=== PATIENT | male | born 1985 | race Caucasian/White ===

== ENCOUNTER → 2019-12-11 | Outpatient (CLI) | payer SELFPAY ==
[2019-12-11 14:52] LABS: Absolute Lymphocyte Count 2.09 X10^3/uL (0.83-4.51); Basophil# 0.05 X10^3/uL; Basophil% 0.6 % (0-1); Eosinophil# 0.19 X10^3/uL; Eosinophils% 2.4 % (0-5); Hematocrit 49.8 % (40-54); Hemoglobin 16.3 g/dL (13.0-16.5); Lymphocyte # 2.09 X10^3/ul (4.0); Lymphocyte % 26.3 % (19-41); Mean Corp Hgb Conc 32.7 g/dL (32-36); Mean Corpuscular Hgb 29.3 pg (27.0-32.0); Mean Corpuscular Volume 89.4 fL (80-94); Mean Platelet Vol. 9.9 fl (6.2-12.0); Monocyte# 0.51 X10^3/uL; Monocyte% 6.4 % (0-10); NRBC Flagged by Analyzer 0 % (0-5); Neutrophil # 5.04 X10^3/uL (2.7-7.7); Neutrophil % 63.5 % (47-70); Platelet Count 266 K/mm3 (150-450); RBC Distribution Width SD 46.8 fl (35.1-43.9); Red Blood Count 5.57 M/mm3 (4.6-6.2); White Blood Count 7.9 K/mm3 (4.4-11.0)
[2019-12-11 15:26] LABS: AST(SGOT) 13 U/L (15-37); Alanine Aminotransfer ALT/SGPT 17 U/L (16-61); Albumin, Serum 3.8 g/dL (3.2-5.0); Alkaline Phosphatase 66 U/L (45-117); Anion Gap 6 (5-15); BUN 11 mg/dL (7-18); BUN/Creat Ratio 11.4 RATIO (10-20); Chloride 108 mmol/L (98-107); Cholesterol 172 mg/dL (200); Creatinine, Serum 0.96 mg/dL (0.70-1.30); EST Glomerular Filtration Rate 95 mL/min (>60); Est Glom Filt Rate - Afr Amer 115 mL/min (>60); Globulin 3.8 g/dL (2.2-4.2); Glucose 86 mg/dL (74-106); High Density Lipoprotein 46 mg/dL; Potassium 3.9 mmol/L (3.5-5.1); Protein, Total 7.6 g/dL (6.4-8.2); Sodium Level 140 mmol/L (136-145); T4 Free Direct 0.94 ng/dL (0.76-1.46); Thyroid Stim Hormone (TSH) 0.82 uIU/mL (0.358-3.74); Triglycerides 61 mg/dL; Very Low Density Lipoprotein 12 mg/dL (5-40)
[2019-12-11 15:28] LABS: Hemoglobin A1c 5.2 % (3.8-5.6)
[2019-12-11 16:01] LABS: HIV - WCH Non-Reactive (Nonreactive); Hepatitis C Antibody Non-Reactive (Nonreactive); Vitamin D,25 Hydroxy 25.2 ng/mL
[2019-12-18 03:02] LABS: Rapid Plasmin Reagin (RPR) NONREACTIVE (NONREACTIVE)
== END | disposition home or self-care (01) ==
LOC: LABSPEC 14:00 → LAB 15:50
PROVIDERS: Referring Provider Nurse Practitioner Family; Visit Provider Nurse Practitioner Family
CPT/HCPCS: 36415; 80053; 80061; 82306; 83036; 84439; 84443; 85025; 86592; 86703; 86803

== ENCOUNTER → 2021-02-23 | Outpatient (CLI) | payer OTHER, SELFPAY | END | disposition home or self-care (01) | PROVIDERS: Referring Provider Physician Assistant; Visit Provider Physician Assistant | DX: Z11.52 Encounter for screening for COVID-19 (principal) | CPT/HCPCS: 87635; U0005; U0003 ==

== ENCOUNTER 2022-09-04 10:49 | Emergency (ER) | payer OTHER, SELFPAY ==
[2022-09-04 10:49] VITALS: BP 148/102; PULSE 57; RESP 14; TEMP 35.7; O2SAT 97
--- NOTE | 2022-09-04 11:07 | EX.ED.DYSGE1 ---
HPI History of Present Illness Chief Complaint: GI Bleed [facility] Medical History (Updated 09/04/22 @ 13:[address] Filiberto Power, DO) Anxiety COVID-19 Depression Encounter for screening for COVID-19 Herpes simplex type 1 infection Home Medications acyclovir 800 mg tablet 800 mg PO BID #60 tabs 09/01/21 [Rx Last Taken Unknown] nirmatrelvir 300 mg (150 mg x2)-ritonavir 100 mg tablet,dose pack (Paxlovid) See Rx Instructions PO .COMPLEX #30 tabs 09/01/21 [Rx Last Taken Unknown] prednisone 10 mg tablet 10 mg PO .COMPLEX #30 tabs 09/03/22 [Rx Last Taken Unknown] bupropion HCl 150 mg 24 hr tablet, extended release mg PO 09/04/22 [History Last Taken Unknown] bupropion HCl 300 mg 24 hr tablet, extended release mg PO 09/04/22 [History Last Taken Unknown] cephalexin 500 mg capsule 500 mg PO TID 5 days #15 caps 09/04/22 [Rx Last Taken Unknown] hydroxyzine HCl 25 mg tablet mg 09/04/22 [History Last Taken Unknown] ondansetron 4 mg disintegrating tablet 4 mg PO Q8H PRN nausea and vomiting 5 days #15 tabs 09/04/22 [Rx Last Taken Unknown] oxycodone 5 mg capsule 5 mg PO Q6H PRN pain 5 days #20 caps 09/04/22 [Rx Last Taken Unknown] Allergy/AdvReac Type Severity Reaction Status Date / Time No Known Allergies Allergy Verified 09/04/22 10:49 Social History Smoking Status: Former smoker EXAM Physical Exam Const Vital Signs: 09/04/22 10:49 09/04/22 12:38 09/04/22 14:06 Temperature 96.2 F L 98.1 F Temperature Source Temporal Oral Pulse Rate 57 L 68 97 Respiratory Rate 14 14 18 Blood Pressure 148/102 H 125/90 H 141/80 H Blood Pressure Mean 117 101 Pulse Ox 97 100 99 Oxygen Delivery Method Room Air Room Air MDM MDM MDM Narrative Medical decision making narrative: HISTORY OF PRESENT ILLNESS: 36-year-old male here for abdominal pain concern for GI bleeding. Patient states he is got left-sided abdominal pain rating to left flank. Denies history of kidney stones. Denies history abdominal surgeries. Notes nausea but no vomiting. Denies any chest pain or shortness of breath. Denies any testicular pain or testicular lesions. Does note increased frequency of urination and burning with urination. REVIEW OF SYSTEMS: Pertinent positives: Abdominal pain, frequency, urgency, hematochezia Pertinent negatives: Chest pain, syncope PHYSICAL EXAM: Nursing triage notes reviewed, Vital signs reviewed Constitutional: please see mdm HENT: MMM Eyes: Pupils equal round and reactive to light, Extraocular muscles intact Neck: No stridor, no JVD, full neck ROM Lungs: Clear to auscultation, No wheezing or rales. No increased work of breathing, no conversational dyspnea, no accessory muscle use, no nasal flaring. No respiratory distress noted Heart: Regular rate and rhythm, No murmurs, No rubs and No gallops, 2+ distal pulses (radial, femoral, posterior tibial) in all extremities Abdomen: Soft, there is left lower quadrant tenderness, rigidity, rebound or guarding, no obvious peritoneal signs, no palpable pulsatile abdominal masses, no auscultated abdominal bruit : Left-sided CVAT Extremities: No edema Neuro: No focal neurological deficits, cranial nerves II through XII intact, 5/5 strength in all extremities. Intact sensation to light touch in all extremities, 2+ reflexes bilateral patella tendons. Normal gait. No ataxia. Skin: No rash or lesions noted MEDICAL DECISION MAKING: Chief Complaint: Abdominal pain External records reviewed: No recent advanced imaging of the abdomen or pelvis noted Factors affecting care: none Social determinants of health: none History obtained from others: none Consults: none ALL IMAGES (IF OBTAINED) HAVE BEEN PERSONALLY REVIEWED AND INTERPRETED BY MYSELF. CBC with mild leukocytosis suggestive of systemic inflammation, no significant anemia, no thrombocytopenia BMP without significant electrolyte abnormalities, no anion gap to suggest endorgan hypoperfusion, mild renal insufficiency LFTs show no evidence of hepatobiliary pathology. Lipase is wnl indicating no pancreatic inflammation. Urine with evidence of inflammation and hematuria likely secondary to kidney stone will give antibiotics as I cannot completely rule out infection [facility] Narrative: Patient was hemodynamically stable, afebrile, nontoxic-appearing. Abdominal exam with left lower quadrant tenderness, left CVA tenderness I considered the following differential diagnosis: Diverticulitis, GI bleed, pyelonephritis, nephrolithiasis I obtained a broad lab and imaging work-up to further elucidate the etiology of the patient's complaint. CT scan showed evidence of nephrolithiasis. This is likely the cause of the patient's left lower quad abdominal pain/flank pain. Kidney stone is small and distal and likely will pass on its own. He was also subsequently found to have a GI bleed without significant anemia. He is not currently on blood thinners. He is not at high risk he is appropriate for follow-up with GI as an outpatient. I did give the patient oral narcotics, Zofran, tamsulosin. I gave GI referral. The patient and/or family, caregivers express understanding. The patient and/or family, caregivers agrees with the plan. Total critical care time today provided was at least 0 minutes. This excludes separately billable procedures. Critical care time (if documented) is secondary to the patient having high probability of clinically significant/life threatening deterioration in the patient's condition which required my urgent intervention. Shared decision making: I will have a discussion with the patient and or visitors regarding risk/benefits of further testing or admission. They will be made aware of of the risk/benefits inherent in this decision they will be given the opportunity to voice understanding. Lab Data Attestation: I reviewed the patient's lab results. Labs: Laboratory Results - last 24 hr 09/04/22 11:50 WBC 11.2 H RBC 5.37 Hgb 15.5 Hct 47.2 MCV 87.9 MCH 28.9 MCHC 32.8 RDW Std Deviation 44.0 H RDW Coeff of Larry 13.7 Plt Count 254 MPV 9.5 Immature Gran % (Auto) 1.200 H Neut % (Auto) 77.2 H Lymph % (Auto) 14.9 L [place] % (Auto) 6.0 Eos % (Auto) 0.3 Baso % (Auto) 0.4 Absolute Neuts (auto) 8.7 H Absolute Lymphs (auto) 1.68 Nucleated RBC % 0 Sodium 141 Potassium 4.2 Chloride 111 H Carbon Dioxide 26.0 Anion Gap 4 L BUN 19 H Creatinine 1.51 H Estim Creat Clear Calc 79.39 Est GFR (MDRD) Af Amer 68 Est GFR (MDRD) Non-Af 56 L BUN/Creatinine Ratio 12.6 Glucose 110 H Calcium 9.0 Total Bilirubin 0.20 Direct Bilirubin 0.09 AST 20 ALT 33 Alkaline Phosphatase 89 Total Protein 7.5 Albumin 3.6 Globulin 3.9 Lipase 43 Urine Color Yellow Urine Clarity Sl. Cloudy Urine pH 5.0 Ur Specific [place] 1.030 Urine Protein 30 H Urine Glucose (UA) Normal Urine Ketones 15 H Urine Occult Blood 250 H Urine Nitrite Negative Urine Bilirubin Negative Urine Urobilinogen 4 H Ur Leukocyte Esterase 100 H Urine RBC > 100 SEEN Urine WBC 0-5 SEEN Ur Squamous Epith Cells 0-5 SEEN Calcium Oxalate Crystal 1+ Urine Bacteria 0 SEEN Urine Mucus 0 SEEN Radiography Diagnostic Testing: Clinical Impression(s) from Imaging Studies Abdomen/Pelvis CT 09/04/22 11:33 IMPRESSION: Mild degree of left hydronephrosis and hydroureter due to a recently passed 2 mm calculus. The calculus is lying along the posterior aspect of the bladder on the left side. Tiny nonobstructive left intrarenal calculi. Electronically Signed: Raul Bah MD at 13:32 EDT , Discharge Plan Triage Chief Complaint: GI Bleed Other Complaint: Abd Pain ED Provider: iFliberto Power Dx/Rx/DC Orders Clinical Impression: Kidney stone, Acute GI bleeding Instructions: ED Kidney Stone Undescended No ..., ED Lower GI Bleeding (Stable) Prescriptions: New oxycodone 5 mg capsule 5 mg PO Q6H PRN (Reason: pain) 5 Days Qty: 20 0RF ondansetron 4 mg tablet,disintegrating 4 mg PO Q8H PRN (Reason: nausea and vomiting) 5 Days Qty: 15 0RF cephalexin 500 mg capsule 500 mg PO TID 5 Days Qty: 15 0RF No Action acyclovir 800 mg tablet 800 mg PO BID Qty: 60 0RF Paxlovid 300 mg (150 mg x 2)-100 mg tablet See Rx Instructions PO .COMPLEX Qty: 30 0RF Rx Instructions: take TWO 150 mg tablets of nirmatrelvir with ONE 100 mg tablet of ritonavir twice daily for 5 days PO prednisone 10 mg tablet 10 mg PO .COMPLEX Qty: 30 0RF Rx Instructions: Take 4 pills for 3 days, 3 pills for 3 days, 2 pills for 3 days, take 1 pill for 3 days hydroxyzine HCl 25 mg tablet bupropion HCl 300 mg tablet extended release 24 hr PO bupropion HCl 150 mg tablet extended release 24 hr PO Stand Alone Forms: ED Work / School Excuse Primary Care Provider: Nya Santillan Referrals: Friend,DO Ishan [[facility] Staff - Active Staff] - [facility] [Non-Staff] - Activity Restrictions/Additional Instructions: Thank you for trusting us with your care today! Please take Tylenol (2 pills, 650 mg), ibuprofen (2 pills, 400 mg) every 6 hours as needed for pain and fever control. Please take oxycodone every 6 hours for breakthrough pain if the above regimen does not control your symptoms. Please take your antibiotic as prescribed. Please finish entire course. Please return to the emergency department if your symptoms change or worsen. Specifically do not urinate for greater than 12 hours, your pain is not controlled by the oral medicines that been prescribed or if you develop vomiting cannot tolerate oral medicines by mouth. Please follow with your primary care physician for further outpatient evaluation and management. Disposition Disposition: Home, Self Care Discharge Date/Time: 09/04/22 14:11
--- NOTE | 2022-09-04 11:33 | CT_ITS ---
STUDY: CT ABDOMEN AND PELVIS WITH CONTRAST REASON FOR EXAM: Male, 36 years old. LLQ abdominal pain. GI bleed. RADIATION DOSAGE (If Supplied By Facility): CTDIvol = ( 14.00 ) mGy, DLP = ( 1223.50 ) mGycm TECHNIQUE: Transaxial images were obtained from the dome of the diaphragm to the symphysis pubis without oral contrast. IV 100mL Isovue-300 was administered. Sagittal and coronal images were reconstructed. Individualized dose optimization techniques were used for this CT. COMPARISON: None. FINDINGS: The visualized lung bases are unremarkable. The visualized portions of the heart are within normal limits. Normal liver. Normal gallbladder and extrahepatic biliary system. Normal spleen. Normal pancreas. Normal bilateral adrenal glands. 2 mm nonobstructive calculus in the anterior aspect of the right kidney superiorly. Punctate calculus in the posterior lower pole calyx of the left kidney. Punctate calculus in the anterior midpole calyx of the left kidney. Mild degree of left perinephric stranding. Mild degree of left hydronephrosis and left hydroureter. A 2 mm calculus is seen at the base of the bladder on the left side. This is suggestive of recently passed calculus. Normal visualized stomach. Normal small intestine. Normal colon. The appendix is visualized and appears normal. There is scattered atherosclerotic calcification of the abdominal aorta, without a demonstrated aneurysm. Normal inferior vena cava. Normal retroperitoneum. Mild degree of bladder wall thickening although the lateral is not completely distended. Small benign-appearing bilateral inguinal lymph nodes. Normal abdominal wall. Normal osseous structures. CT/Abdomen/Pelvis W IV Cont ONLY IMPRESSION: Mild degree of left hydronephrosis and hydroureter due to a recently passed 2 mm calculus. The calculus is lying along the posterior aspect of the bladder on the left side. Tiny nonobstructive left intrarenal calculi. Electronically Signed: Raul Bah MD at 13:32 EDT ,
[2022-09-04] MEDS: 0.9% Normal Saline 1,000 ML 1000 ML IV (11:46)
[2022-09-04] MEDS: Ondansetron 4 MG/2 ML Vial IV (11:47)
[2022-09-04] MEDS: Morphine 4 MG/ML Syringe IV (11:48)
[2022-09-04 11:57] LABS: Bacteria 0 SEEN /hpf (None Seen); Mucous, Urine 0 SEEN /hpf (<or=2+)
[2022-09-04 12:01] LABS: Absolute Lymphocyte Count 1.68 X10^3/uL (0.83-4.51); Absolute Neutrophil Count 8.7 X10^3/uL (2.0-7.7); Basophil# 0.05 X10^3/uL; Basophil% 0.4 % (0-1); Eosinophil# 0.03 X10^3/uL; Eosinophils% 0.3 % (0-5); Hematocrit 47.2 % (40-54); Hemoglobin 15.5 g/dL (13.0-16.5); Lymphocyte # 1.68 X10^3/ul (0.83-4.51); Lymphocyte % 14.9 % (19-41); Mean Corp Hgb Conc 32.8 g/dL (32-36); Mean Corpuscular Hgb 28.9 pg (27.0-32.0); Mean Corpuscular Volume 87.9 fL (80-94); Mean Platelet Vol. 9.5 fl (6.2-12.0); Monocyte# 0.68 X10^3/uL; NRBC Flagged by Analyzer 0 % (0-5); Neutrophil # 8.66 X10^3/uL (2.7-7.7); Neutrophil % 77.2 % (47-70); Platelet Count 254 K/mm3 (150-450); RBC Distribution Width CV 13.7 % (11.6-14.6); Red Blood Count 5.37 M/mm3 (4.6-6.2); White Blood Count 11.2 K/mm3 (4.4-11.0)
[2022-09-04 12:06] LABS: Color, Urine Yellow (Yellow); Glucose, Dipstick Normal (Normal); Ketone-Dipstick 15 mg/dl (Negative); Leukocyte Esterase-Dipstick 100 /ul (Negative); Nitrite-Dipstick Negative (Negative); Occult Blood-Urine 250 /ul (Negative); Protein-Dipstick 30 mg/dl (Negative); Urine Bilirubin Dipstick Negative (Negative); Urine Clarity Sl. Cloudy (Clear); Urine Urobilinogen 4 mg/dl (Normal)
[2022-09-04 12:14] LABS: Red Blood Cells-Urine > 100 SEEN /hpf (0-5); Squamous Epithelial Cells - UA 0-5 SEEN /hpf (0-5); White Blood Cells 0-5 SEEN /hpf (0-5)
[2022-09-04 12:15] LABS: Calcium Oxalate Crystals Ur 1+ /hpf (<or=2+)
[2022-09-04 12:23] LABS: AST(SGOT) 20 U/L (15-37); Alanine Aminotransfer ALT/SGPT 33 U/L (16-61); Albumin, Serum 3.6 g/dL (3.2-5.0); Alkaline Phosphatase 89 U/L (45-117); Anion Gap 4 (5-15); BUN 19 mg/dL (7-18); BUN/Creat Ratio 12.6 RATIO (10-20); Bilirubin, Direct 0.09 mg/dL (0.00-0.30); Chloride 111 mmol/L (98-107); Creatinine, Serum 1.51 mg/dL (0.70-1.30); EST Glomerular Filtration Rate 56 mL/min (>60); Est Glom Filt Rate - Afr Amer 68 mL/min (>60); Estimated Creatinine Clearance 79.39 ml/min; Globulin 3.9 g/dL (2.2-4.2); Glucose 110 mg/dL (74-106); Lipase 43 U/L (13-75); Potassium 4.2 mmol/L (3.5-5.1); Protein, Total 7.5 g/dL (6.4-8.2); Sodium Level 141 mmol/L (136-145)
[2022-09-04 12:38] VITALS: BP 125/90; PULSE 68; RESP 14; TEMP 36.7; O2SAT 100
[2022-09-04] MEDS: 0.9% Normal Saline 1,000 ML 999 ML IV (12:39)
[2022-09-04 14:06] VITALS: BP 141/80; PULSE 97; RESP 18; O2SAT 99
== END 2022-09-04 14:11 | disposition home or self-care (01) ==
PROVIDERS: Emergency Provider Emergency Medicine; PCP Internal Medicine; Visit Provider Emergency Medicine
DX: N13.2 Hydronephrosis with renal and ureteral calculous obstruction (principal); R35.0 Frequency of micturition; Z87.891 Personal history of nicotine dependence
CPT/HCPCS: 74177; 80048; 80076; 81001; 82274; 83690; 85025; 96361; 96374; 96375; 99283; J7030; Q9967; J2405

== ENCOUNTER 2024-10-25 13:22 | Emergency (ER) | payer OTHER, SELFPAY ==
[2024-10-25 13:23] VITALS: BP 137/104; PULSE 67; RESP 16; TEMP 37.2; O2SAT 100; BMI 30.6
[2024-10-25 14:23] VITALS: BP 148/85; PULSE 65; RESP 18; O2SAT 99
--- NOTE | 2024-10-25 14:24 | ED.VIS.GI ---
HPI HPI - GI History of Present Illness Chief Complaint: Abd Pain Detail of Chief Complaint: Right flank pain around 11 AM. History of prior kidney stone. Informant: patient Abdominal Pain/Flank Pain Onset: Today and Hours Quality: Sharp Location: Right Flank Current Severity: Moderate Maximum Severity: Moderate Worsened by: Nothing Relieved by: Nothing Nausea/Vomiting/Emesis GI Symptom: Positive for Nausea and Vomiting Onset: Today Severity: Mild Diarrhea/Melena/Hematochezia GI Symptom: Negative for Diarrhea, Melena or Hematochezia Associated Symptoms Associated Symptoms: Negative for Dysuria, Frequency, Hematuria or Urgency Narrative Narrative: 39-year-old male complains of the right flank pain 11 AM today. Associated nausea vomiting. No fever. No diarrhea. No dysuria. Prior kidney stone but said he did not feel anything like this pain. No prior abdominal surgeries. Denies recent illness. Prior similar symptoms: No Recent Illness/Hospitalization: No PFSH [facility] Medical History Anxiety Depression Herpes simplex type 1 infection COVID-19 Encounter for screening for COVID-19 Home Medications ?Medication ?Instructions ?Recorded ?Last Taken ?Type acyclovir 800 mg tablet 800 mg PO BID #60 tabs 09/01/21 Unknown Rx nirmatrelvir 300 mg (150 mg See Rx Instructions PO .COMPLEX 09/01/21 Unknown Rx x2)-ritonavir 100 mg tablet,dose #30 tabs pack (Paxlovid) prednisone 10 mg tablet 10 mg PO .COMPLEX #30 tabs 09/03/22 Unknown Rx bupropion HCl 150 mg 24 hr tablet, mg PO 09/04/22 Unknown History extended release bupropion HCl 300 mg 24 hr tablet, mg PO 09/04/22 Unknown History extended release cephalexin 500 mg capsule 500 mg PO TID 5 days #15 caps 09/04/22 Unknown Rx hydroxyzine HCl 25 mg tablet mg 09/04/22 Unknown History ondansetron 4 mg disintegrating 4 mg PO Q8H PRN nausea and 09/04/22 Unknown Rx tablet vomiting 5 days #15 tabs oxycodone 5 mg capsule 5 mg PO Q6H PRN pain 5 days #20 09/04/22 Unknown Rx caps ondansetron 8 mg disintegrating 8 mg PO Q8H PRN nausea and 10/25/24 Unknown Rx tablet vomiting #7 tabs oxycodone 5 mg tablet 5 mg PO Q4H PRN pain 3 days #12 10/25/24 Unknown Rx tabs tamsulosin 0.4 mg capsule (Flomax) 0.4 mg PO DAILY 3 days #3 caps 10/25/24 Unknown Rx Allergy/AdvReac Type Severity Reaction Status Date / Time No Known Allergies Allergy Verified 10/25/24 13:24 Social History Smoking Status: Former smoker ROS ROS ED ROS Narrative Right flank pain. Nausea vomiting. Constitutional Constitutional ED: Denies chills or fever(s) ENT ENT ED: Denies ear pain Cardiovascular Cardiovascular: Denies chest pain Respiratory/Chest Respiratory/Chest: Denies cough or dyspnea Gastrointestinal Gastrointestinal: Reports abdominal pain, nausea and vomiting; Denies constipation, diarrhea or melena Genitourinary Genitourinary ED: Denies dysuria or hematuria Musculoskeletal Musculoskeletal: Denies arthralgias or back pain Integumentary Denies abscess or Abrasions Neurologic Neurologic: Denies headache(s) Psychiatric Psychiatric: Denies anxiety or depression Endocrine Endocrinology: Denies polydipsia or polyphagia Hematologic/Lymphatic Hematologic/Lymphatic: Denies easy bleeding or easy bruising Allergic/Immunologic Allergic/Immunologic ED: Denies mouth swelling, tongue swelling or urticaria EXAM Physical Exam Narrative Exam Narrative: 39-year-old male lying in bed at bedside. Vital signs stable afebrile. Does not look septic or toxic. He is complaining of right flank pain. H EENT exam pupils round react light. moist mucous membranes. Members. Neck nontender no JVD. Lungs clear to auscultation bilaterally. Heart regular rhythm no murmur rate about 70. Chest wall ribs nontender. Abdomen soft, nontender nondistended normal bowel sounds no reproducible pain. No peritoneal signs. No bruising. Back nontender. No CVA tenderness. Moving all 4 extremities. Nontender no edema no cords. Neurologically is awake alert. Answer questions following commands. Const Vital Signs: 10/25/24 13:23 10/25/24 14:23 10/25/24 15:00 Temperature 98.9 F Temperature Source Oral Pulse Rate 67 65 59 L Respiratory Rate 16 18 22 H Blood Pressure 137/104 H 148/85 H 134/85 H Blood Pressure Mean 115 106 101 Pulse Ox 100 99 97 Oxygen Delivery Method Room Air Room Air Room Air 10/25/24 15:25 Temperature Temperature Source Pulse Rate 63 Respiratory Rate 16 Blood Pressure 134/87 H Blood Pressure Mean 102 Pulse Ox 96 Oxygen Delivery Method Room Air Positive well nourished and well developed; Negative for cachectic, contractures or unkempt General Appearance ED: well developed and NAD; Negative for unkempt, cachectic, contractures or pallor Nutritional Appearance: Negative for cachectic HEENT Reports moist mucous membranes normocephalic and atraumatic Eyes PERRL and EOMs intact bilaterally Neck no lymphadenopathy, supple and no JVD Resp normal respiratory effort and clear to auscultation bilaterally Cardio regular rate, regular rhythm, S1 normal heart sound, S2 normal heart sound and no murmurs GI non-tender, non-distended and no masses Auscultation: normoactive bowel sounds Palpation: soft; Negative for tender, guarding, hernia, mass, pulsatile mass or rebound tenderness present Back/Spine no CVA tenderness General Back: Negative for CVA tenderness Cervical Spine: Negative for cervical spine tenderness Thoracic Spine / Upper Back: Negative for thoracic spinal tenderness Lumbar Spine / Lower Back: Negative for lumbar spinal tenderness Extremity full ROM General Extremety ED: Negative for edema or tenderness General Extremity: Negative for edema Neuro CN's II-XII intact bilaterally, moves all extremities and no sensory deficits noted Sensorium / Orientation: alert, oriented to person, oriented to place and oriented to time Motor Exam: strength 5/5 throughout Psych mental status grossly normal and thought process normal Appearance: Negative for unkempt Skin no wounds General Skin Exam: Negative for jaundice or pallor Lesions: no lesions Rashes: no rashes MDM MDM MDM Narrative Medical decision making narrative: 39-year-old male right flank pain suspect kidney stone. Treated with morphine, Toradol and Zofran. IV fluids. CAT scan labs. Repeat exam around 3:20 PM. Patient is pain is resolved currently is resting comfortably while waiting on the official CT report. I think he is got a distal right ureteral calculi. His labs are unremarkable. He has not given a urine sample yet. History & Record Review Discussion w/independent historian: Patient and Family Additional record(s) reviewed:: Prior inpatient record, Prior outpatient record, Prior ED visit and Prior labs Lab Data Attestation: I reviewed the patient's lab results. Lab results narrative: CBC normal. White count 9. H&H 15 and 44. CAT scan looks like a distal right ureteral calculi awaiting official read. Chemistry shows sodium 139. Gap 13. BUN/creatinine normal. Liver enzymes normal. Lipase normal at 26. Urinalysis shows 250 occult blood in the macro no nitrates. Notable white cells. Greater than 100 red cells. 2+ bacteria. Labs: Laboratory Results - last 24 hr 10/25/24 10/25/24 13:32 15:47 WBC 9.9 RBC 5.26 Hgb 15.3 Hct 44.6 MCV 84.8 MCH 29.1 MCHC 34.3 RDW Std Deviation 42.6 RDW Coeff of Larry 13.8 Plt Count 282 MPV 10.2 Immature Gran % (Auto) 0.600 Neut % (Auto) 70.4 H Lymph % (Auto) 19.1 [place] % (Auto) 7.9 Eos % (Auto) 1.6 Baso % (Auto) 0.4 Absolute Neuts (auto) 7.0 Absolute Lymphs (auto) 1.89 Nucleated RBC % 0 Sodium 139 Potassium 3.9 Chloride 105 Carbon Dioxide 20.4 L Anion Gap 13 BUN 16 Creatinine 1.14 Estim Creat Clear Calc 118.24 Est GFR (MDRD) Non-Af 83 BUN/Creatinine Ratio 13.6 Glucose 105 H Calcium 9.4 Total Bilirubin 0.33 AST 21 ALT 18 Alkaline Phosphatase 75 Total Protein 7.2 Albumin 4.2 Globulin 3.0 Albumin/Globulin Ratio 1.4 Lipase 26 Urine Color Yellow Urine Clarity Sl. Cloudy Urine pH 6.0 Ur Specific [place] 1.015 Urine Protein 30 H Urine Glucose (UA) Normal Urine Ketones Negative Urine Occult Blood 250 H Urine Nitrite Negative Urine Bilirubin Negative Urine Urobilinogen Normal Ur Leukocyte Esterase Negative Urine RBC > 100 SEEN Urine WBC 0-5 SEEN Ur Squamous Epith Cells 0-5 SEEN Urine Bacteria 2+ Urine Mucus 1+ Discharge Plan Triage Chief Complaint: Abd Pain ED Provider: Mario Alberto Blankenship Dx/Rx/DC Orders Clinical Impression: Acute flank pain, Kidney stone Instructions: ED Kidney Stone with Pain Prescriptions: New oxycodone 5 mg tablet 5 mg PO Q4H PRN (Reason: pain) 3 Days Qty: 12 0RF ondansetron 8 mg tablet,disintegrating 8 mg PO Q8H PRN (Reason: nausea and vomiting) Qty: 7 0RF tamsulosin [Flomax] 0.4 mg capsule 0.4 mg PO DAILY 3 Days Qty: 3 0RF No Action acyclovir 800 mg tablet 800 mg PO BID Qty: 60 0RF Paxlovid 300 mg (150 mg x 2)-100 mg tablet See Rx Instructions PO .COMPLEX Qty: 30 0RF Rx Instructions: take TWO 150 mg tablets of nirmatrelvir with ONE 100 mg tablet of ritonavir twice daily for 5 days PO prednisone 10 mg tablet 10 mg PO .COMPLEX Qty: 30 0RF Rx Instructions: Take 4 pills for 3 days, 3 pills for 3 days, 2 pills for 3 days, take 1 pill for 3 days hydroxyzine HCl 25 mg tablet bupropion HCl 300 mg tablet extended release 24 hr PO bupropion HCl 150 mg tablet extended release 24 hr PO oxycodone 5 mg capsule 5 mg PO Q6H PRN (Reason: pain) 5 Days Qty: 20 0RF ondansetron 4 mg tablet,disintegrating 4 mg PO Q8H PRN (Reason: nausea and vomiting) 5 Days Qty: 15 0RF cephalexin 500 mg capsule 500 mg PO TID 5 Days Qty: 15 0RF Primary Care Provider: Nya Santillan Referrals: Joel Oglesby MD [Med Staff - Active Staff] - 3-5 Days if not improving Nya Santillan MD [Primary Care Provider] - Activity Restrictions/Additional Instructions: Plenty of fluids and rest. Motrin and oxycodone for pain. Return if increasing pain, fever or intractable vomiting. Zofran as needed for nausea. Flomax 1 pill daily to help the stone pass. Print Language: Irish Disposition Disposition: Home, Self Care
[2024-10-25] MEDS: Ketorolac 30 MG/ML Syringe IV (14:30)
[2024-10-25] MEDS: 0.9% Normal Saline (1000mL) 1,000 ML 999 ML IV (14:30)
--- NOTE | 2024-10-25 14:37 | CT_ITS ---
PROCEDURE: ABDOMEN/PELVIS WITHOUT CONT 10/25/2024 REASON FOR EXAM: PAIN TECHNIQUE: Procedure Code: CTABD PEL Modality: CT Procedure: ABDOMEN/PELVIS WITHOUT CONT Noncontrast technique limits evaluation of the abdominal and pelvic viscera. Coronal and Sagittal reconstruction series were provided. One or more dose reduction techniques were used (e.g., Automated exposure control, adjustment of the mA and/or kV according to patient size, use of iterative reconstruction technique). RADIATION DOSE SUMMARY: CTDlvol: 16.51 and 10.11 mGy DLP: 1045.77 mGycm COMPARISON: CT 09/04/2022 FINDINGS: Lung bases: Clear. Liver: Normal Gallbladder: Unremarkable Spleen: Normal Pancreas: Normal Adrenals: Normal Kidneys: Multiple nephroliths 4-5 mm in size. In the distal 3rd of the right ureter there is a 4 mm stone causing mild hydroureteronephrosis Bladder: Unremarkable Reproductive Organs: Normal Bowel: Unremarkable Appendix: Normal Lymph nodes: No lymphadenopathy Vasculature: Occasional calcific plaques Peritoneum / Retroperitoneum: No free air or free fluid Bones: No aggressive process CT/Abdomen/Pelvis without Cont IMPRESSION: A 4 mm urolith is identified in the distal 3rd of the right ureter producing mi ld hydroureteronephrosis Three 4 mm nonobstructing nephroliths left kidney Reading [facility]
--- OUTSIDE RECORDS SUMMARY | 2024-10-25 14:45 | XMS RPT_ITS | CCD ---
Author Organization [facility] Care Team Providers Care Puppet Developer Name Role Phone Derek Birmingham Unavailable Unavailable PROVIDER, UNKNOWN Unavailable Unavailable No, PCP Unavailable Unavailable Unavailable Primary Care Provider Unavailabl e Deven Santillan MD Primary Care Provider Deven Santillan MD Primary Care Provider [facility], Linda Chaney Primary Care Pro vider [facility], Linda Chaney Referring Provid er MAO Wells Attending Provider [facility], Linda Chaney Primary Care Unavailable [facility], Linda Chaney Referring Unavailable Gissell Wells Attending Unavail able Filiberto Power Attending Unavailable Talampdung, Deven D Primary Care Unavailable Deven Santillan MD Primary Care Provider Hager PASTRY MIXER.UNDERGRADUATE INTERN, Misa Unavailable Vishal PASTRY MIXER.ELECTRIC RAZOR ASSEMBLER, Rosario Unavailable Hager PASTRY MIXER.UNDERGRADUATE INTERN, Misa Unavailable Hager PASTRY MIXER.UNDERGRADUATE INTERN, Misa Unavailable HAGER, MISA Attending Unavailable HAGER, MISA Referring Unavailable TALAMPAS, DEVEN D Primary Care Unavailable JOSE J HORN Attending Unavailable HAGER, MISA Referring Unavailable TALAMPAS, DEVEN D Primary Care Unavailable ROSARIO MOFFETT Attending Unavailable TALAMPAS, DEVEN D Primary Care Unavailable ROSARIO MOFFETT Referring Unavailable TALAMPAS, DEVEN D Primary Care Unavailable HAGER MISA Attending Unavailable TALAMPAS, DEVEN D Primary Care Unavailable HAGER, MISA Referring Unavailable TALAMPAS, DEVEN D Primary Care Unavailable Allergies Allergy Classification Reported Allergen(s) Allergy Type Date of Onset Reaction(s) Facility Mold Extract (1 source) Mold Extract Drug Allergy 2 Unknown [facility] Pollen (1 source) Pollen Substance Allergy 2 Unknown [facility] (20 sources) Mold Extract; Translations: [MOLD] Drug Allergy 2 Unknown [facility] Work Phone: (20 sources) Pollen; Translations: [POLLEN EXTRACTS] Drug Allergy 2 Unknown [facility] Work Phone: (20 sources) Seasonal allergy; Translations: [SEASONAL ALLERGIES] Allergy to substance 2 Other: See Comments [facility] Work Phone: (20 sources) Cat Dander; Translations: [CAT DANDER] Drug Allergy 2 Other: See Comments [facility] Work Phone: Medications Current Medications Medication Drug Class(es) Dates Sig (Normalized) Sig (Original) acyclovir 400 mg oral tablet (20 sources) Herpesvirus Nucleoside Analog DNA Polymerase Inhibitor, Herpes Simplex Virus Nucleoside Analog DNA Polymerase Inhibitor, Herpes Zoster Virus Nucleoside Analog DNA Polymerase Inhibitor Start: 06-30-2022 End: 05-19-2024 take 1 tablet by mouth twice daily acyclovir (ZOVIRAX) 400 mg tablet Take 1 tablet by mouth two times a day. 180 tablet 3 05/19/2024 Active Start: 10-24-2021 take 1 tablet by cindy th twice daily acyclovir (ZOVIRAX) 400 mg tablet Take 1 tablet by mouth twice daily. 180 tablet 3 10/24/2021 Active Start: 09-01-2021 End: 10-24-2021 take 1 tablet by mouth twice daily acyclovir (ZOVIRAX) 800 mg tablet Take 800 mg by mouth twice daily. 0 09/01/2021 10/24/2021 Discontinued (Adjust Sig - Block E-Cancel) Start: 06-14-2021 End: 07-14-2021 take 1 tablet by mouth twice daily acyclovir (ZOVIRAX) 800 mg tablet Take 1 tablet by mouth twice daily. 60 tablet 1 06/14/2021 07/14/2021 Active Comment on above: Take 1 tablet by cindy th twice daily. Take 800 mg by mouth twice daily. Take 1 tablet by cindy th two times a day. [id number] 200 actuat albuterol 0.09 mg/actuat metered dose inhaler (5 sources) beta2-Adrenergic Agonist Start: 025 take 2 puff(s) by inhalation every four hours as needed for wheezing and cough albuterol HFA (PROVENTIL HFA, VENTOLIN HFA) 90 mcg/actuation inhaler Indications: SOBOE (shortness of breath on exertion) Inhale 2 puffs as instructed every 4 hours as needed for wheezing/shortness of breath (and cough). 18 g 1 06/19/2024 Active ascorbic acid 500 mg oral tablet (20 sources) Vitamin C take 1 tablet by mouth once daily ascorbic acid, vitamin C, (VITAMIN C) 500 mg tablet Take 500 mg by mouth once daily. Active Comment on above: Take 500 mg by mouth once daily. budesonide 0.032 mg/actuat metered dose nasal spray (5 sources) Corticosteroid Start: 025 End: 026 take 1 spray(s) nasal route once daily budesonide (RHINOCORT AQ) 32 mcg/actuation nasal spray Indications: Non-seasonal allergic rhinitis, unspecified trigger Use 1 spray in each nostril once daily. 8.6 g 2 06/19/2024 06/19/2025 Active 24 hr buPROPion hydrochloride 300 mg extended release oral tablet (20 sources) Aminoketone Start: Bupropion Hcl Active MG PO September 04, 2022 12:00am Start: 09-04-2022 Bupropion Hcl Active MG PO September 04, 2022 12:00am Start: 01-07-2021 take 1 tablet by cindy th once daily buPROPion XL (WELLBUTRIN XL) 150 mg 24 hr tablet Take 1 tablet by mouth once daily. With 300 MG. 01/07/2021 Active Start: 01-07-2021 take 1 tablet by cindy th once daily buPROPion XL (WELLBUTRIN XL) 300 mg 24 hr tablet Take 1 tablet by mouth once daily. With 150 MG. 01/07/2021 Active Comment on above: Take 1 tablet by cindy th once daily. With 150 MG. Take 1 tablet by cindy th once daily. With 300 MG. busPIRone hydrochloride 10 mg oral tablet (20 sources) Start: 10-10-2021 busPIRone (BUSPAR) 10 mg tablet TAKE 1/2 TABLET TO 2 TABLETS BY MOUTH ONCE DAILY NEEDED 10/10/2021 Active Comment on above: TAKE 1/2 TABLET TO 2 TABLETS BY MOUTH ONCE DAILY NEEDED calcium acetate (20 sources) CALCIUM ACETATE ORAL Take by mouth. Active CALCIUM ACETATE ORAL Take by mouth. 0 Active Comment on above: Take by mouth. cholecalciferol 0.05 mg oral capsule (7 sources) Vitamin D Start: 01-02-20 take 1 capsule by mouth once daily Cholecalciferol, Vitamin D3, 50 mcg (2,000 unit) cap Indications: Vitamin D deficiency Take 1 capsule by mouth once daily. 90 capsule 3 01/02/2024 Active ciclopirox 7.7 mg/ml topical cream (11 sources) Start: 06-21-19 ciclopirox (LOPROX) 0.77 % cream Apply 1 application to affected area two times a day. 90 g 2 06/21/2023 Active diclofenac sodium 75 mg delayed release oral tablet (11 sources) Nonsteroidal Anti-inflammatory Drug Start: 07-18-19 take 1 tablet by mouth twice daily as needed for pain diclofenac, EC, (VOLTAREN) 75 mg EC tablet Take 1 tablet by mouth two times a day. as needed for pain/inflammation. Take with food. 60 tablet 1 07/17/2024 Active Start: 05-24-2023 End: 08-22-2023 Diclofenac Sodium 3 % gel Ap ply 0.5 g to affected area once daily as needed. 100 g 05/24/2023 08/22/2023 Start: 01-01-2023 diclofenac sod ium 1 % kit Apply 1 Application to affected area once daily. 1 Kit 2 01/01/2023 Active Comment on above: Apply 1 Application to affected area once daily. Apply 0.5 g to affec primo area once daily as needed. fluticasone propionate 0.05 mg/actuat metered dose nasal spray (20 sources) Corticosteroid take 1 spray(s) nasal route once daily fluticasone (FLONASE) 50 mcg/actuation nasal spray Use 1 [employer] in each nostril once daily. Active Comment on above: Use 1 [employer] in each nostril once daily. hydrOXYzine hydrochloride 25 mg oral tablet (20 sources) Antihistamine Start: 09-05-19 Hydroxyzine Hcl Active MG September 04, 2022 12:00am Start: 01-07-2021 take 1 tablet by cindy th twice daily hydrOXYzine HCl (ATARAX) 25 mg tablet Take 1 tablet by mouth twice daily. 01/07/2021 Active Comment on above: Take 1 tablet by cindy th twice daily. lidocaine 0.05 mg/mg medicated patch (20 sources) Antiarrhythmic, Amide Local Anesthetic Start: 09-08-19 End: 01-02-20 apply 1 dose transdermal route every twelve hours lidocaine (LIDODERM) 5 % Indications: Neck pain, musculoskeletal , Chronic bilateral thoracic back pain Apply 1 Patch as directed every 12 hours. Remove old patch prior to placing new patch. 30 Patch 2 01/01/2023 Active Comment on above: Apply 1 Patch as dir ected every 12 hours. Remove old patch prior to placing new patch. veanpdiy-elk-rpaw c-vit K-lycop (ONE-A-DAY MEN'S MULTIVITAMIN) 400-20-300 mcg tab (20 sources) xtnjzdmw-kui-irt ic-vit K-lycop (ONE-A-DAY MEN'S MULTIVITAMIN) 400-20-300 mcg tab Take by mouth. Active znltdcel-ehp-fts ic-vit K-lycop (ONE-A-DAY MEN'S MULTIVITAMIN) 400-20-300 mcg tab Take by mouth. 0 Active Comment on above: Take by mouth. Nirmatrelvir-Ritona vir (1 source) Start: 2 Nirmatrelvir-Ritonavi r (Paxlovid (Eua)) 300 mg (150 mg x 2)-100 mg tablet Active 0 PO .COMPLEX September 01, 2021 12:00am take TWO 150 mg tablets of nirmatrelvir with ONE 100 mg tablet of ritonavir twice daily for 5 days PO omeprazole 20 mg delayed release oral capsule (20 sources) Proton Pump Inhibitor Start: 4 take 1 capsule by mouth once daily before breakfast omeprazole (PRILOSEC) 20 mg capsule Take 1 capsule by mouth daily before breakfast. 90 capsule 1 03/19/2023 Active Start: 09-07-2022 End: 11-03-2022 take 1 capsule by mouth once daily before breakfast omeprazole (PRILOSEC) 20 mg capsule Take 1 capsule by mouth daily before breakfast. 90 capsule 1 11/03/2022 Active Comment on above: Take 1 capsule by mo [facility] daily before breakfast. oxyCODONE hydrochloride 5 mg oral capsule (1 source) Opioid Agonist Start: take 5 mg by mouth every six hours Oxycodone Active 5 MG PO EVERY 6 HOURS 20 September 04, 2022 predniSONE 10 mg oral tablet (1 source) Start: Prednisone Active 10 MG PO .COMPLEX September 03, 2022 12:00am Take 4 pills for 3 days, 3 pills for 3 days, 2 pills for 3 days, take 1 pill for 3 days pregabalin 75 mg oral capsule (2 sources) Start: End: take 1 capsule by mouth twice daily pregabalin (LYRICA) 75 mg capsule Indications: Chronic bilateral thoracic back pain , Radiculopathy, cervical region , Cervical spondylosis without myelopathy Take 1 capsule by mouth two times a day for 60 days. 60 capsule 1 09/11/2024 11/10/2024 Active sildenafil 50 mg oral tablet (4 sources) Phosphodiesterase 5 Inhibitor Start: take 1 tablet by mouth once daily as needed, then take 1 tablet by mouth once daily as needed sildenafil (VIAGRA) 50 mg tablet Indications: Erectile dysfunction, unspecified erectile dysfunction type Take 1 tablet by mouth once daily as needed. Take 30-60 minutes before sexual activity. May be taken up to 4 hours before sexual activity. Reduce to 25 mg or one half tablet once daily if side effects occur. 10 tablet 2 07/17/2024 Active Start: 06-19-2024 take 1 tablet by cindy once daily as needed, then take 1 tablet by mouth once daily as needed sildenafil (VIAGRA) 50 mg tablet Indications: Erectile dysfunction, unspecified erectile dysfunction type Take 1 tablet by mouth once daily as needed. Take 30-60 minutes before sexual activity. May be taken up to 4 hours before sexual activity. Reduce to 25 mg or one half tablet once daily if side effects occur. 10 tablet 06/19/2024 Active tiZANidine 4 mg oral capsule (17 sources) Central alpha-2 Adrenergic Agonist Start: 11-08-2023 End: 09-29-2024 take 1 capsule by mouth every eight hours as needed tiZANidine HCl (ZANAFLEX) 4 mg capsule Take 1 capsule by mouth three times a day as needed. 90 capsule 2 09/29/2024 Active Start: 02-20-2023 End: 08-27-2023 take 1 tablet by mouth every eight hours as needed tiZANidine (ZANAFLEX) 4 mg tablet Indications: Chronic bilateral thoracic back pain Take 0.5-1 tablets by mouth every 8 hours as needed. 90 tablet 1 02/20/2023 08/27/2023 Discontinued Comment on above: Take 0.5-1 tablets b y mouth every 8 hours as needed. Completed/Discontinued Medications Medication Drug Class(es) Dates Sig (Normalized) Sig (Original) carbamide peroxide 65 mg/ml otic solution (2 sources) Start: 05-24-2023 End: 05-29-2023 carbamide peroxide (DEBROX) 6.5 % otic solution Indications: Decreased hearing of right ear , Excessive cerumen in both ear canals Use 5 Drops in both ears two times a day for 5 days. 15 mL 1 05/24/2023 05/29/2023 Comment on above: Use 5 Drops in both ears two times a day for 5 days. cephalexin 500 mg oral capsule (7 sources) Cephalosporin Antibacterial Start: 09-04-2022 End: 01-01-2023 cephALEXin (KEFLEX) 500 mg capsule Take by mouth. 0 09/04/2022 01/01/2023 Discontinued Comment on above: Take by mouth. cetirizine hydrochloride 10 mg oral tablet (4 sources) Histamine-1 Receptor Antagonist take 1 tablet by mouth once daily cetirizine (ZYRTEC) 10 mg tablet Take 10 mg by mouth once daily. 0 Active Comment on above: Take 10 mg by mouth once daily. gabapentin 100 mg oral capsule (8 sources) Anti-epileptic Agent Start: 02-20-2023 End: 11-08-2023 take 1 capsule by mouth once daily, then take 1-2 capsules by mouth once daily at bedtime gabapentin (NEURONTIN) 100 mg capsule Indications: Chronic bilateral thoracic back pain Take 1 capsule by mouth once daily AND 1-2 capsules daily at bedtime. Do all this for 90 days. 90 capsule 2 02/20/2023 11/08/2023 Discontinued Start: 02-05-2023 End: 08-04-2023 take 1 capsule by mouth once daily at bedtime gabapentin (NEURONTIN) 300 mg capsule Indications: Chronic bilateral thoracic back pain Take 1 capsule by mouth daily at bedtime for 180 days. 30 capsule 5 02/05/2023 08/04/2023 Active Comment on above: Take 1 capsule by mo ut daily at bedtime for 180 days. Take 1 capsule by mo ut once daily AND 1-2 capsules daily at bedtime. Do all this for 90 days. meloxicam 15 mg oral tablet (14 sources) Nonsteroidal Anti-inflammatory Drug Start: 07-01-19 End: 01-02-20 take 1 tablet by mouth once daily at mealtime meloxicam (MOBIC) 15 mg tablet Indications: Neck pain, musculoskeletal , Chronic bilateral thoracic back pain Take 1 tablet by mouth once daily. Take with food. 30 tablet 1 06/30/2022 01/01/2023 Discontinued Start: 10-24-2021 End: 11-23-2021 take 1 tablet by mouth once daily as needed for pain meloxicam (MOBIC) 15 mg tablet Indications: Chronic wrist pain, left , Cervicalgia Take 1 tablet by mouth once daily. as needed for wrist pain. Take with food. 30 tablet 0 10/24/2021 11/23/2021 Active Comment on above: Take 1 tablet by cindy th once daily. as needed for wrist pain. Take with food. Take 1 tablet by cindy th once daily. Take with food. ondansetron 4 mg disintegrating oral tablet (7 sources) Serotonin-3 Receptor Antagonist Start: 09-04-2022 End: 01-01-2023 ondansetron orally disintegrating (ZOFRAN ODT) 4 mg disintegrating tablet Take by mouth. 0 09/04/2022 01/01/2023 Discontinued Comment on above: Take by mouth. polyethylene glycol 3350 415006 mg / potassium chloride 2970 mg / sodium bicarbonate 6740 mg / sodium chloride 5860 mg / sodium sulfate 90684 mg powder for oral solution (1 source) Osmotic Laxative Start: 09-07-2022 End: 09-07-2022 peg 3350-Electrolytes (GOLYTELY) 236-22.74-6.74 -5.86 gram suspension Indications: Acute GI bleeding Take 4,000 mL by mouth one time only for 1 dose. Refer to printed prep instructions from your provider. 4000 mL 0 09/07/2022 09/07/2022 Comment on above: Take 4,000 mL by cindy one time only for 1 dose. Refer to printed prep instructions from your provider. valACYclovir 1000 mg oral tablet (2 sources) Herpesvirus Nucleoside Analog DNA Polymerase Inhibitor, Herpes Simplex Virus Nucleoside Analog DNA Polymerase Inhibitor, Herpes Zoster Virus Nucleoside Analog DNA Polymerase Inhibitor Start: 04-27-2021 End: 10-24-2021 valACYclovir (VALTREX) 1 gram TAKE 2 TABLETS BY MOUTH EVERY 12 HOURS FOR 1 DAY WHEN YOU HAVE AN OUTBREAK. THIS IS ENOUGH FOR 3 OUTBREAKS 0 04/27/2021 10/24/2021 Discontinued Comment on above: TAKE 2 TABLETS BY MO [facility] EVERY 12 HOURS FOR 1 DAY WHEN YOU HAVE AN OUTBREAK. THIS IS ENOUGH FOR 3 OUTBREAKS Problems Active Problems Problem Classification Problem Date Documented Da te Episodic/Chronic Allergic reactions (2 sources) Inflammatory dermatosis; Translations: [Dermatitis, unspecified] 09-03-2022 Episodic Calculus of urinary tract (4 sources) Kidney stone; Translations: [Calculus of kidney] 09-04-2022 Episodic Diabetes mellitus without complication (1 source) Increased glucose level; Translations: [Other abnormal glucose] 12-28-2023 Episodic Diseases of mouth; excluding dental (1 source) Recurrent aphthous stomatitis; Translations: [Recurrent oral aphthae] Episodic Esophageal disorders (2 sources) Gastroesophageal reflux disease; Translations: [Gastro-esophageal reflux disease without esophagitis] 09-07-2022 Chronic External Injury - Natural / Environment (2 sources) Exposure to other specified factors, initial encounter; Translations: [Exposure to other specified factors, initial encounter] Onset: 7 Gastrointestinal hemorrhage (6 sources) Acute gastrointestinal hemorrhage; Translations: [Gastrointestinal hemorrhage, unspecified] Onset: 3 09-04-2022 Episodic Immunizations and screening for infectious disease (12 sources) Patient encounter status; Translations: [Encounter for immunization] Onset: 5 Episodic Mycoses (1 source) Tinea pedis; Translations: [Tinea pedis] 06-21-2023 Episodic Nutritional deficiencies (3 sources) Vitamin D deficiency; Translations: [Vitamin D deficiency, unspecified] Onset: 4 11-08-2023 Chronic Other connective tissue disease (2 sources) Pain in left foot; Translations: [Pain in left foot] 06-21-2023 Episodic Other connective tissue disease (1 source) Plantar fasciitis of left foot; Translations: [Plantar fascial fibromatosis] 06-21-2023 Episodic Other diseases of kidney and ureters (2 sources) Hydronephrosis; Translations: [Unspecified hydronephrosis] 09-07-2022 Episodic Other lower respiratory disease (1 source) Dyspnea on exertion; Translations: [Shortness of breath] 06-26-2024 Episodic Other lower respiratory disease (1 source) Shortness of breath; Translations: [SOBOE (shortness of breath on exertion)] Onset: Episodic Other male genital disorders (1 source) Male erectile dysfunction, unspecified; Translations: [Erectile dysfunction, unspecified erectile dysfunction type] Onset: 5 Chronic Other nervous system disorders (1 source) Other chronic pain; Translations: [Chronic bilateral thoracic back pain] Onset: 3 Chronic Other non-traumatic joint disorders (1 source) Chronic pain of left upper limb; Translations: [Pain in left wrist] Episodic Other skin disorders (1 source) Rash and other nonspecific skin eruption; Translations: [Rash and other nonspecific skin eruption] 09-03-2022 Episodic Other skin disorders (1 source) Mass of upper limb; Translations: [Localized swelling, mass and lump, upper limb, bilateral] 08-27-2023 Episodic Other skin disorders (1 source) Mass of back; Translations: [Localized swelling, mass and lump, trunk] 08-27-2023 Episodic Other skin disorders (1 source) Mass of hip region; Translations: [Localized swelling, mass and lump, left lower limb] 08-27-2023 Episodic Other upper respiratory disease (2 sources) Allergic rhinitis; Translations: [Other allergic rhinitis] 06-26-2024 Chronic Other upper respiratory disease (1 source) Other allergic rhinitis; Translations: [Non-seasonal allergic rhinitis, unspecified trigger] Onset: 5 Chronic Residual codes; unclassified (1 source) FH: Rheumatoid arthritis; Translations: [Family history of arthritis] 01-01-2023 Episodic Residual codes; unclassified (1 source) Reduced libido; Translations: [Decreased libido] 11-08-2023 Episodic Spondylosis; intervertebral disc disorders; other back problems (5 sources) Cervical spondylosis without myelopathy; Translations: [Spondylosis without myelopathy or radiculopathy, cervical region] Onset: 09-11-2024 Chronic Substance-related disorders (2 sources) Nicotine dependence, unspecified, uncomplicated; Translations: [Nicotine dependence, unspecified, uncomplicated] Onset: Chronic Viral infection (2 sources) Disease caused by 2019-nCoV; Translations: [COVID-19] 09-01-2021 Episodic Past or Other Problems Problem Classification Problem Date Documented Da te Episodic/Chronic Malaise and fatigue (2 sources) Fatigue; Translations: [Other fatigue] Onset: 12-27-2023 11-08-2023 Episodic Other eye disorders (2 sources) Ocular pain, right eye; Translations: [Ocular pain, right eye] Onset: 10-26-2016 Episodic Other screening for suspected conditions (not mental disorders or infectious disease) (1 source) Encounter for screening for lipoid disorders; Translations: [Screening for lipid disorders] Onset: 12-27-2023 Episodic Residual codes; unclassified (1 source) Decreased libido; Translations: [Low libido] Onset: 12-27-2023 Episodic Spondylosis; intervertebral disc disorders; other back problems (20 sources) Neck pain; Translations: [Cervicalgia] Onset: 08-14-2022 Episodic Superficial injury; contusion (2 sources) Injury of conjunctiva and corneal abrasion without foreign body, right eye, initial encounter; Translations: [Inj conjunctiva and corneal abrasion w/o fb, right eye, init] Onset: 10-26-2016 Episodic Results Test Name Value Interpretation Reference Range [facility] ) EMIR [id number]) 1985 M Date Time Provider Department 09/11/24 2:20 PM JOSE J HORN [facility] During your visit today, we recorded the following information about you: Pulse Blood pressure Weight Height 87/minute 118/73 110.6 kg 1.88 m Jose J Horn PA-C 09/11/2024 3:05 PM Signed Jose J Horn [facility] [address] [id number] 09/11/2024 ASSESSMENT AND PLAN: Assessment : Encounter Diagnosis ICD-10-CM 1. Chronic bilateral thoracic back pain M54.6 XR CERV OTHER 4V AP/LAT/FLX/EXT G89.29 CONSULT TO PHYSICAL THERAPY MRI CERVICAL SPINE WO IVCON pregabalin (LYRICA) 75 mg capsule 2. Radiculopathy, cervical region M54.12 XR CERV OTHER 4V AP/LAT/FLX/EXT CONSULT TO PHYSICAL THERAPY MRI CERVICAL SPINE WO IVCON pregabalin (LYRICA) 75 mg capsule 3. Cervical spondylosis without myelopathy M47.812 XR CERV OTHER 4V AP/LAT/FLX/EXT CONSULT TO PHYSICAL THERAPY MRI CERVICAL SPINE WO IVCON pregabalin (LYRICA) 75 mg capsule Discussion: Mr. Rae is a pleasant 38-year-old man here for evaluation of neck and LUE radiating symptoms through the trapezius into the 1st and 2nd digits of the left hand. He has been taking tizanidine and diclofenac for this with mild help. He tried diclofenac gel and it did not work well for him at all. He tried gabapentin in the past for this and he struggled too much with the side effects. He notices increased symptoms when he turns his head to the left and feels pressure and numbness in the arm roughly in C6 distribution. He had PT about 2 years ago but looks like he only attended 3 visits and then stopped on his own. He said that the symptoms were worsening as a result of his physical therapy. He mentioned that his has a number of her own medical needs and he has been attending to her situation quite a bit more recently and that is why he has not kept on with his own care here for this problem. EXAM Highlights: Normal mobilization, stance, gait, balance. He has mild LEFT biceps strength diminishment but other strength is full at 5/5 bilaterally throughout. He has positive Spurling's maneuver with any motion of his neck toward the left or in extension reproducing C6 radiating symptoms on the LEFT side. Neck motion is diminished to the left as expected. Sensory disturbances appear to affect the C6 distribution. IMAGING: I reviewed his prior cervical x-rays with him from June 2022. This showed C5-6 DDD without instability. SUMMARY/PLAN: I would like him to update his x-rays and his PT. He will start Lyrica and gradually ramp his way up and he knows to stay on this on a regular basis. He will obtain cervical MRI study and return to see me afterward. If it confirms C6 radiculopathy on the left, I would probably recommend he consider a cervical epidural for that He indicates that he would like to hopefully avoid any surgical treatment at this point Plan : DIAGNOSTIC TESTING: -X-ray views will be obtained to better evaluate bony structures. -Dynamic plain radiographs of the Cervical spine are ordered. -An MRI is ordered to better delineate the soft tissue structures contributing to the patient's current symptoms, including the intervertebral disks, facet joints, spinal ligaments and neural elements. The study will aid with evaluating the need for, and planning, future interventional procedures. REFERAL FOR SERVICES: -Physical therapy will be instituted. MEDICATIONS: -See prescribed medication list for this encounter. -Nerve membrane stabilizer medication (gabapentin or pregabalin) was prescribed. Off-label use, importance of (and suggested schedule for) ramping and weaning, and expected side effects discussed with the patient during today's visit. ACTIVITY RECOMMENDATIONS: -The patient is encouraged to avoid bed rest and maintain normal activity. FOLLOW-UP: -The patient is instructed to return as needed. This document has been created with the use of voice recognition technology. It may contain inaccuracies: (e.g. misspellings, inaccurate syntax or word sense) that have escaped review. Time spent: 40 minutes today with this patient visit. This includes gyry-tb-sxeb time, review of chart records regarding conservative care history, spine-pertinent imaging, and communication/care coordination with referring provider, problem-specific history-taking and counseling/education regarding treatment options. cc: Misa Hager [address] [place] [phone] Results of consultation to be transmitted via electronic medical record for those providers who practice within [facility] or with access to [employer] via MD Connect, or via letter. (more content not included)... Normal [facility] CNOVon 07-17-2024 CNOV Office Visit (INTMWS ) EMIR RAE ([id number]) 1985 M Date Time Provider Department 07/17/24 1:40 PM MISA HAGER INTMWS During your visit today, we recorded the following information about you: Pulse Respiration Blood pressure Weight 87/minute 16/minute 119/74 113 kg Misa Hager, JERZY.UNDERGRADUATE INTERN 07/17/2024 2:41 PM Signed Subjective Patient ID: Ernesto is a 38 year old male who presents for Follow Up. HPI Ernesto is a 38-year-old male with a history of anxiety, depression, and back pain, presenting for follow-up on anxiety management, back pain, and erectile dysfunction. Anxiety and Depression: - Severe anxiety; Wellbutrin at maximum dose was insufficient for mood stabilization. - Currently taking buspirone and hydroxyzine for anxiety management. - Hydroxyzine also used for allergy management. - Reports improvement in anxiety symptoms. Erectile Dysfunction: - Noted erectile dysfunction potentially related to buspirone. - Tried sildenafil 50 mg with significant improvement in erectile function. - Has an upcoming urology appointment. 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 - Describes pain as a constant sharp, needle-like sensation with pressure, alternating sides. - Pain radiates around the torso. - Currently taking tizanidine daily with uncertain efficacy. - Previously tried meloxicam and naproxen; discontinued due to adverse effects. - Rarely uses Tylenol due to high tolerance developed in childhood. - Has a prescription for gabapentin, but only uses it for severe back pain. - Tried physical therapy with minimal relief; continues some recommended stretches. - Has not seen a patient care specialist due to insurance and cost issues. ROS Constitutional: (+) fatigue Genitourinary: (+) erectile dysfunction Musculoskeletal: (+) back pain Psychiatric: (+) anxiety Objective BP 119/74 Pulse 87 Resp 16 Wt 113 kg (249 lb 1.9 oz) BMI 31.99 kg/m? Physical Exam Vitals and nursing note reviewed. Constitutional: Appearance: Normal appearance. HENT: Head: Normocephalic and atraumatic. Eyes: Conjunctiva/sclera: Conjunctivae normal. Neck: Thyroid: No thyroid mass or thyromegaly. Vascular: Normal carotid pulses. No carotid bruit or JVD. Cardiovascular: Rate and Rhythm: Normal rate and regular rhythm. Pulses: Carotid pulses are 2+ on the right side and 2+ on the left side. Radial pulses are 2+ on the right side and 2+ on the left side. Heart sounds: Normal heart sounds. Pulmonary: Effort: Pulmonary effort is normal. Breath sounds: Normal breath sounds. Abdominal: General: Bowel sounds are normal. Palpations: Abdomen is soft. Musculoskeletal: Right lower leg: No edema. Left lower leg: No edema. Skin: General: Skin is warm and dry. Neurological: General: No focal deficit present. Mental Status: He is alert and oriented to person, place, and time. Latest Ref [facility] 12/27/2023 WBC 3.70 - 11.00 k/uL 6.98 RBC 4.20 - 6.00 m/uL 5.62 Hemoglobin 13.0 - 17.0 g/dL 16.3 Hematocrit 39.0 - 51.0 % 49.3 MCV 80.0 - 100.0 fL 87.7 MCH 26.0 - 34.0 pg 29.0 MCHC 30.5 - 36.0 g/dL 33.1 RDW-CV 11.5 - 15.0 % 13.5 Platelet Count 150 - 400 k/uL 273 MPV 9.0 - 12.7 fL 10.2 Neut% % 59.5 Abs Neut (ANC) 1.45 - 7.50 k/uL 4.15 Lymph% % 30.2 Abs Lymph 1.00 - 4.00 k/uL 2.11 [place]% % 7.4 Abs [place] <0.87 k/uL 0.52 Eosin% % 1.3 Abs Eosin <0.46 k/uL 0.09 Baso% % 0.6 Abs Baso <0.11 k/uL 0.04 Immature Gran % % 1.0 IMMATURE GRANS (ABS) <0.10 k/uL 0.07 NRBC /100 WBC 0.0 Absolute nRBC <0.01 k/uL <0.01 DTYPE Auto Protein, Total 6.3 - 8.0 g/dL 7.3 Albumin 3.9 - 4.9 g/dL 4.3 Calcium 8.5 - 10.2 mg/dL 9.4 Bilirubin, Total 0.2 - 1.3 mg/dL 0.3 Alkaline Phosphatase 38 - 113 U/L 86 AST 14 - 40 U/L 19 ALT 10 - 54 U/L 23 Glucose 74 - 99 mg/dL 100 (H) BUN 9 - 24 mg/dL 18 Creatinine 0.73 - 1.22 mg/dL 1.11 Sodium 136 - 144 mmol/L 140 Potassium 3.7 - 5.1 mmol/L 4.3 Chloride 98 - 107 mmol/L 105 CO2 22 - 30 mmol/L 26 Anion Gap 8 - 15 mmol/L 9 eGFR >=60 mL/min/1.73m? 88 Cholesterol, Total <200 mg/dL 238 (H) Triglyceride <150 mg/dL 71 HDL Cholesterol >39 mg/dL 39 (L) Non HDL Cholesterol <130 mg/dL 199 (H) Fasting Time hrs 12 VLDL Cholesterol <30 mg/dL 14 TC:HDL Ratio <5.10 6.10 (H) LDL Cholesterol, Calculated <100 mg/dL 185 (H) LDL:HDL Ratio <2.54 4.74 (H) Testosterone, Total, S 264.0 - 916.0 ng/dL 363.8 Testosterone, Free, S 5.00 - 21.00 ng/dL 11.21 Testosterone, % Free, S 1.50 - 4.20 % 3.08 Iron 41 - 186 ug/dL 92 TIBC 232 - 386 ug/dL 262 Transferrin Saturation 15.0 - 57.0 % 35.1 Hemoglobin A1C 4.3 - 5.6 % 5.5 Estimated Average Glucose mg/dL 111 Magnesium 1.7 - 2.3 mg/dL 2.1 Vitamin B12 232 - 1,245 pg/mL 526 Ferritin 30.3 - 565.7 ng/mL 123.0 Vitamin D 25 Hydroxy 31.0 - 80.0 ng (more content not included)... Normal [facility] SPIROMETRY WITH DILATOR IF O BSTRUCTEDon 06-26-2024 FEF25% PRE (L/S) 7.09 L/S [facility] IEA61-10% LLN (L/S) 2.76 L/S [facility] NKE69-56% PRE (L/S) 3.21 L/S [facility] DWU37-22% PREDICTED (L/S) 4.65 L/S [facility] FEF75% LLN (L/S) 0.92 L/S [facility] FEF75% PRE (L/S0 1.08 L/S [facility] FEF75% PREDICTED (L/S) 1.84 L/S [facility] FEF75% ULN (L/S) 3.48 L/S [facility] FET PRE (S) 14.24 S [facility] FEV1 LLN (L) 3.58 L [facility] FEV1 PRE (L) 4.45 L [facility] FEV1 PREDICTED (L) 4.66 L [facility] FEV1 ULN (L) 5.68 L [facility] FEV1/FVC LLN (%) 70 % [facility] FEV1/FVC PRE (%) 71 % [facility] FEV1/FVC PREDICTED (%) 81 % [facility] FVC LLN (L) 4.47 L [facility] FVC PRE (L) 6.25 L [facility] FVC PREDICTED (L) 5.79 L [facility] FVC ULN (L) 7.13 L [facility] PEF LLN (L/S) 8.57 L/S [facility] PEF PRE (L/S) 8.92 L/S [facility] PEF ULN (L/S) 13.77 L/S [facility] [address] [place] [address] Test Date: 2024-06-26 Pat Name: EMIR RAE Department: Room: Gender: Male Home Care Specialist: : 1985 Requested By: Order Number: [id number] Reading MD: Pippa Servin MD Interpretive Statements The two largest FVC's and FEV1's are repeatable. //KM IMPRESSION: Spirometry is normal. Electronically Signed On 06-26-2024 12:50:06 EDT by Pippa Servin MD ID: [id number] Name: BUTCHEMIR Race: White Ht: 74.13 in Wt: 256.20 lbs Age: 38 Gender: Male : 1985 Dx: Shortness of breath Smoking Hx: Non-smoker Doctor: MISA HAGER Test Date: 06/26/2024 Site: Tech: Drea Trujillo PRE-BRONCH POST-BRONCH Laura LLN Pred ULN %Pred ZScore Laura %Pred %Chg ZScore SPIROMETRY FVC 6.25 4.47 5.79 7.13 107 0.56 FEV1 4.45 3.58 4.66 5.68 95 -0.32 FEV1/FVC 0.71 0.70 0.81 0.89 88 -1.52 FEFMax 8.92 8.57 11.17 13.77 79 -1.42 FEF50 4.23 3.83 5.96 8.08 71 -1.34 FIF50 6.15 FEF50/FIF50 0.69 90-100 FIVC 6.20 SHL04-47 3.21 2.76 4.65 7.03 69 -1.21 ExpiredTime 14.24 TimeToFEFMax 0.13 RAINA 0.13 VolExtrap% 2 Comments: The two largest FVC's and FEV1's are repeatable. //KM PULMONARY FUNCTION LAB [facility] SPIROMETRY WITH DILATOR IF OBSTRUCTED [facility] [address] [address] Test Date: 2024-06-26 Pat Name: EMIR BUTCH Department: Room: Gender: Male Home Care Specialist: : 1985 Requested By: Order Number: [id number] Reading MD: Pippa Servin MD Interpretive Statements The two largest FVC's and FEV1's are repeatable. //KM IMPRESSION: Spirometry is normal. Electronically Signed On 06-26-2024 12:50:06 EDT by Pippa Servin MD ID: [id number] Name: EMIR RAE Race: White Ht: 74.13 in Wt: 256.20 lbs Age: 38 Gender: Male : 1985 Dx: Shortness of breath Smoking Hx: Non-smoker Doctor: MISA HAGER Test Date: 06/26/2024 Site: Tech: Drea Trujillo PRE-BRONCH POST-BRONCH Laura LLN Pred ULN %Pred ZScore Laura %Pred %Chg ZScore SPIROMETRY FVC 6.25 4.47 5.79 7.13 107 0.56 FEV1 4.45 3.58 4.66 5.68 95 -0.32 FEV1/FVC 0.71 0.70 0.81 0.89 88 -1.52 FEFMax 8.92 8.57 11.17 13.77 79 -1.42 FEF50 4.23 3.83 5.96 8.08 71 -1.34 FIF50 6.15 FEF50/FIF50 0.69 90-100 FIVC 6.20 UUS13-70 3.21 2.76 4.65 7.03 69 -1.21 ExpiredTime 14.24 TimeToFEFMax 0.13 RAINA 0.13 VolExtrap% 2 Comments: The two largest FVC's and FEV1's are repeatable. //KM FVC_PRE (L) : 6.25 L FVC_PRED (L) : 5.79 L FVC_LLN (L) : 4.47 L FVC_ULN (L) : 7.13 L FEV1_PRE (L) : 4.45 L FEV1_PRED (L) : 4.66 L FEV1_LLN (L) : 3.58 L FEV1_ULN (L) : 5.68 L FEV1/FVC_PRE (%) : 71 % FEV1/FVC_PRED (%) : 81 % FEV1/FVC_LLN (%) : 70 % WBC93_DPK (L/S) : 7.09 L/S UZB76_GXZ (L/S) : 1.08 L/S MQK08_EVVX (L/S) : 1.84 L/S RWX05_KUG (L/S) : 0.92 L/S HID31_UEI (L/S) : 3.48 L/S ABU81-36%_PRE (L/S) : 3.21 L/S EHQ14-13%_PRED (L/S) : 4.65 L/S UNZ04-38%_LLN (L/S) : 2.76 L/S PEF_PRE (L/S) : 8.92 L/S PEFMAX_LLN (L/S) : 8.57 L/S PEFMAX_ULN (L/S) : 13.77 L/S FET_PRE (S) : 14.24 S Normal [facility] CNOVon 06-19-2024 CNOV Office Visit (INTMWS ) EMIR RAE ([id number]) 1985 M Date Time Provider Department 06/19/24 11:40 AM MISA HAGER INTWS During your visit today, we recorded the following information about you: Pulse Respiration Blood pressure Weight 89/minute 16/minute 118/79 117 kg Misa Hager APRN.CNS 06/19/2024 12:51 PM Signed Subjective Patient ID: Ernesto is a 38 year old male who presents for Short Of Breath. HPI Shortness of breath on exertion is reported. Smokin pack years, not current Vaping: no Asthma: no COPD: no Cough: a.m.only Wheeze: no PFT: no History of use of advair for allergies Hydroxyzine and nasacort for allergies. Stopping gabapentin helped with ED Rare EtoH Psychiatry for depression and anxiety Dyspnea on Exertion: - Onset: January. - Experiences dyspnea and fatigue with minimal exertion, including housework (e.g., cleaning litter boxes, doing dishes) and sexual activity. - Uncertain if dyspnea is related to back pain. - Denies history of asthma, COPD, or other lung diseases. - Denies current cough or wheezing; reports morning phlegm attributed to sinus drainage from allergies. - No history of pulmonary function tests. - Used Advair as a child for allergies; denies current inhaler use. - Former smoker; denies current smoking or vaping. Erectile Dysfunction: - Long-standing issue with maintaining erections, worsened recently. - No prior evaluation or treatment for ED. - Recent testosterone levels were normal. - Reports low libido; attributes some issues to gabapentin use, which he has since discontinued. - Taking buspirone and Wellbutrin for anxiety and depression; uncertain if these medications affect libido. - Denies alcohol use; no recreational drug use. - No relationship problems. - Urinary function normal; denies nocturia. Anxiety and Depression: - Managed by [facility] - Taking buspirone and Wellbutrin. - Reports good mood control with current medications. Allergies: - Year-round allergies; taking hydroxyzine and nasal spray. - Hydroxyzine taken at night due to drowsiness. - Reports severe allergy symptoms if not medicated. ROS Constitutional: (+) fatigue Head: (+) headaches Eyes: (+) tearing Ears/Nose/Mouth/Throat : (+) congestion Respiratory: (+) shortness of breath on exertion, (+) morning cough with phlegm, (+) occasional wheezing Gastrointestinal: (+) reflux Genitourinary: (+) erectile dysfunction, (-) nocturia Musculoskeletal: (+) back pain Psychiatric: (+) depression, (+) anxiety Objective BP 118/79 Pulse 89 Resp 16 Wt 117 kg (257 lb 15 oz) SpO2 98% BMI 33.12 kg/m? Physical Exam Vitals and nursing note reviewed. Constitutional: Appearance: Normal appearance. HENT: Head: Normocephalic and atraumatic. Eyes: Conjunctiva/sclera: Conjunctivae normal. Neck: Thyroid: No thyroid mass or thyromegaly. Vascular: Normal carotid pulses. No carotid bruit or JVD. Cardiovascular: Rate and Rhythm: Normal rate and regular rhythm. Pulses: Carotid pulses are 2+ on the right side and 2+ on the left side. Radial pulses are 2+ on the right side and 2+ on the left side. Heart sounds: Normal heart sounds. Pulmonary: Effort: Pulmonary effort is normal. Breath sounds: Normal breath sounds. Abdominal: General: Bowel sounds are normal. Palpations: Abdomen is soft. Musculoskeletal: Right lower leg: No edema. Left lower leg: No edema. Skin: General: Skin is warm and dry. Neurological: General: No focal deficit present. Mental Status: He is alert and oriented to person, place, and time. Latest Ref Rn 12/27/2023 WBC 3.70 - 11.00 k/uL 6.98 RBC 4.20 - 6.00 m/uL 5.62 Hemoglobin 13.0 - 17.0 g/dL 16.3 Hematocrit 39.0 - 51.0 % 49.3 MCV 80.0 - 100.0 fL 87.7 MCH 26.0 - 34.0 pg 29.0 MCHC 30.5 - 36.0 g/dL 33.1 RDW-CV 11.5 - 15.0 % 13.5 Platelet Count 150 - 400 k/uL 273 MPV 9.0 - 12.7 fL 10.2 Neut% % 59.5 Abs Neut (ANC) 1.45 - 7.50 k/uL 4.15 Lymph% % 30.2 Abs Lymph 1.00 - 4.00 k/uL 2.11 [place]% % 7.4 Abs [place] <0.87 k/uL 0.52 Eosin% % 1.3 Abs Eosin <0.46 k/uL 0.09 Baso% % 0.6 Abs Baso <0.11 k/uL 0.04 Immature Gran % % 1.0 IMMATURE GRANS (ABS) <0.10 k/uL 0.07 NRBC /100 WBC 0.0 Absolute nRBC <0.01 k/uL <0.01 DTYPE Auto Protein, Total 6.3 - 8.0 g/dL 7.3 Albumin 3.9 - 4.9 g/dL 4.3 Calcium 8.5 - 10.2 mg/dL 9.4 Bilirubin, Total 0.2 - 1.3 mg/dL 0.3 Alkaline Phosphatase 38 - 113 U/L 86 AST 14 - 40 U/L 19 ALT 10 - 54 U/L 23 Glucose 74 - 99 mg/dL 100 (H) BUN 9 - 24 mg/dL 18 Creatinine 0.73 - 1.22 mg/dL 1.11 Sodium 136 - 144 mmol/L 140 Potassium 3.7 - 5.1 mmol/L 4.3 Chloride 98 - 107 mmol/L 105 CO2 22 - 30 mmol/L 26 Anion Gap 8 - 15 mmol/L 9 eGFR >=60 mL/min/1.73m? 88 Cholesterol, Total <200 mg/dL 238 (H) Triglyceride <150 mg/dL 71 H (more content not included)... [facility]INTMWS[facility] EMIR RAE ([id number]) 1985 M Date Time Provider Department 12/28/23 ROSARIO MFOFETT INTWS During your visit today, we recorded the following information about you: Rosario Moffett APRN.CNP 12/28/2023 3:05 PM Signed Can we please see if the hgba1c can be added to the labs? Order placed. Thanks Shirley Motley LPN 12/28/2023 3:51 PM Signed Contact client services and A1C will be added. Allergies As of Date: 12/28/2023 Noted Allergy Reaction CAT DANDER 10/24/2021 14 - Other: See Comments MOLD 10/24/2021 16 - Unknown POLLEN EXTRACTS 10/24/2021 16 - Unknown SEASONAL ALLERGIES 10/24/2021 14 - Other: See Comments Date Reviewed: 11/08/2023 Reviewed by: Rosario Moffett APRN.[employer] - Fully Assessed Primary Visit Diagnosis:Elevated glucose [R73.09] Order(s):HEMOGLOBIN A1C [HHDLQ8E] Order #: [id number] FUTURE Prescriptions as of 12/28/2023 - tiZANidine HCl (ZANAFLEX) 4 mg capsule Take 1 capsule by mouth three times a day as needed. - ciclopirox (LOPROX) 0.77 % cream Apply 1 application to affected area two times a day. - acyclovir (ZOVIRAX) 400 mg tablet Take 1 tablet by mouth two times a day. - omeprazole (PRILOSEC) 20 mg capsule Take 1 capsule by mouth daily before breakfast. - lidocaine (LIDODERM) 5 % Apply 1 Patch as directed every 12 hours. Remove old patch prior to placing new patch. - CALCIUM ACETATE ORAL Take by mouth. - busPIRone (BUSPAR) 10 mg tablet TAKE 1/2 TABLET TO 2 TABLETS BY MOUTH ONCE DAILY NEEDED - vroiavge-enb-imkre-vit K-lycop (ONE-A-DAY MEN'S MULTIVITAMIN) 400-20-300 mcg tab Take by mouth. - ascorbic acid, vitamin C, (VITAMIN C) 500 mg tablet Take 500 mg by mouth once daily. - buPROPion XL (WELLBUTRIN XL) 300 mg 24 hr tablet Take 1 tablet by mouth once daily. With 150 MG. - buPROPion XL (WELLBUTRIN XL) 150 mg 24 hr tablet Take 1 tablet by mouth once daily. With 300 MG. - hydrOXYzine HCl (ATARAX) 25 mg tablet Take 1 tablet by mouth twice daily. - fluticasone (FLONASE) 50 mcg/actuation nasal spray Use 1 [place] in each nostril once daily. Problem List As Of Date 12/28/2023 Noted Resolved Neck pain, musculoskeletal [M54.2] 08/14/2022 Chronic bilateral thoracic back pain [M54.6, G8*08/14/2022 Encounter Status:Closed by SHIRLEY MOTLEY on 12/28/23 Normal [facility] 25(OH)D3 [facility] 2023 25-hydroxyvitamin D3 [Mass/Vol] 30.1 ng/mL Low 31.0-80.0 [facility] Comment on above: Order Comment: Speci men Type: BLOOD SPECIMEN Ordering Facility: [facility] Address: [address] [place] [address] Result Comment: Clas sification of 25 [place] Vitamin D status: Deficiency/Insufficiency: < or = 30 ng/ml. Sufficiency/Optimal Levels: 31-80 ng/mL Toxicity: > 100 ng/mL. Test performed by chemiluminescent immunoassay. Performed By: #### 5 0190-8, 46113-7, 3016-3, 08670-4 #### [facility] CLIA [id number] [address] [place] [address] [place] CBC W Auto Differential pane l (Bld)on 12-27-2023 Basophils (Bld) [#/Vol] 0.04 10*3/uL Normal <0.11 [facility] Comment on above: Order Comment: Speci men Type: BLOOD SPECIMEN Ordering Facility: [facility] Address: [address] [place] [address] Performed By: #### 5 7021-8, 36855-2 #### [facility] CLIA [id number] [address] [place] [address] [place] Basophils/100 WBC (Bld) 0.6 % Normal [facility] Comment on above: Order Comment: Speci men Type: BLOOD SPECIMEN Ordering Facility: [facility] Address: [address] [place] [address] Performed By: #### 5 7021-8, 05528-4 #### [facility] CLIA [id number] [address] [place] [address] [place] Differential cell count method Nom (Bld) Auto Normal [facility] Comment on above: Order Comment: Speci men Type: BLOOD SPECIMEN Ordering Facility: [facility] Address: [address] [place] [address] Performed By: #### 5 7021-8, 98523-2 #### [facility] CLIA [id number] [address] [place] [address] [place] Eosinophils (Bld) [#/Vol] 0.09 10*3/uL Normal <0.46 [facility] Comment on above: Order Comment: Speci men Type: BLOOD SPECIMEN Ordering Facility: [facility] Address: [address] [place] [address] Performed By: #### 5 7021-8, 16828-4 #### [facility] CLIA [id number] [address] [place] [address] [place] Eosinophils/100 WBC (Bld) 1.3 % Normal [facility] Comment on above: Order Comment: Speci men Type: BLOOD SPECIMEN Ordering Facility: [facility] Address: [address] [place] [address] Performed By: #### 5 7021-8, 92707-8 #### [facility] CLIA [id number] [address] [place] [address] [place] Erythrocyte distribution width (RBC) [Ratio] 13.5 % Normal 11.5-15.0 [facility] Comment on above: Order Comment: Speci men Type: BLOOD SPECIMEN Ordering Facility: [facility] Address: [address] [place] [address] Performed By: #### 5 7021-8, 76576-0 #### [facility] CLIA [id number] [address] [place] [address] [place] Hematocrit (Bld) [Volume fraction] 49.3 % Normal 39.0-51.0 [facility] Comment on above: Order Comment: Speci men Type: BLOOD SPECIMEN Ordering Facility: [facility] Address: [address] [place] [address] Performed By: #### 5 7021-8, 86390-7 #### [facility] CLIA [id number] [address] [place] [address] [place] Hemoglobin (Bld) [Mass/Vol] 16.3 g/dL Normal 13.0-17.0 [facility] Comment on above: Order Comment: Speci men Type: BLOOD SPECIMEN Ordering Facility: [facility] Address: [address] [place] [address] Performed By: #### 5 7021-8, 45266-9 #### [facility] CLIA [id number] [address] [place] [address] [place] Immature granulocytes (Bld) [#/Vol] 0.07 10*3/uL Normal <0.10 [facility] Comment on above: Order Comment: Speci men Type: BLOOD SPECIMEN Ordering Facility: [facility] Address: [address] [place] [address] Performed By: #### 5 7021-8, 85231-9 #### [facility] CLIA [id number] [address] [place] [address] [place] Immature granulocytes/100 WBC (Bld) 1.0 % Normal [facility] Comment on above: Order Comment: Speci men Type: BLOOD SPECIMEN Ordering Facility: [facility] Address: [address] [place] [address] Performed By: #### 5 7021-8, 61027-9 #### [facility] CLIA [id number] [address] [place] [address] [place] Lymphocytes (Bld) [#/Vol] 2.11 10*3/uL Normal 1.00-4.00 [facility] Comment on above: Order Comment: Speci men Type: BLOOD SPECIMEN Ordering Facility: [facility] Address: [address] [place] [address] Performed By: #### 5 7021-8, 41858-8 #### [facility] CLIA [id number] [address] [place] [address] [place] Lymphocytes/100 WBC (Bld) 30.2 % Normal [facility] Comment on above: Order Comment: Speci men Type: BLOOD SPECIMEN Ordering Facility: [facility] Address: [address] [place] [address] Performed By: #### 5 7021-8, 81464-0 #### [facility] CLIA [id number] [address] [place] [address] [place] MCH (RBC) [Entitic mass] 29.0 pg Normal 26.0-34.0 [facility] Comment on above: Order Comment: Speci men Type: BLOOD SPECIMEN Ordering Facility: [facility] Address: [address] [place] [address] Performed By: #### 5 7021-8, 91716-1 #### [facility] CLIA [id number] [address] [place] [address] [place] MCHC (RBC) [Mass/Vol] 33.1 g/dL Normal 30.5-36.0 [facility] Comment on above: Order Comment: Speci men Type: BLOOD SPECIMEN Ordering Facility: [facility] Address: [address] [place] [address] Performed By: #### 5 7021-8, 79961-2 #### [facility] CLIA [id number] [address] [place] [address] [place] MCV (RBC) [Entitic vol] 87.7 fL Normal 80.0-100.0 C [facility] Comment on above: Order Comment: Speci men Type: BLOOD SPECIMEN Ordering Facility: [facility] Address: [address] [place] [address] Performed By: #### 5 7021-8, 85444-7 #### [facility] CLIA [id number] [address] [place] [address] [place] Monocytes (Bld) [#/Vol] 0.52 10*3/uL Normal <0.87 [facility] Comment on above: Order Comment: Speci men Type: BLOOD SPECIMEN Ordering Facility: [facility] Address: [address] [place] [address] Performed By: #### 5 7021-8, 19673-6 #### [facility] CLIA [id number] [address] [place] [address] [place] Monocytes/100 WBC (Bld) 7.4 % Normal C [facility] Comment on above: Order Comment: Speci men Type: BLOOD SPECIMEN Ordering Facility: [facility] Address: [address] [place] [address] Performed By: #### 5 7021-8, 15602-2 #### [facility] CLIA [id number] [address] [place] [address] [place] Neutrophils (Bld) [#/Vol] 4.15 10*3/uL Normal 1.45-7.50 [facility] Comment on above: Order Comment: Speci men Type: BLOOD SPECIMEN Ordering Facility: [facility] Address: [address] [place] [address] Performed By: #### 5 7021-8, 88697-9 #### [facility] CLIA [id number] [address] [place] [address] [place] Neutrophils/100 WBC (Bld) 59.5 % Normal [facility] Comment on above: Order Comment: Speci men Type: BLOOD SPECIMEN Ordering Facility: [facility] Address: [address] [place] [address] Performed By: #### 5 7021-8, 79500-0 #### [facility] CLIA [id number] [address] [place] [address] [place] Nucleated RBC (Bld) [#/Vol] 10*3/uL Normal <0.01 [facility] Comment on above: Order Comment: Speci men Type: BLOOD SPECIMEN Ordering Facility: [facility] Address: [address] [place] [address] Performed By: #### 5 7021-8, 52036-6 #### [facility] CLIA [id number] [address] [place] [address] [place] Nucleated RBC/100 WBC (Bld) [Ratio] 0.0 /100 WBC Normal [facility] Comment on above: Order Comment: Speci men Type: BLOOD SPECIMEN Ordering Facility: [facility] Address: [address] [place] [address] Performed By: #### 5 7021-8, 85719-2 #### [facility] CLIA [id number] [address] [place] [address] [place] Platelet mean volume (Bld) [Entitic vol] 10.2 fL Normal 9.0-12.7 [facility] Comment on above: Order Comment: Speci men Type: BLOOD SPECIMEN Ordering Facility: [facility] Address: [address] [place] [address] Performed By: #### 5 7021-8, 96532-6 #### [facility] CLIA [id number] [address] [place] [address] [place] Platelets (Bld) [#/Vol] 273 10*3/uL Normal 150-400 [facility] Comment on above: Order Comment: Speci men Type: BLOOD SPECIMEN Ordering Facility: [facility] Address: [address] [place] [address] Performed By: #### 5 7021-8, 02810-8 #### [facility] CLIA [id number] [address] [place] [address] [place] RBC (Bld) [#/Vol] 5.62 10*6/uL Normal 4.20-6.00 [facility] Comment on above: Order Comment: Speci men Type: BLOOD SPECIMEN Ordering Facility: [facility] Address: [address] [place] [address] Performed By: #### 5 7021-8, 15806-1 #### [facility] CLIA [id number] [address] [place] [address] [place] WBC (Bld) [#/Vol] 6.98 10*3/uL Normal 3.70-11.00 [facility] Comment on above: Order Comment: Speci men Type: BLOOD SPECIMEN Ordering Facility: [facility] Address: [address] [place] [address] Performed By: #### 5 7021-8, 47619-3 #### [facility] CLIA [id number] [address] [place] [address] [place] Comprehensive metabolic 2000 panelon 12-27-2023 Albumin [Mass/Vol] 4.3 g/dL Normal 3.9-4.9 [facility] Comment on above: Order Comment: Speci men Type: BLOOD SPECIMEN Ordering Facility: [facility] Address: [address] [place] [address] Performed By: #### 5 0190-8, 80930-4, 3016-3, 22855-8 #### [facility] CLIA [id number] [address] [place] [address] [place] ALP [Catalytic activity/Vol] 86 U/L Normal 38-113 [facility] Comment on above: Order Comment: Speci men Type: BLOOD SPECIMEN Ordering Facility: [facility] Address: [address] [place] [address] Performed By: #### 5 0190-8, 38995-9, 3015-3, 68021-2 #### [facility] CLIA [id number] [address] [place] [address] [place] ALT [Catalytic activity/Vol] 23 U/L Normal 10-54 [facility] Comment on above: Order Comment: Speci men Type: BLOOD SPECIMEN Ordering Facility: [facility] Address: [address] [place] [address] Performed By: #### 5 0190-8, 92933-8, 3015-3, 99921-3 #### [facility] CLIA [id number] [address] [place] [address] [place] Anion gap [Moles/Vol] 9 mmol/L Normal 8-15 [facility] Comment on above: Order Comment: Speci men Type: BLOOD SPECIMEN Ordering Facility: [facility] Address: [address] [place] [address] Performed By: #### 5 0190-8, 20882-8, 3016-3, 54078-4 #### [facility] CLIA [id number] [address] [place] [address] [place] AST [Catalytic activity/Vol] 19 U/L Normal 14-40 [facility] Comment on above: Order Comment: Speci men Type: BLOOD SPECIMEN Ordering Facility: [facility] Address: [address] [place] [address] Performed By: #### 5 0190-8, 76961-1, 3015-3, 11515-5 #### [facility] CLIA [id number] [address] [place] [address] [place] Bilirubin [Mass/Vol] 0.3 mg/dL Normal 0.2-1.3 [facility] Comment on above: Order Comment: Speci men Type: BLOOD SPECIMEN Ordering Facility: [facility] Address: [address] [place] [address] Performed By: #### 5 0190-8, 62260-6, 3015-3, 54940-7 #### [facility] CLIA [id number] [address] [place] [address] [place] Calcium [Mass/Vol] 9.4 mg/dL Normal 8.5-10.2 [facility] Comment on above: Order Comment: Speci men Type: BLOOD SPECIMEN Ordering Facility: [facility] Address: [address] [place] [address] Performed By: #### 5 0190-8, 37629-8, 3015-3, 86499-7 #### [facility] CLIA [id number] [address] [place] [address] [place] Chloride [Moles/Vol] 105 mmol/L Normal 98-107 [facility] Comment on above: Order Comment: Speci men Type: BLOOD SPECIMEN Ordering Facility: [facility] Address: [address] [place] [address] Performed By: #### 5 0190-8, 58236-2, 3015-3, 04887-1 #### [facility] CLIA [id number] [address] [place] [address] [place] CO2 [Moles/Vol] 26 mmol/L Normal 22-30 [facility] Comment on above: Order Comment: Speci men Type: BLOOD SPECIMEN Ordering Facility: [facility] Address: [address] [place] [address] Performed By: #### 5 0190-8, 71748-5, 3015-3, #### [facility] CLIA [id number] [address] [place] [address] [place] Creatinine [Mass/Vol] 1.11 mg/dL Normal 0.73-1.22 [facility] Comment on above: Order Comment: Speci men Type: BLOOD SPECIMEN Ordering Facility: [facility] Address: [address] [place] [address] Performed By: #### 5 0190-8, 28474-8, 3, #### [facility] CLIA [id number] [address] [place] [address] [place] Creatinine and Glomerular filtration rate.predicted panel (S/P/Bld) 88 mL/min/1.73m??? Normal >=60 [facility] Comment on above: Order Comment: Chiqui abdullahi Type: BLOOD SPECIMEN Ordering Facility: [facility] Address: [address] [place] [address] Result Comment: Lizzie mated Glomerular Filtration Rate (eGFR) is calculated using the 2020 CKD-EPI creatinine equation. This equation utilizes serum creatinine, sex, and age as parameters. The creatinine assay has traceable calibration to isotope dilution-mass spectrometry. Refer to KDIGO guidelines for clinical interpretation. In patients with unstable renal function, e.g. those with acute kidney injury, the eGFR may not accurately reflect actual GFR. Performed By: #### 5 0190-8, 77611-6, 3015-3, 50261-8 #### [facility] CLIA [id number] [address] [place] [address] [place] Glucose [Mass/Vol] 100 mg/dL High 74-99 [facility] Comment on above: Order Comment: Speci men Type: BLOOD SPECIMEN Ordering Facility: [facility] Address: [address] [place] [address] Result Comment: The [place] Diabetes Association (ADA) provides guidance for cutoff values for fasting glucose and random glucose. The ADA defines fasting as no caloric intake for at least 8 hours. Fasting plasma glucose results between 100 to 125 mg/dL indicate increased risk for diabetes (prediabetes). Fasting plasma glucose results greater than or equal to 126 mg/dL meet the criteria for diagnosis of diabetes. In the absence of unequivocal hyperglycemia, results should be confirmed by repeat testing. In a patient with classic symptoms of hyperglycemia or hyperglycemic crisis, random plasma glucose results greater than or equal to 200 mg/dL meet the criteria for diagnosis of diabetes. Reference: Standards of Medical Care in Diabetes 2016, [place] [employer] Association. Diabetes Care. 2016.39(Suppl 1). Performed By: #### 5 0190-8, 86299-8, 3015-3, 10202-4 #### [facility] CLIA [id number] [address] [place] [address] [place] Potassium [Moles/Vol] 4.3 mmol/L Normal 3.7-5.1 [facility] Comment on above: Order Comment: Chiqui abdullahi Type: BLOOD SPECIMEN Ordering Facility: [facility] Address: [address] [place] [address] Performed By: #### 5 0190-8, 81110-7, 3015-3, 06562-8 #### [facility] CLIA [id number] [address] [place] [address] [place] Protein [Mass/Vol] 7.3 g/dL Normal 6.3-8.0 [facility] Comment on above: Order Comment: Chiqui abdullahi Type: BLOOD SPECIMEN Ordering Facility: [facility] Address: [address] [place] [address] Performed By: #### 5 0190-8, 93079-7, 3015-3, 59017-7 #### [facility] CLIA [id number] [address] [place] [address] [place] Sodium [Moles/Vol] 140 mmol/L Normal 136-144 [facility] Comment on above: Order Comment: Speci men Type: BLOOD SPECIMEN Ordering Facility: [facility] Address: [address] [place] [address] Performed By: #### 5 0190-8, 64650-7, 3, 23011-3 #### [facility] CLIA [id number] [address] [place] [address] [place] Urea nitrogen [Mass/Vol] 18 mg/dL Normal 9-24 [facility] Comment on above: Order Comment: Speci men Type: BLOOD SPECIMEN Ordering Facility: [facility] Address: [address] [place] [address] Performed By: #### 5 0190-8, 72862-7, 3, #### [facility] CLIA [id number] [address] [place] [address] [place] Ferritin SerPl-mCncon 2023 Ferritin [Mass/Vol] 123.0 ng/mL Normal 30.3-565.7 [facility] Comment on above: Order Comment: Speci men Type: BLOOD SPECIMEN Ordering Facility: [facility] Address: [address] [place] [address] Performed By: #### 5 0190-8, 49204-5, 3, 71378-2 #### [facility] CLIA [id number] [address] [place] [address] [place] HbA1c (Bld)on 12-27-2023 Average glucose Estimated from glycated hemoglobin (Bld) [Mass/Vol] 111 mg/dL Normal [facility] Comment on above: Order Comment: Speci men Type: BLOOD SPECIMEN Ordering Facility: [facility] Address: [address] [place] [address] Result Comment: eAG: (Estimated average glucose) is a calculated value from HgbA1c and is screening representative of the average blood glucose level in the last 2-3 month period. Performed By: #### 5 7021-8, 88774-8 #### [facility] CLIA [id number] [address] [place] [address] [place] HbA1c (Bld) [Mass fraction] 5.5 % Normal 4.3-5.6 [facility] Comment on above: Order Comment: Speci men Type: BLOOD SPECIMEN Ordering Facility: [facility] Address: [address] [place] [address] Result Comment: [place] Diabetes Association guidelines indicate that patients with HgbA1c in the range 5.7-6.4% are at increased risk for development of diabetes, and intervention by lifestyle modification may be beneficial. HgbA1c greater or equal to 6.5% is considered diagnostic of diabetes. Performed By: #### 5 7021-8, 25342-2 #### [facility] CLIA [id number] [address] [place] [address] [place] Iron and Iron binding capaci ty panelon 12-27-2023 Iron [Mass/Vol] 92 ug/dL Normal 41-186 [facility] Comment on above: Order Comment: Chiqui abdullahi Type: BLOOD SPECIMEN Ordering Facility: [facility] Address: [address] [place] [address] Performed By: #### 5 0190-8, 69093-3, 3015-3, 44154-2 #### [facility] CLIA [id number] [address] [place] [address] [place] Iron binding capacity [Mass/Vol] 262 ug/dL Normal 232-386 [facility] Comment on above: Order Comment: Chiqui men Type: BLOOD SPECIMEN Ordering Facility: [facility] Address: [address] [place] [address] Performed By: #### 5 0190-8, 86964-7, 3015-3, 75667-0 #### [facility] CLIA [id number] [address] [place] [address] [place] Iron/TIBC [Molar ratio] 35.1 % Normal 15.0-57.0 C [facility] Comment on above: Order Comment: Speci men Type: BLOOD SPECIMEN Ordering Facility: [facility] Address: [address] [place] [address] Performed By: #### 5 0190-8, 45223-7, 301-3, 99008-2 #### [facility] CLIA [id number] [address] [place] [address] [place] Lipid 1996 panelon 4 Cholesterol [Mass/Vol] 238 mg/dL High <200 [facility] Comment on above: Order Comment: Speci men Type: BLOOD SPECIMEN Ordering Facility: [facility] Address: [address] [place] [address] Result Comment: <200 mg/dL, Desirable 200-239 mg/dL, Borderline high >239 mg/dL, High Performed By: #### 5 0190-8, 16872-0, 3015-3, #### [facility] CLIA [id number] [address] [place] [address] [place] Cholesterol in HDL [Mass/Vol] 39 mg/dL Low >39 [facility] Comment on above: Order Comment: Speci men Type: BLOOD SPECIMEN Ordering Facility: [facility] Address: [address] [place] [address] Result Comment: 40-5 9 mg/dL, Acceptable >59 mg/dL, High: Negative risk factor for coronary heart disease <40 mg/dL, Low: Positive risk factor for coronary heart disease Performed By: #### 5 0190-8, 26870-9, 3015-3, 81932-9 #### [facility] CLIA [id number] [address] [place] [address] [place] Cholesterol in LDL [Mass/Vol] 185 mg/dL High <100 [facility] Comment on above: Order Comment: Speci men Type: BLOOD SPECIMEN Ordering Facility: [facility] Address: [address] [place] [address] Result Comment: <100 mg/dL, Optimal 100-129 mg/dL, Near optimal/above optimal 130-159 mg/dL, Borderline high 160-189 mg/dL, High >189 mg/dL, Very high Secondary prevention optimal LDL Cholesterol levels are recommended to be < 70 mg/dL Performed By: #### 5 0190-8, 32082-0, 3016-3, 87309-9 #### [facility] CLIA [id number] [address] [place] [address] [place] Cholesterol in LDL/Cholesterol in HDL [Mass ratio] 4.74 {ratio} High <2.54 [facility] Comment on above: Order Comment: Chiqui abdullahi Type: BLOOD SPECIMEN Ordering Facility: [facility] Address: [address] [place] [address] Result Comment: Radha tyson: 1. National Cholesterol Education Program ATP III Guideline At-A-Glance Quick Desk Reference: National Heart, Lung, and Blood [place]. National Institutes of Health. 2001: NIH Publication No. 01-3305. 2. An International Atherosclerosis Society position paper: global recommendations for the management of dyslipidemia: executive summary, Atherosclerosis. 2014: 232(2):410-413. Performed By: #### 5 0190-8, 23414-9, 3015-3, 27540-0 #### [facility] CLIA [id number] [address] [place] [address] [address] [place] Cholesterol in VLDL [Mass/Vol] 14 mg/dL Normal <30 [facility] Comment on above: Order Comment: Chiqui abdullahi Type: BLOOD SPECIMEN Ordering Facility: [facility] Address: [address] [place] [address] Performed By: #### 5 0190-8, 26277-3, 6-3, 00462-6 #### [facility] CLIA [id number] [address] [place] [address] [place] Cholesterol non HDL [Mass/Vol] 199 mg/dL High <130 [facility] Comment on above: Order Comment: Speci men Type: BLOOD SPECIMEN Ordering Facility: [facility] Address: [address] [place] [address] Result Comment: <130 mg/dL, Optimal 130-159 mg/dL, Near optimal/above optimal 160-189 mg/dL, Borderline high 190-219 mg/dL, High >219 mg/dL, Very high Secondary prevention optimal non HDL Cholesterol levels are recommended to be <100 mg/dL Performed By: #### 5 0190-8, 54909-9, 3016-3, 45670-3 #### [facility] CLIA [id number] [address] [place] [address] [place] Cholesterol.total/Choles terol in HDL [Mass ratio] 6.10 {ratio} High <5.10 [facility] Comment on above: Order Comment: Speci men Type: BLOOD SPECIMEN Ordering Facility: [facility] Address: [address] [place] [address] Performed By: #### 5 0190-8, 42251-9, 3016-3, 62613-7 #### [facility] CLIA [id number] [address] [place] [address] [place] FASTING TIME 12 hrs Normal [facility] Comment on above: Order Comment: Speci men Type: BLOOD SPECIMEN Ordering Facility: [facility] Address: [address] [place] [address] Performed By: #### 5 0190-8, 96566-4, 3016-3, 49247-5 #### [facility] CLIA [id number] [address] [place] [address] [place] Triglyceride [Mass/Vol] 71 mg/dL Normal <150 [facility] Comment on above: Order Comment: Speci men Type: BLOOD SPECIMEN Ordering Facility: [facility] Address: [address] [place] [address] Result Comment: <150 mg/dL, Normal 150-199 mg/dL, Borderline high 200-499 mg/dL, High >499 mg/dL, Very high Performed By: #### 5 0190-8, 93351-6, 3015-3, 50253-5 #### [facility] CLIA [id number] [address] [place] [address] [place] Magnesium SerPl-mCncon 12-26 Magnesium [Mass/Vol] 2.1 mg/dL Normal 1.7-2.3 [facility] Comment on above: Order Comment: Speci men Type: BLOOD SPECIMEN Ordering Facility: [facility] Address: [address] [place] [address] Performed By: #### 5 0190-8, 88028-1, 3, #### [facility] CLIA [id number] [address] [place] [address] [place] TESTOSTERONE, FREE AND TOTAL , BY EQUILIBRIUM ULTRAFILTRATION MASS SPECTROMETRYon 12-27-2023 Testosterone [Mass/Vol] 363.8 ng/dL Normal 264.0-916.0 [facility] Comment on above: Order Comment: Speci men Type: BLOOD SPECIMEN Ordering Facility: [facility] Address: [address] [place] [address] Result Comment: This [facility] LC/MS-MS method is currently certified by the CDC Hormone Standardization Program (HoSt). Adult male reference interval is based on a population of healthy nonobese males (BMI <30) between 19 and 39 years old. Aisha et.al. JCEM 2017,102;1881-3253. PMID: [id number]. Performed By: #### T FTEST #### [facility] CLIA [id number] [address] [place] [address] Testosterone Free [Mass/Vol] 11.21 ng/dL Normal 5.00-21.00 [facility] Comment on above: Order Comment: Speci men Type: BLOOD SPECIMEN Ordering Facility: [facility] Address: [address] [place] [address] Performed By: #### T FTEST #### [facility] CLIA [id number] [address] [place] [address] Testosterone Free/Testosterone.total [Mass fraction] 3.08 % Normal 1.50-4.20 [facility] Comment on above: Order Comment: Speci men Type: BLOOD SPECIMEN Ordering Facility: [facility] Address: [address] [place] [address] Performed By: #### T FTEST #### [facility] [place] [id number] [address] [place] [address] TSH SerPl-aCncon 12-27-2023 TSH Qn 1.220 m[IU]/L Normal 0.270-4.200 [facility] Comment on above: Order Comment: Speci men Type: BLOOD SPECIMEN Ordering Facility: [facility] Address: [address] [place] [address] Performed By: #### 5 0190-8, 79769-9, 3016-3, 03628-4 #### [facility] [place] [id number] [address] [place] [address] [place] Vit B12 SerPl-mCncon 024 Cobalamin (Vitamin B12) [Mass/Vol] 526 pg/mL Normal 232-1245 [facility] Comment on above: Order Comment: Speci men Type: BLOOD SPECIMEN Ordering Facility: [facility] Address: [address] [place] [address] Performed By: #### 5 0190-8, 90903-2, 3016-3, 36255-1 #### [facility] CLIA [id number] [address] [place] [address] [place] CNOVon 11-08-2023 CNOV Office Visit (INTMWS ) EMIR RAE ([id number]) 1985 M Date Time Provider Department 11/08/23 10:00 AM ROSARIO MOFFETT During your visit today, we recorded the following information about you: Pulse Respiration Blood pressure Weight 93/minute 16/minute 121/79 112.8 kg Rosario Moffett APRN.[employer]ER 11/08/2023 10:15 AM Signed SUBJECTIVE Emir Rae is a 38 year old male here today for acute concerns. Chief Complaint Patient presents with: Lab Orders: interested in testosterone testing due to low sex drive HPI Emir Rea is a 38 year old male. He is an established patient of Deven Santillan MD. Here today acutely, concerns of needing labs. Notes low libido. Drive has been really low. Notes that it seems like some ED too. Would like testosterone checked. He does note having a little more anxiety lately. Managing but still stressful. On Wellbutrin. Following with psychiatry. Sleeping well. Fatigue, maybe medication related. Not currently smoking. His medications were reviewed today and his list is now up to date. Medications Current Outpatient Medications Medication Sig tiZANidine HCl (ZANAFLEX) 4 mg capsule Take 4 mg by mouth three times a day as needed. acyclovir (ZOVIRAX) 400 mg tablet Take 1 tablet by mouth two times a day. omeprazole (PRILOSEC) 20 mg capsule Take 1 capsule by mouth daily before breakfast. lidocaine (LIDODERM) 5 % Apply 1 Patch as directed every 12 hours. Remove old patch prior to placing new patch. CALCIUM ACETATE ORAL Take by mouth. busPIRone (BUSPAR) 10 mg tablet TAKE 1/2 TABLET TO 2 TABLETS BY MOUTH ONCE DAILY NEEDED wznuucng-ped-oysnw-vit K-lycop (ONE-A-DAY MEN'S MULTIVITAMIN) 400-20-300 mcg tab Take by mouth. ascorbic acid, vitamin C, (VITAMIN C) 500 mg tablet Take 500 mg by mouth once daily. buPROPion XL (WELLBUTRIN XL) 300 mg 24 hr tablet Take 1 tablet by mouth once daily. With 150 MG. buPROPion XL (WELLBUTRIN XL) 150 mg 24 hr tablet Take 1 tablet by mouth once daily. With 300 MG. hydrOXYzine HCl (ATARAX) 25 mg tablet Take 1 tablet by mouth twice daily. fluticasone (FLONASE) 50 mcg/actuation nasal spray Use 1 [employer] in each nostril once daily. ciclopirox (LOPROX) 0.77 % cream Apply 1 application to affected area two times a day. (Patient not taking: Reported on 11/08/2023) gabapentin (NEURONTIN) 100 mg capsule Take 1 capsule by mouth once daily AND 1-2 capsules daily at bedtime. Do all this for 90 days. No current facility-administered medications for this visit. ALLERGIES Allergen Reactions Cat Dander Other: See Comments Mold Unknown Pollen Extracts Unknown Seasonal Allergies Other: See Comments ACTIVE PROBLEM LIST Neck Pain, Musculoskeletal - 08/14/2022 Comment: chronic Chronic Bilateral Thoracic Back Pain - 08/14/2022 Social History Tobacco Use Smoking status: Former Current packs/day: 1.00 Average packs/day: 1 pack/day for 15.0 years (15.0 ttl pk-yrs) Types: Cigarettes Smokeless tobacco: Never Tobacco comments: former vaping Vaping Use Vaping status: Never Used Substance Use Topics Alcohol use: Never Drug use: Never Review of Systems Constitutional: Positive for fatigue. Negative for chills, diaphoresis and fever. Respiratory: Negative. Cardiovascular: Negative. OBJECTIVE BP 121/79 Pulse 93 Resp 16 Wt 248 lb 10.9 oz (112.8kg) Physical Exam Vitals and nursing note reviewed. Constitutional: General: He is awake. He is not in acute distress. Appearance: Normal appearance. He is well-developed and well-groomed. He is not ill-appearing, toxic-appearing or diaphoretic. HENT: Head: Normocephalic. Right Ear: External ear normal. Left Ear: External ear normal. Nose: Nose normal. Eyes: General: Vision grossly intact. Conjunctiva/sclera: Conjunctivae normal. Pupils: Pupils are equal, round, and reactive to light. Neck: Vascular: No JVD. Trachea: Trachea normal. Cardiovascular: Rate and Rhythm: Normal rate and regular rhythm. Pulses: Normal pulses. Heart sounds: Normal heart sounds. No murmur heard. Pulmonary: Effort: Pulmonary effort is normal. No accessory muscle usage, prolonged expiration or respiratory distress. Breath sounds: Normal breath sounds. Musculoskeletal: Cervical back: Neck supple. Skin: General: Skin is warm and dry. Capillary Refill: Capillary refill takes less than 2 seconds. Neurological: General: No focal deficit present. Mental Status: He is alert and oriented to person, place, and time. Mental status is at baseline. Psychiatric: Attention and Perception: Attention and perception normal. Mood and Affect: Mood and affect normal. Speech: Speech normal. Behavior: Behavior normal. Behavior is cooperative. Thought Content: Thought content normal. Cognition and Memory: Cognition and memory normal. Judgment: Judgment normal. A (more content not included)... Normal [facility] XR Foot - left AP and Latera l and obliqueon 05-29-2023 IMPRESSION: 1. No acute radiographic abnormality of the left foot Shells [facility] Transcribe Date/Time: May 29 2023 5:05P Dictated by : YESENIA MEYERS MD This examination was interpreted and the report reviewed and electronically signed by: YESENIA MEYERS MD on May 29 2023 5:05PM [facility] DIVISION OF RADIOLOGY * * *Final Report* * * DATE OF EXAM: May 24 2023 4:00PM WOX [id number] - XR FOOT 3V AP/LAT/OBL LT / PROCEDURE REASON: Left foot pain * * * * Physician Interpretation * * * * FOOT RADIOGRAPHS - LEFT HISTORY: Left foot pain TECHNOLOGIST PROVIDED HISTORY (if applicable): Left plantar arch pain x 6 months after wearing an ill fitting pair of shoes. TECHNIQUE: XR FOOT 3V AP/LAT/OBL LT COMPARISON: None available RESULT: Bone mineralization appears normal. Left foot: There are no visualized articular erosions in the foot. No focal bony abnormality is identified. Joint spaces are preserved, and there is no soft tissue swelling. DIVISION OF RADIOLOGY Provider, [facility] - 05/29/2023 * * *Final Report* * * DATE OF EXAM: May 24 2023 4:00PM WOX 5336 - XR FOOT 3V AP/LAT/OBL LT / PROCEDURE REASON: Left foot pain * * * * Physician Interpretation * * * * FOOT RADIOGRAPHS - LEFT HISTORY: Left foot pain TECHNOLOGIST PROVIDED HISTORY (if applicable): Left plantar arch pain x 6 months after wearing an ill fitting pair of shoes. TECHNIQUE: XR FOOT 3V AP/LAT/OBL LT COMPARISON: None available RESULT: Bone mineralization appears normal. Left foot: There are no visualized articular erosions in the foot. No focal bony abnormality is identified. Joint spaces are preserved, and there is no soft tissue swelling. IMPRESSION IMPRESSION: 1. No acute radiographic abnormality of the left foot Shells Inspector: [facility] Transcribe Date/Time: May 29 2023 5:05P Dictated by : YESENIA MEYERS MD This examination was interpreted and the report reviewed and electronically signed by: YESENIA MEYERS MD on May 29 2023 5:05PM EST [facility] XR Foot - left AP and Latera l and obliqueOrdered By: [facility] Provider on 05-29-2023 [facility] XR Foot - left AP and Latera l and obliqueon 05-24-2023 Radiology Study observation (narrative) [facility] Abdomen/Pelvis W IV Cont ONL Yon 09-04-2022 Abdomen/Pelvis W IV Cont ONLY [facility] Imaging Services [address] [place] [address] Abdomen/Pelvis W IV Cont ONLY MR#: [id number] Acct: [id number] Name: EMIR RAE Rep #: [id number] : 1985 M 36 From: Raul barillas MD PCP: Dr. Deven Santillan MD Status: REG ER Study: Abdomen/Pelvis W IV Cont ONLY Date of Exam: Exam# [id number] Ordering Dr: Filiberto Power DO STUDY: CT ABDOMEN AND PELVIS WITH CONTRAST REASON FOR EXAM: Male, 36 years old. LLQ abdominal pain. GI bleed. RADIATION DOSAGE (If Supplied By Facility): CTDIvol = ( 14.00 ) mGy, DLP = ( 1223.50 ) mGycm TECHNIQUE: Transaxial images were obtained from the dome of the diaphragm to the symphysis pubis without oral contrast. IV 100mL Isovue-300 was administered. Sagittal and coronal images were reconstructed. Individualized dose optimization techniques were used for this CT. COMPARISON: None. FINDINGS: The visualized lung bases are unremarkable. The visualized portions of the heart are within normal limits. Normal liver. Normal gallbladder and extrahepatic biliary system. Normal spleen. Normal pancreas. Normal bilateral adrenal glands. 2 mm nonobstructive calculus in the anterior aspect of the right kidney superiorly. Punctate calculus in the posterior lower pole calyx of the left kidney. Punctate calculus in the anterior midpole calyx of the left kidney. Mild degree of left perinephric stranding. Mild degree of left hydronephrosis and left hydroureter. A 2 mm calculus is seen at the base of the bladder on the left side. This is suggestive of recently passed calculus. Normal visualized stomach. Normal small intestine. Normal colon. The appendix is visualized and appears normal. There is scattered atherosclerotic calcification of the abdominal aorta, without a demonstrated aneurysm. Normal inferior vena cava. Normal retroperitoneum. Mild degree of bladder wall thickening although the lateral is not completely distended. Small benign-appearing bilateral inguinal lymph nodes. Normal abdominal wall. Normal osseous structures. CT/Abdomen/Pelvis W IV Cont ONLY IMPRESSION: Mild degree of left hydronephrosis and hydroureter due to a recently passed 2 mm calculus. The calculus is lying along the posterior aspect of the bladder on the left side. Tiny nonobstructive left intrarenal calculi. Electronically Signed: Raul Bah MD at 13:32 EDT , CC: Dr. Deven Santillan MD; Dr. Filiberto Power DO Shells Inspector: Signed Normal [facility] Absolute lymphocyte countOrd ered By: Filiberto Power on 09-04-2022 Lymphocytes Auto (Unsp spec) [#/Vol] 1.68 10*3/uL 0.83-4.51 [facility] Basic Metabolic Profile (BMP )on 09-04-2022 BUN/CRE 12.6 RATIO Normal 10-20 [facility] Comment on above: Performed By: #### L 500.2500, L100.0100, L501.2450, L500.3400 #### [facility] [address] [place], [address] CA,Total 9.0 mg/dL Normal 8.5-10.1 [facility] Comment on above: Performed By: #### L 500.2500, L100.0100, L501.2450, L500.3400 #### [facility] [address] [place], [address] Chloride [Moles/Vol] 111 mmol/L High 98-107 [facility] Comment on above: Performed By: #### L 500.2500, L100.0100, L501.2450, L500.3400 #### [facility] [address] [place], [address] CO2 [Moles/Vol] 26.0 mmol/L Normal 21.0-32.0 [facility] Comment on above: Performed By: #### L 500.2500, L100.0100, L501.2450, L500.3400 #### [facility] [address] [place], [address] Creatinine [Mass/Vol] 1.51 mg/dL High 0.70-1.30 [facility] Comment on above: Result Comment: The validity of the calculated GFR GFRAA in patients over 70 years has not been determined. Clinical correlation is essential. Performed By: #### L 500.2500, L100.0100, L501.2450, L500.3400 #### [facility] [address] [place], [address] ECRCL 79.39 ml/min Normal [facility] Comment on above: Performed By: #### L 500.2500, L100.0100, L501.2450, L500.3400 #### [facility] [address] [place], [address] EST GFR - AA 68 mL/min Normal >60 [facility] Comment on above: Result Comment: Afri can [place] GFR Calc Performed By: #### L 500.2500, L100.0100, L501.2450, L500.3400 #### [facility] [address] [place], [address] GAP 4 Low 5-15 [facility] Comment on above: Performed By: #### L 500.2500, L100.0100, L501.2450, L500.3400 #### [facility] [address] [place], [address] GFR/1.73 sq M.predicted among non-blacks MDRD (S/P/Bld) [Vol rate/Area] 56 mL/min/{1.73_m2} Low >60 [facility] Comment on above: Result Comment: Non- GFR Calc Performed By: #### L 500.2500, L100.0100, L501.2450, L500.3400 #### [facility] [address] [place], [address] Glucose [Mass/Vol] 110 mg/dL High 74-106 [facility] Comment on above: Result Comment: Fast ing Glucose result from 100 to 125 mg/dL suggests IMPAIRED HOMEOSTASIS per A.D.A. criteria. Performed By: #### L 500.2500, L100.0100, L501.2450, L500.3400 #### [facility] [address] [place], [address] Potassium [Moles/Vol] 4.2 mmol/L Normal 3.5-5.1 [facility] Comment on above: Performed By: #### L 500.2500, L100.0100, L501.2450, L500.3400 #### [facility] [address] [place], [address] Sodium [Moles/Vol] 141 mmol/L Normal 136-145 [facility] Comment on above: Performed By: #### L 500.2500, L100.0100, L501.2450, L500.3400 #### [facility] [address] [place], [address] Urea nitrogen [Mass/Vol] 19 mg/dL High 7-18 [facility] Comment on above: Performed By: #### L 500.2500, L100.0100, L501.2450, L500.3400 #### [facility] [address] [place], [address] Basophil percentageOrdered B y: Filiberto Power on 09-04-2022 Basophil percentage 0-5 SEEN /hpf 0-5 [facility] Basophils/100 WBC (Bld) 0.4 % 0-1 [facility] Bilirubin [Mass/Vol] 0.20 mg/dL 0.20-1.00 [facility] Comment on above: For patients on eltr ombopag therapy, use of Dimension [place] TBIL is not recommended. Chloride [Moles/Vol] 111 mmol/L 98-107 [facility] Eosinophils/100 WBC (Bld) 0.3 % 0-5 [facility] Glucose [Mass/Vol] 110 mg/dL 74-106 [facility] Comment on above: Fasting Glucose resu lt from 100 to 125 mg/dL suggests IMPAIRED HOMEOSTASIS per A.D.A. criteria. Neutrophils (Bld) [#/Vol] 8.7 10*3/uL 2.0-7.7 [facility] Neutrophils/100 WBC (Bld) 77.2 % 47-70 [facility] Potassium [Moles/Vol] 4.2 mmol/L 3.5-5.1 [facility] Protein [Mass/Vol] 7.5 g/dL 6.4-8.2 [facility] Sodium [Moles/Vol] 141 mmol/L 136-145 [facility] WBC (Bld) [#/Vol] 11.2 10*3/uL 4.4-11.0 [facility] Bilirubin Test strip Ql (U)O rdered By: Filiberto Power on 09-04-2022 Bilirubin Ql (U) Negative Negative [facility] Blood erythrocytes count (nu mber/volume)Ordered By: Filiberto Power on 09-04-2022 RBC (Bld) [#/Vol] 5.37 10*6/uL 4.6-6.2 [facility] Blood hemoglobin measurement (mass/volume)Ordered By: Filiberto Power on 09-04-2022 Hemoglobin (Bld) [Mass/Vol] 15.5 g/dL 13.0-16.5 [facility] Blood lymphocytes/100 leukoc ytesOrdered By: Filiberto Poewr on 09-04-2022 Lymphocytes/100 WBC (Bld) 14.9 % 19-41 [facility] Blood monocytes/100 leukocyt esOrdered By: Filiberto Power on 09-04-2022 Monocytes/100 WBC (Bld) 6.0 % 0-10 [facility] Blood platelet mean volumeOr dered By: Filiberto Power on 09-04-2022 Platelet mean volume (Bld) [Entitic vol] 9.5 fL 6.2-12.0 [facility] CBC W/Diff, Automatedon --2022 Absolute Lymph 1.68 X10 3/uL Normal 0.83-4.51 [facility] Comment on above: Performed By: #### L 500.2500, L100.0100, L501.2450, L500.3400 #### [facility] [address] [place], [address] Absolute Neut 8.7 X10 3/uL High 2.0-7.7 [facility] Comment on above: Performed By: #### L 500.2500, L100.0100, L501.2450, L500.3400 #### [facility] [address] [place], [address] Basophils/100 WBC (Bld) 0.4 % Normal 0-1 [facility] Comment on above: Performed By: #### L 500.2500, L100.0100, L501.2450, L500.3400 #### [facility] [address] [place], [address] Eosinophils/100 WBC (Bld) 0.3 % Normal 0-5 [facility] Comment on above: Performed By: #### L 500.2500, L100.0100, L501.2450, L500.3400 #### [facility] [address] [place], [address] Erythrocyte distribution width (RBC) [Ratio] 13.7 % Normal 11.6-14.6 [facility] Comment on above: Performed By: #### L 500.2500, L100.0100, L501.2450, L500.3400 #### [facility] [address] [place], [address] Hematocrit (Bld) [Volume fraction] 47.2 % Normal 40-54 [facility] Comment on above: Performed By: #### L 500.2500, L100.0100, L501.2450, L500.3400 #### [facility] [address] [place], [address] Hemoglobin (Bld) [Mass/Vol] 15.5 g/dL Normal 13.0-16.5 [facility] Comment on above: Performed By: #### L 500.2500, L100.0100, L501.2450, L500.3400 #### [facility] [address] [place], [address] IG% 1.200 High 0.0-0.9 [facility] Comment on above: Result Comment: IG% - Immature Granulocytes (promyelocytes, myelocytes and metamyelocytes) > 1% indicates that a LEFT SHIFT is Present. Performed By: #### L 500.2500, L100.0100, L501.2450, L500.3400 #### [facility] [address] [place], [address] Lymphocytes/100 WBC (Bld) 14.9 % Low 19-41 [facility] Comment on above: Performed By: #### L 500.2500, L100.0100, L501.2450, L500.3400 #### [facility] [address] [place], [address] MCH (RBC) [Entitic mass] 28.9 pg Normal 27.0-32.0 [facility] Comment on above: Performed By: #### L 500.2500, L100.0100, L501.2450, L500.3400 #### [facility] [address] [place], [address] MCHC (RBC) [Mass/Vol] 32.8 g/dL Normal 32-36 [facility] Comment on above: Performed By: #### L 500.2500, L100.0100, L501.2450, L500.3400 #### [facility] [address] [place], [address] MCV (RBC) [Entitic vol] 87.9 fL Normal 80-94 [facility] Comment on above: Performed By: #### L 500.2500, L100.0100, L501.2450, L500.3400 #### [facility] [address] [place], [address] Monocytes/100 WBC (Bld) 6.0 % Normal 0-10 [facility] Comment on above: Performed By: #### L 500.2500, L100.0100, L501.2450, L500.3400 #### [facility] [address] [place], [address] Neutrophils/100 WBC (Bld) 77.2 % High 47-70 [facility] Comment on above: Performed By: #### L 500.2500, L100.0100, L501.2450, L500.3400 #### [facility] [address] [place], [address] Nucleated RBC (Bld) [#/Vol] 0 10*3/uL Normal 0-5 [facility] Comment on above: Performed By: #### L 500.2500, L100.0100, L501.2450, L500.3400 #### [facility] [address] [place], [address] Platelet mean volume (Bld) [Entitic vol] 9.5 fL Normal 6.2-12.0 [facility] Comment on above: Performed By: #### L 500.2500, L100.0100, L501.2450, L500.3400 #### [facility] [address] [place], [address] Platelets (Bld) [#/Vol] 254 10*3/uL Normal 150-450 [facility] Comment on above: Performed By: #### L 500.2500, L100.0100, L501.2450, L500.3400 #### [facility] [address] [place], [address] RBC (Bld) [#/Vol] 5.37 10*6/uL Normal 4.6-6.2 [facility] Comment on above: Performed By: #### L 500.2500, L100.0100, L501.2450, L500.3400 #### [facility] [address] [place], [address] RDW SD 44.0 fl High 35.1-43.9 [facility] Comment on above: Performed By: #### L 500.2500, L100.0100, L501.2450, L500.3400 #### [facility] [address] [place], [address] WBC (Bld) [#/Vol] 11.2 10*3/uL High 4.4-11.0 [facility] Comment on above: Performed By: #### L 500.2500, L100.0100, L501.2450, L500.3400 #### [facility] [address] [place], [address] Calcium oxalate crystals det ection in urine sediment by light microscopyOrdered By: Filiberto Power on 09-04-2022 Calcium oxalate crystals LM Ql (Urine sed) 1+ /hpf [facility] Determination of erythrocyte mean corpuscular volume (MCV)Ordered By: Filiberto Power on 09-04-2022 MCV (RBC) [Entitic vol] 87.9 fL 80-94 [facility] Direct bilirubinOrdered By: Filiberto Power on 09-04-2022 Bilirubin.direct [Mass/Vol] 0.09 mg/dL 0.00-0.30 [facility] Emergency Department Summary on 09-04-2022 Emergency Department Summary [facility] Medical Records Department [address] [place] [address] Emergency Department Summary 09/04/22 MR#: [id number] Acct: [id number] Name: EMIR RAE Rep #: [id number] : 1985 36 From: Filiberto Power DO PCP: Dr. Deven Santillan MD Status:DEP ER Location: ED HPI History of Present Illness Chief Complaint: GI Bleed [facility] Medical History (Updated 09/04/22 @ 13:[address] Filiberto Power DO) Anxiety COVID-19 Depression Encounter for screening for COVID-19 Herpes simplex type 1 infection Home Medications acyclovir 800 mg tablet 800 mg PO BID #60 tabs 09/01/21 [Rx Last Taken Unknown] nirmatrelvir 300 mg (150 mg x2)-ritonavir 100 mg tablet,dose pack (Paxlovid) See Rx Instructions PO .COMPLEX #30 tabs 09/01/21 [Rx Last Taken Unknown] prednisone 10 mg tablet 10 mg PO .COMPLEX #30 tabs 09/03/22 [Rx Last Taken Unknown] bupropion HCl 150 mg 24 hr tablet, extended release mg PO 09/04/22 [History Last Taken Unknown] bupropion HCl 300 mg 24 hr tablet, extended release mg PO 09/04/22 [History Last Taken Unknown] cephalexin 500 mg capsule 500 mg PO TID 5 days #15 caps 09/04/22 [Rx Last Taken Unknown] hydroxyzine HCl 25 mg tablet mg 09/04/22 [History Last Taken Unknown] ondansetron 4 mg disintegrating tablet 4 mg PO Q8H PRN nausea and vomiting 5 days #15 tabs 09/04/22 [Rx Last Taken Unknown] oxycodone 5 mg capsule 5 mg PO Q6H PRN pain 5 days #20 caps 09/04/22 [Rx Last Taken Unknown] Allergy/AdvReac Type Severity Reaction Status Date / Time No Known Allergies Allergy Verified 09/04/22 10:49 Social History Smoking Status: Former smoker EXAM Physical Exam Const Vital Signs: 09/04/22 10:49 09/04/22 12:38 09/04/22 14:06 Temperature 96.2 F L 98.1 F Temperature Source Temporal Oral Pulse Rate 57 L 68 97 Respiratory Rate 14 14 18 Blood Pressure 148/102 H 125/90 H 141/80 H Blood Pressure Mean 117 101 Pulse Ox 97 100 99 Oxygen Delivery Method Room Air Room Air MDM MDM MDM Narrative Medical decision making narrative: HISTORY OF PRESENT ILLNESS: 36-year-old male here for abdominal pain concern for GI bleeding. Patient states he is got left- sided abdominal pain rating to left flank. Denies history of kidney stones. Denies history abdominal surgeries. Notes nausea but no vomiting. Denies any chest pain or shortness of breath. Denies any testicular pain or testicular lesions. Does note increased frequency of urination and burning with urination. REVIEW OF SYSTEMS: Pertinent positives: Abdominal pain, frequency, urgency, hematochezia Pertinent negatives: Chest pain, syncope PHYSICAL EXAM: Nursing triage notes reviewed, Vital signs reviewed Constitutional: please see mdm HENT: MMM Eyes: Pupils equal round and reactive to light, Extraocular muscles intact Neck: No stridor, no JVD, full neck ROM Lungs: Clear to auscultation, No wheezing or rales. No increased work of breathing, no conversational dyspnea, no accessory muscle use, no nasal flaring. No respiratory distress noted Heart: Regular rate and rhythm, No murmurs, No rubs and No gallops, 2+ distal pulses (radial, femoral, posterior tibial) in all extremities Abdomen: Soft, there is left lower quadrant tenderness, rigidity, rebound or guarding, no obvious peritoneal signs, no palpable pulsatile abdominal masses, no auscultated abdominal bruit : Left-sided CVAT Extremities: No edema Neuro: No focal neurological deficits, cranial nerves II through XII intact, 5/5 strength in all extremities. Intact sensation to light touch in all extremities, 2+ reflexes bilateral patella tendons. Normal gait. No ataxia. Skin: No rash or lesions noted MEDICAL DECISION MAKING: Chief Complaint: Abdominal pain External records reviewed: No recent advanced imaging of the abdomen or pelvis noted Factors affecting care: none Social determinants of health: none History obtained from others: none Consults: none ALL IMAGES (IF OBTAINED) HAVE BEEN PERSONALLY REVIEWED AND INTERPRETED BY MYSELF. CBC with mild leukocytosis suggestive of systemic inflammation, no significant anemia, no thrombocytopenia BMP without significant electrolyte abnormalities, no anion gap to suggest endorgan hypoperfusion, mild renal insufficiency LFTs show no evidence of hepatobiliary pathology. Lipase is wnl indicating no pancreatic inflammation. Urine with evidence of inflammation and hematuria likely secondary to kidney stone will give antibiotics as I cannot completely rule out infection MDM Narrative: Patient was hemodynamically stable, afebrile, nontoxic-appearing. Abdominal exam with left lower quadrant tenderness, left CVA tenderness I considered the following differential diagnosis: Diverticulitis, GI bleed, pyelonephritis, nephrolithiasis I (more content not included)... Normal [facility] Hematocrit Auto (Bld) [Volum e fraction]Ordered By: Filiberto Power on 09-04-2022 Hematocrit (Bld) [Volume fraction] 47.2 % 40-54 [facility] Ketones Test strip Ql (U)Ord ered By: Filiberto Power on 09-04-2022 Ketones Ql (U) 15 mg/dl Negative [facility] Laboratory - Chemistry and C hemistry - challengeOrdered By: Filiberto Power on 09-04-2022 ALP [Catalytic activity/Vol] 89 U/L 45-117 [facility] ALT [Catalytic activity/Vol] 33 U/L 16-61 [facility] CO2 [Moles/Vol] 26.0 mmol/L 21.0-32.0 [facility] Globulin (S) [Mass/Vol] 3.9 g/dL 2.2-4.2 W [facility] Lipase [Catalytic activity/Vol] 43 U/L 13-75 [facility] Comment on above: Please note:LIPASE r evised reference range effective 22. New Lipase methodology. Expected to produce lower values than the previous assay method. NEW Reference Range: 13 - 75 U/L Urea nitrogen/Creatinine [Mass ratio] 12.6 mg/mg 10-20 [facility] - Hematology and Cell countsOrdered By: Filiberto Power on 09-04-2022 Erythrocyte distribution width (RBC) [Entitic vol] 44.0 fL 35.1-43.9 [facility] Erythrocyte distribution width (RBC) [Ratio] 13.7 % 11.6-14.6 [facility] Immature granulocytes/100 WBC (Bld) 1.200 % 0.0-0.9 [facility] Comment on above: IG% - Immature Granu locytes (promyelocytes, myelocytes and metamyelocytes) > 1% indicates that a LEFT SHIFT is Present. MCH (RBC) [Entitic mass] 28.9 pg 27.0-32.0 [facility] Nucleated RBC/100 WBC (Bld) [Ratio] 0 % 0-5 [facility] Lipaseon 09-04-2022 Lipase [Catalytic activity/Vol] 43 U/L Normal 13-75 [facility] Comment on above: Result Comment: Woo dash note: LIPASE revised reference range effective 22. New Lipase methodology. Expected to produce lower values than the previous assay method. NEW Reference Range: 13 - 75 U/L Performed By: #### L 500.2500, L100.0100, L501.2450, L500.3400 #### [facility] [address] [place], [address] Liver Profileon 09-04-2022 Albumin [Mass/Vol] 3.6 g/dL Normal 3.2-5.0 [facility] Comment on above: Performed By: #### L 500.2500, L100.0100, L501.2450, L500.3400 #### [facility] [address] [place], [address] ALK P 89 U/L Normal 45-117 [facility] Comment on above: Performed By: #### L 500.2500, L100.0100, L501.2450, L500.3400 #### [facility] [address] [place], [address] ALT [Catalytic activity/Vol] 33 U/L Normal 16-61 [facility] Comment on above: Performed By: #### L 500.2500, L100.0100, L501.2450, L500.3400 #### [facility] [address] [place], [address] AST [Catalytic activity/Vol] 20 U/L Normal 15-37 [facility] Comment on above: Performed By: #### L 500.2500, L100.0100, L501.2450, L500.3400 #### [facility] [address] [place], [address] Bilirubin [Mass/Vol] 0.20 mg/dL Normal 0.20-1.00 [facility] Comment on above: Result Comment: For patients on eltrombopag therapy, use of Dimension [place] TBIL is not recommended. Performed By: #### L 500.2500, L100.0100, L501.2450, L500.3400 #### [facility] [address] [place], [address] Bilirubin.direct [Mass/Vol] 0.09 mg/dL Normal 0.00-0.30 [facility] Comment on above: Performed By: #### L 500.2500, L100.0100, L501.2450, L500.3400 #### [facility] [address] [place], [address] Globulin (S) [Mass/Vol] 3.9 g/dL Normal 2.2-4.2 [facility] Comment on above: Performed By: #### L 500.2500, L100.0100, L501.2450, L500.3400 #### [facility] [address] [place], [address] T PROT 7.5 g/dL Normal 6.4-8.2 [facility] Comment on above: Performed By: #### L 500.2500, L100.0100, L501.2450, L500.3400 #### [facility] [address] [place], [address] Lower GI hemoglobin IA Ql (S tl)Ordered By: Filiberto Power on 09-04-2022 Stool Occult Blood (SAMUEL) Positive [facility] MCHC Auto (RBC) [Mass/Vol]Or dered By: Filiberto Power on 09-04-2022 MCHC (RBC) [Mass/Vol] 32.8 g/dL 32-36 [facility] Mucus LM Ql (Urine sed)Order ed By: Filiberto Power on 09-04-2022 Mucus Ql (Urine sed) 0 SEEN /hpf [facility] Nitrite Test strip Ql (U)Ord ered By: Filiberto Power on 09-04-2022 Nitrite Ql (U) Negative Negative [facility] No Panel InformationOrdered By: Filiberto Power on 09-04-2022 Estimated Creatinine Clearance Calc 79.39 ml/min [facility] Estimated GFR (MDRD) Amer 68 mL/min >60 [facility] Comment on above: GFR Calc Estimated GFR (MDRD) Non-Af Amer 56 mL/min >60 [facility] Comment on above: Non- GFR Calc Platelets bldOrdered By: Mary Power on 09-04-2022 Platelets (Bld) [#/Vol] 254 10*3/uL 150-450 [facility] Protein Test strip Ql (U)Ord ered By: Filiberto Power on 09-04-2022 Protein Ql (U) 30 mg/dl Negative [facility] Serum or plasma albumin laura urement (mass/volume)Ordered By: Filiberto Power on 09-04-2022 Albumin [Mass/Vol] 3.6 g/dL 3.2-5.0 [facility] Serum or plasma calcium laura urement (mass/volume)Ordered By: Filiberto Power on 09-04-2022 Calcium [Mass/Vol] 9.0 mg/dL 8.5-10.1 [facility] Serum or plasma creatinine m easurement (mass/volume)Ordered By: Filiberto Power on 09-04-2022 Creatinine [Mass/Vol] 1.51 mg/dL 0.70-1.30 [facility] Comment on above: The validity of the calculated GFR & GFRAA in patients over 70 years has not been determined. Clinical correlation is essential. Serum or plasma urea nitroge n measurement (mass/volume)Ordered By: Filiberto Power on 09-04-2022 Urea nitrogen [Mass/Vol] 19 mg/dL 7-18 [facility] Squamous epithelial cells de tection in urine sediment by light microscopyOrdered By: Filiberto Power on 09-04-2022 Epithelial cells.squamous LM Ql (Urine sed) 0-5 SEEN /hpf 0-5 [facility] Stool Occult Blood iFOBon STOB Positive Normal [facility] Comment on above: Performed By: #### M 100.7900 #### [facility] [address] [place], [place], [id number] Thin prep Papanicolaou smear with manual screeningOrdered By: Filiberto Power on 09-04-2022 Thin prep Papanicolaou smear with manual screening 20 U/L 15-37 [facility] Thin prep Papanicolaou smear with manual screening 4 5-15 [facility] Urinalysis, Completeon 09-04 CA OX CRYSTAL 1+ /hpf Normal [facility] Comment on above: Order Comment: CLEAN CATCH Performed By: #### L 400.0001 #### [facility] [address] [place], [address] EPI,SQUAMOUS 0-5 SEEN Normal 0-5 [facility] Comment on above: Order Comment: CLEAN CATCH Performed By: #### L 400.0001 #### [facility] [address] [place], [address] RBC > 100 SEEN Normal 0-5 [facility] Comment on above: Order Comment: CLEAN CATCH Performed By: #### L 400.0001 #### [facility] [address] [place], [address] WBC 0-5 SEEN Normal 0-5 [facility] Comment on above: Order Comment: CLEAN CATCH Performed By: #### L 400.0001 #### [facility] [address] [place], [address] BACTERIA 0 SEEN Normal None Seen [facility] Comment on above: Order Comment: CLEAN CATCH Performed By: #### L 400.0001 #### [facility] [address] [place], [address] Mucus Ql (Urine sed) 0 SEEN Normal [facility] Comment on above: Order Comment: CLEAN CATCH Performed By: #### L 400.0001 #### [facility] [address] [place], [address] Urine blood detectionOrdered By: Filiberto Power on 09-04-2022 RBC Ql (U) 250 /ul Negative [facility] RBC Ql (U) > 100 SEEN /hpf 0-5 [facility] Urine clarityOrdered By: Mary Power on 09-04-2022 Clarity (U) Sl. Cloudy Clear [facility] Urine color determinationOrd ered By: Filiberto Power on 09-04-2022 Color (U) Yellow Yellow [facility] Urine glucose detectionOrder ed By: Filiberto Power on 09-04-2022 Glucose Ql (U) Normal mg/dl Normal [facility] Urine leukocyte esterase det ection by dipstickOrdered By: Filiberto Power on 09-04-2022 Leukocyte esterase Test strip Ql (U) 100 /ul Negative [facility] Urine pHOrdered By: Filiberto damian on 09-04-2022 pH (U) 5.0 [pH] 5.0 - 8.0 [facility] Urine sediment bacteria coun t by microscopy (number/high power field)Ordered By: Filiberto Power on 09-04-2022 Bacteria LM.HPF (Urine sed) [#/Area] 0 /[HPF] None Seen [facility] Urine specific gravity measu rementOrdered By: Filiberto Power on 09-04-2022 Specific gravity (U) [Rel density] 1.030 1.002-1.030 [facility] Urobilinogen Auto test strip Ql (U)Ordered By: Filiberto Power on 09-04-2022 Urobilinogen Ql (U) 4 mg/dl Normal [facility] Office Visit Reporton 2022 Office Visit Report [facility] [address] [place] [address] OFFICE VISIT Date of Service: 09/03/22 MR#: [id number] Acct: [id number] Patient: EMIR RAE Rep #: [id number] Provider: MAO Hoover Age/Sex: 36/M Location: [email or web address] Status: Signed Intake Vital Signs 03/28/21 15:15 09/03/22 11:17 Height 6 ft 2 in BP 128/78 H Blood Pressure Location Lt brachial Position Sitting Respiration 14 Pulse 84 Pulse Source Monitor Temp 98.0 F Temp Source Temporal Pulse Oximetry (%) 98 Oxygen Delivery Method room air Intake Visit Reasons: Rash Chief Complaint: rash B/L UE and torso Administrative Assistant Receptionist Required: No Accompanied by: Self Is patient in pain?: No Allergies No Known Allergies Allergy (Unverified 09/03/22 11:18) Nurse's Note: c/o rash B/L UE and torso, started 09/02/2022 states a little itchy. [facility] Medical History (Updated 09/03/22 @ 11:25 by Gissell CAVANAUGH, PA) COVID-19 Encounter for screening for COVID-19 Herpes simplex type 1 infection HPI HPI Chief Complaint: rash B/L UE and torso Details: EMIR RAE, is a 36 M who presents to the office today for rash that started yesterday. He was in [place]. He has tried some OTC cream but did not feel that it made a difference. He notes that it itches. It is on his arms, chest and back. It is starting on his torso. ROS Const Constitutional: No other (As above) Exam Const General: cooperative, healthy appearing and no acute distress Nutritional Appearance: average body habitus Orientation: alert, awake and oriented x3 HENMT Head: normal to inspection and atraumatic Ears: hearing grossly normal bilaterally Nose: external nose normal Face and sinus: normal facial exam Mouth: oral mucosae normal Eyes General: appearance normal, both eyes and all related structures Resp Effort Inspection: normal respiratory effort Auscultation: Bilateral: Clear to Auscultation Cardio Palpation: normal PMI Rate: regular rate Rhythm: regular rhythm Heart Sounds: S1 normal, S2 normal, no gallops, no murmurs and no rubs GI Inspection: normal to inspection Auscultation: normal bowel sounds Palpation: soft, no hepatosplenomegaly and nontender Skin Other: scattered red areas over torso and arms Neuro General: patient alert, patient awake, patient oriented x3 and CN's II-XI intact bilaterally Coding Level of Care Code Off vis,est,level 3 Diagnoses Rash R21 Dermatitis L30.9 Assessment and Plan Assessment and Plan (1) Rash: (2) Dermatitis: Status: Acute Medications: New prednisone Take 4 pills for 3 days, 3 pills for 3 days, 2 pills for 3 days, take 1 pill for 3 days 30 tabs 0RF Plan Will treat with prednisone, if not improved advised to see PCP 09/03/22 1133 A> Date Gissell Griffin Signature: Date (if applicable) CC: Normal [facility] XR Thoracic spine AP and Lat eral and [place]imm[place] 07-04-2022 IMPRESSION: Mild, age indeterminant, anterior wedging of a midthoracic vertebral body, likely T8. Shells Inspector: FREDERICK Transcribe Date/Time: Jul 04 2022 3:15P Dictated by : JUSTYNA BERNARD MD This examination was interpreted and the report reviewed and electronically signed by: JUSTYNA BERNARD MD on Jul 04 2022 3:17PM [facility] DIVISION OF RADIOLOGY * * *Final Report* * * DATE OF EXAM: Jun 30 2022 3:11PM WOX [id number] - XR THORACIC 3V AP/LAT/SWIMMERS / PROCEDURE REASON: multiple diagnoses * * * * Physician Interpretation * * * * TITLE: XR THORACIC 3V AP/LAT/SWIMMERS CLINICAL INDICATION: Back pain TECHNIQUE: 3 view radiographic study of the thoracic spine COMPARISON: None FINDINGS: Mild anterior wedging of a midthoracic vertebral body, likely T8. Remainder of the vertebral body heights are preserved DIVISION OF RADIOLOGY Provider, Karolina Brittny Br[facility] - 07/04/2022 * * *Final Report* * * DATE OF EXAM: Jun 30 2022 3:11PM WOX [id number] - XR THORACIC 3V AP/LAT/SWIMMERS / PROCEDURE REASON: multiple diagnoses * * * * Physician Interpretation * * * * TITLE: XR THORACIC 3V AP/LAT/SWIMMERS CLINICAL INDICATION: Back pain TECHNIQUE: 3 view radiographic study of the thoracic spine COMPARISON: None FINDINGS: Mild anterior wedging of a midthoracic vertebral body, likely T8. Remainder of the vertebral body heights are preserved IMPRESSION IMPRESSION: Mild, age indeterminant, anterior wedging of a midthoracic vertebral body, likely T8. Shells Inspector: [facility] Transcribe Date/Time: Jul 04 2022 3:15P Dictated by : JUSTYNA BERNARD MD This examination was interpreted and the report reviewed and electronically signed by: JUSTYNA BERNARD MD on Jul 04 2022 3:17PM EST [facility] XR Cervical spine AP and Lat eral and obliqueon 07-03-2022 IMPRESSION: Cervical spine degenerative changes with C5-6 disc space narrowing and left-sided neural foraminal narrowing. Shells Inspector: [facility] Transcribe Date/Time: Jul 03 2022 9:48A Dictated by : PORTIA FUNEZ MD This examination was interpreted and the report reviewed and electronically signed by: PORTIA FUNEZ MD on Jul 03 2022 9:51AM [facility] DIVISION OF RADIOLOGY * * *Final Report* * * DATE OF EXAM: Jun 30 2022 3:11PM WOX [id number] - XR CERVICAL 4V AP/LAT/OBL / PROCEDURE REASON: Neck pain, musculoskeletal * * * * Physician Interpretation * * * * EXAM TITLE: XR CERVICAL 4V AP/LAT/OBL EXAM DATE/TIME: 06/30/2022 3:11 PM COMPARISON: None. CLINICAL INDICATION/HISTORY: Neck pain. TECHNIQUE: AP, lateral, and oblique views of the cervical spine are presented. FINDINGS: No fractures or subluxations are noted. C5-6 disc space narrowing is demonstrated, with associated osteophyte formation. There is left-sided C5-6 neural foraminal narrowing. C1 arcuate foramen visualized. The prevertebral soft tissues are normal. DIVISION OF RADIOLOGY Provider, [facility] Britt[facility] - 07/03/2022 * * *Final Report* * * DATE OF EXAM: Jun 30 2022 3:11PM WOX [id number] - XR CERVICAL 4V AP/LAT/OBL / PROCEDURE REASON: Neck pain, musculoskeletal * * * * Physician Interpretation * * * * EXAM TITLE: XR CERVICAL 4V AP/LAT/OBL EXAM DATE/TIME: 06/30/2022 3:11 PM COMPARISON: None. CLINICAL INDICATION/HISTORY: Neck pain. TECHNIQUE: AP, lateral, and oblique views of the cervical spine are presented. FINDINGS: No fractures or subluxations are noted. C5-6 disc space narrowing is demonstrated, with associated osteophyte formation. There is left-sided C5-6 neural foraminal narrowing. C1 arcuate foramen visualized. The prevertebral soft tissues are normal. IMPRESSION IMPRESSION: Cervical spine degenerative changes with C5-6 disc space narrowing and left-sided neural foraminal narrowing. Shells Inspector: [facility] Transcribe Date/Time: Jul 03 2022 9:48A Dictated by : PORTIA FUNEZ MD This examination was interpreted and the report reviewed and electronically signed by: PORTIA FUNEZ MD on Jul 03 2022 9:51AM EST [facility] XR Cervical spine AP and Lat eral and obliqueOrdered By: [facility] Provider on 07-03-2022 [facility] No Panel Informationon 06-30 Radiology Study observation (narrative) [facility] MRI BRAIN WO/W IVCONon 05-13 MRI BRAIN WO/W IVCON * * *Final Report* * * DATE OF EXAM: May 13 2020 4:55PM [facility] 0295 - MRI BRAIN WO/W IVCON / PROCEDURE REASON: hearing loss, attn IAC h90.3 * * * * Physician Interpretation * * * * EXAMINATION: MRI BRAIN WO/W IVCON HISTORY: hearing loss, attn IAC h90.3. Symptoms 10 years ago. This information is taken directly from the customs and border protection officer system. TECHNIQUE: Routine brain MRI protocol without and with contrast including diffusion and gradient echo images. MQ: [id number] Contrast: 16 mL Dotarem IV COMPARISON: None. RESULT: Acute Change: There is no evidence of restricted diffusion to suggest an acute infarct. Hemorrhage: No abnormal susceptibility artifact identified to suggest prior brain parenchymal hemorrhage. No acute blood byproducts are evident on this exam. Mass Lesion/ Mass Effect: No evidence of an intracranial mass or extra-axial fluid collection. No abnormal parenchymal or leptomeningeal enhancement is noted following contrast administration. No significant mass effect. Chronic Change: The white matter is within normal limits of signal intensity for age. Parenchyma: No significant volume loss for age. The brain parenchyma is otherwise within normal limits of signal intensity and morphology. Ventricles: Normal caliber and morphology. Skull Base: No evidence for an infiltrative process at the skull base. Right mastoid and middle ear inflammatory change. Left side is clear. No gross vascular impingement of lower cranial nerves, no lower cranial nerve nodularity or gross thickening visible on the axial CISS sequence. Meckel's cave and cavernous sinus regions are grossly normal. No focal brainstem lesions. No abnormal lower cranial nerve enhancement. Vasculature: Major intracranial arterial structures, and dural venous sinuses show typical flow void, suggesting patency by spin echo criteria. Typical enhancement of major cortical draining veins, deep venous structures, and dural venous sinuses within the [id number]. No evidence for thrombosis. Other: Extensive bilateral maxillary sinus and ethmoid inflammatory mucosal disease. T1 hyperintense material in both maxillary sinus chambers consistent with proteinaceous and partially inspissated material. Mucosal polyp anteriorly in the left maxillary sinus. Relative sparing of the sphenoid sinus chambers. Orbits are structurally unremarkable. IMPRESSION: Right mastoid and middle ear inflammatory change. No visible inflammatory changes on the left. No abnormal lower cranial nerve enhancement. Paranasal sinus inflammatory change as noted, prominently affecting the ethmoid air cells and maxillary sinus chambers. Shells Inspector: FREDERICK Transcribe Date/Time: May 13 2020 4:58P Dictated by : JAGUAR BURCH MD This examination was interpreted and the report reviewed and electronically signed by: JAGUAR BURCH MD on May 13 2020 5:13PM EST [id number] [facility] PROGRESSon 05-13-2020 PROGRESS HNO ID: [id number] Author: Katelyn (Rt) Sofie Mahajan Service: Radiology Author Type: Home Care Specialist Type: Progress Notes Filed: 05/13/2020 4:12 PM Note Text: Radiology Service Progress Note DATE OF SERVICE: May 13, 2020 TIME: 4:09 PM PATIENT IDENTITY VERIFICATION COMPLETED USING TWO (2) STANDARD IDENTIFIERS: Name and Date of confirmed by patient verbally and Name and Date of confirmed by identification band. FALL SCREENING: Has the patient had 2 falls in the last year or 1 fall with injury or currently using an Ambulatory Assistive Device (Walker, Cane, Wheelchair, Crutches, etc.)? No PATIENT GENDER DATA: Male PATIENT RELEVANT IMPLANT DATA REVIEWED: Yes ALLERGIES: Reviewed and unchanged CONTRAST ALLERGY: NO. EXAM: MRI - CONTRAST TYPE: GROUP II PERIPHERAL IV DATA: Ambulatory: A peripheral IV was started in the Right antecubital site with a Butterfly: 23 gauge. RADIOLOGY DEPARTMENT: MR; Exam(s) Completed: Head: IAC/CPA SIGNATURE: RT Noemi PATIENT NAME: Emir Rae DATE: May 13, 2020 TIME: 4:09 PM [facility] Vital Signs Date Time Vital Sign Value Performing Clinician Facility 09-11-2024 14:10-0400 Body height 188 cm Jose J Horn PA-C Work Phone: [facility] 09-11-2024 14:10-0400 Body mass index (BMI) [Ratio] 31.31 kg/m2 Jose J Horn PA-C Work Phone: [facility] 09-11-2024 14:10-0400 Body weight 110.6 kg Jose J Horn PA-C Work Phone: [facility] 09-11-2024 14:10-0400 Diastolic blood pressure 73 mm[Hg] Jose J Horn PA-C Work Phone: [facility] 09-11-2024 14:10-0400 Heart rate 87 /min Jose J Horn PA-C Work Phone: [facility] 09-11-2024 14:10-0400 SaO2% (BldA) [Mass fraction] 98 % Jose J Horn PA-C Work Phone: [facility] 09-11-2024 14:10-0400 Systolic blood pressure 118 mm[Hg] Jose J Horn PA-C Work Phone: [facility] 11-08-2023 09:52-0400 Body mass index (BMI) [Ratio] 31.93 kg/m2 Rosario Vishal PASTRY MIXER.ELECTRIC RAZOR ASSEMBLER Work Phone: [facility] 11-08-2023 09:52-0400 Body weight 112.8 kg Rosario Vishal PASTRY MIXER.ELECTRIC RAZOR ASSEMBLER Work Phone: [facility] 11-08-2023 09:52-0400 Diastolic blood pressure 79 mm[Hg] Rosraio Vishal PASTRY MIXER.ELECTRIC RAZOR ASSEMBLER Work Phone: [facility] 11-08-2023 09:52-0400 Heart rate 93 /min Rosario Vishal PASTRY MIXER.ELECTRIC RAZOR ASSEMBLER Work Phone: [facility] 11-08-2023 09:52-0400 Respiratory rate 16 /min Rosario Vishal PASTRY MIXER.ELECTRIC RAZOR ASSEMBLER Work Phone: [facility] 11-08-2023 09:52-0400 Systolic blood pressure 121 mm[Hg] Rosario Vishal PASTRY MIXER.ELECTRIC RAZOR ASSEMBLER Work Phone: [facility] 08-27-2023 10:45-0400 Body mass index (BMI) [Ratio] 29.4 kg/m2 Rosario Vishal PASTRY MIXER.ELECTRIC RAZOR ASSEMBLER Work Phone: [facility] 08-27-2023 10:45-0400 Body weight 103.87 kg Rosario Vishal PASTRY MIXER.ELECTRIC RAZOR ASSEMBLER Work Phone: [facility] 08-27-2023 10:45-0400 Diastolic blood pressure 76 mm[Hg] Rosario Vishal PASTRY MIXER.ELECTRIC RAZOR ASSEMBLER Work Phone: [facility] 08-27-2023 10:45-0400 Heart rate 96 /min Rosario Vishal PASTRY MIXER.ELECTRIC RAZOR ASSEMBLER Work Phone: [facility] 08-27-2023 10:45-0400 SaO2% (BldA) [Mass fraction] 99 % Rosario Vishal PASTRY MIXER.ELECTRIC RAZOR ASSEMBLER Work Phone: [facility] 08-27-2023 10:45-0400 Systolic blood pressure 114 mm[Hg] Rosario Vishal PASTRY MIXER.ELECTRIC RAZOR ASSEMBLER Work Phone: [facility] 01-01-2023 10:53-0500 Body weight 102.51 kg Misa Hager PASTRY MIXER.UNDERGRADUATE INTERN Work Phone: [facility] 01-01-2023 10:53-0500 Diastolic blood pressure 84 mm[Hg] Misa Hager PASTRY MIXER.UNDERGRADUATE INTERN Work Phone: [facility] 01-01-2023 10:53-0500 Heart rate 87 /min Misa Hager PASTRY MIXER.UNDERGRADUATE INTERN Work Phone: [facility] 01-01-2023 10:53-0500 Respiratory rate 16 /min Misa Hager PASTRY MIXER.UNDERGRADUATE INTERN Work Phone: [facility] 01-01-2023 10:53-0500 Systolic blood pressure 137 mm[Hg] Misa Hager PASTRY MIXER.UNDERGRADUATE INTERN Work Phone: [facility] 09-07-2022 14:59-0400 Body height 188 cm Tomas Hawkins MD Work Phone: [facility] 09-07-2022 14:59-0400 Body temperature 97.39 [degF] Tomas Hawkins MD Work Phone: [facility] 09-07-2022 14:59-0400 Body weight 104.69 kg Tomas Hawkins MD Work Phone: [facility] 09-07-2022 14:59-0400 Diastolic blood pressure 76 mm[Hg] Tomas Hawkins MD Work Phone: [facility] 09-07-2022 14:59-0400 Heart rate 89 /min Tomas Hawkins MD Work Phone: [facility] 09-07-2022 14:59-0400 SaO2% (BldA) [Mass fraction] 97 % Tomas Hawkins MD Work Phone: [facility] 09-07-2022 14:59-0400 Systolic blood pressure 132 mm[Hg] Tomas Hawkins MD Work Phone: [facility] 09-07-2022 13:32-0400 Body weight 104.33 kg Misa Hager PASTRY MIXER.UNDERGRADUATE INTERN Work Phone: [facility] 09-07-2022 13:32-0400 Diastolic blood pressure 82 mm[Hg] Misa Hager PASTRY MIXER.UNDERGRADUATE INTERN Work Phone: [facility] 09-07-2022 13:32-0400 Heart rate 89 /min Misa Hager PASTRY MIXER.UNDERGRADUATE INTERN Work Phone: [facility] 09-07-2022 13:32-0400 Respiratory rate 16 /min Misa Hager PASTRY MIXER.UNDERGRADUATE INTERN Work Phone: [facility] 09-07-2022 13:32-0400 SaO2% (BldA) [Mass fraction] 97 % Misa Hager PASTRY MIXER.UNDERGRADUATE INTERN Work Phone: [facility] 09-07-2022 13:32-0400 Systolic blood pressure 120 mm[Hg] Misa Hager PASTRY MIXER.UNDERGRADUATE INTERN Work Phone: [facility] 09-04-2022 14:06-0400 Diastolic blood pressure 80 mm[Hg] [facility] Work Phone: [facility] 09-04-2022 14:06-0400 Heart rate 97 /min [facility] Work Phone: [facility] 09-04-2022 14:06-0400 Respiratory rate 18 /min [facility] Work Phone: [facility] 09-04-2022 14:06-0400 SaO2% (BldA) [Mass fraction] 99 % [facility] Work Phone: [facility] 09-04-2022 14:06-0400 Systolic blood pressure 141 mm[Hg] [facility] Work Phone: 7(237)457-053662 [place] [address] 09-04-2022 12:38-0400 Body temperature 98.1 [degF] [facility] Work Phone: 1(875)040-830662 [place] [address] 09-04-2022 10:49-0400 Body height 187.96 cm [facility] Work Phone: 8(146)643-791762 [place] [address] 09-04-2022 10:49-0400 Body mass index (BMI) [Ratio] 30 kg/m2 [facility] Work Phone: 5(281)730-271662 [place] [address] 09-04-2022 10:49-0400 Body weight 106.14 kg [facility] Work Phone: 1(432)735-895362 [place] [address] 09-03-2022 11:17-0400 Body temperature 98 [degF] [facility] Work Phone: 7(579)878-917462 [place] [address] 09-03-2022 11:17-0400 Diastolic blood pressure 78 mm[Hg] [facility] Work Phone: 6(090)287-236062 [place] [address] 09-03-2022 11:17-0400 Heart rate 84 /min [facility] Work Phone: 0(172)045-231862 [place] [address] 09-03-2022 11:17-0400 Respiratory rate 14 /min [facility] Work Phone: 0(189)384-909662 [place] [address] 09-03-2022 11:17-0400 SaO2% (BldA) [Mass fraction] 98 % [facility] Work Phone: 3(550)636-174562 [place] [address] 09-03-2022 11:17-0400 Systolic blood pressure 128 mm[Hg] [facility] Work Phone: 7(971)143-614462 [place] [address] 10-24-2021 12:58-0400 Body height 189.2 cm Misa Hager PASTRY MIXER.UNDERGRADUATE INTERN Work Phone: [facility] 10-24-2021 12:58-0400 Body weight 105.69 kg Misa Hager PASTRY MIXER.UNDERGRADUATE INTERN Work Phone: [facility] 10-24-2021 12:58-0400 Diastolic blood pressure 80 mm[Hg] Misa Hager PASTRY MIXER.UNDERGRADUATE INTERN Work Phone: [facility] 10-24-2021 12:58-0400 Heart rate 84 /min Misa Hager PASTRY MIXER.UNDERGRADUATE INTERN Work Phone: [facility] 10-24-2021 12:58-0400 Respiratory rate 16 /min Misa Hager PASTRY MIXER.UNDERGRADUATE INTERN Work Phone: [facility] 10-24-2021 12:58-0400 Systolic blood pressure 120 mm[Hg] Misa Hager PASTRY MIXER.UNDERGRADUATE INTERN Work Phone: [facility] 06-14-2021 12:02-0400 Body temperature 97.3 [degF] Rossy Valencia PASTRY MIXER.ELECTRIC RAZOR ASSEMBLER Work Phone: [facility] 06-14-2021 12:02-0400 Body weight 102.15 kg Rossy Valencia PASTRY MIXER.ELECTRIC RAZOR ASSEMBLER Work Phone: [facility] 06-14-2021 12:02-0400 Diastolic blood pressure 82 mm[Hg] Rossy Valencia PASTRY MIXER.ELECTRIC RAZOR ASSEMBLER Work Phone: [facility] 06-14-2021 12:02-0400 Heart rate 73 /min Rossy Valencia PASTRY MIXER.ELECTRIC RAZOR ASSEMBLER Work Phone: [facility] 06-14-2021 12:02-0400 Respiratory rate 18 /min Rossy Valencia PASTRY MIXER.ELECTRIC RAZOR ASSEMBLER Work Phone: [facility] 06-14-2021 12:02-0400 SaO2% (BldA) [Mass fraction] 99 % Rossy Valencia PASTRY MIXER.ELECTRIC RAZOR ASSEMBLER Work Phone: [facility] 06-14-2021 12:02-0400 Systolic blood pressure 124 mm[Hg] Rossy Valencia PASTRY MIXER.ELECTRIC RAZOR ASSEMBLER Work Phone: [facility] Encounters Encounter Date Encounter Type Care Provider Facility Start: 09-29-2024 End: 09-29-2024 Refill Deven Santillan MD Work Phone: [facility] [place] Comment on above: Refill Request Start: 09-11-2024 End: 09-11-2024 Patient encounter procedure Jose J Horn PA-C Work Phone: [facility] Comment on above: Chronic bilateral th oracic back pain (Primary Dx); Radiculopathy, cervical region; Cervical spondylosis without myelopathy Start: 09-11-2024 End: 09-11-2024 ambulatory JOSE J HORN Facility:[facility] Start: 09-10-2024 End: 09-11-2024 Refill Misa Hager APRN.UNDERGRADUATE INTERN Work Phone: [facility] [place] Comment on above: Refill Request Start: 07-17-2024 End: 07-17-2024 [facility] Facility:[facility] Start: 06-27-2024 End: 08-27-2024 Follow-up encounter Misa Hager APRN.UNDERGRADUATE INTERN Work Phone: [facility] [place] Start: 06-26-2024 End: 06-26-2024 Patient encounter procedure [facility] Work Phone: [facility] Start: 06-26-2024 End: 06-26-2024 ambulatory [facility] Work Phone: [facility] Comment on above: Spirometry Start: 06-19-2024 End: 06-19-2024 ambulatory [facility] Facility:[facility] Start: 05-19-2024 End: 05-19-2024 Refill Deven Santillan MD Work Phone: [facility] [place] Comment on above: Refill Request Start: 01-01-2024 End: 01-02-2024 ambulatory Rosario Moffett APRN.ELECTRIC RAZOR ASSEMBLER Work Phone: [facility] [place] Comment on above: Results Start: 01-01-2024 End: 01-02-2024 E-mail encounter from caregiver Rosario Moffett APRN.ELECTRIC RAZOR ASSEMBLER Work Phone: [facility] [place] Start: 12-28-2023 End: 12-28-2023 Telephone encounter Rosario Moffett APRN.ELECTRIC RAZOR ASSEMBLER Work Phone: [facility] [place] Start: 12-27-2023 End: 12-27-2023 ambulatory ROSARIO MOFFETT Facility:[facility] Start: 11-08-2023 End: 11-08-2023 ambulatory ROSARIO MOFFETT Facility:[facility] Start: 11-08-2023 End: 11-08-2023 Patient encounter procedure Rosario Moffett PASTRY MIXER.ELECTRIC RAZOR ASSEMBLER Work Phone: [facility] [place] Comment on above: Low libido (Primary Dx); Fatigue, unspecified type; Vitamin D deficiency; Screening for lipid disorders; Screening for depression; Encounter for screening examination for other mental health and behavioral disorders Start: 08-27-2023 End: 08-27-2023 Patient encounter procedure Rosario Moffett PASTRY MIXER.ELECTRIC RAZOR ASSEMBLER Work Phone: [facility] [place] Comment on above: Mass of both upper e xtremities (Primary Dx); Palpable mass of lower back; Mass of left hip region Start: 06-21-2023 End: 06-21-2023 Patient encounter procedure Deo Bartholomewphillip Work Phone: Podiatry Comment on above: Plantar fasciitis of left foot (Primary Dx); Left foot pain; Tinea pedis of both feet Start: 05-25-2023 Telephone encounter eDven mejia MD Work Phone: [facility] [place] Comment on above: Insurance Authorizat ion Start: 05-24-2023 End: 05-24-2023 Subsequent hospital visit by physician Sal[facility] Work Phone: Radiology Comment on above: Left foot pain [M79. 672] Start: 04-30-2023 Refill Deven mccormack MD Work Phone: [facility] [place] Comment on above: Refill Request Start: 03-15-2023 ambulatory Rosario Vishal PASTRY MIXER.ELECTRIC RAZOR ASSEMBLER Work Phone: [facility] [place] Comment on above: Acid reflux Start: 02-05-2023 End: 02-05-2023 ambulatory Misa Najeras PASTRY MIXER.UNDERGRADUATE INTERN Work Phone: [facility] [place] Comment on above: Chronic bilateral th oracic back pain (Primary Dx); Gastrointestinal hemorrhage, unspecified gastrointestinal hemorrhage type Start: 02-05-2023 End: 02-05-2023 Telemedicine consultation with patient Misa Hager JERZY.UNDERGRADUATE INTERN Work Phone: [facility] Start: 01-01-2023 Telephone encounter Misa darling JERZY.UNDERGRADUATE INTERN Work Phone: [facility] [place] Comment on above: Medication Question Start: 01-01-2023 End: 01-01-2023 Office outpatient visit 25 minutes Misa Hager APRN.UNDERGRADUATE INTERN Work Phone: [facility] [place] Comment on above: Gastrointestinal hem orrhage, unspecified gastrointestinal hemorrhage type (Primary Dx); Renal calculus, left; Hydronephrosis of left kidney; Encounter for immunization; Neck pain, musculoskeletal; Chronic bilateral thoracic back pain; Gastroesophageal reflux disease, unspecified whether esophagitis present; Screening for HIV (human immunodeficiency virus); Screening for lipid disorders; Family history of rheumatoid arthritis Start: 11-03-2022 Refill Misa Najeraeaston BERTRAND.UNDERGRADUATE INTERN Work Phone: [facility] [place] Comment on above: Refill Request Start: 09-21-2022 End: 09-21-2022 ambulatory Rome Noriega PT Work Phone: [facility] Physical Therapy Comment on above: Neck pain, musculosk eletal (Primary Dx); Chronic bilateral thoracic back pain Start: 09-07-2022 End: 09-07-2022 Patient encounter procedure Tomas Hawkins MD Work Phone: General Surgery Comment on above: Acute GI bleeding (P rimary Dx); Kidney stone Start: 09-07-2022 Telephone encounter Deven mejia MD Work Phone: [facility] [place] Comment on above: Insurance Authorizat ion Start: 09-07-2022 End: 09-07-2022 Office outpatient visit 25 minutes Misa Hager APRN.UNDERGRADUATE INTERN Work Phone: [facility] [place] Comment on above: Gastrointestinal hem orrhage, unspecified gastrointestinal hemorrhage type (Primary Dx); Renal calculus, left; Hydronephrosis of left kidney; Neck pain, musculoskeletal; Chronic bilateral thoracic back pain; Gastroesophageal reflux disease, unspecified whether esophagitis present Start: 09-04-2022 End: 09-04-2022 Emergency department patient visit Filiberto Power Facility:[facility] Start: 09-04-2022 End: 09-04-2022 Emergency department patient visit [facility] Work Phone: [facility] Work Phone: Start: 09-03-2022 End: 09-03-2022 ambulatory [facility] Facility:[facility] Start: 09-03-2022 End: 09-03-2022 Patient encounter procedure [facility] Work Phone: [facility] Work Phone: Start: 08-21-2022 End: 08-21-2022 ambulatory Rome Noriega PT, DPT Work Phone: [facility] Comment on above: Neck pain, musculosk eletal (Primary Dx); Chronic bilateral thoracic back pain Start: 08-17-2022 End: 08-17-2022 ambulatory Rome Noriega PT, DPT Work Phone: [facility] Comment on above: Neck pain, musculosk eletal (Primary Dx); Chronic bilateral thoracic back pain Start: 08-16-2022 ambulatory Deven mccormack MD Work Phone: [facility] [place] Comment on above: about my back Start: 08-14-2022 End: 08-14-2022 ambulatory Rome Noriega PT, DPT Work Phone: [facility] Comment on above: Neck pain, musculosk eletal (Primary Dx); Chronic bilateral thoracic back pain Start: 08-09-2022 ambulatory No Pcp Bernarda Apodaca Start: 06-30-2022 End: 06-30-2022 Subsequent hospital visit by physician [facility] Work Phone: Radiology Comment on above: Neck pain, musculosk eletal [M54.2] Start: 11-27-2021 ambulatory Misa Hager APRN.CNS Work Phone: [facility] [place] Comment on above: Meloxicam Start: 10-24-2021 Telephone encounter Deven mejia MD Work Phone: [facility] [place] Comment on above: Splint problem Start: 10-24-2021 End: 10-24-2021 Patient encounter procedure Misa Hager APRN.UNDERGRADUATE INTERN Work Phone: [facility] Comment on above: Routine medical exam (Primary Dx); Encounter for immunization; Special screening examination for viral disease; Screening for HIV (human immunodeficiency virus); Screening for lipid disorders; Chronic wrist pain, left; Cervicalgia Start: 10-24-2021 End: 10-24-2021 Patient encounter status Misa Hager APRN.UNDERGRADUATE INTERN Work Phone: [facility] Start: 06-14-2021 End: 06-14-2021 Patient encounter procedure Rossy Erik PASTRY MIXER.ELECTRIC RAZOR ASSEMBLER Work Phone: [facility] Comment on above: Recurrent aphthous s tomatitis (Primary Dx) Start: 10-26-2016 Emergency department patient visit [facility] Procedures Date Procedure Procedure Detail Performing Clinician Start: 06-26-2024 Brncdilat rspse spmt ry pre&post-brncdilat admn Misa Hager APRN.UNDERGRADUATE INTERN Work Phone: Start: 12-27-2023 Lipid 1996 panel - S hal or Plasma Rosario Moffett PASTRY MIXER.ELECTRIC RAZOR ASSEMBLER Work Phone: Start: 11-08-2023 Adult depression scr eening assessment Rosario Moffett PASTRY MIXER.ELECTRIC RAZOR ASSEMBLER Work Phone: Start: 05-24-2023 Radex foot complete minimum 3 views Misa Hager APRN.UNDERGRADUATE INTERN Work Phone: Start: 01-01-2023 PFIZER-BIONTECH COVI D-19 VACCINE (2022- SEASON) AGE 12+ YR Misa Hager APRN.UNDERGRADUATE INTERN Work Phone: Start: 09-04-2022 Measurement of occul t blood in stool specimen using immunoassay [facility] Work Phone: Start: 09-04-2022 Computed tomography of abdomen and pelvis with intravenous contrast [facility] Work Phone: Start: 06-30-2022 Radex spine cervical 4 or 5 views Deven Santillan MD Work Phone: Start: 10-22-2021 Adult depression scr eening assessment Misa Hager APRN.UNDERGRADUATE INTERN Work Phone: Plan of Treatment Date Care Activity Detail Author Start: 12-26-2028 Lipid panel Lipid Screening [facility] Start: 10-26-2026 Urine microalbumin profile [facility] Start: 12-23-2024 End: 12-23-2024 Patient encounter procedure 12/23/2024 7:00 PM EDT Office Visit [facility] [place] [address] [place] [address] Deven Santillan MD [address] [place], [place] [id number] 6 month f/u [facility] [place] Comment on above: 6 month f/u Start: 11-07-2024 Anxiety Screening Anxiety Screening [facility] Start: 11-07-2024 Depression Screening Depression Screening [facility] Start: 10-27-2024 Covid-19 Vaccine ( season) Covid-19 Vaccine ( season) [facility] Comment on above: Postponed from 10/28/2023 (Declined at t his time) Start: 10-27-2024 Hepatitis B Vaccine (1 of 3 - 19+ 3-dose series) Hepatitis B Vaccine (1 of 3 - 19+ 3-dose series) [facility] Comment on above: Postponed from 2005 (Declined at t his time) Start: 10-27-2024 Influenza vaccination [facility] Start: 09-30-2024 End: 09-30-2024 Patient encounter procedure 09/30/2024 10:00 AM EDT Office Visit Urology [address] [place], [place] [id number] Vivek Shahid PA-C [address] [place] [address] CONSULT: Erectile dysfunction, unspecified type. [facility] Comment on above: CONSULT: Erectile dysfunction, unspecifi ed type. [facility] Start: 09-11-2024 End: 09-11-2024 Patient encounter procedure 09/11/2024 2:20 PM EDT Office Visit [facility] [address] [address] Jose J Horn PA-C [address] [place] [address] Chronic bilateral thoracic back pain [M54.6, G89.29] [facility] Comment on above: Chronic bilateral thoracic back pain [M5 4.6, G89.29] Start: 08-19-2024 End: 08-19-2024 Patient encounter procedure 08/19/2024 11:00 AM EDT Office Visit Urology [address] [place] [address] Vivek Shahid PA-C [address] [place] [address] Erectile dysfunction, unspecified erectile dysfunction type [N52.9] Urology Comment on above: Erectile dysfunction, unspecified erecti le dysfunction type [N52.9] Start: 07-17-2024 End: 07-17-2024 Patient encounter procedure 07/17/2024 1:40 PM EDT Office Visit Internal Medicine [facility] [address] [place] [address] Misa Hager APRN.UNDERGRADUATE INTERN [address] [place] [address] follow up Internal Medicine [place] Comment on above: follow up Start: 01-02-2024 HIV Screening HIV Screening [facility] Comment on above: Postponed from 2004 (Declined at t his time) Start: 01-02-2024 HIV screening HIV Screening [facility] Comment on above: Postponed from 2004 (Declined at t his time) Start: 12-28-2023 End: 03-28-2024 Hemoglobin A1c in Blood [facility] Work Phone: Comment on above: Expected: 12/28/2023, Expires: 5 Start: 11-09-2023 End: 02-08-2024 25-hydroxyvitamin D3 [Mass/volume] in Serum or Plasma VITAMIN D 25 HYDROXY Lab Routine Vitamin D deficiency Expected: 11/09/2023, Expires: 02/08/2024 [facility] Comment on above: Expected: 11/09/2023, Expires: 4 Start: 11-09-2023 End: 02-08-2024 CBC W Auto Differential panel - Blood COMPLETE BLOOD COUNT AND DIFFERENTIAL Lab Routine Low libido Fatigue, unspecified type Expected: 11/09/2023, Expires: 02/08/2024 [facility] Comment on above: Expected: 11/09/2023, Expires: 4 Start: 11-09-2023 End: 02-08-2024 Cobalamin (Vitamin B12) [Mass/volume] in Serum or Plasma VITAMIN B12 Lab Routine Fatigue, unspecified type Expected: 11/09/2023, Expires: 02/08/2024 [facility] Comment on above: Expected: 11/09/2023, Expires: 4 Start: 11-09-2023 End: 02-08-2024 Comprehensive metabolic 2000 panel - Serum or Plasma COMPREHENSIVE METABOLIC PANEL Lab Routine Fatigue, unspecified type Expected: 11/09/2023, Expires: 02/08/2024 [facility] Comment on above: Expected: 11/09/2023, Expires: Start: 11-09-2023 End: 02-08-2024 Ferritin [Mass/volume] in Serum or Plasma FERRITIN Lab Routine Low libido Fatigue, unspecified type Expected: 11/09/2023, Expires: 02/08/2024 [facility] Comment on above: Expected: 11/09/2023, Expires: Start: 11-09-2023 End: 02-08-2024 Iron and Iron binding capacity panel - Serum or Plasma IRON AND TIBC Lab Routine Low libido Fatigue, unspecified type Expected: 11/09/2023, Expires: 02/08/2024 [facility] Comment on above: Expected: 11/09/2023, Expires: Start: 11-09-2023 End: 02-08-2024 Lipid 1996 panel - Serum or Plasma LIPID PANEL BASIC Lab Routine Screening for lipid disorders Expected: 11/09/2023, Expires: 02/08/2024 [facility] Comment on above: Expected: 11/09/2023, Expires: Start: 11-09-2023 End: 02-08-2024 Magnesium [Mass/volume] in Serum or Plasma MAGNESIUM Lab Routine Fatigue, unspecified type Expected: 11/09/2023, Expires: 02/08/2024 [facility] Comment on above: Expected: 11/09/2023, Expires: Start: 11-09-2023 End: 02-08-2024 TESTOSTERONE, FREE AND TOTAL TESTOSTERONE, FREE AND TOTAL Lab Routine Low libido Fatigue, unspecified type Expected: 11/09/2023, Expires: 02/08/2024 [facility] Work Phone: Comment on above: Expected: 11/09/2023, Expires: Start: 11-09-2023 End: 02-08-2024 Thyrotropin [Units/volume] in Serum or Plasma THYROID STIMULATING HORMONE Lab Routine Low libido Fatigue, unspecified type Expected: 11/09/2023, Expires: 02/08/2024 [facility] Comment on above: Expected: 11/09/2023, Expires: Start: 11-08-2023 End: 11-08-2023 Patient encounter procedure 11/08/2023 10:00 AM EDT Office Visit Internal Medicine [address] [id number] Rosario Moffett APRN.ELECTRIC [employer]OR ASSEMBLER [address] [place], [place] [id number] Testosterone testing Internal Medicine [place] Comment on above: Testosterone testing Start: 10-28-2023 Covid-19 Vaccine ( season) Covid-19 Vaccine () [facility] Start: 10-28-2023 Influenza vaccination [facility] Start: 09-13-2023 End: 09-13-2023 Patient encounter procedure 09/13/2023 4:00 PM EDT Appointment Radiology [address] [place], [place] [address] Mass of both upper extremities [R22.33] Radiology Comment on above: Mass of both upper extremities [R22.33] Start: 08-23-2023 End: 08-23-2023 Patient encounter procedure 08/23/2023 10:30 AM EDT Office Visit Otolaryngology [address] [address] Deo Foy MD [address] [address] Decreased hearing of right ear [H91.91] Otolaryngology Comment on above: Decreased hearing of right ear [H91.91] Start: 08-09-2023 End: 08-09-2023 Patient encounter procedure 08/09/2023 2:30 PM EDT Office Visit Audiology [address] [address] Ira Anthony, AUD [address] [place], [place] [id number] Decreased hearing of right ear [H91.91] Audiology Comment on above: Decreased hearing of right ear [H91.91] Start: 07-02-2023 End: 07-02-2023 Patient encounter procedure 07/02/2023 11:00 AM EDT Office Visit Internal Medicine [facility] [address] [place] [address] eDven Santillan MD [address] [place] [address] 6 month follow up Internal Medicine [place] Comment on above: 6 month follow up Start: 07-01-2023 COVID-19 VACCINE (4 - Booster for Pfizer series) COVID-19 VACCINE (4 - Booster for Pfizer series) [facility] Comment on above: Postponed from 02/18/2021 (Declined at t his time) Start: 07-01-2023 COVID-19 VACCINE (4 - Pfizer series) COVID-19 VACCINE (4 - Pfizer series) [facility] Comment on above: Postponed from 02/18/2021 (Declined at t his time) Start: 06-30-2023 Hepb vaccine adult 3 dose schedule for im use HEP B VACCINE, 3-DOSE, AGE 20+ YR (ENGERIX-B, RECOMBIVAX HB) Immunization/Injection Routine Encounter for immunization Expected: 06/30/2023 [facility] Work Phone: Comment on above: Expected: 06/30/2023 Start: 02-26-2023 Behavioral Health Screening Behavioral Health Screening [facility] Start: 02-26-2023 Depression Assessment Depression Assessment [facility] Start: 01-31-2023 Hepb vaccine adult 3 dose schedule for im use HEP B VACCINE, 3-DOSE, AGE 20+ YR (ENGERIX-B, RECOMBIVAX HB) Immunization/Injection Routine Encounter for immunization Expected: 01/31/2023 [facility] Work Phone: Comment on above: Expected: 01/31/2023 Start: 01-01-2023 End: 04-02-2023 ИРИНА BY IFA SCREEN ИРИНА BY IFA SCREEN Lab Routine Neck pain, musculoskeletal Chronic bilateral thoracic back pain Family history of rheumatoid arthritis Expected: 01/01/2023, Expires: 04/02/2023 [facility] Work Phone: Comment on above: Expected: 01/01/2023, Expires: 4 Start: 01-01-2023 End: 04-02-2023 C reactive protein [Mass/volume] in Serum or Plasma C-REACTIVE PROTEIN (CRP) Lab Routine Neck pain, musculoskeletal Chronic bilateral thoracic back pain Family history of rheumatoid arthritis Expected: 01/01/2023, Expires: 04/02/2023 [facility] Work Phone: Comment on above: Expected: 01/01/2023, Expires: 4 Start: 01-01-2023 End: 04-02-2023 Erythrocyte sedimentation rate SED RATE WESTERGREN Lab Routine Neck pain, musculoskeletal Chronic bilateral thoracic back pain Family history of rheumatoid arthritis Expected: 01/01/2023, Expires: 04/02/2023 [facility] Work Phone: Comment on above: Expected: 01/01/2023, Expires: 4 Start: 01-01-2023 End: 04-02-2023 Lipid 1996 panel - Serum or Plasma LIPID PANEL BASIC Lab Routine Screening for lipid disorders Expected: 01/01/2023, Expires: 04/02/2023 [facility] Work Phone: Comment on above: Expected: 01/01/2023, Expires: 4 Start: 01-01-2023 End: 04-02-2023 Rheumatoid factor [Units/volume] in Serum or Plasma RHEUMATOID FACTOR BL Lab Routine Neck pain, musculoskeletal Chronic bilateral thoracic back pain Family history of rheumatoid arthritis Expected: 01/01/2023, Expires: 04/02/2023 [facility] Work Phone: Comment on above: Expected: 01/01/2023, Expires: 4 Start: 10-27-2022 Influenza vaccination [facility] Start: 10-24-2022 HIV SCREENING HIV SCREENING [facility] Comment on above: Postponed from 2004 (Declined at t his time) Start: 10-22-2022 Adult depression screening assessment DEPRESSION SCREENING [facility] Start: 09-04-2022 [facility] Start: 10-27-2021 Influenza vaccination [facility] Start: 10-24-2021 End: 12-24-2021 CBC W Auto Differential panel - Blood [facility] Work Phone: Comment on above: Expected: 10/24/2021, Expires: 2 Start: 10-24-2021 End: 12-24-2021 Comprehensive metabolic 2000 panel - Serum or Plasma [facility] Work Phone: Comment on above: Expected: 10/24/2021, Expires: 2 Start: 10-24-2021 End: 12-24-2021 Hepatitis C virus Ab [Presence] in Serum [facility] Work Phone: Comment on above: Expected: 10/24/2021, Expires: 2 Start: 10-24-2021 End: 12-24-2021 Lipid 1996 panel - Serum or Plasma LIPID PANEL BASIC Lab Routine Screening for lipid disorders Expected: 10/24/2021, Expires: 12/24/2021 [facility] Work Phone: Comment on above: Expected: 10/24/2021, Expires: Start: 2021 Lipid 1996 panel - Serum or Plasma Lipid Screening [facility] Start: 2021 Lipid panel Lipid Screening [facility] Start: 2021 LIPID SCREEN LIPID SCREEN [facility] Start: 02-26-2021 DEPRESSION ASSESSMENT DEPRESSION ASSESSMENT [facility] Start: 02-18-2021 COVID-19 VACCINE (4 - Booster for Pfizer series) COVID-19 VACCINE (4 - Booster for Pfizer series) [facility] Start: 06-15-2020 HPV VACCINE (2 - 3-dose SCDM series) HPV VACCINE (2 - 3-dose SCDM series) [facility] Start: 2005 Hepatitis B Vaccine (1 of 3 - 19+ 3-dose series) Hepatitis B Vaccine (1 of 3 - 19+ 3-dose series) [facility] Start: 2005 Urine microalbumin profile DTAP,TDAP,TD (1 - Tdap) [facility] Start: 2004 Anxiety Screening Anxiety Screening [facility] Start: 2004 Depression Screening Depression Screening [facility] Start: 2004 HEPATITIS C SCREENING HEPATITIS C SCREENING [facility] Start: 2004 HIV SCREENING HIV SCREENING [facility] Start: 2004 HIV screening HIV Screening [facility] Start: 1998 Adult depression screening assessment DEPRESSION SCREENING [facility] Start: 1986 HEPATITIS B (1 of 3 - 3-dose series) HEPATITIS B (1 of 3 - 3-dose series) [facility] Start: 1986 Hepatitis B Vaccine (1 of 3 - 3-dose series) Hepatitis B Vaccine (1 of 3 - 3-dose series) [facility] 9vhpv vacc 2/3 dose sched im use HPV VACCINE, 9-VALENT (GARDASIL 9) Immunization/Injection Routine Encounter for immunization 1 Occurrences starting 01/01/2023 [facility] Work Phone: Comment on above: 1 Occurrences starting 01/01/2023 End: 09-08-2023 COLONOSCOPY DIAGNOSTIC COLONOSCOPY DIAGNOSTIC Endoscopy Routine Acute GI bleeding 1 Occurrences starting 09/07/2022 until 09/08/2023 [facility] Work Phone: Comment on above: 1 Occurrences starting 09/07/2022 until 09/08/2023 End: 09-08-2023 EGD DIAGNOSTIC EGD DIAGNOSTIC Endoscopy Routine Acute GI bleeding 1 Occurrences starting 09/07/2022 until 09/08/2023 [facility] Work Phone: Comment on above: 1 Occurrences starting 09/07/2022 until 09/08/2023 Hepb vaccine adult 3 dose schedule for im use HEPATITIS B VACCINE, ADULT AGE 20+, IM Immunization/Injection Routine Encounter for immunization 1 Occurrences starting 10/24/2021 [facility] Work Phone: Comment on above: 1 Occurrences starting 10/24/2021 Hepb vaccine adult 3 dose schedule for im use HEP B VACCINE, 3-DOSE, AGE 20+ YR (ENGERIX-B, RECOMBIVAX HB) Immunization/Injection Routine Encounter for immunization 1 Occurrences starting 01/01/2023 [facility] Work Phone: Comment on above: 1 Occurrences starting 01/01/2023 INFLUENZA VACCINE, A GE 6 MO - 64 YR, QUADRIVALENT (AFLURIA, FLULAVAL, FLUZONE) INFLUENZA VACCINE, AGE 6 MO - 64 YR, QUADRIVALENT (AFLURIA, FLULAVAL, FLUZONE) Immunization/Injection Routine Encounter for immunization 1 Occurrences starting 01/01/2023 [facility] Work Phone: Comment on above: 1 Occurrences starting 01/01/2023 End: 10-12-2025 MR Cervical spine WO contrast MRI CERVICAL SPINE WO IVCON Radiology Routine Chronic bilateral thoracic back pain Radiculopathy, cervical region Cervical spondylosis without myelopathy 1 Occurrences starting 09/11/2024 until 10/12/2025 [facility] Comment on above: 1 Occurrences starting 09/11/2024 until 10/12/2025 Patient Education ED Kidney Ston e Undescended No ... ED Lower GI Bleeding (Stable) [facility] Work Phone: Patient referral Kay [facility] Work Phone: End: 09-25-2024 US Abdomen US SOFT TISSUE ABDOMEN Radiology Routine Palpable mass of lower back 1 Occurrences starting 08/27/2023 until 09/25/2024 [facility] Comment on above: 1 Occurrences starting 08/27/2023 until 09/25/2024 End: 09-25-2024 US Extremity - left US EXTREMITY MASS/FLUID COLLECTION LEFT Radiology Routine Mass of both upper extremities 1 Occurrences starting 08/27/2023 until 09/25/2024 [facility] Comment on above: 1 Occurrences starting 08/27/2023 until 09/25/2024 End: 09-25-2024 US Extremity - right US EXTREMITY MASS/FLUID COLLECTION RIGHT Radiology Routine Mass of both upper extremities 1 Occurrences starting 08/27/2023 until 09/25/2024 [facility] Comment on above: 1 Occurrences starting 08/27/2023 until 09/25/2024 End: 09-25-2024 US Pelvis US SOFT TISSUE PELVIS Radiology Routine Mass of left hip region 1 Occurrences starting 08/27/2023 until 09/25/2024 [facility] Work Phone: Comment on above: 1 Occurrences starting 08/27/2023 until 09/25/2024 End: 10-11-2025 XR CERV OTHER 4V AP/LAT/FLX/EXT XR CERV OTHER 4V AP/LAT/FLX/EXT Radiology Routine Chronic bilateral thoracic back pain Radiculopathy, cervical region Cervical spondylosis without myelopathy 1 Occurrences starting 09/11/2024 until 10/11/2025 [facility] Work Phone: Comment on above: 1 Occurrences starting 09/11/2024 until 10/11/2025 End: 11-23-2022 XR [facility] GENERAL 3V PA/LAT/OBL LEFT XR WRIST GENERAL 3V PA/LAT/OBL LEFT Radiology Routine Chronic wrist pain, left 1 Occurrences starting 10/24/2021 until 11/23/2022 [facility] Work Phone: Comment on above: 1 Occurrences starting 10/24/2021 until 11/23/2022 [facility] Immunizations Immunization Date Immunization Notes Care Provider Lyubov cheng 01-01-2023 COVID-19 vaccine, ag e 12+ yr, season (PFIZER-BIONTECH) Misa Hager PASTRY MIXER.UNDERGRADUATE INTERN Work Phone: [facility] Work Phone: 12-24-2020 COVID-19 vaccine, ag e 12+ yr (PFIZER-BIONTECH - PURPLE TOP) Misaorquidea Najeras PASTRY MIXER.UNDERGRADUATE INTERN Work Phone: [facility] Work Phone: 06-24-2020 COVID-19 vaccine, ag e 12+ yr (PFIZER-BIONTECH - PURPLE TOP) Misa Hager PASTRY MIXER.UNDERGRADUATE INTERN Work Phone: [facility] Work Phone: 06-03-2020 COVID-19 vaccine, ag e 12+ yr (PFIZER-BIONTECH - PURPLE TOP) Misa Hager PASTRY MIXER.UNDERGRADUATE INTERN Work Phone: [facility] Work Phone: 05-18-2020 Human Papillomavirus 9-valent vaccine Misa Najeras PASTRY MIXER.UNDERGRADUATE INTERN Work Phone: [facility] Work Phone: 10-26-2016 tetanus toxoid, redu kristian diphtheria toxoid, and acellular pertussis vaccine, adsorbed Misaorquidea Najeras PASTRY MIXER.UNDERGRADUATE INTERN Work Phone: [facility] Work Phone: Payers Date Payer Category Payer Private Health Insurance [id number] 2023 Unknown [id number] 2022 Self-pay 2022 Unknown [id number] 2020 Unknown MMO MMO [employer] [id number] 2020-Present [phone] [address] [place] [address] O [id number] 2020 Unknown [id number] Unknown [id number] Unknown [id number] Social History Date Type Detail Facility Start: 06-14-2021 End: 11-08-2023 Tobacco smoking status NHIS Ex-smoker [facility] Start: 06-14-2021 End: 11-08-2023 Tobacco use and exposure Smokeless tobacco non-user [facility] Start: 06-14-2021 End: 09-11-2024 Alcohol intake Lifetime non-drinker (finding) [facility] Start: 06-14-2021 End: 06-29-2022 History SDOH Alcohol Frequency 1 [facility] Start: 1985 Sex Assigned At Not on file [facility] Start: 06-03-2021 End: 10-24-2021 Exposure to SARS-CoV-2 (event) Not sure [facility] Work Phone: History of tobacco use Current smoker [facility] Work Phone: History of tobacco use Cigarette Smoker [facility] Work Phone: Start: 10-24-2021 End: 06-29-2022 Cigarettes smoked current (pack per day) - Reported 1 [facility] Start: 10-23-2021 End: 06-29-2022 History SDOH Alcohol Std Drinks 0 [facility] Start: 10-23-2021 End: 06-29-2022 History SDOH Social Connections Phone 2 [facility] Start: 10-23-2021 End: 06-29-2022 History SDOH Social Connections Meetings 3 [facility] Start: 10-23-2021 History SDOH Social Connections Living 8 [facility] Start: 10-23-2021 History SDOH Financial 4 [facility] Start: 10-24-2021 Tobacco Comment former vaping [facility] Start: 06-29-2022 History SDOH Social Connections Living 7 [facility] Start: 09-04-2022 Tobacco smoking stat us NHIS Unknown if ever smoked [facility] Start: 1985 Sex Assigned At Male W [facility] Start: 06-29-2022 End: 08-27-2023 Social connection and isolation panel [facility] Do you belong to any clubs or organizations such as baptist groups, unions, fraternal or athletic groups, or school groups? No [facility] Are you now , , , , never or living with a partner? Never [facility] How often to you hav e a drink containing alcohol? Never [facility] How many standard dr inks containing alcohol do you have on a typical day? Patient does not drink [facility] How hard is it for y ou to pay for the very basics like food, housing, medical care, and heating Somewhat hard [facility] Do you feel stress - tense, restless, nervous, or anxious, or unable to sleep at night because your mind is troubled all the time - these days [OSQ] To some extent [facility] (I/We) worried whejensen er (my/our) food would run out before (I/we) got money to buy more. Sometimes true [facility] Are you now , , , , never or living with a partner? Living with partner [facility] How often to you hav e a drink containing alcohol? Monthly or less [facility] How many standard dr inks containing alcohol do you have on a typical day? 1 or 2 [facility] How hard is it for y ou to pay for the very basics like food, housing, medical care, and heating Not very hard [facility] Do you feel stress - tense, restless, nervous, or anxious, or unable to sleep at night because your mind is troubled all the time - these days [OSQ] Only a little [facility] The food that (I/we) bought just didn't last, and (I/we) didn't have money to get more. Never true [facility] Clinical Notes 06-14-2021 to 09-29-2024 Telephone Encounter - Emma Schwarz MA - 09/29/2024 10:54 AM EDTTelephone Encounter - Emma Schwarz MA - 09/29/2024 10:54 AM ALLANTJose J Horn PA- C - 09/11/2024 2:02 PM EDT Note Date & Type Note Facility 09-29-2024 Telephone encounter Note Prescription Refill Information The patient has been identified by name and date of : Yes Caregiver verified no other encounters exist for this prescription request: Yes Caregiver confirmed with patient/requestor that no other refills are due, in the near future, with this provider at this time: Yes The last office visit in the department: 07/17/2024 Does the patient have a future office visit with this provider/department: Yes Requested Prescriptions Pending Prescriptions Disp Refills tiZANidine HCl (ZANAFLEX) 4 mg capsule 90 capsule 2 Sig: Take 1 capsule by mouth three times a day as needed. Emma Schwarz MA September 29, 2024 10:55 AM [facility] 09-29-2024 Miscellaneous Notes Prescription Refill Information The patient has been identified by name and date of : Yes Caregiver verified no other encounters exist for this prescription request: Yes Caregiver confirmed with patient/requestor that no other refills are due, in the near future, with this provider at this time: Yes The last office visit in the department: 07/17/2024 Does the patient have a future office visit with this provider/department: Yes Requested Prescriptions Pending Prescriptions Disp Refills tiZANidine HCl (ZANAFLEX) 4 mg capsule 90 capsule 2 Sig: Take 1 capsule by mouth three times a day as needed. Emma Schwarz MA September 29, 2024 10:55 AM documented in this encounter [facility] 09-11-2024 Note HNO ID: [id number] Author: JOSE J HORN PA-C Service: ? Author Type: [facility]ician [facility] Cutter Type: Progress Notes Filed: 09/11/2024 15:05 Note Text: Jose J Horn PA-C [facility] [address] [address] 09/11/2024 ASSESSMENT AND PLAN: Assessment : Encounter Diagnosis ICD-10-CM 1. Chronic bilateral thoracic back pain M54.6 XR CERV OTHER 4V AP/LAT/FLX/EXT G89.29 CONSULT TO PHYSICAL THERAPY MRI CERVICAL SPINE WO IVCON pregabalin (LYRICA) 75 mg capsule 2. Radiculopathy, cervical region M54.12 XR CERV OTHER 4V AP/LAT/FLX/EXT CONSULT TO PHYSICAL THERAPY MRI CERVICAL SPINE WO IVCON pregabalin (LYRICA) 75 mg capsule 3. Cervical spondylosis without myelopathy M47.812 XR CERV OTHER 4V AP/LAT/FLX/EXT CONSULT TO PHYSICAL THERAPY MRI CERVICAL SPINE WO IVCON pregabalin (LYRICA) 75 mg capsule Discussion: Mr. Rae is a pleasant 38-year-old man here for evaluation of neck and LUE radiating symptoms through the trapezius into the 1st and 2nd digits of the left hand. He has been taking tizanidine and diclofenac for this with mild help. He tried diclofenac gel and it did not work well for him at all. He tried gabapentin in the past for this and he struggled too much with the side effects. He notices increased symptoms when he turns his head to the left and feels pressure and numbness in the arm roughly in C6 distribution. He had PT about 2 years ago but looks like he only attended 3 visits and then stopped on his own. He said that the symptoms were worsening as a result of his physical therapy. He mentioned that his has a number of her own medical needs and he has been attending to her situation quite a bit more recently and that is why he has not kept on with his own care here for this problem. EXAM Highlights: Normal mobilization, stance, gait, balance. He has mild LEFT biceps strength diminishment but other strength is full at 5/5 bilaterally throughout. He has positive Spurling's maneuver with any motion of his neck toward the left or in extension reproducing C6 radiating symptoms on the LEFT side. Neck motion is diminished to the left as expected. Sensory disturbances appear to affect the C6 distribution. IMAGING: I reviewed his prior cervical x-rays with him from June 2022. This showed C5-6 DDD without instability. SUMMARY/PLAN: I would like him to update his x-rays and his PT. He will start Lyrica and gradually ramp his way up and he knows to stay on this on a regular basis. He will obtain cervical MRI study and return to see me afterward. If it confirms C6 radiculopathy on the left, I would probably recommend he consider a cervical epidural for that He indicates that he would like to hopefully avoid any surgical treatment at this point Plan : DIAGNOSTIC TESTING: -X-ray views will be obtained to better evaluate bony structures. -Dynamic plain radiographs of the Cervical spine are ordered. -An MRI is ordered to better delineate the soft tissue structures contributing to the patient's current symptoms, including the intervertebral disks, facet joints, spinal ligaments and neural elements. The study will aid with evaluating the need for, and planning, future interventional procedures. REFERAL FOR SERVICES: -Physical therapy will be instituted. MEDICATIONS: -See prescribed medication list for this encounter. -Nerve membrane stabilizer medication (gabapentin or pregabalin) was prescribed. Off-label use, importance of (and suggested schedule for) ramping and weaning, and expected side effects discussed with the patient during today's visit. ACTIVITY RECOMMENDATIONS: -The patient is encouraged to avoid bed rest and maintain normal activity. FOLLOW-UP: -The patient is instructed to return as needed. This document has been created with the use of voice recognition technology. It may contain inaccuracies: (e.g. misspellings, inaccurate syntax or word sense) that have escaped review. Time spent: 40 minutes today with this patient visit. This includes [id number] time, review of chart records regarding conservative care history, spine-pertinent imaging, and communication/care coordination with referring provider, problem-specific history-taking and counseling/education regarding treatment options. cc: Misa Hager [address] [facility] [id number] Results of consultation to be transmitted via electronic medical record for those providers who practice within [facility] or with access to [employer] via MD Connect, or via letter. ################################ ################################ ######## CHIEF COMPLAINT: Patient is here for the neck pain, upper back, left side is more painful. Level of the pain at this moment is at 3/10, but with (more content not included)... [facility] 09-11-2024 History of Presen t illness Narrative Images from the original note were not included. Jose J Horn PA-C [facility] [address] [address] 09/11/2024 ASSESSMENT AND PLAN: Assessment : Encounter Diagnosis ICD-10-CM 1. Chronic bilateral thoracic back pain M54.6 XR CERV OTHER 4V AP/LAT/FLX/EXT G89.29 CONSULT TO PHYSICAL THERAPY MRI CERVICAL SPINE WO IVCON pregabalin (LYRICA) 75 mg capsule 2. Radiculopathy, cervical region M54.12 XR CERV OTHER 4V AP/LAT/FLX/EXT CONSULT TO PHYSICAL THERAPY MRI CERVICAL SPINE WO IVCON pregabalin (LYRICA) 75 mg capsule 3. Cervical spondylosis without myelopathy M47.812 XR CERV OTHER 4V AP/LAT/FLX/EXT CONSULT TO PHYSICAL THERAPY MRI CERVICAL SPINE WO IVCON pregabalin (LYRICA) 75 mg capsule Discussion: Mr. Rae is a pleasant 38-year-old man here for evaluation of neck and LUE radiating symptoms through the trapezius into the 1st and 2nd digits of the left hand. He has been taking tizanidine and diclofenac for this with mild help. He tried diclofenac gel and it did not work well for him at all. He tried gabapentin in the past for this and he struggled too much with the side effects. He notices increased symptoms when he turns his head to the left and feels pressure and numbness in the arm roughly in C6 distribution. He had PT about 2 years ago but looks like he only attended 3 visits and then stopped on his own. He said that the symptoms were worsening as a result of his physical therapy. He mentioned that his has a number of her own medical needs and he has been attending to her situation quite a bit more recently and that is why he has not kept on with his own care here for this problem. EXAM Highlights: Normal mobilization, stance, gait, balance. He has mild LEFT biceps strength diminishment but other strength is full at 5/5 bilaterally throughout. He has positive Spurling's maneuver with any motion of his neck toward the left or in extension reproducing C6 radiating symptoms on the LEFT side. Neck motion is diminished to the left as expected. Sensory disturbances appear to affect the C6 distribution. IMAGING: I reviewed his prior cervical x-rays with him from June 2022. This showed C5-6 DDD without instability. SUMMARY/PLAN: I would like him to update his x-rays and his PT. He will start Lyrica and gradually ramp his way up and he knows to stay on this on a regular basis. He will obtain cervical MRI study and return to see me afterward. If it confirms C6 radiculopathy on the left, I would probably recommend he consider a cervical epidural for that He indicates that he would like to hopefully avoid any surgical treatment at this point Plan : DIAGNOSTIC TESTING: -X-ray views will be obtained to better evaluate bony structures. -Dynamic plain radiographs of the Cervical spine are ordered. -An MRI is ordered to better delineate the soft tissue structures contributing to the patient's current symptoms, including the intervertebral disks, facet joints, spinal ligaments and neural elements. The study will aid with evaluating the need for, and planning, future interventional procedures. REFERAL FOR SERVICES: -Physical therapy will be instituted. MEDICATIONS: -See prescribed medication list for this encounter. -Nerve membrane stabilizer medication (gabapentin or pregabalin) was prescribed. Off-label use, importance of (and suggested schedule for) ramping and weaning, and expected side effects discussed with the patient during today's visit. ACTIVITY RECOMMENDATIONS: -The patient is encouraged to avoid bed rest and maintain normal activity. FOLLOW-UP: -The patient is instructed to return as needed. This document has been created with the use of voice recognition technology. It may contain inaccuracies: (e.g. misspellings, inaccurate syntax or word sense) that have escaped review. Time spent: 40 minutes today with this patient visit. This includes [id number]-[id number] time, review of chart records regarding conservative care history, spine-pertinent imaging, and communication/care coordination with referring provider, problem-specific history-taking and counseling/education regarding treatment options. cc: Misa Hager [address] [place] [id number] Results of consultation to be transmitted via electronic medical record for those providers who practice within [facility] or with access to [employer] via MD Connect, or via letter. ################################ ################################ ######## CHIEF COMPLAINT: Patient is here for the neck pain, upper back, left side is more painful. Level of the pain at this moment is at 3/10, but with movements to the left, or straitening his posture, pain will increase up to 8/10. Has this pain for years and it is getting worse. Has numbness going down to his left arm. 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 This was completed 2 years ago. Made pain worse, he stopped going after 4th visit. Spinal Injections: He has not gotten prior spinal injections. Other: TENS unit Current Outpatient Medications Medication Sig Dispense Refill sildenafil (VIAGRA) 50 mg tablet Take 1 tablet by mouth once daily as needed. Take 30-60 minutes before sexual activity. May be taken up to 4 hours before sexual activity. Reduce to 25 mg or one half tablet once daily if side effects occur. 10 tablet 2 diclofenac, EC, (VOLTAREN) 75 mg EC tablet Take 1 tablet by mouth two times a day. as needed for pain/inflammation. Take with food. 60 tablet 1 albuterol HFA (PROVENTIL HFA, VENTOLIN HFA) 90 mcg/actuation inhaler Inhale 2 puffs as instructed every 4 hours as needed for wheezing/shortness of breath (and cough). 18 g 1 budesonide (RHINOCORT AQ) 32 mcg/actuation nasal spray Use 1 spray in each nostril once daily. 8.6 g 2 acyclovir (ZOVIRAX) 400 mg tablet Take 1 tablet by mouth two times a day. 180 tablet 3 Cholecalciferol, Vitamin D3, 50 mcg (2,000 unit) cap Take 1 capsule by mouth once daily. 90 capsule 3 tiZANidine HCl (ZANAFLEX) 4 mg capsule Take 1 capsule by mouth three times a day as needed. 90 capsule 2 ciclopirox (LOPROX) 0.77 % cream Apply 1 application to affected area two times a day. 90 g 2 omeprazole (PRILOSEC) 20 mg capsule Take 1 capsule by mouth daily before breakfast. 90 capsule 1 lidocaine (LIDODERM) 5 % Apply 1 Patch as directed every 12 hours. Remove old patch prior to placing new patch. 30 Patch 2 CALCIUM ACETATE ORAL Take by mouth. busPIRone (BUSPAR) 10 mg tablet TAKE 1/2 TABLET TO 2 TABLETS BY MOUTH ONCE DAILY NEEDED cpohcrhs-fla-pwlxb-vit K-lycop (ONE-A-DAY MEN'S MULTIVITAMIN) 400-20-300 mcg tab Take by mouth. ascorbic acid, vitamin C, (VITAMIN C) 500 mg tablet Take 500 mg by mouth once daily. buPROPion XL (WELLBUTRIN XL) 300 mg 24 hr tablet Take 1 tablet by mouth once daily. With 150 MG. buPROPion XL (WELLBUTRIN XL) 150 mg 24 hr tablet Take 1 tablet by mouth once daily. With 300 MG. hydrOXYzine HCl (ATARAX) 25 mg tablet Take 1 tablet by mouth twice daily. No current facility-administered medications for this visit. 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 PAST SURGICAL HISTORY Procedure Laterality Date TONSILLECTOMY AND ADENOIDECTOMY HX TOOTH EXTRACTION upper dentures Social History Tobacco Use Smoking status: Former Current packs/day: 1.00 Average packs/day: 1 pack/day for 15.0 years (15.0 ttl pk-yrs) Types: Cigarettes Smokeless tobacco: Never Tobacco comments: former vaping Vaping Use Vaping status: Never Used Substance Use Topics Alcohol use: Never Drug use: Never FAMILY HISTORY Problem Relation Age of Onset Arthritis Mother osteoarthritis; RA Osteoporosis Mother Arthritis Brother Alcohol abuse Brother Arthritis Maternal Grandmother Ischemic Heart Disease Maternal Grandmother CABG; AICD Peripheral Artery Disease Maternal Grandmother Arthritis Maternal Grandfather REVIEW OF SYSTEMS: Constitutional: (-) Fever/Chills (-) Night Sweats (-) Weight Gain (-) Weight Loss Gastrointestinal: (-) Abdominal Pain (-) Diarrhea (+) Constipation (+) Heart Burn Cardiovascular: (+) Chest Pain (-) Palpitations (+) Lightheadedness (-) Hx Heart Surgery/Stent Respiratory: (+) Short of Breath (-) Cough (+) Snoring Neurologic: (+) Headache (-) Blurry Vision (-) Fainting Skin: (-) Rashes (-) Itching (-) Other Lesions Psychiatric: (+) Depression (+) Anxiety (-) Suicidal Thoughts Genitourinary: (-) Frequency (-) Urgency Endocrine: (-) Thyroid Disorder (-) Diabetes Hematologic: (-) Prolonged Bleeding (-) Easy Bruising ################################ ################################ ################################ ################################ # PHYSICAL EXAM: Blood pressure 118/73, pulse 87, height 188 cm (6' 2), weight 110.6 kg (243 lb 13.3 oz), SpO2 98%. Body mass index is 31.31 kg/m . General: Patient is a(n) average historian. The patient appears approximately the recorded age and is sitting comfortably in the examining room. The patient is tall in stature and is overweight in appearance. This individual has no difficulty arising from a sitting position and does not have difficulty acquiring a full, upright position when standing. Station and Gait: Normal stance, normal gait. The patient is able to walk in a tandem gait. MENTAL STATUS EXAMINATION: The patient was casually attired. The patient had fair eye contact and rapport was average to establish. The patient appeared to be alert and oriented in all spheres. The patient's overall medical judgment appeared to be fair.The patient's motivation for treatment was judged based on today's encounter to be good. SPINE: Cervical Lordosis: Normal Thoracic Kyphosis: Increased Skin: Normal-no rashes, bruises, lesions, or signs of localized trauma., Skin color, texture and turgor normal. Paraspinal atrophy: No Range of Motion: Flexion: 1 fingerbreadths from chin to chest Pain: No Extension: limited with crepitation and pain Rotation: Right: limited with crepitation and pain Left: limited with crepitation and pain PALPATION TENDERNESS: Moderate tenderness at: cervical spine and shoulders/trapezius Hyperesthesia present: No Regional symptoms present: No Increased pain with axial loading: No Distraction: Normal Pain responses: appropriate NEUROLOGIC EXAM: Requires verbal cues to minimize cog-wheel or give-way resistance: No MOTOR: Deltoid R: 5/5 L: 5/5 Biceps R: 5/5 L: 4/5 Wrist Extension R: 5/5 L: +4/5 Wrist Flexion R: 5/5 L: 5/5 Triceps R: 5/5 L: 5/5 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 Thoracic: T1-L1 symmetrically normal. Spurling's: Positive on the left. REFLEXES: Upper Extremity: Brachioradialis: R: 1+ inverted? No L: 1+ inverted? No Biceps: R: 1+ L: 1+ Triceps: R: 1+ L: 1+ Lower Extremity: Patella tendon: R: 1+ L: 1+ Achilles tendon: R: 0 L: 0 Rasmussen's: Negative bilaterally. Clonus: R: 1-2 beats L: 1-2 beats Babinski Sign Present: Negative bilaterally. IMAGING STUDIES: See discussion above documented in this encounter [facility] 07-17-2024 Note HNO ID: [id number] Author: MISA HAGER APRN.UNDERGRADUATE INTERN Service: ? Author Type: Nurse Specialist Type: Progress Notes Filed: 07/17/2024 14:41 Note Text: Subjective Patient ID: Ernesto is a 38 year old male who presents for Follow Up. HPI Ernesto is a 38-year-old male with a history of anxiety, depression, and back pain, presenting for follow-up on anxiety management, back pain, and erectile dysfunction. Anxiety and Depression: - Severe anxiety; Wellbutrin at maximum dose was insufficient for mood stabilization. - Currently taking buspirone and hydroxyzine for anxiety management. - Hydroxyzine also used for allergy management. - Reports improvement in anxiety symptoms. Erectile Dysfunction: - Noted erectile dysfunction potentially related to buspirone. - Tried sildenafil 50 mg with significant improvement in erectile function. - Has an upcoming urology appointment. 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 - Describes pain as a constant sharp, needle-like sensation with pressure, alternating sides. - Pain radiates around the torso. - Currently taking tizanidine daily with uncertain efficacy. - Previously tried meloxicam and naproxen; discontinued due to adverse effects. - Rarely uses Tylenol due to high tolerance developed in childhood. - Has a prescription for gabapentin, but only uses it for severe back pain. - Tried physical therapy with minimal relief; continues some recommended stretches. - Has not seen a patient care specialist due to insurance and cost issues. ROS Constitutional: (+) fatigue Genitourinary: (+) erectile dysfunction Musculoskeletal: (+) back pain Psychiatric: (+) anxiety Objective BP 119/74 Pulse 87 Resp 16 Wt 113 kg (249 lb 1.9 oz) BMI 31.99 kg/m? Physical Exam Vitals and nursing note reviewed. Constitutional: Appearance: Normal appearance. HENT: Head: Normocephalic and atraumatic. Eyes: Conjunctiva/sclera: Conjunctivae normal. Neck: Thyroid: No thyroid mass or thyromegaly. Vascular: Normal carotid pulses. No carotid bruit or JVD. Cardiovascular: Rate and Rhythm: Normal rate and regular rhythm. Pulses: Carotid pulses are 2+ on the right side and 2+ on the left side. Radial pulses are 2+ on the right side and 2+ on the left side. Heart sounds: Normal heart sounds. Pulmonary: Effort: Pulmonary effort is normal. Breath sounds: Normal breath sounds. Abdominal: General: Bowel sounds are normal. Palpations: Abdomen is soft. Musculoskeletal: Right lower leg: No edema. Left lower leg: No edema. Skin: General: Skin is warm and dry. Neurological: General: No focal deficit present. Mental Status: He is alert and oriented to person, place, and time. Latest Ref [facility] 12/27/2023 WBC 3.70 - 11.00 k/uL 6.98 RBC 4.20 - 6.00 m/uL 5.62 Hemoglobin 13.0 - 17.0 g/dL 16.3 Hematocrit 39.0 - 51.0 % 49.3 MCV 80.0 - 100.0 fL 87.7 MCH 26.0 - 34.0 pg 29.0 MCHC 30.5 - 36.0 g/dL 33.1 RDW-CV 11.5 - 15.0 % 13.5 Platelet Count 150 - 400 k/uL 273 MPV 9.0 - 12.7 fL 10.2 Neut% % 59.5 Abs Neut (ANC) 1.45 - 7.50 k/uL 4.15 Lymph% % 30.2 Abs Lymph 1.00 - 4.00 k/uL 2.11 [place]% % 7.4 Abs [place] <0.87 k/uL 0.52 Eosin% % 1.3 Abs Eosin <0.46 k/uL 0.09 Baso% % 0.6 Abs Baso <0.11 k/uL 0.04 Immature Gran % % 1.0 IMMATURE GRANS (ABS) <0.10 k/uL 0.07 NRBC /100 WBC 0.0 Absolute nRBC <0.01 k/uL <0.01 DTYPE Auto Protein, Total 6.3 - 8.0 g/dL 7.3 Albumin 3.9 - 4.9 g/dL 4.3 Calcium 8.5 - 10.2 mg/dL 9.4 Bilirubin, Total 0.2 - 1.3 mg/dL 0.3 Alkaline Phosphatase 38 - 113 U/L 86 AST 14 - 40 U/L 19 ALT 10 - 54 U/L 23 Glucose 74 - 99 mg/dL 100 (H) BUN 9 - 24 mg/dL 18 Creatinine 0.73 - 1.22 mg/dL 1.11 Sodium 136 - 144 mmol/L 140 Potassium 3.7 - 5.1 mmol/L 4.3 Chloride 98 - 107 mmol/L 105 CO2 22 - 30 mmol/L 26 Anion Gap 8 - 15 mmol/L 9 eGFR >=60 mL/min/1.73m? 88 Cholesterol, Total <200 mg/dL 238 (H) Triglyceride <150 mg/dL 71 HDL Cholesterol >39 mg/dL 39 (L) Non HDL Cholesterol <130 mg/dL 199 (H) Fasting Time hrs 12 VLDL Cholesterol <30 mg/dL 14 TC:HDL Ratio <5.10 6.10 (H) LDL Cholesterol, Calculated <100 mg/dL 185 (H) LDL:HDL Ratio <2.54 4.74 (H) Testosterone, Total, S 264.0 - 916.0 ng/dL 363.8 Testosterone, Free, S 5.00 - 21.00 ng/dL 11.21 Testosterone, % Free, S 1.50 - 4.20 % 3.08 Iron 41 - 186 ug/dL 92 TIBC 232 - 386 ug/dL 262 Transferrin Saturation 15.0 - 57.0 % 35.1 Hemoglobin A1C 4.3 - 5.6 % 5.5 Estimated Average Glucose mg/dL 111 Magnesium 1.7 - 2.3 mg/dL 2.1 Vitamin B12 232 - 1,245 pg/mL 526 Ferritin 30.3 - 565.7 ng/mL 123.0 Vitamin D 25 Hydroxy 31.0 - 80.0 ng/mL 30.1 (L) TSH 0.270 - 4.200 mIU/L 1.220 1. Erectile dysfunction, unspecified erectile dysfunction type (N52.9) - Sildenafil 50 mg effective; tolerates well. - Refill for sildenafil sent to [facility] pharmacy. - Scheduled urology appointment. - Discusse (more content not included)... [facility] 06-27-2024 Progress note Formatting of t his note might be different from the original. Normal spirometry [facility] 06-27-2024 Miscellaneous Notes Normal spirometry documented in this encounter [facility] 06-19-2024 Note HNO ID: [id number] Author: MISA HAGER APRN.CNS Service: ? Author Type: Nurse Specialist Type: Progress Notes Filed: 06/19/2024 12:51 Note Text: Subjective Patient ID: Ernesto is a 38 year old male who presents for Short Of Breath. HPI Shortness of breath on exertion is reported. Smokin pack years, not current Vaping: no Asthma: no COPD: no Cough: a.m.only Wheeze: no PFT: no History of use of advair for allergies Hydroxyzine and nasacort for allergies. Stopping gabapentin helped with ED Rare EtoH Psychiatry for depression and anxiety Dyspnea on Exertion: - Onset: January. - Experiences dyspnea and fatigue with minimal exertion, including housework (e.g., cleaning litter boxes, doing dishes) and sexual activity. - Uncertain if dyspnea is related to back pain. - Denies history of asthma, COPD, or other lung diseases. - Denies current cough or wheezing; reports morning phlegm attributed to sinus drainage from allergies. - No history of pulmonary function tests. - Used Advair as a child for allergies; denies current inhaler use. - Former smoker; denies current smoking or vaping. Erectile Dysfunction: - Long-standing issue with maintaining erections, worsened recently. - No prior evaluation or treatment for ED. - Recent testosterone levels were normal. - Reports low libido; attributes some issues to gabapentin use, which he has since discontinued. - Taking buspirone and Wellbutrin for anxiety and depression; uncertain if these medications affect libido. - Denies alcohol use; no recreational drug use. - No relationship problems. - Urinary function normal; denies nocturia. Anxiety and Depression: - Managed by [facility] - Taking buspirone and Wellbutrin. - Reports good mood control with current medications. Allergies: - Year-round allergies; taking hydroxyzine and nasal spray. - Hydroxyzine taken at night due to drowsiness. - Reports severe allergy symptoms if not medicated. ROS Constitutional: (+) fatigue Head: (+) headaches Eyes: (+) tearing Ears/Nose/Mouth/Throat: (+) congestion Respiratory: (+) shortness of breath on exertion, (+) morning cough with phlegm, (+) occasional wheezing Gastrointestinal: (+) reflux Genitourinary: (+) erectile dysfunction, (-) nocturia Musculoskeletal: (+) back pain Psychiatric: (+) depression, (+) anxiety Objective BP 118/79 Pulse 89 Resp 16 Wt 117 kg (257 lb 15 oz) SpO2 98% BMI 33.12 kg/m? Physical Exam Vitals and nursing note reviewed. Constitutional: Appearance: Normal appearance. HENT: Head: Normocephalic and atraumatic. Eyes: Conjunctiva/sclera: Conjunctivae normal. Neck: Thyroid: No thyroid mass or thyromegaly. Vascular: Normal carotid pulses. No carotid bruit or JVD. Cardiovascular: Rate and Rhythm: Normal rate and regular rhythm. Pulses: Carotid pulses are 2+ on the right side and 2+ on the left side. Radial pulses are 2+ on the right side and 2+ on the left side. Heart sounds: Normal heart sounds. Pulmonary: Effort: Pulmonary effort is normal. Breath sounds: Normal breath sounds. Abdominal: General: Bowel sounds are normal. Palpations: Abdomen is soft. Musculoskeletal: Right lower leg: No edema. Left lower leg: No edema. Skin: General: Skin is warm and dry. Neurological: General: No focal deficit present. Mental Status: He is alert and oriented to person, place, and time. Latest Ref Rng 12/27/2023 WBC 3.70 - 11.00 k/uL 6.98 RBC 4.20 - 6.00 m/uL 5.62 Hemoglobin 13.0 - 17.0 g/dL 16.3 Hematocrit 39.0 - 51.0 % 49.3 MCV 80.0 - 100.0 fL 87.7 MCH 26.0 - 34.0 pg 29.0 MCHC 30.5 - 36.0 g/dL 33.1 RDW-CV 11.5 - 15.0 % 13.5 Platelet Count 150 - 400 k/uL 273 MPV 9.0 - 12.7 fL 10.2 Neut% % 59.5 Abs Neut (ANC) 1.45 - 7.50 k/uL 4.15 Lymph% % 30.2 Abs Lymph 1.00 - 4.00 k/uL 2.11 [place]% % 7.4 Abs [place] <0.87 k/uL 0.52 Eosin% % 1.3 Abs Eosin <0.46 k/uL 0.09 Baso% % 0.6 Abs Baso <0.11 k/uL 0.04 Immature Gran % % 1.0 IMMATURE GRANS (ABS) <0.10 k/uL 0.07 NRBC /100 WBC 0.0 Absolute nRBC <0.01 k/uL <0.01 DTYPE Auto Protein, Total 6.3 - 8.0 g/dL 7.3 Albumin 3.9 - 4.9 g/dL 4.3 Calcium 8.5 - 10.2 mg/dL 9.4 Bilirubin, Total 0.2 - 1.3 mg/dL 0.3 Alkaline Phosphatase 38 - 113 U/L 86 AST 14 - 40 U/L 19 ALT 10 - 54 U/L 23 Glucose 74 - 99 mg/dL 100 (H) BUN 9 - 24 mg/dL 18 Creatinine 0.73 - 1.22 mg/dL 1.11 Sodium 136 - 144 mmol/L 140 Potassium 3.7 - 5.1 mmol/L 4.3 Chloride 98 - 107 mmol/L 105 CO2 22 - 30 mmol/L 26 Anion Gap 8 - 15 mmol/L 9 eGFR >=60 mL/min/1.73m? 88 Cholesterol, Total <200 mg/dL 238 (H) Triglyceride <150 mg/dL 71 HDL Cholesterol >39 mg/dL 39 (L) Non HDL Cholesterol <130 mg/dL 199 (H) Fasting Time hrs 12 VLDL Cholesterol <30 mg/dL 14 TC:HDL Ratio <5.10 6.10 (H) LDL Cholesterol, Calculated <100 mg/dL 185 (H) LDL:HDL Ratio <2.54 4.74 (H) Testosterone, Total, S 264 (more content not included)... [facility] 05-19-2024 Telephone encounter Note Prescription Refill Information The patient has been identified by name and date of : Yes Caregiver verified no other encounters exist for this prescription request: Yes Caregiver confirmed with patient/requestor that no other refills are due, in the near future, with this provider at this time: Yes The last office visit in the department: Does the patient have a future office visit with this provider/department: No Requested Prescriptions Pending Prescriptions Disp Refills acyclovir (ZOVIRAX) 400 mg tablet 180 tablet 3 Sig: Take 1 tablet by mouth two times a day. Heidy Nolen May 19, 2024 12:52 PM [facility] 05-19-2024 Miscellaneous Notes Prescription Refill Information The patient has been identified by name and date of : Yes Caregiver verified no other encounters exist for this prescription request: Yes Caregiver confirmed with patient/requestor that no other refills are due, in the near future, with this provider at this time: Yes The last office visit in the department: Does the patient have a future office visit with this provider/department: No Requested Prescriptions Pending Prescriptions Disp Refills acyclovir (ZOVIRAX) 400 mg tablet 180 tablet 3 Sig: Take 1 tablet by mouth two times a day. Heidy Nolen May 19, 2024 12:52 PM documented in this encounter [facility] 12-28-2023 Telephone encounter Note Contact client services and A1C will be added. [facility] 12-28-2023 Miscellaneous Notes Contact client services and A1C will be added. Can we please see if the hgba1c can be added to the labs? Order placed. Thanks documented in this encounter [facility] 12-28-2023 Telephone encounter Note Can we please see if the hgba1c can be added to the labs? Order placed. Thanks [facility] 11-08-2023 Note HNO ID: [id number] Author: ROSARIO MOFFETT APRN.SINDI Service: ? Author Type: Nurse Practitioner Type: Progress Notes Filed: 11/08/2023 10:15 Note Text: SUBJECTIVE Emir Rae is a 38 year old male here today for acute concerns. Chief Complaint Patient presents with: Lab Orders: interested in testosterone testing due to low sex drive HPI Emir Rae is a 38 year old male. He is an established patient of Deven Santillan MD. Here today acutely, concerns of needing labs. Notes low libido. Drive has been really low. Notes that it seems like some ED too. Would like testosterone checked. He does note having a little more anxiety lately. Managing but still stressful. On Wellbutrin. Following with psychiatry. Sleeping well. Fatigue, maybe medication related. Not currently smoking. His medications were reviewed today and his list is now up to date. Medications Current Outpatient Medications Medication Sig tiZANidine HCl (ZANAFLEX) 4 mg capsule Take 4 mg by mouth three times a day as needed. acyclovir (ZOVIRAX) 400 mg tablet Take 1 tablet by mouth two times a day. omeprazole (PRILOSEC) 20 mg capsule Take 1 capsule by mouth daily before breakfast. lidocaine (LIDODERM) 5 % Apply 1 Patch as directed every 12 hours. Remove old patch prior to placing new patch. CALCIUM ACETATE ORAL Take by mouth. busPIRone (BUSPAR) 10 mg tablet TAKE 1/2 TABLET TO 2 TABLETS BY MOUTH ONCE DAILY NEEDED ylkojakx-dnd-opfzi-vit K-lycop (ONE-A-DAY MEN'S MULTIVITAMIN) 400-20-300 mcg tab Take by mouth. ascorbic acid, vitamin C, (VITAMIN C) 500 mg tablet Take 500 mg by mouth once daily. buPROPion XL (WELLBUTRIN XL) 300 mg 24 hr tablet Take 1 tablet by mouth once daily. With 150 MG. buPROPion XL (WELLBUTRIN XL) 150 mg 24 hr tablet Take 1 tablet by mouth once daily. With 300 MG. hydrOXYzine HCl (ATARAX) 25 mg tablet Take 1 tablet by mouth twice daily. fluticasone (FLONASE) 50 mcg/actuation nasal spray Use 1 [place] in each nostril once daily. ciclopirox (LOPROX) 0.77 % cream Apply 1 application to affected area two times a day. (Patient not taking: Reported on 11/08/2023) gabapentin (NEURONTIN) 100 mg capsule Take 1 capsule by mouth once daily AND 1-2 capsules daily at bedtime. Do all this for 90 days. No current facility-administered medications for this visit. ALLERGIES Allergen Reactions Cat Dander Other: See Comments Mold Unknown Pollen Extracts Unknown Seasonal Allergies Other: See Comments ACTIVE PROBLEM LIST Neck Pain, Musculoskeletal - 08/14/2022 Comment: chronic Chronic Bilateral Thoracic Back Pain - 08/14/2022 Social History Tobacco Use Smoking status: Former Current packs/day: 1.00 Average packs/day: 1 pack/day for 15.0 years (15.0 ttl pk-yrs) Types: Cigarettes Smokeless tobacco: Never Tobacco comments: former vaping Vaping Use Vaping status: Never Used Substance Use Topics Alcohol use: Never Drug use: Never Review of Systems Constitutional: Positive for fatigue. Negative for chills, diaphoresis and fever. Respiratory: Negative. Cardiovascular: Negative. OBJECTIVE BP 121/79 Pulse 93 Resp 16 Wt 248 lb 10.9 oz (112.8kg) Physical Exam Vitals and nursing note reviewed. Constitutional: General: He is awake. He is not in acute distress. Appearance: Normal appearance. He is well-developed and well-groomed. He is not ill-appearing, toxic-appearing or diaphoretic. HENT: Head: Normocephalic. Right Ear: External ear normal. Left Ear: External ear normal. Nose: Nose normal. Eyes: General: Vision grossly intact. Conjunctiva/sclera: Conjunctivae normal. Pupils: Pupils are equal, round, and reactive to light. Neck: Vascular: No JVD. Trachea: Trachea normal. Cardiovascular: Rate and Rhythm: Normal rate and regular rhythm. Pulses: Normal pulses. Heart sounds: Normal heart sounds. No murmur heard. Pulmonary: Effort: Pulmonary effort is normal. No accessory muscle usage, prolonged expiration or respiratory distress. Breath sounds: Normal breath sounds. Musculoskeletal: Cervical back: Neck supple. Skin: General: Skin is warm and dry. Capillary Refill: Capillary refill takes less than 2 seconds. Neurological: General: No focal deficit present. Mental Status: He is alert and oriented to person, place, and time. Mental status is at baseline. Psychiatric: Attention and Perception: Attention and perception normal. Mood and Affect: Mood and affect normal. Speech: Speech normal. Behavior: Behavior normal. Behavior is cooperative. Thought Content: Thought content normal. Cognition and Memory: Cognition and memory normal. Judgment: Judgment normal. ASSESSMENT/PLAN: 1. Low libido - ICD9: 799.81, ICD10: R68.82 (primary diagnosis) Check labs, continue care with psychiatry. - TESTOSTERONE, FREE AND TOTAL - COMPLETE BLOOD COUNT AND DIFFERENTIAL - IRON AND TIBC - FERRITIN - THYROID STIMULATING HORMONE (more content not included)... [facility] 11-08-2023 History of Presen t illness Narrative SUBJECTIVE Emir Rae is a 38 year old male here today for acute concerns. Chief Complaint Patient presents with: Lab Orders: interested in testosterone testing due to low sex drive HPI Emir Rae is a 38 year old male. He is an established patient of Deven Santillan MD. Here today acutely, concerns of needing labs. Notes low libido. Drive has been really low. Notes that it seems like some ED too. Would like testosterone checked. He does note having a little more anxiety lately. Managing but still stressful. On Wellbutrin. Following with psychiatry. Sleeping well. Fatigue, maybe medication related. Not currently smoking. His medications were reviewed today and his list is now up to date. Medications Current Outpatient Medications Medication Sig tiZANidine HCl (ZANAFLEX) 4 mg capsule Take 4 mg by mouth three times a day as needed. acyclovir (ZOVIRAX) 400 mg tablet Take 1 tablet by mouth two times a day. omeprazole (PRILOSEC) 20 mg capsule Take 1 capsule by mouth daily before breakfast. lidocaine (LIDODERM) 5 % Apply 1 Patch as directed every 12 hours. Remove old patch prior to placing new patch. CALCIUM ACETATE ORAL Take by mouth. busPIRone (BUSPAR) 10 mg tablet TAKE 1/2 TABLET TO 2 TABLETS BY MOUTH ONCE DAILY NEEDED jhmedjjr-jvd-ebiwe-vit K-lycop (ONE-A-DAY MEN'S MULTIVITAMIN) 400-20-300 mcg tab Take by mouth. ascorbic acid, vitamin C, (VITAMIN C) 500 mg tablet Take 500 mg by mouth once daily. buPROPion XL (WELLBUTRIN XL) 300 mg 24 hr tablet Take 1 tablet by mouth once daily. With 150 MG. buPROPion XL (WELLBUTRIN XL) 150 mg 24 hr tablet Take 1 tablet by mouth once daily. With 300 MG. hydrOXYzine HCl (ATARAX) 25 mg tablet Take 1 tablet by mouth twice daily. fluticasone (FLONASE) 50 mcg/actuation nasal spray Use 1 [employer] [place] in each nostril once daily. ciclopirox (LOPROX) 0.77 % cream Apply 1 application to affected area two times a day. (Patient not taking: Reported on 11/08/2023) gabapentin (NEURONTIN) 100 mg capsule Take 1 capsule by mouth once daily AND 1-2 capsules daily at bedtime. Do all this for 90 days. No current facility-administered medications for this visit. ALLERGIES Allergen Reactions Cat Dander Other: See Comments Mold Unknown Pollen Extracts Unknown Seasonal Allergies Other: See Comments ACTIVE PROBLEM LIST Neck Pain, Musculoskeletal - 08/14/2022 Comment: chronic Chronic Bilateral Thoracic Back Pain - 08/14/2022 Social History Tobacco Use Smoking status: Former Current packs/day: 1.00 Average packs/day: 1 pack/day for 15.0 years (15.0 ttl pk-yrs) Types: Cigarettes Smokeless tobacco: Never Tobacco comments: former vaping Vaping Use Vaping status: Never Used Substance Use Topics Alcohol use: Never Drug use: Never Review of Systems Constitutional: Positive for fatigue. Negative for chills, diaphoresis and fever. Respiratory: Negative. Cardiovascular: Negative. OBJECTIVE BP 121/79 Pulse 93 Resp 16 Wt 248 lb 10.9 oz (112.8kg) Physical Exam Vitals and nursing note reviewed. Constitutional: General: He is awake. He is not in acute distress. Appearance: Normal appearance. He is well-developed and well-groomed. He is not ill-appearing, toxic-appearing or diaphoretic. HENT: Head: Normocephalic. Right Ear: External ear normal. Left Ear: External ear normal. Nose: Nose normal. Eyes: General: Vision grossly intact. Conjunctiva/sclera: Conjunctivae normal. Pupils: Pupils are equal, round, and reactive to light. Neck: Vascular: No JVD. Trachea: Trachea normal. Cardiovascular: Rate and Rhythm: Normal rate and regular rhythm. Pulses: Normal pulses. Heart sounds: Normal heart sounds. No murmur heard. Pulmonary: Effort: Pulmonary effort is normal. No accessory muscle usage, prolonged expiration or respiratory distress. Breath sounds: Normal breath sounds. Musculoskeletal: Cervical back: Neck supple. Skin: General: Skin is warm and dry. Capillary Refill: Capillary refill takes less than 2 seconds. Neurological: General: No focal deficit present. Mental Status: He is alert and oriented to person, place, and time. Mental status is at baseline. Psychiatric: Attention and Perception: Attention and perception normal. Mood and Affect: Mood and affect normal. Speech: Speech normal. Behavior: Behavior normal. Behavior is cooperative. Thought Content: Thought content normal. Cognition and Memory: Cognition and memory normal. Judgment: Judgment normal. ASSESSMENT/PLAN: 1. Low libido - ICD9: 799.81, ICD10: R68.82 (primary diagnosis) Check labs, continue care with psychiatry. - TESTOSTERONE, FREE AND TOTAL - COMPLETE BLOOD COUNT AND DIFFERENTIAL - IRON AND TIBC - FERRITIN - THYROID STIMULATING HORMONE 2. Fatigue, unspecified type - ICD9: 780.79, ICD10: R53.83 - TESTOSTERONE, FREE AND TOTAL - COMPLETE BLOOD COUNT AND DIFFERENTIAL - IRON AND TIBC - COMPREHENSIVE METABOLIC PANEL - MAGNESIUM - VITAMIN B12 - FERRITIN - THYROID STIMULATING HORMONE 3. Vitamin D deficiency - ICD9: 268.9, ICD10: E55.9 - VITAMIN D 25 HYDROXY 4. Screening for lipid disorders - ICD9: V77.91, ICD10: Z13.220 - LIPID PANEL BASIC 5. Screening for depression - ICD9: V79.0, ICD10: Z13.31 - DEPRESSION SCREENING 6. Encounter for screening examination for other mental health and behavioral disorders - ICD9: V79.8, ICD10: Z13.39 - ANXIETY SCREENING Portions of this note have been entered by ancillary staff. I have reviewed and when necessary edited, so that they are an adequate record of my encounter with this patient Please note that parts of this document were created using voice recognition software and therefore may contain grammatical errors. Patient verbalizes understanding of instructions from today's visit and in agreement with treatment plan. Questions answered. Agrees to call the office if questions, concerns of issues with acute symptoms not improving or if they worsen. See diagnoses and orders for additional plan(s). Allergies and medications were reviewed, list was updated, and refills given if needed. Past medical, surgical, social, and family history reviewed and updated as appropriate. Encouraged proper diet & exercise as well as compliance with taking medications. Age-appropriate health preventative measures were discussed. No follow-ups on file. Rosario Moffett APRN-SINDI documented in this encounter [facility] 08-27-2023 History of Presen t illness Narrative Images from the original note were not included. SUBJECTIVE Emir Rae is a 37 year old male here today for a check up on his medical problems. Chief Complaint Patient presents with: Derm Problem: skin lesion x 6 One of the lesions is painful when touched HPI Emir Rae is a 37 year old male. Established patient of Deven Santillan MD. Here today for concerns of skin lesions. Onset a while ago. About 5 areas or so that are palpable under the skin, uncomfortable/painful at times, specifically the area to his back. No aggravating or alleviating factors. No edema, warmth to touch, or redness to the sites. No joint swelling or fever or chills. His medications were reviewed today and his list is now up to date. Medications Current Outpatient Medications Medication Sig ciclopirox (LOPROX) 0.77 % cream Apply 1 application to affected area two times a day. acyclovir (ZOVIRAX) 400 mg tablet Take 1 tablet by mouth two times a day. omeprazole (PRILOSEC) 20 mg capsule Take 1 capsule by mouth daily before breakfast. gabapentin (NEURONTIN) 100 mg capsule Take 1 capsule by mouth once daily AND 1-2 capsules daily at bedtime. Do all this for 90 days. lidocaine (LIDODERM) 5 % Apply 1 Patch as directed every 12 hours. Remove old patch prior to placing new patch. CALCIUM ACETATE ORAL Take by mouth. busPIRone (BUSPAR) 10 mg tablet TAKE 1/2 TABLET TO 2 TABLETS BY MOUTH ONCE DAILY NEEDED jxiznkmd-rfa-avrfr-vit K-lycop (ONE-A-DAY MEN'S MULTIVITAMIN) 400-20-300 mcg tab Take by mouth. ascorbic acid, vitamin C, (VITAMIN C) 500 mg tablet Take 500 mg by mouth once daily. buPROPion XL (WELLBUTRIN XL) 300 mg 24 hr tablet Take 1 tablet by mouth once daily. With 150 MG. buPROPion XL (WELLBUTRIN XL) 150 mg 24 hr tablet Take 1 tablet by mouth once daily. With 300 MG. hydrOXYzine HCl (ATARAX) 25 mg tablet Take 1 tablet by mouth twice daily. fluticasone (FLONASE) 50 mcg/actuation nasal spray Use 1 [place] in each nostril once daily. tiZANidine (ZANAFLEX) 4 mg tablet Take 0.5-1 tablets by mouth every 8 hours as needed. (Patient not taking: Reported on 06/21/2023) No current facility-administered medications for this visit. ALLERGIES Allergen Reactions Cat Dander Other: See Comments Mold Unknown Pollen Extracts Unknown Seasonal Allergies Other: See Comments ACTIVE PROBLEM LIST Neck Pain, Musculoskeletal - 08/14/2022 Comment: chronic Chronic Bilateral Thoracic Back Pain - 08/14/2022 Social History Tobacco Use Smoking status: Former Packs/day: 1.00 Years: 15.00 Additional pack years: 0.00 Total pack years: 15.00 Types: Cigarettes Smokeless tobacco: Never Tobacco comments: former vaping Vaping Use Vaping Use: Never used Substance Use Topics Alcohol use: Never Drug use: Never Review of Systems Respiratory: Negative. Cardiovascular: Negative. OBJECTIVE BP 114/76 Pulse 96 Wt 229 lb (103.9kg) SpO2 99% Physical Exam Vitals and nursing note reviewed. Constitutional: General: He is awake. He is not in acute distress. Appearance: Normal appearance. He is well-developed and well-groomed. He is not ill-appearing, toxic-appearing or diaphoretic. HENT: Head: Normocephalic. Right Ear: External ear normal. Left Ear: External ear normal. Nose: Nose normal. Eyes: General: Vision grossly intact. Conjunctiva/sclera: Conjunctivae normal. Pupils: Pupils are equal, round, and reactive to light. Neck: Vascular: No JVD. Trachea: Trachea normal. Pulmonary: Effort: Pulmonary effort is normal. No accessory muscle usage, prolonged expiration or respiratory distress. Musculoskeletal: Cervical back: Neck supple. Skin: General: Skin is warm and dry. Capillary Refill: Capillary refill takes less than 2 seconds. Comments: 4 palpable areas of concern Neurological: General: No focal deficit present. Mental Status: He is alert and oriented to person, place, and time. Mental status is at baseline. Psychiatric: Attention and Perception: Attention and perception normal. Mood and Affect: Mood and affect normal. Speech: Speech normal. Behavior: Behavior normal. Behavior is cooperative. Thought Content: Thought content normal. Cognition and Memory: Cognition and memory normal. Judgment: Judgment normal. ASSESSMENT/PLAN: 1. Mass of both upper extremities - ICD9: 782.2, ICD10: R22.33 (primary diagnosis) All areas are smooth, ovoid, easy to move, superficial masses. Suspect lipomas, check ultrasounds to be sure. No signs or symptoms of inflammation or infection. - US EXTREMITY MASS/FLUID COLLECTION LEFT - US EXTREMITY MASS/FLUID COLLECTION RIGHT 2. Palpable mass of lower back - ICD9: 782.2, ICD10: R22.2 - US SOFT TISSUE ABDOMEN 3. Mass of left hip region - ICD9: 719.65, ICD10: R22.42 - US SOFT TISSUE PELVIS Portions of this note have been entered by ancillary staff. I have reviewed and when necessary edited, so that they are an adequate record of my encounter with this patient Please note that parts of this document were created using voice recognition software and therefore may contain grammatical errors. Patient verbalizes understanding of instructions from today's visit and in agreement with treatment plan. Questions answered. Agrees to call the office if questions, concerns of issues with acute symptoms not improving or if they worsen. See diagnoses and orders for additional plan(s). Allergies and medications were reviewed, list was updated, and refills given if needed. Past medical, surgical, social, and family history reviewed and updated as appropriate. Encouraged proper diet & exercise as well as compliance with taking medications. Age-appropriate health preventative measures were discussed. Return if symptoms worsen or fail to improve, for Keep next scheduled appointment.. Rosario Moffett APRN-SINDI documented in this encounter [facility] 06-21-2023 History of Presen t illness Narrative Per Dr. VillalbaEmir was provided with powerstep original inserts, size 10, and instructed/educated in its application, wear, and care. All questions were answered, and patient was able to demonstrate competence with the necessary skills to utilize the above equipment. Kiera Dumont LPN Images from the original note were not included. Consultation requested by Dr. Hager for an opinion regarding left foot pain. My final recommendations will be communicated back to the requesting physician by way of shared Medical record or letter to requesting physician via US mail. Initial Podiatric Office Visit: Chief Complaint: This 37 year old male who presents with chief complaint:left foot pain HPI Patient presents to clinic with complaint of left foot pain Has pain to the medial instep for the past 6 months. He feels the pain was related to poorly worn out shoes. He purchased new shoes and has found that the pain is still present. He states the pain is usually the most severe following work and won't let up until he goes to bed . He states yesterday he had to use a cane because of the pain. Patient does not take any medication for the pain. Was given a prescription for the pain but he states the rx makes him sick. 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 omeprazole (PRILOSEC) 20 mg capsule Take 1 capsule by mouth daily before breakfast. lidocaine (LIDODERM) 5 % Apply 1 Patch as directed every 12 hours. Remove old patch prior to placing new patch. CALCIUM ACETATE ORAL Take by mouth. busPIRone (BUSPAR) 10 mg tablet TAKE 1/2 TABLET TO 2 TABLETS BY MOUTH ONCE DAILY NEEDED ffsgnazs-yei-cyipg-vit K-lycop (ONE-A-DAY MEN'S MULTIVITAMIN) 400-20-300 mcg tab Take by mouth. ascorbic acid, vitamin C, (VITAMIN C) 500 mg tablet Take 500 mg by mouth once daily. buPROPion XL (WELLBUTRIN XL) 300 mg 24 hr tablet Take 1 tablet by mouth once daily. With 150 MG. buPROPion XL (WELLBUTRIN XL) 150 mg 24 hr tablet Take 1 tablet by mouth once daily. With 300 MG. hydrOXYzine HCl (ATARAX) 25 mg tablet Take 1 tablet by mouth twice daily. fluticasone (FLONASE) 50 mcg/actuation nasal spray Use 1 [place] in each nostril once daily. Diclofenac Sodium 3 % gel Apply 0.5 g to affected area once daily as needed. (Patient not taking: Reported on 06/21/2023) tiZANidine (ZANAFLEX) 4 mg tablet Take 0.5-1 tablets by mouth every 8 hours as needed. (Patient not taking: Reported on 06/21/2023) gabapentin (NEURONTIN) 100 mg capsule Take 1 capsule by mouth once daily AND 1-2 capsules daily at bedtime. Do all this for 90 days. No current facility-administered medications for this visit. ALLERGIES Allergen Reactions Cat Dander Other: See Comments Mold Unknown Pollen Extracts Unknown Seasonal Allergies Other: See Comments PAST SURGICAL HISTORY Procedure Laterality Date TONSILLECTOMY AND ADENOIDECTOMY HX TOOTH EXTRACTION upper dentures FAMILY HISTORY Problem Relation Age of Onset Arthritis Mother osteoarthritis; RA Osteoporosis Mother Arthritis Brother Alcohol abuse Brother Arthritis Maternal Grandmother Ischemic Heart Disease Maternal Grandmother CABG; AICD Peripheral Artery Disease Maternal Grandmother Arthritis Maternal Grandfather Social History Tobacco Use Smoking status: Former Packs/day: 1.00 Years: 15.00 Additional pack years: 0.00 Total pack years: 15.00 Types: Cigarettes Smokeless tobacco: Never Tobacco comments: former vaping Vaping Use Vaping Use: Never used Substance Use Topics Alcohol use: Never Drug use: Never REVIEW OF SYSTEMS GENERAL: Negative for Malaise, significant weight loss, fever RESPIRATORY: Negative for cough, wheezing and shortness of breath CARDIOVASCULAR: Negative for chest pain, leg swelling and palpitations GI: Negative for abdominal discomfort, blood in stools or black stools and change in bowel habits : Negative for dysuria, frequency and incontinence MUSCULOSKELETAL: Negative for joint pain or swelling, back pain, and muscle pain. SKIN: Negative for lesions, rash, and itching. HEMATOLOGY/LYMPHOLOGY Negative for prolonged bleeding, bruising easily, and swollen nodes. ENDOCRINE: Negative for cold or heat intolerance, polyuria, polydipsia and goiter. NEURO: negative Physical Exam: Constitutional: Pt is a well developed 37 year old male who is alert, oriented and cooperative Eyes: Following during examination. No redness or drainage. Respiratory: RR normal and nonlabored. Even breathing. No evidence of distress or shortness of breath. Psychology: Patient is engaged during conversation. Normal affect and mood. Does not appear depressed or anxious during encounter. Vascular: Dorsalis pedis and posterior tibial pulses palpable as b/l Capillary Fill time < 5 seconds to digits 1-5 b/l Skin temperature warm to warm proximal to distal b/l Hair growth present to digits Neurological: intact light touch/epicritic sensation - tinel b/l intact protective sensation no significant neurological deficits Dermatological: Nails 1-5 b/l appear normal. Webspaces clean and dry 1-4 b/l. Skin appears mostly hydrated with some scaling along interspace Musculoskeletal/Orthopaedic: Patient has pain to palpation of left medial instep Foot type is pronated structurally AJ ROM is full with knee extended and flexed 1st MPJ is full when loaded and no pain or crepitus are noted with ROM. MTJ, STJ are full and free of pain and crepitus. +5/5 muscle strength dorsiflexion, plantarflexion, inversion, eversion b/l Radiographs: 3 views left foot reviewed June 21, 2023: I have personally reviewed and interpreted these XR myself: no acute fracture ASSESSMENT: (M72.2) Plantar fasciitis of left foot (primary encounter diagnosis) (M79.672) Left foot pain (B35.3) Tinea pedis of both feet PLAN: 1. History and physical examination performed. 2. XR reviewed with patient and interpreted today 3. Discussed pain in left instep. Suspect pain started as a result of poor supportive shoes. Recommend good supportive shoes. Will try stretching, icing and use of powerstep inserts. If pain fails to improve, consider therapy. 4. Discussed concern for athlete's foot. No major dryness just a little scaling between the toes. Will prescribe loprox 5. F/u prn Deo Villalba DPM Podiatry [address] [facility] [address] Dept: [phone] Dept AMB ROOMING INTAKE FLOWSHEET DATA Pain Pain Level: 8 Pain Location: Foot-Left Description: Aching, Cramping, Pressure, Tightness Duration Amount of Time: 7 Duration Units: Days Frequency: Intermittent Intervention/Comfort measure: Medication, Relaxation, Cold, Imagery Patient presents with: Left Foot - New Patient, Pain Patient c/o L foot pain that's been ongoing for 8 months. Blames it on wearing old, worn out shoes. He has since stopped wearing the shoes. XR taken on 05/23. Patient also thinks he has athlete's foot on both feet. documented in this encounter [facility] 06-21-2023 Instructions Deo Villalba - 06/21/2023 2:37 PM EDT Images from the original note were not included. What is Plantar Fasciitis? Plantar fasciitis is the most common cause of heel pain. The pain is caused by inflammation of the plantar fascia. If you strain your plantar fascia, it becomes weak, swollen and irritated (inflamed). The resulting pain may be isolated in the heel or may appear at different points on the bottom of the foot, from time to time; it may occur in one foot or both. Some think that plantar fasciitis pain is caused by irritation of nerves from tissue swelling or inflammation, but it is debatable. Plantar fasciitis is common in middle-aged people; it also occurs in younger people who are on their feet a lot, such as athletes or soldiers. The plantar fascia is a strong band of connective tissue that extends from the base of the toes, along the bottom of the foot, to the bottom of the heel (calcaneous bone); it acts like a bowstring to maintain the arch of the foot. What are heel spurs? The inflammatory reaction of the heel bone may produce spike-like projections of new bone, called heel spurs. The spurs sometimes show on X-rays. They neither cause the initial pain nor do they cause the initial problem. However, later, having to walk on spurs may cause sharp pain. What causes plantar fasciitis? Plantar fasciitis is caused by straining the ligament that supports your arch. Repeated strain can cause tiny tears in the ligament. These lead to pain and swelling. During walking, the plantar fascia experiences tension up to twice the body weight with each step. While this is normal, those who spend much time on their feet, such as nurses, commanding officer traffic division/waiters, and mail carriers, often experience plantar fasciitis. Athletes involved in tennis or other racquet sports, race walking, jogging or running also show a higher incidence of plantar fasciitis than do those participating in other activities. Thus, it's clear that plantar fasciitis is predominantly an overuse injury. In fact, any activity that results in prolonged tension and stress on the plantar fascia may cause plantar fasciitis. It is possible that changes in footwear may play a role in causing plantar fasciitis, no matter what activity is occurring. Those who are overweight are prone to plantar fasciitis. This is true even for sedentary people who get little physical activity. Abnormalities of the foot and ankle joints may predispose some individuals to development of plantar fasciitis (specifically, over pronation of the subtalar joint). Contributing Factors * Flat feet * Toe running, hill running * Sudden weight increase * High-arched, rigid feet * Soft terrain, e.g. running on sand * Obesity * Pronated feet (rolled inward) * Sudden increase in activity * Family tendency * Poor shoe support * Worn out or poorly fitted shoes * Increasing age * Walking, standing or running for long periods of time, especially on hard surfaces. How is the Injury Treated? Rest Your Feet: Limit, or if possible, stop activities that are causing your heel pain. Try to avoid running or walking on hard surfaces, such as concrete. Use pain as your guide. If your foot is too painful, rest it. Ice: Ice the sore area for 30 to 60 minutes, several times a day, to reduce inflammation and relieve pain. Apply a plastic bag of crushed ice (or a bag of frozen peas) over a towel. Ice the sore area for 15 minutes after activity/exercise. Application of heat is not generally recommended, as heat expands the bone and connective tissue, perhaps exerting greater pressure on nerves and thereby increasing pain. If heat is used, follow it with ice. Medication: If your condition developed recently, anti-inflammatory/analgesic medication, combined with heel pads (see below) may be all that is necessary to relieve pain and to reduce inflammation. If no pain relief has occurred after 2-3 weeks, however, your doctor may inject either cortisone or local anesthetic directly into the tender area. Exercises: Do simple exercises, such as calf stretches and towel stretches (see below) several times a day, especially when you first get up in the morning. These can help your ligament become more flexible and strengthen the muscles that support your arch. Shoes: Poorly fitting shoes can cause plantar fasciitis. The best type of shoe to wear is a good walking or running shoe with good shock absorption and excellent arch support. You should choose the one that fits the best. [place] with your athletic shoes to find a pair that is comfortable and causes fewer symptoms. Put your shoes on as soon as you get out of bed; going barefoot or wearing slippers may make your pain worse. Good brands include (but are not limited to): New Balance, Asics, Saucony, SAS and Merrel s. Taping: Your doctor may tape your foot to maintain the arch. This takes some of the tension off the plantar fascia. Weight Loss: If your weight is putting extra stress on your feet, your doctor may encourage you to try a weight-loss program. Orthotics: An orthotic insole is a molded piece of rubber, plastic, or other material that you insert into your shoe. It corrects the alignment of your foot and cushions your foot from excessive pounding. These may be prescription or non-prescription. Prescription orthotics are custom-fitted and may fit better and control pain better, but are very expensive. Night Splints: A night splint holds the foot with the toes pointed up and the ankle at a 90-degree angle. This position applies a constant, gentle stretch to the plantar fascia. Corticosteroid Shots: Steroids may be injected into the tender area to reduce inflammation. REHAB Exercises to stretch the plantar fascia, the calf muscles, and the Achilles tendon. Tightness of the muscles of the calves may contribute to plantar fasciitis, so stretching the calf muscles is important to rehabilitation, as is stretching of the plantar fascia itself. Plantar fascial stretches Assisted Dorsiflexion/Plantar Fascia Stretch: Sit on the floor or ground, barefoot, with both legs outstretched. Use a towel or elastic band and wrap it around the ball (and not the toes) of the affected foot. Use the towel or elastic band to provide resistance to upward movement of the forefoot. Pull foot upward (toward your body) with the help of the elastic band or towel, and then return to the starting position. Ten repetitions are recommended. Perform the sequence at least three times a day. Alternate Plantar Fascia Stretch: Sit upright in a chair, barefoot. Place the ankle of the affected foot on your opposite knee. Using the same hand as the affected foot, reach across and grab the toes. Flex the ankle toward and pull the toes toward the tong. To test the stretch, place the thumb of your hand on the bottom of the foot. You should be able to feel the cord-like plantar fascia, running the length of the foot. Hold the stretch for a count of 10, then relax. Repeat 10 times. Do the sequence at least three times a day. Achilles/Calf Stretches Strengthening the muscles of the calves may contribute to successful rehabilitation of plantar fasciitis, as well as prevent reoccurrence. The exercises below will help strengthen the calf muscles. Calf and Achilles Tendon Stretch (Gastrocnemius Stretch): Face a wall, standing an arm's length away. Place one foot back. Place both hands on the wall. Bend the elbows and knee of your forward leg, keeping the heel of the backward foot on the floor and keeping your body straight (aligned), until your forehead nearly touches the wall, or until significant stretch is felt in the muscles of the calf of the backward leg. Hold this position for 10 to 15 seconds. Extend elbows (straighten your arms and stand upright again) and maintain this position for 10 seconds. Repeat this cycle 15 to 20 times. Switch legs and repeat the exercise. documented in this encounter [facility] 05-28-2023 Miscellaneous Notes Pt notified via my chart. We reviewed the information you provided in support of your patient s request to obtain Diclofenac sodium 3 % GEL (GRAM) under his or her plan. We are unable to approve this request for the following reason(s): ? Coverage is provided for the treatment of actinic keratosis (AK). Coverage cannot be authorized at this time. We based this decision on the prior authorization criteria for: [address] ST: Diclofenac 3% gel We are providing you with a copy of the Notice of Adverse Benefit Determination that we sent to your patient. Electronic PA rec'd and completed for : Diclofenac Sodium 3 % gel documented in this encounter [facility] 05-24-2023 History of Presen t illness Narrative Radiology Service Progress Note PATIENT NAME: Emir Rae DATE OF SERVICE: May 24, 2023 TIME: 3:50 PM PATIENT IDENTITY VERIFICATION COMPLETED USING TWO (2) IDENTIFIERS: Name and Date of confirmed by patient verbally. FALL SCREENING: Has the patient had 2 falls in the last year or 1 fall with injury or currently using an Ambulatory Assistive Device (Walker, Cane, Wheelchair, Crutches, etc.)? No PATIENT GENDER DATA: Male PATIENT RELEVANT IMPLANT DATA REVIEWED: Yes PATIENT PRESENTS WITH AN IMPLANTABLE OR ATTACHED BRONZE PLATER: No RADIOLOGY DEPARTMENT: General X-ray: Exam(s) Completed: Lower Extremity X-Ray(s): Foot, Left and Wt. Bearing PERIPHERAL IV DATA: Not applicable SIGNED BY: RT Alex(R) May 24, 2023 3:50 PM documented in this encounter [facility] 05-24-2023 Miscellaneous Notes No acute findings on x-ray documented in this encounter [facility] 05-24-2023 Progress note Formatting of t his note might be different from the original. No acute findings on x-ray [facility] 04-30-2023 Miscellaneous Notes Patient calling with request for new script to [facility]. Changed pharmacy. Patient has been identified by name and date of : Yes, Provider Date Time Patient phones for refill(s): Requested Prescriptions Pending Prescriptions Disp Refills acyclovir (ZOVIRAX) 400 mg tablet 180 tablet 3 Sig: Take 1 tablet by mouth two times a day. Date of last office visit in primary care: 01/01/2023 Date of next office visit in primary care: 07/02/2023 Please advise. Thank you. Eneida Todd RN. documented in this encounter [facility] 04-08-2023 Miscellaneous Notes Addressed 03/19/2023 documented in this encounter [facility] 02-05-2023 History of Presen t illness Narrative AMBULATORY TELEPHONE VISIT Emir Wise Butch has consented to this telephone encounter. Persons Present: patient Chief Complaint/Reason: recheck back pain HPI: Has appt with [facility]. He reports no further GI bleeding. Taking PPI which is helping with GERD. He reports chronic neck and back pain. He notes currently bothered by both neck and back pain sharp and achey pain. Notes his mother had rheumatoid arthritis and osteoarthritis and was completely disabled in her 50s. Wonders if he may have rheumatoid arthritis. Did not complete previously ordered labwork. Notes decreased ROM. He notes massage has helped in the past but has only completed this at home, insurance does not cover massage. He notes physical therapy seem to make him feel worse. He reports prior treatment prednisone did not help. He notes diclofenac topical did not help. Data Reviewed: [facility] chart Assessment: (K92.2) Gastrointestinal hemorrhage, unspecified gastrointestinal hemorrhage type (primary encounter diagnosis) (M54.6, G89.29) Chronic bilateral thoracic back pain Plan: 1. Chronic bilateral thoracic back pain - ICD9: 724.1, 338.29, ICD10: M54.6, G89.29 (primary diagnosis) Trial gabapentin 300 mg at bedtime. May try a dose or two during the day when off work to see if making him drowsy. If effective and not making drowsy during day can increase to BID dosing 300mg - GABAPENTIN 300 MG CAPSULE 2. Gastrointestinal hemorrhage, unspecified gastrointestinal hemorrhage type - ICD9: 578.9, ICD10: K92.2 No current GIB symptoms, continue with PPI and complete endoscopy scheduled for March 2 week follow up Rosario video visit Total Time Spent: 20 minutes Misa Hager APRN.CNS documented in this encounter [facility] 01-02-2023 Miscellaneous Notes Will send a [employer] message. Can follow up with a phone call if he does not read his message. I do not see anywhere in the package insert where it states Voltaren cannot be applied to the back. However, technically it is only indicated for upper and lower extremities though it is often used for back pain. The only places specified where it canNOT be used are open wounds, mucus membranes, eyes, damaged skin. A general concern with applying Voltaren to the back would be if a patient uses more than the recommended dose of Voltaren. Because the back has a large surface area, if a patient were to apply more Voltaren then recommended it could result in more systemic absorption which could then cause side effects. As long as patient does not exceed the recommended dose of Voltaren he should be fine applying to his back. I would also advise that he not cover with clothing for 10 mins after application and he should also avoid using a heating pad on the area since that can impact absorption. Ruma Tinajero PharmD, [facility] Primary Care Clinical Pharmacist [facility] and [place] literature reviewed. Should be able to use for back pain. However if he does not want to use the product does not have to do so. [facility] notes: How do you use diclofenac gel for back pain? Adults--Apply 2 grams (g) to the affected skin areas four times a day (a total of 8 g each day). However, the total dose should not exceed 32 g per day over all affected joints. Use the enclosed dosing card to measure the appropriate dose. Routing to pharmD for review. Pt had appt today and was prescribed diclofenac sodium 1%. Pt reports when he was reading the insert it stated not to put medication on your back, shoulders. Pt reports that is the area that he is having trouble with. Pt is asking what he should do. Humaira Dewey LPN documented in this encounter [facility] 01-01-2023 History of Presen t illness Narrative SUBJECTIVE: Hepatitis B Vaccine(1 of 3 - 3-dose series) Never done HPV Vaccine(2 - 3-dose SCDM series) due on 06/15/2020 Lipid Screening Never done Influenza Vaccine(1) Never done Covid-19 Vaccine(2022- season) due on 10/27/2022 HPI Emir Rae is a 37 year old male. PMH signficiant for ACTIVE PROBLEM LIST Neck Pain, Musculoskeletal Chronic Bilateral Thoracic Back Pain HPI excerpted from previous visit: Presents today to establish care with Deven Santillan MD. Previous PCP: reports [facility] Last seen:~ 2years Labwork: no recent ER/Hospitalization: 2019 Outside records: care everywhere Has been seen at [facility] for acute problems since 2020. Reviewed outside medications treated with paxlovid September 01, 2021. Previously treated with acyclovir June, August, September 2021 for recurrent aphthous ulcer since childhood, interested in suppressive therapy. Currently taking acyclovir 400 mg BID. [facility] Jennifer Hubbard for anxiety and depression. Taking bupropion XL 150 mg daily, [id number] mg twice daily, hydroxyzine 25 mg 3 times daily. He notes chronic neck pain and wrist pain. States he seen a chiropractor in past but not recently. Notes he lifts heavy items at work, currently 8 chronic falls. Notes he is left-handed, left lateral wrist pain and left pinky pain. Pain tends to be worse after work. Chronic and present most of the time. Not currently taking any medication. Reports screening for STD via diana Edwards to [facility]. 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 He was seen at [facility] emergency department on September 04 for GI bleed. He reported left-sided lower abdominal pain to the left flank. He noted increased frequency of urination and dysuria. He noted blood in stool. Exam showed left lower quadrant tenderness. Left-sided CVA tenderness. CBC showed mild leukocytosis consistent with inflammation. Metabolic panel without significant electrolyte abnormalities. LFTs in acceptable range. Lipase within normal limits. Urinalysis with evidence of inflammation and hematuria likely secondary to a kidney stone. He was treated with antibiotics as he cannot completely rule out infection. CT scan was completed and showed evidence of nephrolithiasis. This was thought to likely be the cause of his left lower quadrant abdominal pain. Kidney stone was noted to be small and likely will pass on its own. He was also found subsequently to have a GI bleed without significant anemia. He is not on blood thinners. He was advised to follow-up with GI as an outpatient. He was treated with oral narcotics Zofran tamsulosin and referred to gastroenterology. CT abdomen pelvis impression mild degree of left hydronephrosis and hydroureter due to a recently passed 2 mm calculus. The calculus is lying along the posterior aspect of the bladder on the left side. Tiny nonobstructive left intrarenal calculi noted. Pass stone: states yes CVA tenderness/flank pain: some residual but much better Urologist: GI bleed:has appt today with Dr Hawkins. Emir Rae saw blood in stool. Noted also on exam in ED. Notes no further bleeding since ER visit 3 days ago. Notes no pain on BM, no history of hemorrhoids. States some blood on TP, red color. Notes one other prior occurrence with prolonged driving. Notes recently drove back from vacation. Notes a globus sensation at times. Using NSAID currently for shoulder pain. Presents today for routine visit. Seen by Dr. Tomas Hawkins September 07, 2022. Colonoscopy scheduled at [facility] March [address] Adan. He reports he may go to Dr. Fish at [facility] is he would have better coverage by his insurance there. He is trying to make an appointment but has not yet scheduled this. He reports no further GI bleeding. Taking PPI, this is helping GERD. Today reports no further kidney stones. He notes chronic back pain helped with lidocaine patch. Notes his mother had rheumatoid arthritis and osteoarthritis and was completely disabled in her 50s. Wonders if he may have rheumatoid arthritis. Notes prefers to avoid NSAIDs as they cause GI upset. Chronic back pain is stable. Is helped with lidocaine patch. Notes massage has helped his back pain in the past. If not improving would be interested in seeing patient care specialist. Notes that physical therapy seem to make him feel worse. He reports passing out with blood draws and injections but no problem with COVID-19 boosters. Review of Systems Constitutional: Negative for fever. Genitourinary: Negative for frequency, hematuria and urgency. Musculoskeletal: Positive for arthralgias, back pain and neck pain. Objective BP 137/84 Pulse 87 Resp 16 Wt 102.5 kg (226 lb) BMI 29.02 kg/m Physical Exam Vitals and nursing note reviewed. Constitutional: Appearance: Normal appearance. HENT: Head: Normocephalic and atraumatic. Eyes: Conjunctiva/sclera: Conjunctivae normal. Neck: Thyroid: No thyromegaly. Vascular: Normal carotid pulses. No JVD. Cardiovascular: Rate and Rhythm: Normal rate and regular rhythm. Pulses: Carotid pulses are 2+ on the right side and 2+ on the left side. Radial pulses are 2+ on the right side and 2+ on the left side. Heart sounds: Normal heart sounds. Pulmonary: Effort: Pulmonary effort is normal. Breath sounds: Normal breath sounds. Abdominal: General: Bowel sounds are normal. Palpations: Abdomen is soft. Musculoskeletal: Cervical back: Tenderness present. No spasms. Thoracic back: Tenderness present. No spasms. Right lower leg: No edema. Left lower leg: No edema. Skin: General: Skin is warm and dry. Neurological: General: No focal deficit present. Mental Status: He is alert and oriented to person, place, and time. BP 137/84 Pulse 87 Resp 16 Wt 102.5 kg (226 lb) BMI 29.02 kg/m ALLERGIES Allergen Reactions Cat Dander Other: See Comments Mold Unknown Pollen Extracts Unknown Seasonal Allergies Other: See Comments Medications omeprazole (PRILOSEC) 20 mg capsule Take 1 capsule by mouth daily before breakfast. acyclovir (ZOVIRAX) 400 mg tablet Take 1 tablet by mouth twice daily. CALCIUM ACETATE ORAL Take by mouth. busPIRone (BUSPAR) 10 mg tablet TAKE 1/2 TABLET TO 2 TABLETS BY MOUTH ONCE DAILY NEEDED [id number]-bat-xhzga-vit K-lycop (ONE-A-DAY MEN'S MULTIVITAMIN) 400-20-300 mcg tab Take by mouth. ascorbic acid, vitamin C, (VITAMIN C) 500 mg tablet Take 500 mg by mouth once daily. buPROPion XL (WELLBUTRIN XL) 300 mg 24 hr tablet Take 1 tablet by mouth once daily. With 150 MG. buPROPion XL (WELLBUTRIN XL) 150 mg 24 hr tablet Take 1 tablet by mouth once daily. With 300 MG. hydrOXYzine HCl (ATARAX) 25 mg tablet Take 1 tablet by mouth twice daily. fluticasone (FLONASE) 50 mcg/actuation nasal spray Use 1 [place] in each nostril once daily. lidocaine (LIDODERM) 5 % Apply 1 Patch as directed every 12 hours. Remove old patch prior to placing new patch. diclofenac sodium 1 % kit Apply 1 Application to affected area once daily. 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 PAST SURGICAL HISTORY Procedure Laterality Date TONSILLECTOMY AND ADENOIDECTOMY HX TOOTH EXTRACTION upper dentures Social History Tobacco Use Smoking status: Former Packs/day: 1.00 Years: 15.00 Additional pack years: 0.00 Total pack years: 15.00 Types: Cigarettes Smokeless tobacco: Never Tobacco comments: former vaping Vaping Use Vaping Use: Never used Substance Use Topics Alcohol use: Never Drug use: Never FAMILY HISTORY Problem Relation Age of Onset Arthritis Mother osteoarthritis; RA Osteoporosis Mother Arthritis Brother Alcohol abuse Brother Arthritis Maternal Grandmother Ischemic Heart Disease Maternal Grandmother CABG; AICD Peripheral Artery Disease Maternal Grandmother Arthritis Maternal Grandfather Component Latest Ref Rng & Units 10/24/2021 WBC 3.70 - 11.00 k/uL 7.45 RBC 4.20 - 6.00 m/uL 5.51 Hemoglobin 13.0 - 17.0 g/dL 16.1 Hematocrit 39.0 - 51.0 % 48.2 MCV 80.0 - 100.0 fL 87.5 MCH 26.0 - 34.0 pg 29.2 MCHC 30.5 - 36.0 g/dL 33.4 RDW-CV 11.5 - 15.0 % 13.4 Platelet Count 150 - 400 k/uL 254 MPV 9.0 - 12.7 fL 10.2 Neut% % 59.8 Abs Neut (ANC) 1.45 - 7.50 k/uL 4.45 Lymph% % 28.5 Abs Lymph 1.00 - 4.00 k/uL 2.12 [place]% % 8.6 Abs [place] <0.87 k/uL 0.64 Eosin% % 1.7 Abs Eosin <0.46 k/uL 0.13 Baso% % 0.5 Abs Baso <0.11 k/uL 0.04 Immature Gran % % 0.9 IMMATURE GRANS (ABS) <0.10 k/uL 0.07 NRBC /100 WBC 0.0 Absolute nRBC <0.01 k/uL <0.01 DTYPE Auto Protein, Total 6.3 - 8.0 g/dL 6.9 Albumin 3.9 - 4.9 g/dL 4.3 Calcium 8.5 - 10.2 mg/dL 9.7 Bilirubin, Total 0.2 - 1.3 mg/dL 0.2 Alkaline Phosphatase 38 - 113 U/L 85 AST 14 - 40 U/L 21 ALT 10 - 54 U/L 24 Glucose 74 - 99 mg/dL 91 BUN 9 - 24 mg/dL 11 Creatinine 0.73 - 1.22 mg/dL 1.00 Sodium 136 - 144 mmol/L 139 Potassium 3.7 - 5.1 mmol/L 4.3 Chloride 97 - 105 mmol/L 104 CO2 22 - 30 mmol/L 25 Anion Gap 9 - 18 mmol/L 10 eGFR >=60 mL/min/1.73m 101 Hep C Antibody IA Negative Negative ASSESSMENT/PLAN: 1. Gastrointestinal hemorrhage, unspecified gastrointestinal hemorrhage type - ICD9: 578.9, ICD10: K92.2 (primary diagnosis) Has endoscopy scheduled at [facility], may switch to [facility] DrReyna Friend as it is better covered by his insurance. No further GI bleeding is noted. 2. Renal calculus, left - ICD9: 592.0, ICD10: N20.0 3. Hydronephrosis of left kidney - ICD9: 591, ICD10: N13.30 No further kidney stones noted. Endorse preventative measures including drinking sufficient fluids. 4. Neck pain, musculoskeletal - ICD9: 723.1, ICD10: M54.2 5. Chronic bilateral thoracic back pain - ICD9: 724.1, 338.29, ICD10: M54.6, G89.29 Continue with current plan of care OK to add diclofenac gel, prefers to avoid oral NSAIDs due to GI upset - CONSULT TO MASSAGE THERAPY - LIDOCAINE 5 % TOPICAL PATCH - SED RATE WESTERGREN - C-REACTIVE PROTEIN (CRP) - ИРИНА BY IFA SCREEN - RHEUMATOID FACTOR BL - CONSULT TO [facility] 6. Gastroesophageal reflux disease, unspecified whether esophagitis present - ICD9: 530.81, ICD10: K21.9 GIB in ER. Endoscopy scheduled. Recommend PPI for now. 4. Encounter for immunization - ICD9: V03.89, ICD10: Z23 - HPV VACCINE, 9-VALENT (GARDASIL 9) - INFLUENZA VACCINE, AGE 6 MO - 64 YR, QUADRIVALENT (AFLURIA, FLULAVAL, FLUZONE) - [employer] COVID-19 VACCINE (2022- SEASON) AGE 12+ YR - HEP B VACCINE, 3-DOSE, AGE 20+ YR (ENGERIX-B, RECOMBIVAX HB) - HEP B VACCINE, 3-DOSE, AGE 20+ YR (ENGERIX-B, RECOMBIVAX HB) - HEP B VACCINE, 3-DOSE, AGE 20+ YR (ENGERIX-B, RECOMBIVAX HB) 5. Neck pain, musculoskeletal - ICD9: 723.1, ICD10: M54.2 8. Screening for HIV (human immunodeficiency virus) - ICD9: V73.89, ICD10: Z11.4 He reports prior screening 9. Screening for lipid disorders - ICD9: V77.91, ICD10: Z13.220 - LIPID PANEL BASIC 10. Family history of rheumatoid arthritis - ICD9: V17.7, ICD10: Z82.61 - SED RATE WESTERGREN - C-REACTIVE PROTEIN (CRP) - ИРИНА BY IFA SCREEN - RHEUMATOID FACTOR BL Keep 6 mo follow up MD Misa Yin APRN.UNDERGRADUATE INTERN Medical Decision Making: Problems: Moderate: 2+ stable chronic illnesses Risk: Moderate: Drug management Medical Decision Making Level: 4 - Moderate documented in this encounter [facility] 11-03-2022 Miscellaneous Notes Patient calling and asking to have rx sent to [facility] please, changing pharmacy. Pending rx Please advise Patient has been identified by name and date of : Patient phones for refill(s): Requested Prescriptions Pending Prescriptions Disp Refills omeprazole (PRILOSEC) 20 mg capsule 90 capsule 1 Sig: Take 1 capsule by mouth daily before breakfast. acyclovir (ZOVIRAX) 400 mg tablet 180 tablet 3 Sig: Take 1 tablet by mouth twice daily. Date of last office visit in primary care: 09/07/2022, has appt 01/01/2023 Last 2 Encounter Wt Readings: Date: Wt: 09/07/2022 104.7 kg (230 lb 12.8 oz) 09/07/2022 104.3 kg (230 lb) Previous labs/tests for medication: Blood Pressure: BUN (mg/dL) Date Value 10/24/2021 11 Sodium (mmol/L) Date Value 10/24/2021 139 Last 1 Encounter BP Readings: Date: BP: 09/07/2022 132/76 Please advise. Thank you. Emilie Steward LPN documented in this encounter [facility] 09-21-2022 History of Presen t illness Narrative Episode Visit Count: 4 Therapist That Will Accept/Oversee The Plan Of Care: Rome Noriega, PT, DPT Start of Care Date: 08/14/22 Onset Date: 05/14/22 [facility] PHYSICAL THERAPY TREATMENT NOTE ASSESSMENT: Emir Rae tolerated the session with fatigue, expected muscle soreness, and no issues. He demonstrated improvements in activity tolerance and progression of periscap strengthening without issue or pain/sxs this date. The patient will continue to benefit from ongoing skilled physical therapy to progress toward set goals. PLAN FOR NEXT VISIT: Manual PRN; continue progressing scapular strength. SUBJECTIVE: Patient Reason for Visit: Ernesto returns to PT following his honeymoon and having to take some time off due to kidney stones; he reports the neck is doing much better thanks to a massage on his honeymoon and the current exercise program. States improved neck motion overall. Pt. is ready to go down to 1x/per week for the remaining 4 of his POC visits. Pain: Pain Pain Level: 0 Pain Location: Neck, Shoulder - Left Post Treatment Pain Post Treatment Pain Level: No Change Post Treatment Pain Location: Shoulder - Right, Shoulder - Left Post Treatment Pain Description: Sore Post Treatment Symptoms: Upper back & shoulder muscles are sore OBJECTIVE MEASURES WITH LEVEL OF FUNCTION: Patient with full cervical rotation bilaterally demonstrated this date prior to completing session. Improvement in posture awareness and maintaining upright posture with shoulders back. TREATMENT: Therapeutic Exercise: 1: Rows: 3x15 BTB 2: Thoracic Flexion & Extension Mobility on chair w/ ball behind and holding 11#ball.: 2x10 3: Scapular Raises: 3x8; 3#db; isometric hold on 1UE at shoulder height with concentric scaption raise on other; then both concentric same time. 4: Bilateral Shld ER: GTB 2x15 5: Rhomboid Stretch: 3x30 6: Horizontal ABD at shoulder level single arm: 3x15 GTB each. 7: Rotator Cuff GTB Superset: 5x5 of (Palm in pull-aparts,palms up pull-aparts, CW circles, CCW circles, shoulder flexion. 8: Shld Ext: 3x15 BTB 9: Facepulls: 3x10 GTB 10: Cervical SNAGs: 2x10 Skilled Intervention: Patient was educated in proper exercise technique and purpose for exercises. Reviewed and educated patient on additions/changes for home exercise program as above (*). Provided written instruction for home exercise program to facilitate proper performance and compliance. Skilled judgment was provided in selection of appropriate interventions. Correct performance of therapeutic exercises was facilitated with verbal and tactile cuing. Billing Therapeutic Exercise Treatment Minutes: 40 Total Treatment Time Minutes (timed/untimed): 40 Session Start Time : 1758 Session Stop Time : 1838 Rome Noriega PT documented in this encounter [facility] 09-08-2022 Miscellaneous Notes 09/07/2022 Date of Request: 09/07/2022 03:13PM Date of Decision: 09/07/2022 Dear MISA HAGER: We reviewed the information you provided in support of your patient s request to obtain Lidocaine 5 % ADH. PATCH under his or her plan. We are unable to approve this request for the following reason(s): ? Coverage of the requested medication is provided for the treatment of postherpetic neuralgia, neuropathic pain, diabetic peripheral neuropathy, low back pain, and osteoarthritis. Other conditions for coverage may apply. Coverage cannot be authorized at this time. We based this decision on the prior authorization criteria for: [address] ST: Generic lidocaine 5% Patches - *MMO* We are providing you with a copy of the Notice of Adverse Benefit Determination that we sent to your patient. Electronic PA completed for lidocaine pathes documented in this encounter [facility] 09-08-2022 Miscellaneous Notes OV yesterday. OK for spine referral if needed/so desires. documented in this encounter [facility] 09-07-2022 Instructions Tomas Hawkins MD - 09/07/2022 3:24 PM EDT Images from the original note were not included. Bowel Preparation Instructions for: Golytely, Nulytely, Trilyte or Colyte (polyethylene glycol 3350 and electrolytes) IF YOU DO NOT FOLLOW THESE DIRECTIONS, YOUR COLONOSCOPY WILL BE CANCELLED. Melo Instructions: Your bowel must be empty so that your doctor can clearly view your colon. Follow all of the instructions in this handout EXACTLY as they are written. Do NOT eat any solid food the ENTIRE day before your colonoscopy. Drink only clear liquids. Buy your bowel preparation at least 5 days before your colonoscopy. TRANSPORTATION on the Day of Your Exam A responsible person MUST be present with you at Check In prior to your colonoscopy and REMAIN in the endoscopy area until you are discharged. You are NOT ALLOWED to drive, take a taxi or bus, or leave the Endoscopy Center ALONE. If you do not have a responsible goat driver (family member or friend) with you to take you home, your exam cannot be done with sedation and will be cancelled. Please bring a list of all of your current medications, including any Over-the Counter medications with you. Medications If you take insulin, diabetic medications or blood thinners such as Coumadin (warfarin), Plavix (clopidogrel), Ticlid (ticlopidine hydrochloride), Agrylin (anagrelide), Xarelto (Rivaroxaban), Pradaxa (Dabigatran), Eliquis (Apixaban), and Effient (Prasugrel). You MUST call the doctors who orders those medicines for instructions on altering the dosage before your colonoscopy. All other medications should be taken the day of the exam with a sip of water including ASPIRIN. Five (5) Days Before Your Colonoscopy Do NOT take medicines that stop diarrhea - such as Imodium, Kaopectate, or Pepto Bismol. Do NOT take fiber supplements - such as Metamucil, Citrucel, or Perdiem. Do NOT take products that contain iron - such as multi-vitamins (the label lists what is in the products). Do NOT take Vitamin E. Buy the prescription bowel preparation solution at your local pharmacy or drugstore pharmacy. 01/2019 Bowel Preparation Instructions for: Golytely, Nulytely, Trilyte or Colyte (polyethylene glycol 3350 and electrolytes) Three (3) Days Before Your Colonoscopy Do NOT eat high-fiber foods - such as popcorn, beans, seeds (flax, sunflower, quinoa), multigrain bread, nuts, salad/vegetables, or fresh and dried fruit. One (1) Day Before Your Colonoscopy Only drink clear liquids the ENTIRE DAY before your colonoscopy. Do NOT eat any solid foods. Drink at least 8 ounces of clear liquids every hour after waking up. The clear liquids you can drink include: Clear Liquid (NO RED LIQUIDS) DO NOT DRINK Gatorade, Pedialyte or Powerade Clear broth or bouillon Coffee or tea (no milk or non-dairy creamer) Carbonated and non-carbonated soft drinks Mendel-Aid or other fruit flavored drinks Strained fruit juices (no pulp) Jell-O, popsicles, hard candy Water Alcohol Milk or non-dairy creamers Noodles or vegetables in soup Juice with pulp Liquid you cannot see through Do not use tobacco/vaping products The bowel preparation solution will be consumed in two parts. Mix the solution the evening before your colonoscopy and refrigerate before drinking. You may add the flavor pack that came with the bowel preparation. Do NOT add ice, sugar or any other flavorings to the solution. Part 1 At 6:00 PM - Evening before your colonoscopy Drink an 8-oz glass of bowel preparation every 10 minutes for a total of 8 glasses. You may continue to drink clear liquids until midnight. Part 2 On the day of your colonoscopy you may drink clear liquids up to (three) 3 hours before your procedure. 4 1/2 hours before your colonoscopy Drink an 8-oz glass of bowel preparation every 10 minutes for a total of 8 glasses. Fifteen (15) minutes later, drink an 8-oz glass of clear liquids every 15 minutes for a total of 2 glasses. You may continue to drink clear liquids up to (three) 3 hours before your exam. 2 01/2019 documented in this encounter [facility] 09-07-2022 History of Presen t illness Narrative HISTORY AND PHYSICAL Emir Rae 1985 REFERRING PHYSICIAN: Misa Hager CHIEF COMPLAINT: Consult (GI bleed, 09/04/22 CT images [facility] requested to be pushed. ) HPI: The patient is a 36 year old male referred for endoscopy. Emir notes a history of constipation issues in his younger. He notes some occasional constipation issues currently. The patient recently was in [place] on his honeyga[place] he denied true constipation or straining issues but noted rectal bleeding. He noted blood on the toilet paper and blood cut on the outside of the stool. He denied blood mixed within the stool. He denied melena hematochezia nausea or vomiting. His reason for presentation to [place] emergency department was due to left flank pain which turned out to be a kidney stone. No CT abnormalities were noted in the abdominal cavity. The patient notes the following upper complaints: Emir denies abdominal pain.. Emir denies heartburn. Emir denies dysphagia. Emir denies a history of ulcers/ peptic ulcer disease. Emir has not undergone prior endoscopy. The patient is being seen by me today at the request of Misa Hager for my opinion and advice regarding rectal bleeding. 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 cephALEXin (KEFLEX) 500 mg capsule Take by mouth. ondansetron orally disintegrating (ZOFRAN ODT) 4 mg disintegrating tablet Take by mouth. lidocaine (LIDODERM) 5 % Apply 1 Patch as directed every 12 hours. Remove old patch prior to placing new patch. omeprazole (PRILOSEC) 20 mg capsule Take 1 capsule by mouth daily before breakfast. acyclovir (ZOVIRAX) 400 mg tablet Take 1 tablet by mouth twice daily. meloxicam (MOBIC) 15 mg tablet Take 1 tablet by mouth once daily. Take with food. busPIRone (BUSPAR) 10 mg tablet TAKE 1/2 TABLET TO 2 TABLETS BY MOUTH ONCE DAILY NEEDED yqefmjkb-grj-painr-vit K-lycop (ONE-A-DAY MEN'S MULTIVITAMIN) 400-20-300 mcg tab Take by mouth. ascorbic acid, vitamin C, (VITAMIN C) 500 mg tablet Take 500 mg by mouth once daily. buPROPion XL (WELLBUTRIN XL) 300 mg 24 hr tablet Take 1 tablet by mouth once daily. With 150 MG. buPROPion XL (WELLBUTRIN XL) 150 mg 24 hr tablet Take 1 tablet by mouth once daily. With 300 MG. hydrOXYzine HCl (ATARAX) 25 mg tablet Take 1 tablet by mouth twice daily. fluticasone (FLONASE) 50 mcg/actuation nasal spray Use 1 [place] in each nostril once daily. peg 3350-Electrolytes (GOLYTELY) 236-22.74-6.74 -5.86 gram suspension Take 4,000 mL by mouth one time only for 1 dose. Refer to printed prep instructions from your provider. No current facility-administered medications for this visit. ALLERGIES: Cat Dander, Mold, Pollen Extracts, and Seasonal Allergies PERSONAL HISTORY: Social History Tobacco Use Smoking status: Former Packs/day: 1.00 Years: 15.00 Total pack years: 15.00 Types: Cigarettes Smokeless tobacco: Never Tobacco comments: former vaping Vaping Use Vaping Use: Never used Substance Use Topics Alcohol use: Never Drug use: Never FAMILY HISTORY: FAMILY HISTORY Problem Relation Age of Onset Arthritis Mother osteoarthritis; RA Osteoporosis Mother Arthritis Brother Alcohol abuse Brother Arthritis Maternal Grandmother Ischemic Heart Disease Maternal Grandmother CABG; AICD Peripheral Artery Disease Maternal Grandmother Arthritis Maternal Grandfather REVIEW OF SYMPTOMS: The review of systems data was entered by the nurse and reviewed by or Nursing Notes: Yoly Romo LPN 09/07/2022 3:01 PM Signed REVIEW OF SYSTEMS: General: The patient denies fatigue, denies weight loss, notes weight gain, notes feeling hot, and denies feelings of cold. Eyes: The patient denies glaucoma, denies eye injury/surgery, wears glasses or contacts. Ear/Nose/Throat: The patient notes allergies, denies hayfever, notes ear infections, and denies bloody noses. Cardiovascular: The patient denies chest pain, denies heart disease, denies high blood pressure,denies cardiac stent, denies prior heart attack, denies irregular heart beat, denies high cholesterol, denies poor circulation, denies heart failure, other cardiac issues, denies claudication, denies cold feet, denies peripheral arterial stent. Respiratory: The patient denies tuberculosis, denies pneumonia, denies frequent cough, denies pulmonary embolism, denies shortness of breath, and denies coughing up blood. Gastrointestinal: The patient denies difficulty swallowing, notes acid reflux, denies ulcers, denies vomiting, denies jaundice/hepatitis, denies gallbladder problems, denies black or tarry stools, denies hemorrhoids, notes bleeding from rectum, denies diverticulitis, denies constipation, denies diarrhea, denies loss of stool control, and denies hernias. Kidney/Bladder: The patient notes kidney stones, denies urine infections, and denies bloody urine. Skin: The patient denies a history of skin cancer, denies bleeding/changing moles, and denies a history of skin rash. Neurologic: The patient denies a history of epilepsy/convulsions, denies headaches, denies head/spinal injuries, and denies stroke/TIA. Psychiatric: The patient notes psychiatric medications, notes depression, and denies voices, denies substance abuse. Endocrine: The patient denies thyroid disorders, denies diabetes, and denies hormonal problems. Hematologic: The patient denies a history of bruising, denies bleeding, and denies anemia, denies blood clots. Infections: The patient denies a history of measles and mumps, denies rheumatic fever, and notes sexually transmitted diseases. Musculoskeletal: The patient denies back pain/injury, notes back problems, denies sciatica, denies knee/foot trouble, denies arthritis, or denies gout. When was patient's last Mammogram screening? N/A Last Colonoscopy: none Yoly Romo LPN PHYSICAL EXAMINATION: General: The patient is 36 year old male, well nourished, well hydrated in no acute distress. The patient is oriented to time, place, and person. VITALS: Blood pressure 132/76, pulse 89, temperature 36.3 C (97.4 F), height 188 cm (6' 2), weight 104.7 kg (230 lb 12.8 oz), SpO2 97 %. Body mass index is 29.63 kg/m . HEENT: Normal cephalic, ataumatic, pupils are equally round, sclera are anicteric, mucous membranes are moist, oropharynx is clear. Neck has no masses, asymmetry or lymphadenopathy. Thyroid is unremarkable. Respiratory: Clear to auscultation and percussion. Normal respiratory excursion and pattern. Cardiac: Examination is regular rate and rhythm. Abdominal exam: Soft, nontender, with no palpable masses. No hepatosplenomegaly. No palpable hernias. Rectal exam: exam deferred Extremities: no clubbing, cyanosis or edema. No adenopathy. Other: LABORATORY VALUES: As Noted RADIOLOGIC STUDIES: As Noted Assessment IMPRESSION: rectal bleeding PLAN: I plan to perform upper and lower endoscopy. We discussed the risks and benefits of the planned endoscopy. I have informed the patient that complications can occur including failure to complete the endoscopy and perforation. The patient had the opportunity to ask questions concerning the planned endoscopy. My staff has also explained the procedure to the patient in understandable terms and has given the patient printed material concerning the procedure. The patient freely consents to surgery. I plan to use golytely bowel preparation for endoscopy I plan for monitored anesthetic care. Diagnoses: (K92.2) Acute GI bleeding (primary encounter diagnosis) (N20.0) Kidney stone My findings have been communicated to Misa Hager via shared medical record. This note will be forwarded to Deven Santillan MD. Return to Clinic: The patient is instructed to follow-up with me after the testing has been completed. Tomas Hawkins MD documented in this encounter [facility] 09-07-2022 Nurse Note REVIEW OF SYSTEMS: General: The patient denies fatigue, denies weight loss, notes weight gain, notes feeling hot, and denies feelings of cold. Eyes: The patient denies glaucoma, denies eye injury/surgery, wears glasses or contacts. Ear/Nose/Throat: The patient notes allergies, denies hayfever, notes ear infections, and denies bloody noses. Cardiovascular: The patient denies chest pain, denies heart disease, denies high blood pressure,denies cardiac stent, denies prior heart attack, denies irregular heart beat, denies high cholesterol, denies poor circulation, denies heart failure, other cardiac issues, denies claudication, denies cold feet, denies peripheral arterial stent. Respiratory: The patient denies tuberculosis, denies pneumonia, denies frequent cough, denies pulmonary embolism, denies shortness of breath, and denies coughing up blood. Gastrointestinal: The patient denies difficulty swallowing, notes acid reflux, denies ulcers, denies vomiting, denies jaundice/hepatitis, denies gallbladder problems, denies black or tarry stools, denies hemorrhoids, notes bleeding from rectum, denies diverticulitis, denies constipation, denies diarrhea, denies loss of stool control, and denies hernias. Kidney/Bladder: The patient notes kidney stones, denies urine infections, and denies bloody urine. Skin: The patient denies a history of skin cancer, denies bleeding/changing moles, and denies a history of skin rash. Neurologic: The patient denies a history of epilepsy/convulsions, denies headaches, denies head/spinal injuries, and denies stroke/TIA. Psychiatric: The patient notes psychiatric medications, notes depression, and denies voices, denies substance abuse. Endocrine: The patient denies thyroid disorders, denies diabetes, and denies hormonal problems. Hematologic: The patient denies a history of bruising, denies bleeding, and denies anemia, denies blood clots. Infections: The patient denies a history of measles and mumps, denies rheumatic fever, and notes sexually transmitted diseases. Musculoskeletal: The patient denies back pain/injury, notes back problems, denies sciatica, denies knee/foot trouble, denies arthritis, or denies gout. When was patient's last Mammogram screening? N/A Last Colonoscopy: none Yoly Romo LPN documented in this encounter [facility] 09-07-2022 History of Presen t illness Narrative SUBJECTIVE: HEPATITIS B(1 of 3 - 3-dose series) Never done HPV VACCINE(2 - 3-dose SCDM series) due on 06/15/2020 LIPID SCREEN Never done HPI Emir Rae is a 36 year old male. H signficiant for ACTIVE PROBLEM LIST Neck Pain, Musculoskeletal Chronic Bilateral Thoracic Back Pain HPI excerpted from previous visit: Presents today to establish care with Deven Santillan MD. Previous PCP: reports [facility] Last seen:~ 2years Labwork: no recent ER/Hospitalization: 2018 Outside records: care everywhere Has been seen at [facility] for acute problems since 2020. Reviewed outside medications treated with paxlovid September 01, 2021. Previously treated with acyclovir June, August, September 2021 for recurrent aphthous ulcer since childhood, interested in suppressive therapy. Currently taking acyclovir 400 mg BID. [facility] Jennifer Hubbard for anxiety and depression. Taking bupropion XL 150 mg daily, [id number] mg twice daily, hydroxyzine 25 mg 3 times daily. He notes chronic neck pain and wrist pain. States he seen a chiropractor in past but not recently. Notes he lifts heavy items at work, currently 8 chronic falls. Notes he is left-handed, left lateral wrist pain and left pinky pain. Pain tends to be worse after work. Chronic and present most of the time. Not currently taking any medication. Reports screening for STD via diana Edwards to [facility]. 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 He was seen at [facility] emergency department on September 04 for GI bleed. He reported left-sided lower abdominal pain to the left flank. He noted increased frequency of urination and dysuria. He noted blood in stool. Exam showed left lower quadrant tenderness. Left-sided CVA tenderness. CBC showed mild leukocytosis consistent with inflammation. Metabolic panel without significant electrolyte abnormalities. LFTs in acceptable range. Lipase within normal limits. Urinalysis with evidence of inflammation and hematuria likely secondary to a kidney stone. He was treated with antibiotics as he cannot completely rule out infection. CT scan was completed and showed evidence of nephrolithiasis. This was thought to likely be the cause of his left lower quadrant abdominal pain. Kidney stone was noted to be small and likely will pass on its own. He was also found subsequently to have a GI bleed without significant anemia. He is not on blood thinners. He was advised to follow-up with GI as an outpatient. He was treated with oral narcotics Zofran tamsulosin and referred to gastroenterology. CT abdomen pelvis impression mild degree of left hydronephrosis and hydroureter due to a recently passed 2 mm calculus. The calculus is lying along the posterior aspect of the bladder on the left side. Tiny nonobstructive left intrarenal calculi noted. Pass stone: states yes CVA tenderness/flank pain: some residual but much better Urologist: GI bleed:has appt today with Dr Hawkins. Emir Rae saw blood in stool. Noted also on exam in ED. Notes no further bleeding since ER visit 3 days ago. Notes no pain on BM, no history of hemorrhoids. States some blood on TP, red color. Notes one other prior occurrence with prolonged driving. Notes recently drove back from vacation. Notes a globus sensation at times. Using NSAID currently for shoulder pain. Review of Systems Constitutional: Negative for fever. Genitourinary: Negative for frequency, hematuria and urgency. Musculoskeletal: Positive for arthralgias and back pain. Objective BP 120/82 Pulse 89 Resp 16 Wt 104.3 kg (230 lb) SpO2 97% BMI 29.14 kg/m Physical Exam Vitals and nursing note reviewed. Constitutional: Appearance: Normal appearance. HENT: Head: Normocephalic and atraumatic. Eyes: Conjunctiva/sclera: Conjunctivae normal. Neck: Thyroid: No thyromegaly. Vascular: Normal carotid pulses. No JVD. Cardiovascular: Rate and Rhythm: Normal rate and regular rhythm. Pulses: Carotid pulses are 2+ on the right side and 2+ on the left side. Radial pulses are 2+ on the right side and 2+ on the left side. Heart sounds: Normal heart sounds. Pulmonary: Effort: Pulmonary effort is normal. Breath sounds: Normal breath sounds. Abdominal: General: Bowel sounds are normal. Palpations: Abdomen is soft. Musculoskeletal: Right lower leg: No edema. Left lower leg: No edema. Skin: General: Skin is warm and dry. Neurological: Mental Status: He is alert. Mental status is at baseline. There were no vitals taken for this visit. ALLERGIES Allergen Reactions Cat Dander Other: See Comments Mold Unknown Pollen Extracts Unknown Seasonal Allergies Other: See Comments Medications acyclovir (ZOVIRAX) 400 mg tablet Take 1 tablet by mouth twice daily. meloxicam (MOBIC) 15 mg tablet Take 1 tablet by mouth once daily. Take with food. busPIRone (BUSPAR) 10 mg tablet TAKE 1/2 TABLET TO 2 TABLETS BY MOUTH ONCE DAILY NEEDED [id number] K-lycop (ONE-A-DAY MEN'S MULTIVITAMIN) 400-20-300 mcg tab Take by mouth. ascorbic acid, vitamin C, (VITAMIN C) 500 mg tablet Take 500 mg by mouth once daily. buPROPion XL (WELLBUTRIN XL) 300 mg 24 hr tablet Take 1 tablet by mouth once daily. With 150 MG. buPROPion XL (WELLBUTRIN XL) 150 mg 24 hr tablet Take 1 tablet by mouth once daily. With 300 MG. hydrOXYzine HCl (ATARAX) 25 mg tablet Take 1 tablet by mouth twice daily. fluticasone (FLONASE) 50 mcg/actuation nasal spray Use 1 [place] in each nostril once daily. 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 PAST SURGICAL HISTORY Procedure Laterality Date TONSILLECTOMY AND ADENOIDECTOMY HX TOOTH EXTRACTION upper dentures Social History Tobacco Use Smoking status: Former Packs/day: 1.00 Years: 15.00 Total pack years: 15.00 Types: Cigarettes Smokeless tobacco: Never Tobacco comments: former vaping Substance Use Topics Alcohol use: Never Drug use: Never FAMILY HISTORY Problem Relation Age of Onset Arthritis Mother osteoarthritis; RA Osteoporosis Mother Arthritis Brother Alcohol abuse Brother Arthritis Maternal Grandmother Ischemic Heart Disease Maternal Grandmother CABG; AICD Peripheral Artery Disease Maternal Grandmother Arthritis Maternal Grandfather ASSESSMENT/PLAN: 1. Gastrointestinal hemorrhage, unspecified gastrointestinal hemorrhage type - ICD9: 578.9, ICD10: K92.2 (primary diagnosis) Has gastroenterology appointment later today, endoscopy planned. 2. Renal calculus, left - ICD9: 592.0, ICD10: N20.0 3. Hydronephrosis of left kidney - ICD9: 591, ICD10: N13.30 Feels he has passed the kidney stone. Endorse preventative measures including drinking sufficient fluids. 4. Neck pain, musculoskeletal - ICD9: 723.1, ICD10: M54.2 5. Chronic bilateral thoracic back pain - ICD9: 724.1, 338.29, ICD10: M54.6, G89.29 Continue with current plan of care OK to use lidocaine patch as well. - LIDOCAINE 5 % TOPICAL PATCH 6. Gastroesophageal reflux disease, unspecified whether esophagitis present - ICD9: 530.81, ICD10: K21.9 GIB in ER. Endoscopy scheduled. Recommend PPI for now. Stop NSAID when feeling improved from musculoskeletal standpoint.. Misa Hager APRN.CNS Medical Decision Making: Problems: Moderate: New problem with uncertain prognosis Data: Unique source(s) for external note(s) reviewed: 1 Risk: Moderate: Drug management Medical Decision Making Level: 4 - Moderate documented in this encounter [facility] 08-21-2022 History of Presen t illness Narrative Episode Visit Count: 3 Therapist That Will Accept/Oversee The Plan Of Care: Rome Noriega, PT, DPT Start of Care Date: 08/14/22 Onset Date: 05/14/22 REHABILITATION AND SPORTS THERAPY PHYSICAL THERAPY TREATMENT NOTE ASSESSMENT: Emir Rae tolerated the session with fatigue, expected muscle soreness, and no issues. He demonstrated improvements in proper muscular activation during interventions without compensation. Ernesto also tolerated all manual therapy this date. The patient will continue to benefit from ongoing skilled physical therapy to progress toward set goals. PLAN FOR NEXT VISIT: Continue manual as needed; assess how IaSTM went following sessions. Continue C/S mobility and postural muscle strengthening. SUBJECTIVE: Patient Reason for Visit: Pt. continues to complain about L-sided neck and shoulder pain. Reports continued compliance to HEP, has shoulder trouble with Pec stretch (discontinued exercise now for HEP). Pt. reports most pain occurs with rotation of the head, states getting better at judging degrees he can move without pain. Pain: Pain Pain Level: 3 Pain Location: Neck, Shoulder - Left Description: Tingling, Pressure Frequency: Intermittent Post Treatment Pain Post Treatment Pain Level: No Change Post Treatment Pain Location: Neck - Right, Shoulder - Right Post Treatment Pain Description: Sore Post Treatment Symptoms: Appropriate muscle soreness and fatigue OBJECTIVE MEASURES WITH LEVEL OF FUNCTION: Soft tissue restriction in L UT and multiple in periscap region this date. Restriction in UT caused referred pain into the shoulder when pressed on; patient states pain felt better following manual. TREATMENT: Therapeutic Exercise: 1: Rows: 3x15 BTB 3: Shld Flexion w/ G Band Pull Apart: 2x10 4: Bilateral Shld ER: GTB 2x15 5: Seated Scapular Raises: 2x15 2# db. 6: Horizontal ABD at shoulder level single arm: 2x10 GTB 7: *Rhomboid Stretch: 2x30 8: Shld Ext: 3x15 BTB 9: *Cervical SNAGs: 2x10 Skilled Intervention: Patient was educated in proper exercise technique and purpose for exercises. Reviewed and educated patient on additions/changes for home exercise program as above (*). Skilled judgment was provided in selection of appropriate interventions. Correct performance of therapeutic exercises was facilitated with verbal and tactile cuing. Manual Therapy: 1: Manual C/S Traction: 8' 2: IaSTM L UT, L Scalenes, & Periscap region 3: Active Release Technique to L UT Skilled Intervention: Manual skills to improve joint mobility, ROM, and decrease pain. Utilized anatomy knowledge of the therapist, and assessment of patient's response to intervention. Billing Therapeutic Exercise Treatment Minutes: 30 Manual TherapyTreatment Minutes: 23 Total Treatment Time Minutes (timed/untimed): 53 Rome Noriega PT, DPT documented in this encounter [facility] 08-17-2022 History of Presen t illness Narrative Episode Visit Count: 2 Therapist That Will Accept/Oversee The Plan Of Care: Rome Noriega PT DPT Start of Care Date: 08/14/22 Onset Date: 05/14/22 REHABILITATION AND SPORTS THERAPY PHYSICAL THERAPY TREATMENT NOTE ASSESSMENT: Emir Billie Rae tolerated the session with fatigue and expected muscle soreness. He demonstrated difficulty with bilateral ER w/ proper scapular control as well as prone I/Y/T's - removed from HEP due to pain in front of shoulder, modified to sitting scapular raises and will continue to progress as tolerated. Patient was able to improve tolerance to added exercises today with appropriate soreness following session.The patient will continue to benefit from ongoing skilled physical therapy to progress toward set goals. PLAN FOR NEXT VISIT: SUBJECTIVE: Patient Reason for Visit: Pt. continues to complain about L-sided neck and shoulder pain. Reports the pain today is in left UT, and points to pectoral region. Some numbness and tingling into distal LUE, however less than previous session. Reports adherance to HEP. Pain: Pain Pain Level: 3 Pain Location: Neck, Shoulder - Left Description: Tingling, Pressure Frequency: Intermittent OBJECTIVE MEASURES WITH LEVEL OF FUNCTION: Soft tissue restriction in L upper trap and levator scapulae. Patient. Tolerated aggressive manual therapy to respective regions. TREATMENT: Therapeutic Exercise: 1: Rows: 1x15 GTB, 2x15 BTB 2: Prone Y/T/I/W: 1x10 LUE (*Giving pt. P! - will remove from HEP and replace.) 3: Shld Flexion w/ G Band Pull Apart: 2x10 4: Bilateral Shld ER: GTB 2x15 5: *Seated Scapular Raises: 2x15 2# db. 6: *Horizontal ABD at shoulder level single arm: 2x10 GTB 7: Scapular Squeezes: 2x15 8: *Shld Ext: 3x15 BTB Skilled Intervention: Patient was educated in proper exercise technique and purpose for exercises. Reviewed and educated patient on additions/changes for home exercise program as above (*). Skilled judgment was provided in selection of appropriate interventions. Correct performance of therapeutic exercises was facilitated with verbal and tactile cuing as well as demonstration. Manual Therapy: 1: Manual C/S Traction: 8' 2: STM to Suboccipitals, L Pec Minor, L Scalenes, L UT 3: Active Release Technique to L UT & Levator Scap Skilled Intervention: Manual skills to improve joint mobility, ROM, and decrease pain. Utilized anatomy knowledge of the therapist, and assessment of patient's response to intervention. Billing Therapeutic Exercise Treatment Minutes: 30 Manual TherapyTreatment Minutes: 25 Total Treatment Time Minutes (timed/untimed): 55 Rome Noriega PT DPT documented in this encounter [facility] 08-14-2022 History of Presen t illness Narrative Episode Visit Count: 1 Therapist That Will Accept/Oversee The Plan Of Care: Rome Noriega PT, DPT Start of Care Date: 08/14/22 Onset Date: 05/14/22 Patient Identified by Name and Date of : Yes REHABILITATION AND SPORTS THERAPY PHYSICAL THERAPY EVALUATION PLAN OF CARE: Assessment: Emir Rae presents with chief complaint of Left-sided neck pain with associated paresthesias ranging to the wrist + digits that interferes with lifting, physical activities, working, sleeping, use hand with arm at shoulder level, recreational activities, pulling, pushing, carrying . He presents with impairments in ADL's, independence in exercise, joint mobility, overall function, posture, range of motion, soft tissue healing, strength, symptom management, and tissue tenderness. PROMIS (Patient-Reported Outcomes Measurement Information System) scores were reviewed and physical function domain and self efficacy domain identified as a rehabilitation concern. Prognosis for therapy is Good due to: current objective clinical presentation, acuteness of condition, within-session changes, Prognosis may be limited due to .He will benefit from skilled therapy services to meet the goals established for this plan of care as noted below. Goals for Episode of Care: created on 08/14/22 through 09/18/22 [place] in home exercise program. Patient will decrease pain rating by 2 points to meet minimal clinical important difference for numeric pain rating scale. Patient will restore pain-free cervical ROM to WNL to allow for improved functional mobility Patient will demonstrate increase in L shoulder scapular musculature strength to 5/5 during manual muscle testing in order to improve function for prior functional tasks and work tasks. Sleep throughout the night without pain/symptoms. Maintain proper sitting posture throughout the session to allow for decrease in neck/shoulder symptoms and overall frequency Patient Goals: Get back to his PLOF, improve posture, be able to sleep better. Planned Interventions, Frequency, and Duration: Current Frequency: 2x/week Duration: 4 weeks Total Number of Visits Planned: 8 Planned Treatment Interventions: Therapeutic exercise (62353), Neuromuscular re-education (48017), Manual therapy (05619), Therapeutic activities (45624), Self-intermediate management (30159), Patient/Family/Caregiver Education, Body Mechanics Training, Functional training PLAN FOR NEXT VISIT: Continue C/S distraction; scapular stabilization & strength interventions; assess & go over HEP; Patient demonstrates good understanding of plan of care and treatment. The above goals and plan of care were discussed and agreed upon by patient/family. SUBJECTIVE: Emir Rae is a 36 year old male seen today for Pt. with insidious onset of R-sided cervical & scapular pain 3 months prior (2022). Pt. states he has a history of cervical nerve entrapments affecting the neck & UE, however states this episode has been his worse bout. Currently, pt. with numbness and tingling extending down the RUE and reaching all 5 digits. Paresthesias typically rest in the periscap region, sometimes extends to the pecs. Pt. also has had associated headaches from the condition. All of his pain & symptoms has affected his PLOF and occupation. Radiographs demonstrate C5-6 disc narrowing w/ osteophyte formation. Patient Goals: Get back to his PLOF, improve posture, be able to sleep better. 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 Recreation / Current Exercise: Walking Home Environment Patient Lives With: Spouse Intake Information: Prescription present Previous Treatment: NSAIDs (Jose R Digital Therapist - Digital PT) Spine History Symptoms Location at Onset: Neck, Arm Symptoms Since Onset: Worsening Sleeping Position: Side lying right, Side lying left Sleep Affected by Pain: Pain awakens Pain: Pain Pain Level: 6 Pain Location: Neck - Left, Shoulder - Left Description: Tingling Frequency: Intermittent Post Treatment Pain Post Treatment Pain Level: No Change Post Treatment Pain Location: Neck - Right, Shoulder - Right Post Treatment Pain Description: Sore (Muscle soreness) PROMIS Scales Higher is Better 08/14/2022 Phys Func - Score 42 (mild dysfunction) Phys Func - Percentile 21 % Self-Eff Symptom - Score 37 (Low) Self-Eff Symptom - Percentile 10 % T-scores: mean of general population = 50. 5 points is clinically meaningfully difference Percentiles provide an indication of how the patient's score ranks in relation to the general population. Higher percentile rankings indicate better function/quality of life. 50th percentile is the average of the general population and indicates half of respondents had a worse score. OBJECTIVE MEASURES WITH LEVEL OF FUNCTION: Posture / Alignment Posture: Forward head, Increased thoracic kyphosis, Rounded shoulders Sitting Posture: Slump Reflexes - Upper Extremity L Brachioradialis : 2+ L Biceps: 2+ L Triceps: 2+ Spine Observations L Cervical Spine Palpation Tenderness: Upper trapezius, Levator scapulae, Scalenes, Paraspinals, Suboccipitals, Pectoralis minor (L Scalenes = Most painful to palpate) Cervical Spine ROM Cervical ROM : Measurement AROM Cervical Flexion AROM (degrees) : 45 Degrees Cervical Extension AROM (degrees) : 30 Degrees Cervical Side-Bend Right AROM (degrees): 50 Degrees Cervical Side-Bend Left AROM (degrees) : 20 Degrees Cervical Rotation Right AROM (degrees) : 55 Degrees Cervical Rotation Left AROM (degrees) : 45 Degrees UE AROM R UE AROM: Grossly WNL L UE AROM: Grossly WNL UE and Cervical Strength Strength Tested: Myotome Cervical/Shoulder, Scapula R Shoulder Shrug (C4): 5/5 R Shoulder Abduction (C5): 5/5 R Upper Trapezius: 4/5 R Lower Trapezius: 4/5 R Rhomboid: 4/5 R Serratus Anterior: 4/5 R Elbow Extension (C7): 5/5 R Elbow Flexion (C6): 5/5 R Thumb Extension (C8): 5/5 R Finger Adduction/Interossei (T1): 5/5 L Shoulder Shrug (C4): 5/5 L Shoulder Abduction (C5): 5/5 L Upper Trapezius: 3/5 L Middle Trapezius: 3/5 L Lower Trapezius: 3/5 L Rhomboid: 3/5 L Serratus Anterior: 3+/5 L Elbow Extension (C7): 5/5 L Elbow Flexion (C6): 5/5 L Thumb Extension (C8): 5/5 L Finger Adduction/Interossei (T1): 5/5 Special Tests - Cervical Cervical Special Tests: Cervical Distraction, Spurling, Median Nerve, Ulnar Nerve, Radial Nerve, Flexion-Rotation Test Cervical Distraction: Positive Spurling: Left Positive, Right Negative Median Nerve: Left Positive Ulnar Nerve: Left Positive Radial Nerve: Left Positive Flexion-Rotation Test: Left Positive Special Tests - Thoracic Thoracic Special Tests: Adson's Test, Shaun's Test, Alice's Test Adson's Test: Left Negative Shaun's Test: Left Negative Alice's Test: Left Positive Special Tests - Hip and Spine Special Test Comments: Tinel Sign (Neg), Brace (Neg) Education: Education Learning Preferences: Demonstration, Explanation Barriers: Desire and Motivation Learning/educational needs: Lifestyle changes, Health promotion, Home exercise program, Plan of Care, Posture, Body Mechanics TREATMENT: PT Treatment Interventions: Therapeutic Exercise, Manual Therapy, Self-Jail Management Evaluation Therapeutic Exercise: 1: *GTB Rows: 2x10 2: *Prone Y/T/I/W: 1x10 LUE 3: *Upper Trap Stretch: 2x30 ea. 4: *Levator Scap Stretch: 2x30 ea. 5: *Pec Doorway Stretch: 2x30 ea. 6: *Median/Radial/Ulnar Nerve Floss: 1x5 ea. 3-sec tensioner 7: *Scapular Squeezes: 2x10 Skilled Intervention: Patient was educated in proper exercise technique and purpose for exercises. Skilled judgment was provided in selection of appropriate interventions. Provided written instruction for home exercise program to facilitate proper performance and compliance. Correct performance of therapeutic exercises was facilitated with verbal and tactile cuing. Manual Therapy: 1: Manual C/S Traction: 5' 2: STM to Suboccipitals, L Pec [place], L Scalenes, L UT 3: Manual nerve flossing to median/radial/ulnar: 1x10 ea. Skilled Intervention: Manual skills to improve joint mobility, ROM, and decrease pain. Utilized anatomy knowledge of the therapist, and assessment of patient's response to intervention. Self-Jail Management: 1: Direct education to patient for A&P on the patient's overall condition, HEP, POC, posture, body mechanics. Skilled Intervention: Reviewed patient specific diagnosis in relation to activities of daily living/home management. Correct performance of home program was facilitated with verbal and tactile cueing. Billing * Evaluation Low Complexity: 1 Unit Therapeutic Exercise Treatment Minutes: 20 Manual TherapyTreatment Minutes: 15 Self-Care/Home Management Treatment Minutes: 8 Total Treatment Time Minutes (timed/untimed): 63 Rome Noriega PT, DPT documented in this encounter [facility] 08-09-2022 History of Presen t illness Narrative POPULATION HEALTH NAVIGATION OUTREACH Action/I RP OUTREACH: Contacted patient to schedule PT/OT, will call back when they are ready to schedule. Patient Identified by Name and : YES, via phone Outreach Outcome/Action Spoke to patient / parent / legal guardian: Patient will return the call or ask for return call Did you use a PCP flex slot to schedule this appointment? No Reason for Outreach Care Gap or Scheduling/Wellness visits Payer: Payor: MMO / Plan: MMO SUPERMED PPO / Product Type: PPO / Care Gap Reviewed:: N/A Reminder: Reminder note to check Health Maintenance for items below Health Maintenance items due: HEPATITIS B(1 of 3 - 3-dose series) Never done LIPID SCREEN Never done Navigation Signature: Rossy Castillo August 09, 2022 2:24 PM documented in this encounter [facility] 06-30-2022 History of Presen t illness Narrative Radiology Service Progress Note PATIENT NAME: Emir Rae DATE OF SERVICE: June 30, 2022 TIME: 3:01 PM PATIENT IDENTITY VERIFICATION COMPLETED USING TWO (2) IDENTIFIERS: Name and Date of confirmed by patient verbally. FALL SCREENING: Has the patient had 2 falls in the last year or 1 fall with injury or currently using an Ambulatory Assistive Device (Walker, Cane, Wheelchair, Crutches, etc.)? 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 Patient calling to say he was given a wrist splint at his OV today. When he took it home, he discovered it was for the right hand. He actually needed one for the left hand. He says this one was not used and is still in the package. Asking what to do? Eneida Todd RN documented in this encounter [facility] 10-24-2021 History of Presen t illness Narrative SUBJECTIVE: HEPATITIS B(1 of 3 - 3-dose series) Never done HEPATITIS C SCREENING Never done LIPID SCREEN due on 2021 HPI Emir Rae is a 36 year old male. PMH signficiant for There is no problem list on file for this patient. Presents today to establish care with Deven Santillan MD. Previous PCP: reports [facility] Last seen:~ 2years Labwork: no recent ER/Hospitalization: 2019 Outside records: care everywhere Has been seen at [facility] for acute problems since 2020. Reviewed outside medications treated with paxlovid September 01, 2021. Previously treated with acyclovir June, August, September 2021 for recurrent aphthous ulcer since childhood, interested in suppressive therapy. Currently taking acyclovir 400 mg BID. [facility] Hubbard for anxiety and depression. Taking bupropion XL 150 mg daily, sagpfi53 mg twice daily, hydroxyzine 25 mg 3 times daily. He notes chronic neck pain and wrist pain. States he seen a chiropractor in past but not recently. Notes he lifts heavy items at work, currently 8 chronic falls. Notes he is left-handed, left lateral wrist pain and left pinky pain. Pain tends to be worse after work. Chronic and present most of the time. Not currently taking any medication. Reports screening for STD via diana Edwards to [facility]. 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 Review of Systems Constitutional: Negative. Musculoskeletal: Positive for arthralgias and back pain. Objective Physical Exam Vitals and nursing note reviewed. Constitutional: Appearance: Normal appearance. HENT: Head: Normocephalic and atraumatic. Eyes: Conjunctiva/sclera: Conjunctivae normal. Neck: Thyroid: No thyromegaly. Vascular: Normal carotid pulses. No JVD. Cardiovascular: Rate and Rhythm: Normal rate and regular rhythm. Pulses: Carotid pulses are 2+ on the right side and 2+ on the left side. Radial pulses are 2+ on the right side and 2+ on the left side. Heart sounds: Normal heart sounds. Pulmonary: Effort: Pulmonary effort is normal. Breath sounds: Normal breath sounds. Abdominal: General: Bowel sounds are normal. Palpations: Abdomen is soft. Musculoskeletal: Right lower leg: No edema. Left lower leg: No edema. Skin: General: Skin is warm and dry. Neurological: Mental Status: He is alert. Mental status is at baseline. BP 120/80 Pulse 84 Resp 16 Ht 189.2 cm (6' 2.5) Wt 105.7 kg (233 lb) BMI 29.52 kg/m ALLERGIES Allergen Reactions Cat Dander Other: See Comments Mold Unknown Pollen Extracts Unknown Seasonal Allergies Other: See Comments Medications busPIRone (BUSPAR) 10 mg tablet TAKE 1/2 TABLET TO 2 TABLETS BY MOUTH ONCE DAILY NEEDED zwwprijg-yye-dqyto-vit K-lycop (ONE-A-DAY MEN'S MULTIVITAMIN) 400-20-300 mcg tab Take by mouth. ascorbic acid, vitamin C, (VITAMIN C) 500 mg tablet Take 500 mg by mouth once daily. acyclovir (ZOVIRAX) 400 mg tablet Take 1 tablet by mouth twice daily. buPROPion XL (WELLBUTRIN XL) 300 mg 24 hr tablet Take 1 tablet by mouth once daily. With 150 MG. buPROPion XL (WELLBUTRIN XL) 150 mg 24 hr tablet Take 1 tablet by mouth once daily. With 300 MG. cetirizine (ZYRTEC) 10 mg tablet Take 10 mg by mouth once daily. fluticasone (FLONASE) 50 mcg/actuation nasal spray Use 1 [place] in each nostril once daily. meloxicam (MOBIC) 15 mg tablet Take 1 tablet by mouth once daily. as needed for wrist pain. Take with food. hydrOXYzine HCl (ATARAX) 25 mg tablet Take 1 tablet by mouth twice daily. 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 Routine medical exam - ICD9: V70.0, ICD10: Z00.00 (primary diagnosis) - COMP METABOLIC PANEL - CBC + DIFF 2. Encounter for immunization - ICD9: V03.89, ICD10: Z23 - HEPATITIS B VACCINE, ADULT AGE 20+, IM 3. Special screening examination for viral disease - ICD9: V73.99, ICD10: Z11.59 - HEP C AB IA W/CONF SCRN 4. Screening for HIV (human immunodeficiency virus) - ICD9: V73.89, ICD10: Z11.4 - HIV 1 2 COMBO(AG/AB),WITH REFLEX TO DIFFERENTIATION 5. Screening for lipid disorders - ICD9: V77.91, ICD10: Z13.220 - LIPID PANEL BASIC 6. Chronic wrist pain, left - ICD9: 719.43, 338.29, ICD10: M25.532, G89.29 - XR WRIST GENERAL 3V PA/LAT/OBL LEFT - CONSULT TO ORTHOPAEDICS - MELOXICAM 15 MG TABLET 7. Cervicalgia - ICD9: 723.1, ICD10: M54.2 - MELOXICAM 15 MG TABLET - CONSULT TO PHYSICAL THERAPY Recommend gentle range of motion for neck and wrist pain. Nighttime brace 6 to 8 weeks left wrist, provided at visit Physical therapy answer desires Labs today 6-12 mo follow up establish with Deven Santillan MD . Misa Hager APRN.ISREAL Medical Decision Making: Problems: Moderate: 2+ stable chronic illnesses Data: Unique test(s) ordered: 3+ Risk: Moderate: Drug management Medical Decision Making Level: 4 - Moderate documented in this encounter [facility] 06-14-2021 Instructions Rossy Valencia APRN.ELECTRIC RAZOR ASSEMBLER - 06/14/2021 12:19 PM EDT The Herpes Virus Herpes is a virus that can cause sores on the skin. There are two types of the virus. Depending on how you come in contact with the virus, either type can cause outbreaks near the mouth or on the sex organs. Understanding the Herpes Virus Herpes reproduces only when it is inside the body. It does so by tricking a healthy cell into producing copies of the herpes virus. Each copy can infect nearby cells. But, before too long, the body s defenses rally to stop the attack. The immune system forces the virus to retreat. For some people, an acute outbreak never happens again. For others, menstruation, illness, poor diet, fatigue, or stress makes outbreaks more likely. How the Herpes Virus Attacks The herpes virus enters the body through a small break in the skin. The virus can also enter by direct contact with mucous membranes, such as those of the lips, vagina, or anus. Inside the body, the herpes virus binds to a special site on a skin cell. Then part of the virus moves into the cell. Inside the skin cell, the virus releases a set of instructions. These commands cause the cell to begin making copies of the herpes virus. Herpes blisters appear on the skin. Herpes blisters may also appear on mucous membranes lining the mouth, vagina, or anus. Diagnosing Herpes You will be asked about your health history. You may be asked about your eating and sleeping habits and sexual history. Mention if you have sores or if you have had any in the past. Also mention if you feel tingling or itching before an outbreak. What a Sore Looks Like A herpes sore may first appear as a small white blister. The fluid inside the blister is filled with the herpes virus. At this stage the virus sheds easily. This means it can be passed to other people. A soft wet ulcer may form in place of the blister. The herpes virus is in the fluid of the open sore. As a result, the virus can still be spread to others. A soft crust forms as a new layer of skin grows. Fewer copies of the virus are present in the sore. The skin surface is normal, but the virus remains in the body. Shedding is less likely, but it can still occur. Testing for Herpes If herpes is suspected, tests such as these may be done to confirm the diagnosis: Viral culture: A small amount of fluid is swabbed from the base of a blister. The fluid is grown in a special culture with healthy cells. If herpes is present, it will alter the look of the cells. Fluorescent antibody test: Cells are taken from the base of a blister. They are stained and checked under a microscope. If herpes is present, the cells will change color. Other tests: If sores are not present, tests can be run on blood or cell samples. These tests show if you carry the herpes virus. Living with Herpes To speed healing, take care of open herpes sores. To reduce outbreaks, take care of your health. And to keep from infecting others, learn how to avoid spreading the virus. To Ease Symptoms Start episodic treatment at the first sign of symptoms, such as itching or tingling. Take ibuprofen, acetaminophen, or aspirin to limit any pain. Sit in a warm bath or use a moist compress to lessen the itching of sores. For some women, genital outbreaks cause burning during urination. In such cases, urinating in a tub of warm water helps reduce burning. Wear white cotton underwear and loose clothing during outbreaks. Don t wear nylon underwear or tight clothes. They can prevent sores from healing. To Speed Healing Wash sores with mild soap and water. Pat the sores completely dry. Always wash your hands after touching a sore. Don t bandage sores. Air helps them heal. Avoid using any ointment unless it is prescribed. Applying the wrong jelly or cream may hold in moisture and slow healing. Don t pick at the sores. This can slow healing, and might cause a sore to become infected. If you wear contacts, wash your hands well before putting them in. To Reduce Outbreaks Eat a balanced diet. Your healthcare provider may suggest taking supplements. These help ensure that you get all the nutrients you need. Get plenty of sleep. This helps your immune system work its best. Limit stress and tension. Both can weaken the body s defenses. Limit exposure to sun, wind, and extreme heat or cold. Wear sunscreen and lip balm to help prevent outbreaks. To Protect Others Tell your current sex partner and any future partners that you have herpes. If you don t know what to say, ask your healthcare provider for help. Use a latex condom each time you have sex. This reduces the risk of passing herpes to your partner. Avoid kissing when you have an oral sore. Do not have intercourse when genital sores are present. Also keep in mind, herpes can be passed during oral sex and with anal contact. Don t share towels, toothbrushes, lip balm, or lipstick when you have a sore. For Teens: Understanding Herpes Herpes is a sexually transmitted disease (STD) that causes painful outbreaks of blisters and sores. It spreads through contact with an infected area usually a sore on the genitals or mouth. Herpes can also spread even when sores aren t visible. There s no cure for herpes. But treatment can help make outbreaks happen less often and be less severe. What to Look For An outbreak can happen a few days or weeks after sex. Some people have only one outbreak in their lifetime. Others have several outbreaks a year. An outbreak begins with blisters on the penis, or in or around the vagina, mouth, or rectum. After a few days, the blisters break and leave painful sores. These may take days or weeks to heal. The first outbreak is often the worst. Later outbreaks are also painful, but tend to heal faster. Treatment Medications can help reduce how often outbreaks happen. They can also lessen pain. Help sores heal faster by keeping them clean and dry. To avoid spreading the virus, don t have sex during an outbreak. Also, avoid oral sex if you have a cold sore. Cold sores are another form of the herpes virus (oral herpes). Oral herpes can be passed from the mouth to the genitals. If You Don t Get Treated Herpes isn t deadly. But it does have risks: Having herpes increases the chance of catching HIV (the virus that causes AIDS). Herpes sores make it easier for the HIV virus to be passed during sex. If a woman has an outbreak during , herpes can be passed to the baby at . Don t kiss or have sex if you or your partner has a herpes sore. And use latex condoms every time you have sex even between outbreaks. documented in this encounter [facility] 06-14-2021 History of Presen t illness Narrative This note was created using Pneuronriter. Subjective Emir Wise Drbell is a 35 year old male. 35 year old male with PMH anxiety and depression presents requesting maintenance medicine for canker sores. Acute onset of symptoms as far as I can remember citing he had eruptions as a kid. Citing he has experienced canker sores of mouths and lips. Current outbreak started a week and a half ago. States prior to that he had an outbreak a couple weeks before that, and utilized Valtrex at time of outbreak. States that he is experiencing outbreaks once or twice a month seems when I get overheated they erupt Endorses that he has prodromal feelings with outbreak. He has an appointment to establish care with Misa Hager on 07/29/21 would like to try something daily to help citing that he was reading on Acylovir being a maintenace drug and would like to trial The history is provided by the patient. No antenna machine operator was used. Rash This is a recurrent problem. The current episode started more than 1 year ago. The problem is unchanged. Location: face. The rash is characterized by blistering, burning and pain. He was exposed to nothing. Pertinent negatives include no anorexia, congestion, cough, diarrhea, eye pain, facial edema, fatigue, fever, joint pain, nail changes, rhinorrhea, shortness of breath, sore throat or vomiting. Treatments tried: Valtrex. The treatment provided no relief. There is no history of allergies, asthma, eczema or varicella. 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 MEDICATIONS valACYclovir (VALTREX) 1 gram TAKE 2 TABLETS BY MOUTH EVERY 12 HOURS FOR 1 DAY WHEN YOU HAVE AN OUTBREAK. THIS IS ENOUGH FOR 3 OUTBREAKS buPROPion XL (WELLBUTRIN XL) 300 mg 24 hr tablet Take 1 tablet by mouth once daily. With 150 MG. buPROPion XL (WELLBUTRIN XL) 150 mg 24 hr tablet Take 1 tablet by mouth once daily. With 300 MG. hydrOXYzine HCl (ATARAX) 25 mg tablet Take 1 tablet by mouth twice daily. cetirizine (ZYRTEC) 10 mg tablet Take 10 mg by mouth once daily. fluticasone (FLONASE ALLERGY RELIEF) 50 mcg/actuation nasal spray Use 1 [place] in each nostril once daily. acyclovir (ZOVIRAX) 800 mg tablet Take 1 tablet by mouth twice daily. No family history on file. Social History Tobacco Use Smoking status: Former Smoker Smokeless tobacco: Never Used Substance Use Topics Alcohol use: Never Drug use: Never Review of Systems Constitutional: Negative for appetite change, fatigue and fever. HENT: Negative for congestion, rhinorrhea and sore throat. Eyes: Negative for pain, discharge and itching. Respiratory: Negative for apnea, cough, chest tightness and shortness of breath. Cardiovascular: Negative for chest pain, palpitations and leg swelling. Gastrointestinal: Negative for abdominal pain, anorexia, diarrhea and vomiting. Musculoskeletal: Negative for back pain and joint pain. Skin: Positive for rash. Negative for nail changes. Allergic/Immunologic: Negative for environmental allergies, food allergies and immunocompromised state. Neurological: Negative for dizziness, facial asymmetry, light-headedness, numbness and headaches. Hematological: Negative for adenopathy. Does not bruise/bleed easily. Psychiatric/Behavioral: Negative for agitation and behavioral problems. Objective BP 124/82 Pulse 73 Temp 36.3 C (97.3 F) Resp 18 Wt 102.2 kg (225 lb 3.2 oz) SpO2 99% Physical Exam Vitals and nursing note reviewed. Constitutional: General: He is not in acute distress. Appearance: Normal appearance. He is not ill-appearing, toxic-appearing or diaphoretic. HENT: Head: Normocephalic and atraumatic. Right Ear: External ear normal. Left Ear: External ear normal. Nose: Nose normal. No congestion or rhinorrhea. Mouth/Throat: Mouth: Mucous membranes are moist. Pharynx: Oropharynx is clear. No oropharyngeal exudate or posterior oropharyngeal erythema. Comments: +apthous ulcerations noted to right lower lip, mid lip and upper lip. Eyes: General: Right eye: No discharge. Left eye: No discharge. Extraocular Movements: Extraocular movements intact. Conjunctiva/sclera: Conjunctivae normal. Pupils: Pupils are equal, round, and reactive to light. Cardiovascular: Rate and Rhythm: Normal rate and regular rhythm. Pulses: Normal pulses. Heart sounds: Normal heart sounds. No murmur heard. No friction rub. No gallop. Pulmonary: Effort: Pulmonary effort is normal. No respiratory distress. Breath sounds: Normal breath sounds. No stridor. No wheezing, rhonchi or rales. Chest: Chest wall: No tenderness. Abdominal: General: Abdomen is flat. There is no distension. Palpations: Abdomen is soft. There is no mass. Tenderness: There is no abdominal tenderness. There is no guarding or rebound. Hernia: No hernia is present. Musculoskeletal: General: No swelling, tenderness, deformity or signs of injury. Normal range of motion. Cervical back: Normal range of motion and neck supple. No rigidity or tenderness. Right lower leg: No edema. Left lower leg: No edema. Lymphadenopathy: Cervical: No cervical adenopathy. Skin: General: Skin is warm and dry. Capillary Refill: Capillary refill takes less than 2 seconds. Coloration: Skin is not jaundiced or pale. Findings: No bruising, lesion or rash. Neurological: General: No focal deficit present. Mental Status: He is alert and oriented to person, place, and time. Cranial Nerves: No cranial nerve deficit. Sensory: No sensory deficit. Motor: No weakness. Coordination: Coordination normal. Gait: Gait normal. Deep Tendon Reflexes: Reflexes normal. Psychiatric: Mood and Affect: Mood normal. Behavior: Behavior normal. Thought Content: Thought content normal. Assessment and Plan ASSESSMENT/PLAN: 1. 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 Changes can be made as necessary depending on response. Chart CC to Misa Valencia APRN.ELECTRIC RAZOR ASSEMBLER documented in this encounter [facility] Evaluation note Diagnosis Recurrent aphthous stomatitis- Primary Oral aphthae [facility] Diagnosis Routine medical exam- Primary Routine general medical examination at a health care facility Encounter for immunization Need for other specified prophylactic vaccination against single bacterial disease Special screening examination for viral disease Special screening examination for unspecified viral disease Screening for HIV (human immunodeficiency virus) Special screening examination for other specified viral diseases Screening for lipid disorders Chronic wrist pain, left [facility]gia [facility] Neck pain, musculoskeletal- Primary Cervicalgia Chronic bilateral thoracic back pain [facility] Neck pain, musculoskeletal- Primary Cervicalgia Chronic bilateral thoracic back pain [facility] Diagnosis Neck pain, musculoskeletal- Primary Cervicalgia Chronic bilateral thoracic back pain [facility] Diagnosis Onset Date Resolution Status Dermatitis acute Rash noneactive [facility] Work Phone: Evaluation note* Diagnosis Acute GI bleeding- Primary Hemorrhage of gastrointestinal tract, unspecified Kidney stone Calculus of kidney [facility] [place] [facility] Diagnosis Gastrointestinal hemorrhage, unspecified gastrointestinal hemorrhage type- Primary Renal calculus, left Calculus of kidney Hydronephrosis of left kidney Hydronephrosis Neck pain, musculoskeletal Cervicalgia Chronic bilateral thoracic back pain Gastroesophageal reflux disease, unspecified whether esophagitis present [facility] [place] [facility]* Diagnosis Chronic bilateral thoracic back pain- Primary Neck pain, musculoskeletal Cervicalgia Cervicalgia [facility] [place] [facility]* Diagnosis Neck pain, musculoskeletal- Primary Cervicalgia Chronic bilateral thoracic back pain [facility] [place] [facility]* Diagnosis Gastrointestinal hemorrhage, unspecified gastrointestinal hemorrhage type- Primary Renal calculus, left Calculus of kidney Hydronephrosis of left kidney Hydronephrosis Encounter for immunization Need for other specified prophylactic vaccination against single bacterial disease Neck pain, musculoskeletal Cervicalgia Chronic bilateral thoracic back pain Gastroesophageal reflux disease, unspecified whether esophagitis present Screening for HIV (human immunodeficiency virus) Special screening examination for other specified viral diseases Screening for lipid disorders Family history of rheumatoid arthritis Family history of arthritis documented [facility] [place] [facility]* Diagnosis Chronic bilateral thoracic back pain- Primary Gastrointestinal hemorrhage, unspecified gastrointestinal hemorrhage type documented in this [facility] [place] [facility]* Diagnosis Plantar fasciitis of left foot- Primary Plantar fascial fibromatosis Left foot pain Pain in limb Tinea pedis of both feet [facility] [place] [facility] Diagnosis Mass of both upper extremities- Primary Palpable mass of lower back Mass of left hip region documented [facility] this [facility] [place] [facility]* Diagnosis Left foot pain Pain in limb documented [facility] [place] [facility]* Diagnosis Low libido- Primary Decreased libido Fatigue, unspecified type Vitamin D deficiency Unspecified vitamin D deficiency Screening for lipid disorders Screening for depression Encounter for screening examination for other mental health and behavioral disorders documented in this encounter [facility] note* Diagnosis Neck pain, musculoskeletal Cervicalgia Chronic bilateral thoracic back pain documented [facility] [place] [facility]* Diagnosis Elevated glucose- Primary Other abnormal glucose documented [facility] this [facility] [place] [facility]* Diagnosis Vitamin D deficiency- Primary Unspecified vitamin D deficiency documented [facility] this [facility] [place] [facility] Diagnosis SOBOE (shortness of breath on exertion)- Primary Shortness of breath Non-seasonal allergic rhinitis, unspecified trigger documented in this encounter [facility] note* Diagnosis Chronic bilateral thoracic back pain- Primary Radiculopathy, cervical region Brachial neuritis or radiculitis nos Cervical spondylosis without myelopathy documented in this encounter [facility] note* Diagnosis Non-seasonal allergic rhinitis, unspecified trigger [facility] Additional Instructions Thank you for trusting us with your care today! Please take Tylenol (2 pills, 650 mg), ibuprofen (2 pills, 400 mg) every 6 hours as needed for pain and fever control. Please take oxycodone every 6 hours for breakthrough pain if the above regimen does not control your symptoms. Please take your antibiotic as prescribed. Please finish entire course. Please return to the emergency department if your symptoms change or worsen. Specifically do not urinate for greater than 12 hours, your pain is not controlled by the oral medicines that been prescribed or if you develop vomiting cannot tolerate oral medicines by mouth. Please follow with your primary care physician for further outpatient evaluation and management.[facility] Work Phone: Reason for referral (narrative)* Outpatient Procedure (Routine) - Authorized Specialty Diagnoses / Procedures Referred By Stepan martinez Referred To Contact [facility] Diagnoses Acute GI bleeding Procedures COLONOSCOPY DIAGNOSTIC COLONOSCOPY FLX DX W/COLLJ SPEC WHEN PFRMD Tomas Hawkins MD [address] [place] [address] [address] Referral ID Status Reason Start Date Expiration Date Visits Requested Visits Authorized [id number] Authorized Auto-Generat ed Referral 09/07/2022 09/08/2023 1 1 * Outpatient Procedure (Routine) - Authorized Specialty Diagnoses / Procedures Referred By Stepna martinez Referred To Contact [facility] Diagnoses Acute GI bleeding Procedures EGD DIAGNOSTIC ESOPHAGOGASTRODUODENOSC OPY TRANSORAL DIAGNOSTIC Tomas Hawkins MD [address] [place] [address] [facility] [address] [place] [id number] Referral ID Status Reason Start Date Expiration Date Visits Requested Visits Authorized [id number] Authorized Auto-Generat ed Referral 09/07/2022 09/08/2023 1 1 [facility] for referral (narrative)* Diagnostic Procedure Only (Routine) - Authorized Specialty Diagnoses / Procedures Referred By Contac t Referred To Contact [facility] Diagnoses Mass of both upper extremities Procedures US EXTREMITY MASS/FLUID COLLECTION RIGHT Rosario Moffett APRN.ELECTRIC [employer]ZOR ASSEMBLER [address] [place], [place] [id number] [place] [address] Referral ID Status Reason Start Date Expiration Date Visits Requested Visits Authorized [id number] Authorized Auto-Generat ed Referral 08/27/2023 09/25/2024 1 1 * Diagnostic Procedure Only (Routine) - Authorized Specialty Diagnoses / Procedures Referred By Contac t Referred To Contact [facility] Diagnoses Mass of both upper extremities Procedures US EXTREMITY MASS/FLUID COLLECTION LEFT Rosario Moffett APRN.ELECTRIC RAZOR ASSEMBLER [address] [place], [place] [id number] [place] [address] Referral ID Status Reason Start Date Expiration Date Visits Requested Visits Authorized [id number] Authorized Auto-Generat ed Referral 08/27/2023 09/25/2024 1 1 * Diagnostic Procedure Only (Routine) - Authorized Specialty Diagnoses / Procedures Referred By Contac t Referred To Contact [facility] Diagnoses Palpable mass of lower back Procedures US SOFT TISSUE ABDOMEN US ABDOMINAL REAL TIME W/IMAGE LIMITED Rosario Moffett APRN.ELECTRIC [employer]OR ASSEMBLER [address] [place] [address] [place] [address] Referral ID Status Reason Start Date Expiration Date Visits Requested Visits Authorized [id number] Authorized Auto-Generat ed Referral 08/27/2023 09/25/2024 1 1 * Diagnostic Procedure Only (Routine) - Authorized Specialty Diagnoses / Procedures Referred By Contac t Referred To Contact [facility] Diagnoses Mass of left hip region Procedures US SOFT TISSUE PELVIS US PELVIC NONOBSTETRIC IMAGE DCMTN LIMITED/F/U Rosario Moffett APRN.ELECTRIC RAZOR ASSEMBLER [address] [place] [address] [place] [address] Referral ID Status Reason Start Date Expiration Date Visits Requested Visits Authorized [id number] Authorized Auto-Generat ed Referral 08/27/2023 09/25/2024 1 1 [facility] for referral (narrative)* Diagnostic Procedure Only (Routine) - Closed Specialty Diagnoses / Procedures Referred By Contac t Referred To Contact [facility] Diagnoses Left foot pain Procedures XR FOOT GENERAL 3V AP/LAT/OBL LEFT RADEX FOOT COMPLETE MINIMUM 3 VIEWS Misa Hager APRN.UNDERGRADUATE INTERN [address] [place] [address] [place] [address] Referral ID Status Reason Start Date Expiration Date V isits Requested Visits Authorized [id number] Closed Auto-Generate d Referral 05/24/2023 06/22/2024 1 1 [facility] for referral (narrative)* Diagnostic Procedure Only (Routine) - Closed Specialty Diagnoses / Procedures Referred By Contac t Referred To Contact [facility] Diagnoses Chronic bilateral thoracic back pain Procedures XR THORACIC GENERAL 3V AP/LAT/SWIMMERS RADEX SPINE THORACIC 3 VIEWS Deven Santillan MD [address] [place] [address] [place] [address] Referral ID Status Reason Start Date Expiration Date V isits Requested Visits Authorized [id number] Closed Auto-Generate d Referral 06/30/2022 07/30/2023 1 1 * Diagnostic Procedure Only (Routine) - Closed Specialty Diagnoses / Procedures Referred By Contac t Referred To Contact [facility] Diagnoses Neck pain, musculoskeletal Procedures XR CERV OTHER 4V AP/LAT/OBL RADEX SPINE CERVICAL 4 OR 5 VIEWS Deven Santillan MD [address] [place] [address] [place] [address] Referral ID Status Reason Start Date Expiration Date V isits Requested Visits Authorized [id number] Closed Auto-Generate d Referral 06/30/2022 07/30/2023 1 1 [facility] for visit Narrative* Diagnostic Procedure Only (Routine) - Closed Specialty Diagnoses / Procedures Referred By Contac t Referred To Contact [facility] Diagnoses Left foot pain Procedures XR FOOT GENERAL 3V AP/LAT/OBL LEFT RADEX FOOT COMPLETE MINIMUM 3 VIEWS Misa Hager, PASTRY MIXER.UNDERGRADUATE INTERN [address] [place] [address] [place] [address] Referral ID Status Reason Start Date Expiration Date V isits Requested Visits Authorized [id number] Closed Auto-Generate d Referral 05/24/2023 06/22/2024 1 1 [facility] for visit Narrative* Diagnostic Procedure Only (Routine) - Closed Specialty Diagnoses / Procedures Referred By Contac t Referred To Contact [facility] Diagnoses Chronic bilateral thoracic back pain Procedures XR THORACIC GENERAL 3V AP/LAT/SWIMMERS RADEX SPINE THORACIC 3 VIEWS Deven Santillan MD [address] [place] [address] [place] [address] Referral ID Status Reason Start Date Expiration Date V isits Requested Visits Authorized [id number] Closed Auto-Generate d Referral 06/30/2022 07/30/2023 1 1 [facility] Summary Purpose Family History No Family History Records FoundNo Family History Records FoundNo Family History Records FoundNo Family History Records Found Advance Directives Advance Directive Response Recorded Date/ Time Living Will No September 04, 2022 11:48am Power of Retort Unloader No September 04 11:48am Reason for Referral Specialty Diagnoses / Procedures Referred By Contac t Referred To Contact [facility] Diagnoses Cervicalgia Procedures CONSULT TO PHYSICAL THERAPY PHYSICAL THERAPY EVALUATION [facility] COMPLEX 45 MINS Misa Hgaer, PASTRY MIXER.UNDERGRADUATE INTERN [address] [place] [address] [facility] [address] [place] [id number] Referral ID Status Reason Start Date Expiration Date Visits Requested Visits Authorized [id number] Pending Review Auto-Generat ed Referral 10/24/2021 10/24/2022 1 1 Specialty Diagnoses / Procedures Referred By Contac t Referred To Contact Orthopedics Diagnoses Chronic wrist pain, left Procedures CONSULT TO ORTHOPAEDICS OFFICE/OUTPATIENT [facility] 60-74 MINUTES Misa Hager, PASTRY MIXER.UNDERGRADUATE INTERN [address] [place] [address] Referral ID Status Reason Start Date Expiration Date Visits Requested Visits Authorized [id number] Authorized PCP Requested Referral 10/24/2021 10/24/2022 1 1 Specialty Diagnoses / Procedures Referred By Contac t Referred To Contact [facility] Diagnoses Chronic wrist pain, left Procedures XR WRIST GENERAL 3V PA/LAT/OBL LEFT RADEX WRIST COMPLETE MINIMUM 3 VIEWS Misa Hager, PASTRY MIXER.UNDERGRADUATE INTERN [address] [place] [address] [facility] Referral ID Status Reason Start Date Expiration Date Visits Requested Visits Authorized [id number] Pending Review Auto-Generat ed Referral 10/24/2021 11/23/2022 1 1 Specialty Diagnoses / Procedures Referred By Contac t Referred To Contact [facility] Diagnoses Neck pain, musculoskeletal Chronic bilateral thoracic back pain Procedures PT REHAB FOLLOW UP ORDER THERAPEUTIC EXERCISES RE, EA 15 MIN. Pt [facility] [address] [place] [address] [facility] [place] [address] Referral ID Status Reason Start Date Expiration Date Visits Requested Visits Authorized [id number] Pending Review PCP Requested Referral Auto-Generate d Referral 08/14/2022 11/12/2022 1 1 Specialty Diagnoses / Procedures Referred By Contac t Referred To Contact Diagnoses Neck pain, musculoskeletal Chronic bilateral thoracic back pain Misa Hager, PASTRY MIXER.UNDERGRADUATE INTERN [address] [place] [address] Referral ID Status Reason Start Date Expiration Date V isits Requested Visits Authorized [id number] Pending Review 1 1 Specialty Diagnoses / Procedures Referred By Contac t Referred To Contact Gastroenterology Diagnoses Gastrointestinal hemorrhage, unspecified gastrointestinal hemorrhage type Procedures CONSULT TO GASTROENTEROLOGY OFFICE/OUTPATIENT [facility] 60-74 MINUTES Misa Hager, PASTRY MIXER.UNDERGRADUATE INTERN [address] [place] [address] Referral ID Status Reason Start Date Expiration Date Visits Requested Visits Authorized [id number] Authorized PCP Requested Referral 09/07/2022 09/07/2023 1 1 Specialty Diagnoses / Procedures Referred By Contac t Referred To Contact [facility] Diagnoses Chronic bilateral thoracic back pain Neck pain, musculoskeletal Cervicalgia Procedures CONSULT TO [facility] OFFICE/OUTPATIENT [facility] 60-74 MINUTES Misa Hager, PASTRY MIXER.UNDERGRADUATE INTERN [address] [place] [address] Referral ID Status Reason Start Date Expiration Date Visits Requested Visits Authorized [id number] Authorized PCP Requested Referral 09/08/2022 09/08/2023 1 1 Specialty Diagnoses / Procedures Referred By Contac t Referred To Contact [facility] Diagnoses Neck pain, musculoskeletal Chronic bilateral thoracic back pain Procedures CONSULT TO [facility] OFFICE/OUTPATIENT [facility] 60-74 MINUTES HagerMisa mccormack, PASTRY MIXER.UNDERGRADUATE INTERN [address] [place] [address] Referral ID Status Reason Start Date Expiration Date Visits Requested Visits Authorized [id number] Authorized PCP Requested Referral 01/01/2023 01/01/2024 1 1 Referral ID Status Reason Start Date Expiration Date Visits Re quested Visits Authorized [id number] Denied 1 1 Specialty Diagnoses / Procedures Referred By Contac t Referred To Contact Diagnoses Neck pain, musculoskeletal Chronic bilateral thoracic back pain Procedures CONSULT TO MASSAGE THERAPY OFFICE/OUTPATIENT NEW HIGH MDM 60-74 MINUTES Misa Hager, PASTRY MIXER.UNDERGRADUATE INTERN [address] [place] [address] Referral ID Status Reason Start Date Expiration Date Visits Requested Visits Authorized [id number] Pending Review PCP Requested Referral 01/01/2023 01/01/2024 1 1 Chief Complaint and Reason for Visit Chief Complaint Rash GI BLEED Reason for Visit Dermatitis Rash Additional Source Comments (unrecognized sect ion and content) No Status Records FoundNo Status Records FoundNo Status Records FoundNo Status Records Found INFORMATION SOURCE (unrecogn ized section and content) DATE CREATED AUTHOR 09/24/2017 [facility] DATE CREATED AUTHOR AUTHOR'S ORGANIZ ATION 05/15/2020 [facility] DATE CREATED AUTHOR AUTHOR'S ORGANIZ ATION 09/08/2022 [facility] DATE CREATED AUTHOR AUTHOR'S ORGANIZ ATION 09/15/2024 [facility] Source Comments (unrecognize d section and content) In the event this informatio n is protected by the Federal Confidentiality of Alcohol and Drug Abuse Patient Records regulations: The Federal rules restrict any use of the information to criminally investigate or prosecute any alcohol or drug abuse patient.[facility] the event this information is protected by the Federal Confidentiality of Alcohol and Drug Abuse Patient Records regulations: The Federal rules restrict any use of the information to criminally investigate or prosecute any alcohol or drug abuse patient.[facility] the event this information is protected by the Federal Confidentiality of Alcohol and Drug Abuse Patient Records regulations: The Federal rules restrict any use of the information to criminally investigate or prosecute any alcohol or drug abuse patient.[facility] the event this information is protected by the Federal Confidentiality of Alcohol and Drug Abuse Patient Records regulations: The Federal rules restrict any use of the information to criminally investigate or prosecute any alcohol or drug abuse patient.[facility] the event this information is protected by the Federal Confidentiality of Alcohol and Drug Abuse Patient Records regulations: The Federal rules restrict any use of the information to criminally investigate or prosecute any alcohol or drug abuse patient.[facility] the event this information is protected by the Federal Confidentiality of Alcohol and Drug Abuse Patient Records regulations: The Federal rules restrict any use of the information to criminally investigate or prosecute any alcohol or drug abuse patient.[facility] the event this information is protected by the Federal Confidentiality of Alcohol and Drug Abuse Patient Records regulations: The Federal rules restrict any use of the information to criminally investigate or prosecute any alcohol or drug abuse patient.[facility] the event this information is protected by the Federal Confidentiality of Alcohol and Drug Abuse Patient Records regulations: The Federal rules restrict any use of the information to criminally investigate or prosecute any alcohol or drug abuse patient.[facility] the event this information is protected by the Federal Confidentiality of Alcohol and Drug Abuse Patient Records regulations: The Federal rules restrict any use of the information to criminally investigate or prosecute any alcohol or drug abuse patient.[facility] the event this information is protected by the Federal Confidentiality of Alcohol and Drug Abuse Patient Records regulations: The Federal rules restrict any use of the information to criminally investigate or prosecute any alcohol or drug abuse patient.[facility] the event this information is protected by the Federal Confidentiality of Alcohol and Drug Abuse Patient Records regulations: The Federal rules restrict any use of the information to criminally investigate or prosecute any alcohol or drug abuse patient.[facility] the event this information is protected by the Federal Confidentiality of Alcohol and Drug Abuse Patient Records regulations: The Federal rules restrict any use of the information to criminally investigate or prosecute any alcohol or drug abuse patient.[facility] the event this information is protected by the Federal Confidentiality of Alcohol and Drug Abuse Patient Records regulations: The Federal rules restrict any use of the information to criminally investigate or prosecute any alcohol or drug abuse patient.[facility] the event this information is protected by the Federal Confidentiality of Alcohol and Drug Abuse Patient Records regulations: The Federal rules restrict any use of the information to criminally investigate or prosecute any alcohol or drug abuse patient.[facility] the event this information is protected by the Federal Confidentiality of Alcohol and Drug Abuse Patient Records regulations: The Federal rules restrict any use of the information to criminally investigate or prosecute any alcohol or drug abuse patient.[facility] Shaw[facility] the event this information is protected by the Federal Confidentiality of Alcohol and Drug Abuse Patient Records regulations: The Federal rules restrict any use of the information to criminally investigate or prosecute any alcohol or drug abuse patient.[facility] the event this information is protected by the Federal Confidentiality of Alcohol and Drug Abuse Patient Records regulations: The Federal rules restrict any use of the information to criminally investigate or prosecute any alcohol or drug abuse patient.[facility] the event this information is protected by the Federal Confidentiality of Alcohol and Drug Abuse Patient Records regulations: The Federal rules restrict any use of the information to criminally investigate or prosecute any alcohol or drug abuse patient.[facility] the event this information is protected by the Federal Confidentiality of Alcohol and Drug Abuse Patient Records regulations: The Federal rules restrict any use of the information to criminally investigate or prosecute any alcohol or drug abuse patient.[facility] Shaw[facility] the event this information is protected by the Federal Confidentiality of Alcohol and Drug Abuse Patient Records regulations: The Federal rules restrict any use of the information to criminally investigate or prosecute any alcohol or drug abuse patient.[facility] Shaw[facility] the event this information is protected by the Federal Confidentiality of Alcohol and Drug Abuse Patient Records regulations: The Federal rules restrict any use of the information to criminally investigate or prosecute any alcohol or drug abuse patient.[facility] ShawIn the event this information is protected by the Federal Confidentiality of Alcohol and Drug Abuse Patient Records regulations: The Federal rules restrict any use of the information to criminally investigate or prosecute any alcohol or drug abuse patient.[facility] Shaw[facility] the event this information is protected by the Federal Confidentiality of Alcohol and Drug Abuse Patient Records regulations: The Federal rules restrict any use of the information to criminally investigate or prosecute any alcohol or drug abuse patient.[facility] Shaw[facility] the event this information is protected by the Federal Confidentiality of Alcohol and Drug Abuse Patient Records regulations: The Federal rules restrict any use of the information to criminally investigate or prosecute any alcohol or drug abuse patient.[facility] Shaw[facility] the event this information is protected by the Federal Confidentiality of Alcohol and Drug Abuse Patient Records regulations: The Federal rules restrict any use of the information to criminally investigate or prosecute any alcohol or drug abuse patient.[facility] Shaw[facility] the event this information is protected by the Federal Confidentiality of Alcohol and Drug Abuse Patient Records regulations: The Federal rules restrict any use of the information to criminally investigate or prosecute any alcohol or drug abuse patient.[facility] Shaw[facility] the event this information is protected by the Federal Confidentiality of Alcohol and Drug Abuse Patient Records regulations: The Federal rules restrict any use of the information to criminally investigate or prosecute any alcohol or drug abuse patient.[facility] Shaw[facility] the event this information is protected by the Federal Confidentiality of Alcohol and Drug Abuse Patient Records regulations: The Federal rules restrict any use of the information to criminally investigate or prosecute any alcohol or drug abuse patient.[facility] ShawIn the event this information is protected by the Federal Confidentiality of Alcohol and Drug Abuse Patient Records regulations: The Federal rules restrict any use of the information to criminally investigate or prosecute any alcohol or drug abuse patient.[facility] ShawIn the event this information is protected by the Federal Confidentiality of Alcohol and Drug Abuse Patient Records regulations: The Federal rules restrict any use of the information to criminally investigate or prosecute any alcohol or drug abuse patient.[facility] ShawIn the event this information is protected by the Federal Confidentiality of Alcohol and Drug Abuse Patient Records regulations: The Federal rules restrict any use of the information to criminally investigate or prosecute any alcohol or drug abuse patient.[facility] ShawIn the event this information is protected by the Federal Confidentiality of Alcohol and Drug Abuse Patient Records regulations: The Federal rules restrict any use of the information to criminally investigate or prosecute any alcohol or drug abuse patient.[facility] ShawIn the event this information is protected by the Federal Confidentiality of Alcohol and Drug Abuse Patient Records regulations: The Federal rules restrict any use of the information to criminally investigate or prosecute any alcohol or drug abuse patient.[facility] Reason for Visit (unrecogniz ed section and content) Reason Comments Follow Up Pt requesting change to medication (Valtrex) not preventing sxs Reason Comments Establish Care Reason Comments Splint problem Reason Comments PT Eval Specialty Diagnoses / Procedures Referred By Contac t Referred To Contact PHYSICAL THERAPY Diagnoses Neck pain, musculoskeletal Chronic bilateral thoracic back pain Procedures CONSULT TO PHYSICAL THERAPY PHYSICAL THERAPY EVALUATION HIGH COMPLEX 45 MINS Deven Santillan MD [address] [place] [address] Pt [facility] [address] [place] [address] Referral ID Status Reason Start Date Expiration Date V isits Requested Visits Authorized [id number] Authorized 02/26/2022 02/25/2023 60 60 Reason Comments Physical Therapy Specialty Diagnoses / Procedures Referred By Contac t Referred To Contact PHYSICAL THERAPY Diagnoses Neck pain, musculoskeletal Chronic bilateral thoracic back pain Procedures CONSULT TO PHYSICAL THERAPY PHYSICAL THERAPY EVALUATION HIGH COMPLEX 45 MINS Deven Santillan MD [address] [place] [address] Pt [facility] [address] [place] [address] Reason Comments Consult GI bleed, 09/04/22 CT images [facility] requested to be pushed. Reason Comments Hospital F/U Reason Comments Insurance Authorization Reason Onset Date Comments Refill Request 11/03/2022 Reason Comments F/U 6 Month Reason Comments Medication Question Reason Comments Recheck Reason Onset Date Comments Refill Request 04/30/2023 Reason Comments New Patient Pain Specialty Diagnoses / Procedures Referred By Contac t Referred To Contact Podiatry Diagnoses Left foot pain Procedures CONSULT TO PODIATRY OFFICE/OUTPATIENT NEW HIGH MDM 60 MINUTES Misa Hager, JERZY.UNDERGRADUATE INTERN [address] [place] [address] Referral ID Status Reason Start Date Expiration Date V isits Requested Visits Authorized [id number] Closed PCP Requested Referral 05/24/2023 05/23/2024 1 1 Reason Comments Derm Problem skin lesion x 6 One of the lesions is painful when touched Reason Comments Lab Orders interested in testos terone testing due to low sex drive Reason Onset Date Comments Refill Request 05/19/2024 Reason Comments Spirometry Specialty Diagnoses / Procedures Referred By Stepan amrtinez Referred To Contact [facility] Diagnoses SOBOE (shortness of breath on exertion) Non-seasonal allergic rhinitis, unspecified trigger Procedures SPIROMETRY WITH DILATOR IF OBSTRUCTED BRNCDILAT RSPSE SPMTRY PRE&POST-BRNCDILAT ADMN Misa Hager, PASTRY MIXER.UNDERGRADUATE INTERN [address] [place] [address] Phone: tel: fax: [facility] [address] [place] [address] Referral ID Status Reason Start Date Expiration Date V isits Requested Visits Authorized [id number] Closed Auto-Generate d Referral 06/26/2024 02/25/2025 1 1 Reason Comments New Patient Neck Pain Pain (Shoulder Pain) left Back Pain (Upper Back) Arm Pain left Specialty Diagnoses / Procedures Referred By Stepan martinez Referred To Contact [facility] Diagnoses Chronic bilateral thoracic back pain Procedures CONSULT TO [facility] OFFICE/OUTPATIENT NEW HIGH MDM 60 MINUTES Misa Hager, PASTRY MIXER.UNDERGRADUATE INTERN [address] [place] [address] Phone: tel: fax: [facility] [address] [place] [id number] Phone: tel: Referral ID Status Reason Start Date Expiration Date V isits Requested Visits Authorized [id number] Closed PCP Requested Referral 08/14/2024 02/25/2025 1 1 Reason Onset Date Comments Refill Request 09/10/2024 Reason Onset Date Comments Refill Request 09/27/2024 Care Teams (unrecognized sec tion and content) Puppet Developer Relationship Specialty Start Date End Date Deven Santillan MD [address] [place] [address] PCP - General Internal Medicine 10/24/21 Puppet Developer Relationship Specialty [place] [address] [place] [address] [place] [address] PCP - General Internal Medicine 10/24/21 Puppet Developer Relationship Specialty Start Date End Date Deven Santillan MD [address] [place] [address] PCP - General Internal Medicine 10/24/21 Puppet Developer Relationship Specialty Start Date End Date Deven Santillan MD [address] [place] [address] PCP - General Internal Medicine 10/24/21 Puppet Developer Relationship Specialty Start Date End Date Deven Santillan MD [address] [place] [address] PCP - General Internal Medicine 10/24/21 Puppet Developer Relationship Specialty Start Date End Date Deven Santillan MD [address] [place] [address] PCP - General Internal Medicine 10/24/21 Puppet Developer Relationship Specialty Start Date End Date Deven Santillan MD [address] [place] [address] PCP - General Internal Medicine 10/24/21 Team Status: Active Member Role Status Dates Dr. Deven Santillan MD Primary Care Provider Active Team Status: Inactive Member Role Status Dates [facility] Primary Care Provider, Referring Provider Active Gissell CAVANAUGH, PA Attending Provider Active Team Status: Inactive Member Role Status Dates Dr. Filiberto Power DO Emergency Provider Active Dr. Deven Santillan MD Primary Care Provider Active Puppet Developer Relationship Specialty Start Date End Date Deven Santillan MD [address] [facility] [place] [address] PCP - General Internal Medicine 10/24/21 Puppet Developer Relationship Specialty Start Date End Date Deven Santillan MD [address] [place] [address] PCP - General Internal Medicine 10/24/21 Puppet Developer Relationship Specialty Start Date End Date Deven Santillan MD [address] [place] [address] PCP - General Internal Medicine 10/24/21 Puppet Developer Relationship Specialty Start Date End Date Deven Santillan MD [address] [place] [address] PCP - General Internal Medicine 10/24/21 Puppet Developer Relationship Specialty Start Date End Date Deven Santillan MD [address] [place] [address] PCP - General Internal Medicine 10/24/21 Puppet Developer Relationship Specialty Start Date End Date Deven Santillan MD [address] [place] [address] PCP - General Internal Medicine 10/24/21 Puppet Developer Relationship Specialty Start Date End Date Deven Santillan MD [address] [place] [address] PCP - General Internal Medicine 10/24/21 Puppet Developer Relationship Specialty Start Date End Date Deven Santillan MD [address] [place] [address] PCP - General Internal Medicine 10/24/21 Puppet Developer Relationship Specialty Start Date End Date Deven Santillan MD [address] [place] [address] PCP - General Internal Medicine 10/24/21 Puppet Developer Relationship Specialty Start Date End Date Deven Santillan MD [address] [place] [address] PCP - General Internal Medicine 10/24/21 Puppet Developer Relationship Specialty Start Date End Date Deven Santillan MD [address] [place] [address] PCP - General Internal Medicine 10/24/21 Puppet Developer Relationship Specialty Start Date End Date Deven Santillan MD [address] [place] [address] PCP - General Internal Medicine 10/24/21 Puppet Developer Relationship Specialty Start Date End Date Deven Santillan MD [address] [place] [address] PCP - General Internal Medicine 10/24/21 Puppet Developer Relationship Specialty Start Date End Date Deven Santillan MD [address] [place] [address] PCP - General Internal Medicine 10/24/21 Puppet Developer Relationship Specialty Start Date End Date Deven Santillan MD [address] [place] [address] PCP - General Internal Medicine 10/24/21 Puppet Developer Relationship Specialty Start Date End Date Deven Santillan MD [address] [place] [address] PCP - General Internal Medicine 10/24/21 Puppet Developer Relationship Specialty Start Date End Date Deven Santillan MD [address] [place] [address] PCP - General Internal Medicine 10/24/21 Misa Hager, JERZY.UNDERGRADUATE INTERN [address] [place] [address] [employer] Fabricator Trimmer Internal Medicine 02/04/24 Puppet Developer Relationship Specialty Start Date End Date Deven Santillan MD [address] [place] [address] PCP - General Internal Medicine 10/24/21 Misa Hager, JERZY.UNDERGRADUATE INTERN [address] [place] [address] [employer] Fab[employer]ator Trimmer Internal Medicine 02/04/24 Rosario Moffett PASTRY MIXER.ELECTRIC RAZOR ASSEMBLER [address] [place] [address] [employer] Fab[employer]ator Trimmer Internal Medicine 05/20/24 Puppet Developer Relationship Specialty Start Date End Date Deven Santillan MD [address] [place] [address] PCP - General Internal Medicine 10/24/21 Misa Hager, PASTRY MIXER.UNDERGRADUATE INTERN [address] [place] [address] [employer] Fabricator Trimmer Internal Medicine 02/04/24 07/15/24 Rosario Moffett PASTRY MIXER.ELECTRIC RAZOR ASSEMBLER [address] [place] [address] [employer] Fabricator Trimmer Internal Medicine 05/20/24 Misa Hager, PASTRY MIXER.UNDERGRADUATE INTERN [address] [place] [address] [employer] Fabricator Trimmer Internal Medicine 07/16/24 Puppet Developer Relationship Specialty Start Date End Date Deven Santillan MD [address] [facility] [address] PCP - General Internal Medicine 10/24/21 Rosario Moffett APRN.ELECTRIC RAZOR ASSEMBLER [address] [facility] [address] [employer] Fabricator Trimmer Internal Medicine 05/20/24 Misa Hager APRN.UNDERGRADUATE INTERN [address] [facility] [address] [employer] Fabricator Trimmer Internal Medicine 07/16/24 Puppet Developer Relationship Specialty Start Date End Date Deven Santillan MD [address] [facility] [address] PCP - General Internal Medicine 10/24/21 Rosario Moffett APRN.ELECTRIC RAZOR ASSEMBLER [address] [facility] [address] [employer] Fabricator Trimmer Internal Medicine 05/20/24 Misa Hager, PASTRY MIXER.UNDERGRADUATE INTERN [address] [facility] [place] [address] [employer] Fabricator Trimmer Internal Medicine 07/16/24 Puppet Developer Relationship Specialty Start Date End Date Deven Santillan MD [address] [facility] [address] PCP - General Internal Medicine 10/24/21 Rosario Moffett PASTRY MIXER.ELECTRIC RAZOR ASSEMBLER [address] [facility] [place] [address] [employer] Fabricator Trimmer Internal Medicine 05/20/24 HagerMisa APRN.[facility] [address] [place] [address] [facility] Internal Medicine 07/16/24 Goals (unrecognized section and content) Goals may be documented in a n alternate section FOR RECORDS PERTAINING TO PATIENTS WHO ARE OR HAVE BEEN ENROLLED IN A CHEMICAL DEPENDENCY/SUBSTANCEABUSE PROGRAM, SOME INFORMATION MAY BE OMITTED. This clinical summary was aggregated from multiple sources. Caution should be exercised in using it in the provision of clinical care. This summary normalizes information from multiple sources, and as a consequence, information in this document may materially change the coding, format and clinical context of patient data. In addition, data may be omitted in some cases. CLINICAL DECISIONS SHOULD BE BASED ON THE PRIMARY CLINICAL RECORDS. [facility] [employer] [facility]. provides no warranty or guarantee of the accuracy or completeness of information in this document.
--- OUTSIDE RECORDS SUMMARY | 2024-10-25 14:53 | XMS RPT_ITS | CCD ---
Author Organization [facility] Care Team Providers Care Project Surveyor Name Role Phone Derek Birmingham Unavailable Unavailable PROVIDER, UNKNOWN Unavailable Unavailable No, PCP Unavailable Unavailable Unavailable Primary Care Provider Unavailabl e Deven Santillan MD Primary Care Provider Deven Santillan MD Primary Care Provider [facility], Linda Chaney Primary Care Pro vider [facility], Linda Chaney Referring Provid er MAO Wells Attending Provider [facility], Linda Chaney Primary Care Unavailable [facility], Linda Chaney Referring Unavailable Gissell Wells Attending Unavail able Filiberto Power Attending Unavailable Talampdung, Deven D Primary Care Unavailable Deven Santillan MD Primary Care Provider Hager SALESPERSON BURIAL NEEDS.HALL WORKER, Misa Unavailable Vishal SALESPERSON BURIAL NEEDS.KEEL PRESS OPERATOR, Rosario Unavailable Hager SALESPERSON BURIAL NEEDS.HALL WORKER, Misa Unavailable Hager SALESPERSON BURIAL NEEDS.HALL WORKER, Misa Unavailable HAGER, MISA Attending Unavailable HAGER, [...] source) Mold Extract Drug Allergy [address] [facility] Pollen (1 source) Pollen Substance Allergy [address] [facility] (20 sources) Mold Extract; Translations: [MOLD] Drug Allergy [address] [facility] Work Phone: (20 sources) Pollen; Translations: [POLLEN EXTRACTS] Drug Allergy [address] [facility] Work Phone: (20 sources) Seasonal allergy; Translations: [SEASONAL ALLERGIES] Allergy to substance 2 Other: See Comments [facility] Work Phone: (20 sources) Cat Dander; Translations: [CAT DANDER] Drug Allergy 2 Other: See Comments [facility] Work Phone: Medications Current Medications Medication Drug [...] by cindy th two times a day. [id number] 200 actuat albuterol 0.09 mg/actuat metered dose [...] (FLONASE) 50 mcg/actuation nasal spray Use 1 Alexander in each nostril once daily. Active Comment on above: Use 1 Alexander in each nostril once daily. hydrOXYzine hydrochloride [...] old patch prior to placing new patch. tsxnejhe-efk-ghev c-vit K-lycop (ONE-A-DAY MEN'S MULTIVITAMIN) 400-20-300 mcg tab (20 sources) fzjjrehf-ifk-vlu ic-vit K-lycop (ONE-A-DAY MEN'S MULTIVITAMIN) 400-20-300 mcg tab Take by mouth. Active chvxnzsx-iqy-gqr ic-vit K-lycop (ONE-A-DAY MEN'S MULTIVITAMIN) 400-20-300 mcg [...] on above: Take 1 capsule by mo [facility] daily before breakfast. oxyCODONE hydrochloride 5 mg [...] above: Take by mouth. polyethylene glycol 3350 [id number] mg / potassium chloride 2970 mg / sodium bicarbonate 6740 mg / sodium chloride 5860 mg / sodium sulfate 10996 mg powder for oral solution (1 source) [...] on above: TAKE 2 TABLETS BY MO [facility] EVERY 12 HOURS FOR 1 DAY [...] Test Name Value Interpretation Reference Range [facility]SPNMED ) EMIR [id number]) 1985 M Date Time Provider Department 09/11/24 2:20 PM JOSE J HORN SPNMED During your visit today, we recorded the following information about you: Pulse Blood pressure Weight Height 87/minute 118/73 110.6 kg 1.88 m Jose J Horn PA-C 09/11/2024 3:05 PM Signed [facility] [address] [address] 09/11/2024 ASSESSMENT AND PLAN: Assessment : Encounter [...] today with this patient visit. This includes plvb-wl-qfjw time, review of chart records regarding conservative care history, spine-pertinent imaging, and communication/care coordination with referring provider, problem-specific history-taking and counseling/education regarding treatment options. cc: Misa Hager [address] [place] [id number] Results of consultation to be transmitted via electronic medical record for those providers who practice within [facility] or with access to [employer] via MD Connect, or via letter. (more content not included)... Normal [facility] CNOVon 07-17-2024 CNOV Office Visit (INTMWS ) EMIR RAE ([id number]) 1985 M Date Time Provider Department 07/17/24 1:40 PM MISA HAGER INTMWS During your visit today, we recorded the following information about you: Pulse Respiration Blood pressure Weight 87/minute 16/minute 119/74 113 kg Misa Hager, JERZY.HALL WORKER 07/17/2024 2:41 PM Signed Subjective Patient ID: [...] recommended stretches. - Has not seen a safety equipment testing specialist due to insurance and cost issues. [...] to person, place, and time. Latest Ref [facility] [place] 12/27/2023 WBC 3.70 - 11.00 k/uL 6.98 [...] Abs Lymph 1.00 - 4.00 k/uL 2.11 [place]% % 7.4 Abs [place] <0.87 k/uL 0.52 Eosin% % 1.3 Abs [...] 80.0 ng (more content not included)... Normal [facility] SPIROMETRY WITH DILATOR IF O BSTRUCTEDon 06-26-2024 FEF25% PRE (L/S) 7.09 L/S [facility] JZN10-90% LLN (L/S) 2.76 L/S [facility] VVB79-99% PRE (L/S) 3.21 L/S [facility] CHG49-33% PREDICTED (L/S) 4.65 L/S [facility] FEF75% LLN (L/S) 0.92 L/S [facility] FEF75% PRE (L/S0 1.08 L/S [facility] FEF75% PREDICTED (L/S) 1.84 L/S Cl [facility] FEF75% ULN (L/S) 3.48 L/S [facility] FET PRE (S) 14.[address] [facility] FEV1 LLN (L) 3.[address] [facility] FEV1 PRE (L) 4.[address] [facility] FEV1 PREDICTED (L) 4.66 L [facility] FEV1 ULN (L) 5.[address] [facility] FEV1/FVC LLN (%) 70 % [facility] FEV1/FVC PRE (%) 71 % [facility] FEV1/FVC PREDICTED (%) 81 % [facility] FVC LLN (L) 4.[address] [facility] FVC PRE (L) 6.[address] [facility] FVC PREDICTED (L) 5.79 L [facility] FVC ULN (L) 7.[address] [facility] PEF LLN (L/S) 8.57 L/S [facility] PEF PRE (L/S) 8.92 L/S [facility] PEF ULN (L/S) 13.77 L/S [facility] [address] [place] [address] Test Date: 2024-06-26 Pat Name: EMIR RAE Department: Room: Gender: Male Concrete Paver: : 1985 Requested By: Order Number: [id number] Reading MD: Pippa Servin MD Interpretive Statements The two largest FVC's and FEV1's are repeatable. //KM IMPRESSION: Spirometry is normal. Electronically Signed On 06-26-2024 12:50:06 EDT by Pippa Servin MD ID: [id number] Name: BUTCHMEIR Race: White Ht: 74.13 in Wt: 256.20 [...] FIF50 6.15 FEF50/FIF50 0.69 90-100 FIVC 6.20 NLD84-09 3.21 2.76 4.65 7.03 69 -1.21 ExpiredTime 14.24 TimeToFEFMax 0.13 RAINA 0.13 VolExtrap% 2 Comments: The two largest FVC's and FEV1's are repeatable. //KM PULMONARY FUNCTION LAB [facility] SPIROMETRY WITH DILATOR IF OBSTRUCTED [facility] [address] [address] Test Date: 2024-06-26 Pat Name: EMIR BUTCH Department: Room: Gender: Male Concrete Paver: : 1985 Requested By: Order Number: [id number] Reading MD: Pippa Servin MD Interpretive Statements The two largest FVC's and FEV1's are repeatable. //KM IMPRESSION: Spirometry is normal. Electronically Signed On 06-26-2024 12:50:06 EDT by Pippa Servin MD ID: [id number] Name: EMIR RAE Race: White Ht: 74.13 in Wt: 256.20 lbs Age: 38 Gender: Male : 1985 Dx: Shortness of breath Smoking Hx: Non-smoker Doctor: MISA HAGER Test Date: 06/26/2024 Site: Tech: Drea Trujillo PRE-BRONCH POST-BRONCH Larua LLN Pred ULN %Pred ZScore Laura %Pred %Chg ZScore SPIROMETRY FVC 6.25 4.47 5.79 7.13 107 0.56 FEV1 4.45 3.58 4.66 5.68 95 -0.32 FEV1/FVC 0.71 0.70 0.81 0.89 88 -1.52 FEFMax 8.92 8.57 11.17 13.77 79 -1.42 FEF50 4.23 3.83 5.96 8.08 71 -1.34 FIF50 6.15 FEF50/FIF50 0.69 90-100 FIVC 6.20 QWD83-50 3.21 2.76 4.65 7.03 69 -1.21 ExpiredTime [...] 81 % FEV1/FVC_LLN (%) : 70 % PGO35_PSB (L/S) : 7.09 L/S FIC95_CFN (L/S) : 1.08 L/S LQN30_SRJZ (L/S) : 1.84 L/S LYT36_JWX (L/S) : 0.92 L/S PLR61_EVA (L/S) : 3.48 L/S MHH24-86%_PRE (L/S) : 3.21 L/S BLO45-52%_PRED (L/S) : 4.65 L/S SPK73-66%_LLN (L/S) : 2.76 L/S PEF_PRE (L/S) : 8.92 L/S PEFMAX_LLN (L/S) : 8.57 L/S PEFMAX_ULN (L/S) : 13.77 L/S FET_PRE (S) : 14.24 S Normal [facility] CNOVon 06-19-2024 CNOV Office Visit (INTMWS ) EMIR RAE ([id number]) 1985 M Date Time Provider Department 06/19/24 [...] Anxiety and Depression: - Managed by [facility] - Taking buspirone and Wellbutrin. - Reports [...] Abs Lymph 1.00 - 4.00 k/uL 2.11 [place]% % 7.4 Abs [place] <0.87 k/uL 0.52 Eosin% % 1.3 Abs [...] 71 H (more content not included)... [facility] (INTMWS) EMIR RAE ([id number]) 1985 M Date Time Provider Department 12/28/23 ROSARIO MOFFETT INTWS During your visit today, we recorded [...] Date Reviewed: 11/08/2023 Reviewed by: Rosario Moffett APRN.KEEL PRESS OPERATOR - Fully Assessed Primary Visit Diagnosis:Elevated glucose [R73.09] Order(s):HEMOGLOBIN A1C [MXIHT6O] Order #: [id number] FUTURE Prescriptions as of 12/28/2023 - tiZANidine [...] TABLETS BY MOUTH ONCE DAILY NEEDED - xiffroeg-kad-ihrdn-vit K-lycop (ONE-A-DAY MEN'S MULTIVITAMIN) 400-20-300 mcg tab [...] (FLONASE) 50 mcg/actuation nasal spray Use 1 Alexander in each nostril once daily. Problem List As Of Date 12/28/2023 Noted Resolved Neck pain, musculoskeletal [M54.2] 08/14/2022 Chronic bilateral thoracic back pain [M54.6, G8*08/14/2022 Encounter Status:Closed by SHIRLEY MOTLEY on 12/28/23 Normal [facility] 25(OH)D3 [facility] 2023 25-hydroxyvitamin D3 [Mass/Vol] 30.1 ng/mL Low 31.0-80.0 [facility] Comment on above: Order Comment: Speci men Type: BLOOD SPECIMEN Ordering Facility: [facility] Address: [address] [place] [address] Result Comment: Clas sification of 25 [place] Vitamin D status: Deficiency/Insufficiency: < or = 30 ng/ml. Sufficiency/Optimal Levels: 31-80 ng/mL Toxicity: > 100 ng/mL. Test performed by chemiluminescent immunoassay. Performed By: #### 5 0190-8, 78013-6, 3016-3, 53950-5 #### [facility] CLIA [id number] [address] [place] [address] [place] CBC W Auto Differential pane l (Bld)on 12-27-2023 Basophils (Bld) [#/Vol] 0.04 10*3/uL Normal <0.11 [facility] Comment on above: Order Comment: Speci men Type: BLOOD SPECIMEN Ordering Facility: [facility] Address: [address] [place] [address] Performed By: #### 5 7021-8, 41088-6 #### [facility] CLIA [id number] [address] [place] [address] [place] Basophils/100 WBC (Bld) 0.6 % Normal [facility] Comment on above: Order Comment: Speci men Type: BLOOD SPECIMEN Ordering Facility: [facility] Address: [address] [place] [address] Performed By: #### 5 7021-8, 71266-2 #### [facility] CLIA [id number] [address] [place] [address] [place] Differential cell count method Nom (Bld) Auto Normal [facility] Comment on above: Order Comment: Speci men Type: BLOOD SPECIMEN Ordering Facility: [facility] Address: [address] [place] [address] Performed By: #### 5 7021-8, 02816-8 #### [facility] CLIA [id number] [address] [place] [address] [place] Eosinophils (Bld) [#/Vol] 0.09 10*3/uL Normal <0.46 [facility] Comment on above: Order Comment: Speci men Type: BLOOD SPECIMEN Ordering Facility: [facility] Address: [address] [place] [address] Performed By: #### 5 7021-8, 35178-8 #### [facility] CLIA [id number] [address] [place] [address] [place] Eosinophils/100 WBC (Bld) 1.3 % Normal [facility] Comment on above: Order Comment: Speci men Type: BLOOD SPECIMEN Ordering Facility: [facility] Address: [address] [place] [address] Performed By: #### 5 7021-8, 75029-8 #### [facility] CLIA [id number] [address] [place] [address] [place] Erythrocyte distribution width (RBC) [Ratio] 13.5 % Normal 11.5-15.0 [facility] Comment on above: Order Comment: Speci men Type: BLOOD SPECIMEN Ordering Facility: [facility] Address: [address] [place] [address] Performed By: #### 5 7021-8, 44029-1 #### [facility] CLIA [id number] [address] [place] [address] [place] Hematocrit (Bld) [Volume fraction] 49.3 % Normal 39.0-51.0 [facility] Comment on above: Order Comment: Speci men Type: BLOOD SPECIMEN Ordering Facility: [facility] Address: [address] [place] [address] Performed By: #### 5 7021-8, 74041-9 #### [facility] CLIA [id number] [address] [place] [address] [place] Hemoglobin (Bld) [Mass/Vol] 16.3 g/dL Normal 13.0-17.0 [facility] Comment on above: Order Comment: Speci men Type: BLOOD SPECIMEN Ordering Facility: [facility] Address: [address] [place] [address] Performed By: #### 5 7021-8, 75034-3 #### [facility] CLIA [id number] [address] [place] [address] [place] Immature granulocytes (Bld) [#/Vol] 0.07 10*3/uL Normal <0.10 [facility] Comment on above: Order Comment: Speci men Type: BLOOD SPECIMEN Ordering Facility: [facility] Address: [address] [place] [address] Performed By: #### 5 7021-8, 78308-0 #### [facility] CLIA [id number] [address] [place] [address] [place] Immature granulocytes/100 WBC (Bld) 1.0 % Normal [facility] Comment on above: Order Comment: Speci men Type: BLOOD SPECIMEN Ordering Facility: [facility] Address: [address] [place] [address] Performed By: #### 5 7021-8, 40381-8 #### [facility] CLIA [id number] [address] [place] [address] [place] Lymphocytes (Bld) [#/Vol] 2.11 10*3/uL Normal 1.00-4.00 [facility] Comment on above: Order Comment: Speci men Type: BLOOD SPECIMEN Ordering Facility: [facility] Address: [address] [place] [address] Performed By: #### 5 7021-8, 42069-9 #### [facility] CLIA [id number] [address] [place] [address] [place] Lymphocytes/100 WBC (Bld) 30.2 % Normal [facility] Comment on above: Order Comment: Speci men Type: BLOOD SPECIMEN Ordering Facility: [facility] Address: [address] [place] [address] Performed By: #### 5 7021-8, 74656-5 #### [facility] CLIA [id number] [address] [place] [address] [place] MCH (RBC) [Entitic mass] 29.0 pg Normal 26.0-34.0 [facility] Comment on above: Order Comment: Speci men Type: BLOOD SPECIMEN Ordering Facility: [facility] Address: [address] [place] [address] Performed By: #### 5 7021-8, 38832-4 #### [facility] CLIA [id number] [address] [place] [address] [place] MCHC (RBC) [Mass/Vol] 33.1 g/dL Normal 30.5-36.0 [facility] Comment on above: Order Comment: Speci men Type: BLOOD SPECIMEN Ordering Facility: [facility] Address: [address] [place] [address] Performed By: #### 5 7021-8, 04277-4 #### [facility] CLIA [id number] [address] [place] [address] [place] MCV (RBC) [Entitic vol] 87.7 fL Normal 80.0-100.0 [facility] Comment on above: Order Comment: Speci men Type: BLOOD SPECIMEN Ordering Facility: [facility] Address: [address] [place] [address] Performed By: #### 5 7021-8, 28650-7 #### [facility] CLIA [id number] [address] [place] [address] [place] Monocytes (Bld) [#/Vol] 0.52 10*3/uL Normal <0.87 [facility] Comment on above: Order Comment: Speci men Type: BLOOD SPECIMEN Ordering Facility: [facility] Address: [address] [place] [address] Performed By: #### 5 7021-8, 42624-8 #### [facility] CLIA [id number] [address] [place] [address] [place] Monocytes/100 WBC (Bld) 7.4 % Normal C [facility] Comment on above: Order Comment: Speci men Type: BLOOD SPECIMEN Ordering Facility: [facility] Address: [address] [place] [address] Performed By: #### 5 7021-8, 85750-7 #### [facility] CLIA [id number] [address] [place] [address] [place] Neutrophils (Bld) [#/Vol] 4.15 10*3/uL Normal 1.45-7.50 [facility] Comment on above: Order Comment: Speci men Type: BLOOD SPECIMEN Ordering Facility: [facility] Address: [address] [place] [address] Performed By: #### 5 7021-8, 42043-8 #### [facility] CLIA [id number] [address] [place] [address] [place] Neutrophils/100 WBC (Bld) 59.5 % Normal [facility] Comment on above: Order Comment: Speci men Type: BLOOD SPECIMEN Ordering Facility: [facility] Address: [address] [place] [address] Performed By: #### 5 7021-8, 39078-4 #### [facility] CLIA [id number] [address] [place] [address] [place] Nucleated RBC (Bld) [#/Vol] 10*3/uL Normal <0.01 [facility] Comment on above: Order Comment: Speci men Type: BLOOD SPECIMEN Ordering Facility: [facility] Address: [address] [place] [address] Performed By: #### 5 7021-8, 53105-3 #### [facility] CLIA [id number] [address] [place] [address] [place] Nucleated RBC/100 WBC (Bld) [Ratio] 0.0 /100 WBC Normal [facility] Comment on above: Order Comment: Speci men Type: BLOOD SPECIMEN Ordering Facility: [facility] Address: [address] [place] [address] Performed By: #### 5 7021-8, 87855-2 #### [facility] CLIA [id number] [address] [place] [address] [place] Platelet mean volume (Bld) [Entitic vol] 10.2 fL Normal 9.0-12.7 [facility] Comment on above: Order Comment: Speci men Type: BLOOD SPECIMEN Ordering Facility: [facility] Address: [address] [place] [address] Performed By: #### 5 7021-8, 49669-5 #### [facility] CLIA [id number] [address] [place] [address] [place] Platelets (Bld) [#/Vol] 273 10*3/uL Normal 150-400 [facility] Comment on above: Order Comment: Speci men Type: BLOOD SPECIMEN Ordering Facility: [facility] Address: [address] [place] [address] Performed By: #### 5 7021-8, 86406-9 #### [facility] CLIA [id number] [address] [place] [address] [place] RBC (Bld) [#/Vol] 5.62 10*6/uL Normal 4.20-6.00 [facility] Comment on above: Order Comment: Speci men Type: BLOOD SPECIMEN Ordering Facility: [facility] Address: [address] [place] [address] Performed By: #### 5 7021-8, 42590-5 #### [facility] CLIA [id number] [address] [place] [address] [place] WBC (Bld) [#/Vol] 6.98 10*3/uL Normal 3.70-11.00 [facility] Comment on above: Order Comment: Speci men Type: BLOOD SPECIMEN Ordering Facility: [facility] Address: [address] [place] [address] Performed By: #### 5 7021-8, 26007-4 #### [facility] CLIA [id number] [address] [place] [address] [place] Comprehensive metabolic 2000 panelon 12-27-2023 Albumin [Mass/Vol] 4.3 g/dL Normal 3.9-4.9 [facility] Comment on above: Order Comment: Speci men Type: BLOOD SPECIMEN Ordering Facility: [facility] Address: [address] [place] [address] Performed By: #### 5 0190-8, 41442-0, 3016-3, 07141-6 #### [facility] CLIA [id number] [address] [place] [address] [place] ALP [Catalytic activity/Vol] 86 U/L Normal 38-113 [facility] Comment on above: Order Comment: Speci men Type: BLOOD SPECIMEN Ordering Facility: [facility] Address: [address] [place] [address] Performed By: #### 5 0190-8, 67329-7, 3015-3, 72006-8 #### [facility] CLIA [id number] [address] [place] [address] [place] ALT [Catalytic activity/Vol] 23 U/L Normal 10-54 [facility] Comment on above: Order Comment: Speci men Type: BLOOD SPECIMEN Ordering Facility: [facility] Address: [address] [place] [address] Performed By: #### 5 0190-8, 37325-6, 3015-3, 98875-8 #### [facility] CLIA [id number] [address] [place] [address] [place] Anion gap [Moles/Vol] 9 mmol/L Normal 8-15 [facility] Comment on above: Order Comment: Speci men Type: BLOOD SPECIMEN Ordering Facility: [facility] Address: [address] [place] [address] Performed By: #### 5 0190-8, 64278-4, 3016-3, 71453-2 #### [facility] CLIA [id number] [address] [place] [address] [place] AST [Catalytic activity/Vol] 19 U/L Normal 14-40 [facility] Comment on above: Order Comment: Speci men Type: BLOOD SPECIMEN Ordering Facility: [facility] Address: [address] [place] [address] Performed By: #### 5 0190-8, 07371-0, 3015-3, 53781-4 #### [facility] CLIA [id number] [address] [place] [address] [place] Bilirubin [Mass/Vol] 0.3 mg/dL Normal 0.2-1.3 [facility] Comment on above: Order Comment: Speci men Type: BLOOD SPECIMEN Ordering Facility: [facility] Address: [address] [place] [address] Performed By: #### 5 0190-8, 93942-8, 3015-3, 79526-7 #### [facility] CLIA [id number] [address] [place] [address] [place] Calcium [Mass/Vol] 9.4 mg/dL Normal 8.5-10.2 [facility] Comment on above: Order Comment: Speci men Type: BLOOD SPECIMEN Ordering Facility: [facility] Address: [address] [place] [address] Performed By: #### 5 0190-8, 81574-9, 3015-3, 66905-8 #### [facility] CLIA [id number] [address] [place] [address] [place] Chloride [Moles/Vol] 105 mmol/L Normal 98-107 [facility] Comment on above: Order Comment: Speci men Type: BLOOD SPECIMEN Ordering Facility: [facility] Address: [address] [place] [address] Performed By: #### 5 0190-8, 26351-6, 3015-3, 86800-9 #### [facility] CLIA [id number] [address] [place] [address] [place] CO2 [Moles/Vol] 26 mmol/L Normal 22-30 [facility] Comment on above: Order Comment: Speci men Type: BLOOD SPECIMEN Ordering Facility: [facility] Address: [address] [place] [address] Performed By: #### 5 0190-8, 63190-0, 3015-3, #### [facility] CLIA [id number] [address] [place] [address] [place] Creatinine [Mass/Vol] 1.11 mg/dL Normal 0.73-1.22 [facility] Comment on above: Order Comment: Speci men Type: BLOOD SPECIMEN Ordering Facility: [facility] Address: [address] [place] [address] Performed By: #### 5 0190-8, 16981-5, 3, #### [facility] CLIA [id number] [address] [place] [address] [place] Creatinine and Glomerular filtration rate.predicted panel (S/P/Bld) 88 mL/min/1.73m??? Normal >=60 [facility] Comment on above: Order Comment: Chiqui abdullahi Type: BLOOD SPECIMEN Ordering Facility: [facility] Address: [address] [place] [address] Result Comment: Lizzie mated Glomerular Filtration Rate [...] actual GFR. Performed By: #### 5 0190-8, 65177-5, 3015-3, 68176-6 #### [facility] CLIA [id number] [address] [place] [address] [place] Glucose [Mass/Vol] 100 mg/dL High 74-99 [facility] Comment on above: Order Comment: Speci men Type: BLOOD SPECIMEN Ordering Facility: [facility] Address: [address] [place] [address] Result Comment: The [place] Diabetes Association (ADA) provides guidance for cutoff [...] Standards of Medical Care in Diabetes 2016, [place] Diabetes Association. Diabetes Care. 2016.39(Suppl 1). Performed By: #### 5 0190-8, 47548-0, 3015-3, 47290-8 #### [facility] CLIA [id number] [address] [place] [address] [place] Potassium [Moles/Vol] 4.3 mmol/L Normal 3.7-5.1 [facility] Comment on above: Order Comment: Chiqui abdullahi Type: BLOOD SPECIMEN Ordering Facility: [facility] Address: [address] [place] [address] Performed By: #### 5 0190-8, 94458-0, 3015-3, 71615-3 #### [facility] CLIA [id number] [address] [place] [address] [place] Protein [Mass/Vol] 7.3 g/dL Normal 6.3-8.0 [facility] Comment on above: Order Comment: Chiqui abdullahi Type: BLOOD SPECIMEN Ordering Facility: [facility] Address: [address] [place] [address] Performed By: #### 5 0190-8, 72764-4, 3015-3, 51164-0 #### [facility] CLIA [id number] [address] [place] [address] [place] Sodium [Moles/Vol] 140 mmol/L Normal 136-144 [facility] Comment on above: Order Comment: Speci men Type: BLOOD SPECIMEN Ordering Facility: [facility] Address: [address] [place] [address] Performed By: #### 5 0190-8, 44179-0, 3, 31936-3 #### [facility] CLIA [id number] [address] [place] [address] [place] Urea nitrogen [Mass/Vol] 18 mg/dL Normal 9-24 [facility] Comment on above: Order Comment: Speci men Type: BLOOD SPECIMEN Ordering Facility: [facility] Address: [address] [place] [address] Performed By: #### 5 0190-8, 42539-9, 3, #### [facility] CLIA [id number] [address] [place] [address] [place] Ferritin SerPl-mCncon 2023 Ferritin [Mass/Vol] 123.0 ng/mL Normal 30.3-565.7 [facility] Comment on above: Order Comment: Speci men Type: BLOOD SPECIMEN Ordering Facility: [facility] Address: [address] [place] [address] Performed By: #### 5 0190-8, 47895-4, 3, 70334-9 #### [facility] CLIA [id number] [address] [place] [address] [place] HbA1c (Bld)on 12-27-2023 Average glucose Estimated from glycated hemoglobin (Bld) [Mass/Vol] 111 mg/dL Normal [facility] Comment on above: Order Comment: Speci men Type: BLOOD SPECIMEN Ordering Facility: [facility] Address: [address] [place] [address] Result Comment: eAG: (Estimated average glucose) is a calculated value from HgbA1c and is area representative of the average blood glucose level in the last 2-3 month period. Performed By: #### 5 7021-8, 81812-7 #### [facility] CLIA [id number] [address] [place] [address] [place] HbA1c (Bld) [Mass fraction] 5.5 % Normal 4.3-5.6 [facility] Comment on above: Order Comment: Speci men Type: BLOOD SPECIMEN Ordering Facility: [facility] Address: [address] [place] [address] Result Comment: [place] Diabetes Association guidelines indicate that patients with HgbA1c in the range 5.7-6.4% are at increased risk for development of diabetes, and intervention by lifestyle modification may be beneficial. HgbA1c greater or equal to 6.5% is considered diagnostic of diabetes. Performed By: #### 5 7021-8, 08454-9 #### [facility] CLIA [id number] [address] [place] [address] [place] Iron and Iron binding capaci ty panelon 12-27-2023 Iron [Mass/Vol] 92 ug/dL Normal 41-186 [facility] Comment on above: Order Comment: Chiqui abdullahi Type: BLOOD SPECIMEN Ordering Facility: [facility] Address: [address] [place] [address] Performed By: #### 5 0190-8, 68036-6, 3015-3, 28343-4 #### [facility] CLIA [id number] [address] [place] [address] [place] Iron binding capacity [Mass/Vol] 262 ug/dL Normal 232-386 [facility] Comment on above: Order Comment: Chiqui men Type: BLOOD SPECIMEN Ordering Facility: [facility] Address: [address] [place] [address] Performed By: #### 5 0190-8, 56342-1, 3015-3, 30306-8 #### [facility] CLIA [id number] [address] [place] [address] [place] Iron/TIBC [Molar ratio] 35.1 % Normal 15.0-57.0 [facility] Comment on above: Order Comment: Speci men Type: BLOOD SPECIMEN Ordering Facility: [facility] Address: [address] [place] [address] Performed By: #### 5 0190-8, 31498-0, 301-3, 29568-8 #### [facility] CLIA [id number] [address] [place] [address] [place] Lipid 1996 panelon 4 Cholesterol [Mass/Vol] 238 mg/dL High <200 [facility] Comment on above: Order Comment: Speci men Type: BLOOD SPECIMEN Ordering Facility: [facility] Address: [address] [place] [address] Result Comment: <200 mg/dL, Desirable 200-239 mg/dL, Borderline high >239 mg/dL, High Performed By: #### 5 0190-8, 26182-3, 3015-3, #### [facility] CLIA [id number] [address] [place] [address] [place] Cholesterol in HDL [Mass/Vol] 39 mg/dL Low >39 [facility] Comment on above: Order Comment: Speci men Type: BLOOD SPECIMEN Ordering Facility: [facility] Address: [address] [place] [address] Result Comment: 40-5 9 mg/dL, Acceptable >59 mg/dL, High: Negative risk factor for coronary heart disease <40 mg/dL, Low: Positive risk factor for coronary heart disease Performed By: #### 5 0190-8, 38644-1, 3015-3, 40601-0 #### [facility] CLIA [id number] [address] [place] [address] [place] Cholesterol in LDL [Mass/Vol] 185 mg/dL High <100 [facility] Comment on above: Order Comment: Speci men Type: BLOOD SPECIMEN Ordering Facility: [facility] Address: [address] [place] [address] Result Comment: <100 mg/dL, Optimal 100-129 mg/dL, Near optimal/above optimal 130-159 mg/dL, Borderline high 160-189 mg/dL, High >189 mg/dL, Very high Secondary prevention optimal LDL Cholesterol levels are recommended to be < 70 mg/dL Performed By: #### 5 0190-8, 47475-2, 3016-3, 09777-1 #### [facility] CLIA [id number] [address] [place] [address] [place] Cholesterol in LDL/Cholesterol in HDL [Mass ratio] 4.74 {ratio} High <2.54 [facility] Comment on above: Order Comment: Chiqui abdullahi Type: BLOOD SPECIMEN Ordering Facility: [facility] Address: [address] [place] [address] Result Comment: Radha tyson: 1. National Cholesterol Education Program ATP III Guideline At-A-Glance Quick Desk Reference: National Heart, Lung, and Blood [place]. National Institutes of Health. 2001: NIH Publication No. 01-3305. 2. An International Atherosclerosis Society position paper: global recommendations for the management of dyslipidemia: executive summary, Atherosclerosis. 2014: 232(2):410-413. Performed By: #### 5 0190-8, 31111-8, 3015-3, 66558-0 #### [facility] CLIA [id number] [address] [place], [place] [address] [address] [place] Cholesterol in VLDL [Mass/Vol] 14 mg/dL Normal <30 [facility] Comment on above: Order Comment: Chiqui abdullahi Type: BLOOD SPECIMEN Ordering Facility: [facility] Address: [address] [place] [address] Performed By: #### 5 0190-8, 48610-7, 6-3, 82387-0 #### [facility] CLIA [id number] [address] [place] [address] [place] Cholesterol non HDL [Mass/Vol] 199 mg/dL High <130 [facility] Comment on above: Order Comment: Speci men Type: BLOOD SPECIMEN Ordering Facility: [facility] Address: [address] [place] [address] Result Comment: <130 mg/dL, Optimal 130-159 mg/dL, Near optimal/above optimal 160-189 mg/dL, Borderline high 190-219 mg/dL, High >219 mg/dL, Very high Secondary prevention optimal non HDL Cholesterol levels are recommended to be <100 mg/dL Performed By: #### 5 0190-8, 46570-5, 3016-3, 64811-1 #### [facility] CLIA [id number] [address] [place] [address] [place] Cholesterol.total/Choles terol in HDL [Mass ratio] 6.10 {ratio} High <5.10 [facility] Comment on above: Order Comment: Speci men Type: BLOOD SPECIMEN Ordering Facility: [facility] Address: [address] [place] [address] Performed By: #### 5 0190-8, 95890-3, 3016-3, 07229-4 #### [facility] CLIA [id number] [address] [place] [address] [place] FASTING TIME 12 hrs Normal [facility] Comment on above: Order Comment: Speci men Type: BLOOD SPECIMEN Ordering Facility: [facility] Address: [address] [place] [address] Performed By: #### 5 0190-8, 39187-1, 3016-3, 12664-7 #### [facility] CLIA [id number] [address] [place] [address] [place] Triglyceride [Mass/Vol] 71 mg/dL Normal <150 [facility] Comment on above: Order Comment: Speci men Type: BLOOD SPECIMEN Ordering Facility: [facility] Address: [address] [place] [address] Result Comment: <150 mg/dL, Normal 150-199 mg/dL, Borderline high 200-499 mg/dL, High >499 mg/dL, Very high Performed By: #### 5 0190-8, 88645-3, 3015-3, 33796-2 #### [facility] CLIA [id number] [address] [place] [address] [place] Magnesium SerPl-mCncon 12-26 Magnesium [Mass/Vol] 2.1 mg/dL Normal 1.7-2.3 [facility] Comment on above: Order Comment: Speci men Type: BLOOD SPECIMEN Ordering Facility: [facility] Address: [address] [place] [address] Performed By: #### 5 0190-8, 57523-0, 3, #### [facility] CLIA [id number] [address] [place] [address] [place] TESTOSTERONE, FREE AND TOTAL , BY EQUILIBRIUM ULTRAFILTRATION MASS SPECTROMETRYon 12-27-2023 Testosterone [Mass/Vol] 363.8 ng/dL Normal 264.0-916.0 [facility] Comment on above: Order Comment: Speci men Type: BLOOD SPECIMEN Ordering Facility: [facility] Address: [address] [place] [address] Result Comment: This [facility] LC/MS-MS method is currently certified by the CDC Hormone Standardization Program (HoSt). Adult male reference interval is based on a population of healthy nonobese males (BMI <30) between 19 and 39 years old. Aisha et.al. JCEM 2017,102;0102-8358. PMID: [id number]. Performed By: #### T FTEST #### [facility] CLIA [id number] [address] [facility] [place] [address] Testosterone Free [Mass/Vol] 11.21 ng/dL Normal 5.00-21.00 [facility] Comment on above: Order Comment: Speci men Type: BLOOD SPECIMEN Ordering Facility: [facility] Address: [address] [place] [address] Performed By: #### T FTEST #### [facility] CLIA [id number] [address] [place] [address] Testosterone Free/Testosterone.total [Mass fraction] 3.08 % Normal 1.50-4.20 [facility] Comment on above: Order Comment: Speci men Type: BLOOD SPECIMEN Ordering Facility: [facility] Address: [address] [place] [address] Performed By: #### T FTEST #### [facility] IA [id number] [address] [place] [address] TSH SerPl-aCncon 12-27-2023 TSH Qn 1.220 m[IU]/L Normal 0.270-4.200 [facility] Comment on above: Order Comment: Speci men Type: BLOOD SPECIMEN Ordering Facility: [facility] Address: [address] [place] [address] Performed By: #### 5 0190-8, 93275-6, 3016-3, 97485-3 #### [facility] IA [id number] [address] [place] [address] [place] Vit B12 SerPl-mCncon 024 Cobalamin (Vitamin B12) [Mass/Vol] 526 pg/mL Normal 232-1245 [facility] Comment on above: Order Comment: Speci men Type: BLOOD SPECIMEN Ordering Facility: [facility] Address: [address] [place] [address] Performed By: #### 5 0190-8, 61049-2, 3016-3, 69596-5 #### [facility] CLIA [id number] [address] [place] [address] [place] CNOVon 11-08-2023 CNOV Office Visit (INTMWS ) EMIR RAE ([id number]) 1985 M Date Time Provider Department 11/08/23 10:00 AM ROSARIO MOFFETT During your visit today, we recorded the following information about you: Pulse Respiration Blood pressure Weight 93/minute 16/minute 121/79 112.8 kg Rosario Moffett APRN.KEEL PRESS OPERATOR 11/08/2023 10:15 AM Signed SUBJECTIVE Emir Rae [...] 2 TABLETS BY MOUTH ONCE DAILY NEEDED lzvitxtk-jqc-ywfvi-vit K-lycop (ONE-A-DAY MEN'S MULTIVITAMIN) 400-20-300 mcg tab [...] (FLONASE) 50 mcg/actuation nasal spray Use 1 Alexander in each nostril once daily. ciclopirox (LOPROX) [...] normal. A (more content not included)... Normal [facility] XR Foot - left AP and Latera l and obliqueon 05-29-2023 IMPRESSION: 1. No acute radiographic abnormality of the left foot Clay Hoister[facility] Transcribe Date/Time: May 29 2023 5:05P Dictated by : YESENIA MEYERS MD This examination was interpreted and the report reviewed and electronically signed by: YESENIA MEYERS MD on May 29 2023 5:05PM [facility] DIVISION OF RADIOLOGY * * *Final Report* [...] soft tissue swelling. DIVISION OF RADIOLOGY Provider, [facility] - 05/29/2023 * * *Final Report* * [...] acute radiographic abnormality of the left foot Clay Hoister: [facility] Transcribe Date/Time: May 29 2023 5:05P Dictated by : YESENIA MEYERS MD This examination was interpreted and the report reviewed and electronically signed by: YESENIA MEYERS MD on May 29 2023 5:05PM EST [facility] XR Foot - left AP and Latera l and obliqueOrdered By: Ccf Provider on 05-29-[address] [facility] XR Foot - left AP and Latera l and obliqueon 05-24-2023 Radiology Study observation (narrative) [facility] Abdomen/Pelvis W IV Cont ONL Yon 09-04-2022 Abdomen/Pelvis W IV Cont ONLY [facility] Imaging Services [address] [place] [address] Abdomen/Pelvis W IV Cont ONLY MR#: [id number] Acct: [id number] Name: EMIR RAE Rep #: [id number] : 1985 M 36 From: Raul barillas MD PCP: Dr. Deven Santillan MD Status: REG ER Study: Abdomen/Pelvis W IV Cont ONLY Date of Exam: Exam# [id number] Ordering Dr: Filiberto Power DO STUDY: CT [...] Deven Santillan MD; Dr. Filiberto Power DO Clay Hoister: Signed Normal [facility] Absolute lymphocyte countOrd ered By: Filiberto Power on 09-04-2022 Lymphocytes Auto (Unsp spec) [#/Vol] 1.68 10*3/uL 0.83-4.51 [facility] Basic Metabolic Profile (BMP )on 09-04-2022 BUN/CRE 12.6 RATIO Normal 10-20 [facility] Comment on above: Performed By: #### L 500.2500, L100.0100, L501.2450, L500.3400 #### [facility] [address] [place], [address] CA,Total 9.0 mg/dL Normal 8.5-10.1 [facility] Comment on above: Performed By: #### L 500.2500, L100.0100, L501.2450, L500.3400 #### [facility] [address] [place], [address] Chloride [Moles/Vol] 111 mmol/L High 98-107 [facility] Comment on above: Performed By: #### L 500.2500, L100.0100, L501.2450, L500.3400 #### [facility] [address] [place], [address] CO2 [Moles/Vol] 26.0 mmol/L Normal 21.0-32.0 [facility] Comment on above: Performed By: #### L 500.2500, L100.0100, L501.2450, L500.3400 #### [facility] [address] [place], [address] Creatinine [Mass/Vol] 1.51 mg/dL High 0.70-1.30 [facility] Comment on above: Result Comment: The validity of the calculated GFR GFRAA in patients over 70 years has not been determined. Clinical correlation is essential. Performed By: #### L 500.2500, L100.0100, L501.2450, L500.3400 #### [facility] [address] [place], [address] ECRCL 79.39 ml/min Normal [facility] Comment on above: Performed By: #### L 500.2500, L100.0100, L501.2450, L500.3400 #### [facility] [address] [place], [address] EST GFR - AA 68 mL/min Normal >60 [facility] Comment on above: Result Comment: Afri can Bhutanese GFR Calc Performed By: #### L 500.2500, L100.0100, L501.2450, L500.3400 #### [facility] [address] [place], [address] GAP 4 Low 5-15 [facility] Comment on above: Performed By: #### L 500.2500, L100.0100, L501.2450, L500.3400 #### [facility] [address] [place], [address] GFR/1.73 sq M.predicted among non-blacks MDRD (S/P/Bld) [Vol rate/Area] 56 mL/min/{1.73_m2} Low >60 [facility] Comment on above: Result Comment: Non- GFR Calc Performed By: #### L 500.2500, L100.0100, L501.2450, L500.3400 #### [facility] [address] [place], [address] Glucose [Mass/Vol] 110 mg/dL High 74-106 [facility] Comment on above: Result Comment: Fast ing Glucose result from 100 to 125 mg/dL suggests IMPAIRED HOMEOSTASIS per A.D.A. criteria. Performed By: #### L 500.2500, L100.0100, L501.2450, L500.3400 #### [facility] [address] [place], [address] Potassium [Moles/Vol] 4.2 mmol/L Normal 3.5-5.1 [facility] Comment on above: Performed By: #### L 500.2500, L100.0100, L501.2450, L500.3400 #### [facility] [address] [place], [address] Sodium [Moles/Vol] 141 mmol/L Normal 136-145 [facility] Comment on above: Performed By: #### L 500.2500, L100.0100, L501.2450, L500.3400 #### [facility] [address] [place], [address] Urea nitrogen [Mass/Vol] 19 mg/dL High 7-18 [facility] Comment on above: Performed By: #### L 500.2500, L100.0100, L501.2450, L500.3400 #### [facility] [address] [place], [address] Basophil percentageOrdered B y: Filiberto Power on 09-04-2022 Basophil percentage 0-5 SEEN /hpf 0-5 [facility] Basophils/100 WBC (Bld) 0.4 % 0-1 [facility] Bilirubin [Mass/Vol] 0.20 mg/dL 0.20-1.00 [facility] Comment on above: For patients on eltr ombopag therapy, use of Dimension [place] TBIL is not recommended. Chloride [Moles/Vol] 111 mmol/L 98-107 [facility] Eosinophils/100 WBC (Bld) 0.3 % 0-5 [facility] Glucose [Mass/Vol] 110 mg/dL 74-106 [facility] Comment on above: Fasting Glucose resu lt from 100 to 125 mg/dL suggests IMPAIRED HOMEOSTASIS per A.D.A. criteria. Neutrophils (Bld) [#/Vol] 8.7 10*3/uL 2.0-7.7 [facility] Neutrophils/100 WBC (Bld) 77.2 % 47-70 [facility] Potassium [Moles/Vol] 4.2 mmol/L 3.5-5.1 [facility] Protein [Mass/Vol] 7.5 g/dL 6.4-8.2 [facility] Sodium [Moles/Vol] 141 mmol/L 136-145 [facility] WBC (Bld) [#/Vol] 11.2 10*3/uL 4.4-11.0 [facility] Bilirubin Test strip Ql (U)O rdered By: Filiberto Power on 09-04-2022 Bilirubin Ql (U) Negative Negative [facility] Blood erythrocytes count (nu mber/volume)Ordered By: Filiberto Power on 09-04-2022 RBC (Bld) [#/Vol] 5.37 10*6/uL 4.6-6.2 [facility] Blood hemoglobin measurement (mass/volume)Ordered By: Filiberto Power on 09-04-2022 Hemoglobin (Bld) [Mass/Vol] 15.5 g/dL 13.0-16.5 [facility] Blood lymphocytes/100 leukoc ytesOrdered By: Filiberto Power on 09-04-2022 Lymphocytes/100 WBC (Bld) 14.9 % 19-41 [facility] Blood monocytes/100 leukocyt esOrdered By: Filiberto Power on 09-04-2022 Monocytes/100 WBC (Bld) 6.0 % 0-[address] [facility] Blood platelet mean volumeOr dered By: Filiberto Power on 09-04-2022 Platelet mean volume (Bld) [Entitic vol] 9.5 fL 6.2-12.0 [facility] CBC W/Diff, Automatedon --2022 Absolute Lymph 1.68 X10 3/uL Normal 0.83-4.51 [facility] Comment on above: Performed By: #### L 500.2500, L100.0100, L501.2450, L500.3400 #### [facility] [address] [place], [address] Absolute Neut 8.7 X10 3/uL High 2.0-7.7 [facility] Comment on above: Performed By: #### L 500.2500, L100.0100, L501.2450, L500.3400 #### [facility] [address] [place], [address] Basophils/100 WBC (Bld) 0.4 % Normal 0-[address] [facility] Comment on above: Performed By: #### L 500.2500, L100.0100, L501.2450, L500.3400 #### [facility] [address] [place], [address] Eosinophils/100 WBC (Bld) 0.3 % Normal 0-5 [facility] Comment on above: Performed By: #### L 500.2500, L100.0100, L501.2450, L500.3400 #### [facility] [address] [place], [address] Erythrocyte distribution width (RBC) [Ratio] 13.7 % Normal 11.6-14.6 [facility] Comment on above: Performed By: #### L 500.2500, L100.0100, L501.2450, L500.3400 #### [facility] [address] [place], [address] Hematocrit (Bld) [Volume fraction] 47.2 % Normal 40-54 [facility] Comment on above: Performed By: #### L 500.2500, L100.0100, L501.2450, L500.3400 #### [facility] [address] [place], [address] Hemoglobin (Bld) [Mass/Vol] 15.5 g/dL Normal 13.0-16.5 [facility] Comment on above: Performed By: #### L 500.2500, L100.0100, L501.2450, L500.3400 #### [facility] [address] [place], [address] IG% 1.200 High 0.0-0.9 [facility] Comment on above: Result Comment: IG% - Immature Granulocytes (promyelocytes, myelocytes and metamyelocytes) > 1% indicates that a LEFT SHIFT is Present. Performed By: #### L 500.2500, L100.0100, L501.2450, L500.3400 #### [facility] [address] [place], [address] Lymphocytes/100 WBC (Bld) 14.9 % Low 19-41 [facility] Comment on above: Performed By: #### L 500.2500, L100.0100, L501.2450, L500.3400 #### [facility] [address] [place], [address] MCH (RBC) [Entitic mass] 28.9 pg Normal 27.0-32.0 [facility] Comment on above: Performed By: #### L 500.2500, L100.0100, L501.2450, L500.3400 #### [facility] [address] [place], [address] MCHC (RBC) [Mass/Vol] 32.8 g/dL Normal 32-36 [facility] Comment on above: Performed By: #### L 500.2500, L100.0100, L501.2450, L500.3400 #### [facility] [address] [place], [address] MCV (RBC) [Entitic vol] 87.9 fL Normal 80-94 [facility] Comment on above: Performed By: #### L 500.2500, L100.0100, L501.2450, L500.3400 #### [facility] [address] [place], [address] Monocytes/100 WBC (Bld) 6.0 % Normal 0-[address] [facility] Comment on above: Performed By: #### L 500.2500, L100.0100, L501.2450, L500.3400 #### [facility] [address] [place], [address] Neutrophils/100 WBC (Bld) 77.2 % High 47-70 [facility] Comment on above: Performed By: #### L 500.2500, L100.0100, L501.2450, L500.3400 #### [facility] [address] [place], [address] Nucleated RBC (Bld) [#/Vol] 0 10*3/uL Normal 0-5 [facility] Comment on above: Performed By: #### L 500.2500, L100.0100, L501.2450, L500.3400 #### [facility] [address] [place], [address] Platelet mean volume (Bld) [Entitic vol] 9.5 fL Normal 6.2-12.0 [facility] Comment on above: Performed By: #### L 500.2500, L100.0100, L501.2450, L500.3400 #### [facility] [address] [place], [address] Platelets (Bld) [#/Vol] 254 10*3/uL Normal 150-450 [facility] Comment on above: Performed By: #### L 500.2500, L100.0100, L501.2450, L500.3400 #### [facility] [address] [place], [address] RBC (Bld) [#/Vol] 5.37 10*6/uL Normal 4.6-6.2 [facility] Comment on above: Performed By: #### L 500.2500, L100.0100, L501.2450, L500.3400 #### [facility] [address] [place], [address] RDW SD 44.0 fl High 35.1-43.9 [facility] Comment on above: Performed By: #### L 500.2500, L100.0100, L501.2450, L500.3400 #### [facility] [address] [place], [address] WBC (Bld) [#/Vol] 11.2 10*3/uL High 4.4-11.0 [facility] Comment on above: Performed By: #### L 500.2500, L100.0100, L501.2450, L500.3400 #### [facility] [address] [place], [address] Calcium oxalate crystals det ection in urine sediment by light microscopyOrdered By: Filiberto Power on 09-04-2022 Calcium oxalate crystals LM Ql (Urine sed) 1+ /hpf [facility] Determination of erythrocyte mean corpuscular volume (MCV)Ordered By: Filiberto Power on 09-04-2022 MCV (RBC) [Entitic vol] 87.9 fL 80-[address] [facility] Direct bilirubinOrdered By: Filiberto Power on 09-04-2022 Bilirubin.direct [Mass/Vol] 0.09 mg/dL 0.00-0.30 [facility] Emergency Department Summary on 09-04-2022 Emergency Department Summary [facility] Medical Records Department [address] [place] [address] Emergency Department Summary 09/04/22 MR#: [id number] Acct: [id number] Name: EMIR RAE Rep #: [id number] : 1985 36 From: Filiberto Power DO PCP: Dr. Deven Santillan MD Status:DEP ER Location: ED HPI History of Present Illness Chief Complaint: GI Bleed [facility] Medical History (Updated 09/04/22 @ 13:44 [...] nephrolithiasis I (more content not included)... Normal [facility] Hematocrit Auto (Bld) [Volum e fraction]Ordered By: Filiberto Power on 09-04-2022 Hematocrit (Bld) [Volume fraction] 47.2 % 40-54 [facility] Ketones Test strip Ql (U)Ord ered By: Filiberto Power on 09-04-2022 Ketones Ql (U) 15 mg/dl Negative [facility] - Chemistry and C hemistry - challengeOrdered By: Filiberto Power on 09-04-2022 ALP [Catalytic activity/Vol] 89 U/L 45-117 [facility] ALT [Catalytic activity/Vol] 33 U/L 16-61 [facility] CO2 [Moles/Vol] 26.0 mmol/L 21.0-32.0 [facility] Globulin (S) [Mass/Vol] 3.9 g/dL 2.2-4.[address] [facility] Lipase [Catalytic activity/Vol] 43 U/L 13-75 [facility] Comment on above: Please note:LIPASE r evised reference range effective 22. New Lipase methodology. Expected to produce lower values than the previous assay method. NEW Reference Range: 13 - 75 U/L Urea nitrogen/Creatinine [Mass ratio] 12.6 mg/mg 10-20 [facility] - Hematology and Cell countsOrdered By: Filiberto Power on 09-04-2022 Erythrocyte distribution width (RBC) [Entitic vol] 44.0 fL 35.1-43.9 [facility] Erythrocyte distribution width (RBC) [Ratio] 13.7 % 11.6-14.6 [facility] Immature granulocytes/100 WBC (Bld) 1.200 % 0.0-0.9 [facility] Comment on above: IG% - Immature Granu locytes (promyelocytes, myelocytes and metamyelocytes) > 1% indicates that a LEFT SHIFT is Present. MCH (RBC) [Entitic mass] 28.9 pg 27.0-32.0 [facility] Nucleated RBC/100 WBC (Bld) [Ratio] 0 % 0-5 [facility] Lipaseon 09-04-2022 Lipase [Catalytic activity/Vol] 43 U/L Normal 13-75 [facility] Comment on above: Result Comment: Woo dash note: LIPASE revised reference range effective 22. New Lipase methodology. Expected to produce lower values than the previous assay method. NEW Reference Range: 13 - 75 U/L Performed By: #### L 500.2500, L100.0100, L501.2450, L500.3400 #### [facility] [address] [place], [address] Liver Profileon 09-04-2022 Albumin [Mass/Vol] 3.6 g/dL Normal 3.2-5.0 [facility] Comment on above: Performed By: #### L 500.2500, L100.0100, L501.2450, L500.3400 #### [facility] [address] [place], [address] ALK P 89 U/L Normal 45-117 [facility] Comment on above: Performed By: #### L 500.2500, L100.0100, L501.2450, L500.3400 #### [facility] [address] [place], [address] ALT [Catalytic activity/Vol] 33 U/L Normal 16-61 [facility] Comment on above: Performed By: #### L 500.2500, L100.0100, L501.2450, L500.3400 #### [facility] [address] [place], [address] AST [Catalytic activity/Vol] 20 U/L Normal 15-37 [facility] Comment on above: Performed By: #### L 500.2500, L100.0100, L501.2450, L500.3400 #### [facility] [address] [place], [address] Bilirubin [Mass/Vol] 0.20 mg/dL Normal 0.20-1.00 [facility] Comment on above: Result Comment: For patients on eltrombopag therapy, use of Dimension [place] TBIL is not recommended. Performed By: #### L 500.2500, L100.0100, L501.2450, L500.3400 #### [facility] [address] [place], [address] Bilirubin.direct [Mass/Vol] 0.09 mg/dL Normal 0.00-0.30 [facility] Comment on above: Performed By: #### L 500.2500, L100.0100, L501.2450, L500.3400 #### [facility] [address] [place], [address] Globulin (S) [Mass/Vol] 3.9 g/dL Normal 2.2-4.2 [facility] Comment on above: Performed By: #### L 500.2500, L100.0100, L501.2450, L500.3400 #### [facility] [address] [place], [address] T PROT 7.5 g/dL Normal 6.4-8.2 [facility] Comment on above: Performed By: #### L 500.2500, L100.0100, L501.2450, L500.3400 #### [facility] [address] [place], [address] Lower GI hemoglobin IA Ql (S tl)Ordered By: Filiberto Power on 09-04-2022 Stool Occult Blood (SAMUEL) Positive [facility] MCHC Auto (RBC) [Mass/Vol]Or dered By: Filiberto Power on 09-04-2022 MCHC (RBC) [Mass/Vol] 32.8 g/dL 32-36 [facility] Mucus LM Ql (Urine sed)Order ed By: Filiberto Power on 09-04-2022 Mucus Ql (Urine sed) 0 SEEN /hpf [facility] Nitrite Test strip Ql (U)Ord ered By: Filiberto Power on 09-04-2022 Nitrite Ql (U) Negative Negative [facility] No Panel InformationOrdered By: Filiberto Power on 09-04-2022 Estimated Creatinine Clearance Calc 79.39 ml/min [facility] Estimated GFR (MDRD) Amer 68 mL/min >60 [facility] Comment on above: GFR Calc Estimated GFR (MDRD) Non-Af Amer 56 mL/min >60 [facility] Comment on above: Non- GFR Calc Platelets bldOrdered By: Mary Power on 09-04-2022 Platelets (Bld) [#/Vol] 254 10*3/uL 150-450 [facility] Protein Test strip Ql (U)Ord ered By: Filiberto Power on 09-04-2022 Protein Ql (U) 30 mg/dl Negative [facility] Serum or plasma albumin laura urement (mass/volume)Ordered By: Filiberto Power on 09-04-2022 Albumin [Mass/Vol] 3.6 g/dL 3.2-5.0 [facility] Serum or plasma calcium laura urement (mass/volume)Ordered By: Filiberto Poewr on 09-04-2022 Calcium [Mass/Vol] 9.0 mg/dL 8.5-10.1 [facility] Serum or plasma creatinine m easurement (mass/volume)Ordered By: Filiberto Power on 09-04-2022 Creatinine [Mass/Vol] 1.51 mg/dL 0.70-1.30 [facility] Comment on above: The validity of the calculated GFR & GFRAA in patients over 70 years has not been determined. Clinical correlation is essential. Serum or plasma urea nitroge n measurement (mass/volume)Ordered By: Filiberto Power on 09-04-2022 Urea nitrogen [Mass/Vol] 19 mg/dL 7-18 [facility] Squamous epithelial cells de tection in urine sediment by light microscopyOrdered By: Filiberto Power on 09-04-2022 Epithelial cells.squamous LM Ql (Urine sed) 0-5 SEEN /hpf 0-5 [facility] Stool Occult Blood iFOBon STOB Positive Normal [facility] Comment on above: Performed By: #### M 100.7900 #### [facility] [address] [place], [place], [id number] Thin prep Papanicolaou smear with manual screeningOrdered By: Filiberto Power on 09-04-2022 Thin prep Papanicolaou smear with manual screening 20 U/L 15-37 [facility] Thin prep Papanicolaou smear with manual screening 4 5-15 [facility] Urinalysis, Completeon 09-04 CA OX CRYSTAL 1+ /hpf Normal [facility] Comment on above: Order Comment: CLEAN CATCH Performed By: #### L 400.0001 #### [facility] [address] [place], [address] EPI,SQUAMOUS 0-5 SEEN Normal 0-5 [facility] Comment on above: Order Comment: CLEAN CATCH Performed By: #### L 400.0001 #### [facility] [address] [place], [address] RBC > 100 SEEN Normal 0-5 [facility] Comment on above: Order Comment: CLEAN CATCH Performed By: #### L 400.0001 #### [facility] [address] [place], [address] WBC 0-5 SEEN Normal 0-5 [facility] Comment on above: Order Comment: CLEAN CATCH Performed By: #### L 400.0001 #### [facility] [address] [place], [address] BACTERIA 0 SEEN Normal None Seen [facility] Comment on above: Order Comment: CLEAN CATCH Performed By: #### L 400.0001 #### [facility] [address] [place], [address] Mucus Ql (Urine sed) [address] [facility] Comment on above: Order Comment: CLEAN CATCH Performed By: #### L 400.0001 #### [facility] [address] [place], [address] Urine blood detectionOrdered By: Filiberto Power on 09-04-2022 RBC Ql (U) 250 /ul Negative [facility] RBC Ql (U) > 100 SEEN /hpf 0-5 [facility] Urine clarityOrdered By: Mary Power on 09-04-2022 Clarity (U) Sl. Cloudy Clear [facility] Urine color determinationOrd ered By: Filiberto Power on 09-04-2022 Color (U) Yellow Yellow [facility] Urine glucose detectionOrder ed By: Filiberto Power on 09-04-2022 Glucose Ql (U) Normal mg/dl Normal [facility] Urine leukocyte esterase det ection by dipstickOrdered By: Filiberto Power on 09-04-2022 Leukocyte esterase Test strip Ql (U) 100 /ul Negative [facility] Urine pHOrdered By: Filiberto damian on 09-04-2022 pH (U) 5.0 [pH] 5.0 - 8.0 [facility] Urine sediment bacteria coun t by microscopy (number/high power field)Ordered By: Filiberto Power on 09-04-2022 Bacteria LM.HPF (Urine sed) [#/Area] 0 /[HPF] None Seen [facility] Urine specific gravity measu rementOrdered By: Filiberto Power on 09-04-2022 Specific gravity (U) [Rel density] 1.030 1.002-1.030 [facility] Urobilinogen Auto test strip Ql (U)Ordered By: Filiberto Power on 09-04-2022 Urobilinogen Ql (U) 4 mg/dl [facility] Reporton [facility]22 Office Visit Report [facility] [address] [place] [address] OFFICE VISIT Date of Service: 09/03/22 MR#: [id number] Acct: [id number] Patient: EMIR RAE Rep #: [id number] : 1985 Provider: MAO Hoover Age/Sex: 36/M Location: [facility] Status: Signed Intake Vital Signs 03/28/21 15:15 09/03/22 11:17 Height 6 ft 2 in BP 128/78 H Blood Pressure Location Lt brachial Position Sitting Respiration 14 Pulse 84 Pulse Source Monitor Temp 98.0 F Temp Source Temporal Pulse Oximetry (%) 98 Oxygen Delivery Method room air Intake Visit Reasons: Rash Chief Complaint: rash B/L UE and torso Building Equipment Operator Required: No Accompanied by: Self Is patient [...] rash that started yesterday. He was in [place]. He has tried some OTC cream but [...] Griffin Signature: Date (if applicable) CC: Normal [facility] XR Thoracic spine AP and Lat eral and [place] 07-04-2022 IMPRESSION: Mild, age indeterminant, anterior wedging of a midthoracic vertebral body, likely T8. Clay Hoister: [facility] Transcribe Date/Time: Jul 04 2022 3:15P Dictated by : JUSTYNA BERNARD MD This examination was interpreted and the report reviewed and electronically signed by: JUSTYNA BERNARD MD on Jul 04 2022 3:17PM [facility] DIVISION OF RADIOLOGY * * *Final Report* [...] preserved DIVISION OF RADIOLOGY Provider, Karolina [facility] - 07/04/2022 * * *Final Report* * [...] of a midthoracic vertebral body, likely T8. Clay Hoister: [facility] Transcribe Date/Time: Jul 04 2022 3:15P Dictated by : JUSTYNA BERNARD MD This examination was interpreted and the report reviewed and electronically signed by: JUSTYNA BERNARD MD on Jul 04 2022 3:17PM EST [facility] XR Cervical spine AP and Lat eral and obliqueon 07-03-2022 IMPRESSION: Cervical spine degenerative changes with C5-6 disc space narrowing and left-sided neural foraminal narrowing. Clay Hoister: [facility] Transcribe Date/Time: Jul 03 2022 9:48A Dictated by : PORTIA FUNEZ MD This examination was interpreted and the report reviewed and electronically signed by: PORTIA FUNEZ MD on Jul 03 2022 9:51AM [facility] DIVISION OF RADIOLOGY * * *Final Report* [...] tissues are normal. DIVISION OF RADIOLOGY Provider, [facility] - 07/03/2022 * * *Final Report* * [...] space narrowing and left-sided neural foraminal narrowing. Clay Hoister: [facility] Transcribe Date/Time: Jul 03 2022 9:48A Dictated by : PORTIA FUNEZ MD This examination was interpreted and the report reviewed and electronically signed by: PORTIA FUNEZ MD on Jul 03 2022 9:51AM EST [facility] XR Cervical spine AP and Lat eral and obliqueOrdered By: [facility] Provider on 07-03-[address] [facility] No Panel Informationon 06-30 Radiology Study observation (narrative) [facility] MRI BRAIN WO/W IVCONon 05-13 MRI BRAIN WO/W IVCON * * *Final Report* * * DATE OF EXAM: May 13 2020 4:55PM [facility] 0295 - MRI BRAIN WO/W IVCON / PROCEDURE REASON: hearing loss, attn IAC h90.3 * * * * Physician Interpretation * * * * EXAMINATION: MRI BRAIN WO/W IVCON HISTORY: hearing loss, attn IAC h90.3. Symptoms 10 years ago. This information is taken directly from the pharmacy order entry technician system. TECHNIQUE: Routine brain MRI protocol without [...] structures, and dural venous sinuses within the [id number]. No evidence for thrombosis. Other: Extensive bilateral [...] ethmoid air cells and maxillary sinus chambers. Clay Hoister: [facility] Transcribe Date/Time: May 13 2020 4:58P Dictated by : JAGUAR BURCH MD This examination was interpreted and the report reviewed and electronically signed by: JAGUAR BURCH MD on May 13 2020 5:13PM EST [id number] [facility] PROGRESSon 05-13-2020 PROGRESS HNO ID: [id number] Author: Katelyn (Rt) Sofie Mahajan Service: Radiology Author Type: Concrete Paver Type: Progress Notes Filed: 05/13/2020 4:12 PM [...] DATE: May 13, 2020 TIME: 4:09 PM [facility] Vital Signs Date Time Vital Sign Value Performing Clinician Facility 09-11-2024 14:10-0400 Body height 188 cm Jose J Horn PA-C Work Phone: [facility] 09-11-2024 14:10-0400 Body mass index (BMI) [Ratio] 31.31 kg/m2 Jose J Horn PA-C Work Phone: [facility] 09-11-2024 14:10-0400 Body weight 110.6 kg Jose J Horn PA-C Work Phone: [facility] 09-11-2024 14:10-0400 Diastolic blood pressure 73 mm[Hg] Jose J Horn PA-C Work Phone: [facility] 09-11-2024 14:10-0400 Heart rate 87 /min Jose J Horn PA-C Work Phone: [facility] 09-11-2024 14:10-0400 SaO2% (BldA) [Mass fraction] 98 % Jose J Horn PA-C Work Phone: [facility] 09-11-2024 14:10-0400 Systolic blood pressure 118 mm[Hg] Jose J Horn PA-C Work Phone: [facility] 11-08-2023 09:52-0400 Body mass index (BMI) [Ratio] 31.93 kg/m2 Rosario Vishal [employer]ESPERSON [employer].KEEL PRESS OPERATOR Work Phone: [facility] 11-08-2023 09:52-0400 Body weight 112.8 kg Rosario Vishal [employer]ESPERSON [employer].KEEL PRESS OPERATOR Work Phone: [facility] 11-08-2023 09:52-0400 Diastolic blood pressure 79 mm[Hg] Rosario Vishal SALESPERSON [employer].KEEL PRESS OPERATOR Work Phone: [facility] 11-08-2023 09:52-0400 Heart rate 93 /min Rosario Vishal SALESPERSON [employer].KEEL PRESS OPERATOR Work Phone: [facility] 11-08-2023 09:52-0400 Respiratory rate 16 /min Rosario Vishal SALESPERSON [employer].KEEL PRESS OPERATOR Work Phone: [facility] 11-08-2023 09:52-0400 Systolic blood pressure 121 mm[Hg] Rosario Vishal SALESPERSON [employer].KEEL PRESS OPERATOR Work Phone: [facility] 08-27-2023 10:45-0400 Body mass index (BMI) [Ratio] 29.4 kg/m2 Rosario Vishal SALESPERSON [employer].KEEL PRESS OPERATOR Work Phone: [facility] 08-27-2023 10:45-0400 Body weight 103.87 kg Rosario Vishal SALESPERSON [employer].KEEL PRESS OPERATOR Work Phone: [facility] 08-27-2023 10:45-0400 Diastolic blood pressure 76 mm[Hg] Rosario Vishal SALESPERSON [employer].KEEL PRESS OPERATOR Work Phone: [facility] 08-27-2023 10:45-0400 Heart rate 96 /min Rosario Vishal SALESPERSON [employer].KEEL PRESS OPERATOR Work Phone: [facility] 08-27-2023 10:45-0400 SaO2% (BldA) [Mass fraction] 99 % Rosario Vishal SALESPERSON [employer].KEEL PRESS OPERATOR Work Phone: [facility] 08-27-2023 10:45-0400 Systolic blood pressure 114 mm[Hg] Rosario Vishal SALESPERSON [employer].KEEL PRESS OPERATOR Work Phone: [facility] 01-01-2023 10:53-0500 Body weight 102.51 kg Misa Hager SALESPERSON [employer].HALL WORKER Work Phone: [facility] 01-01-2023 10:53-0500 Diastolic blood pressure 84 mm[Hg] Misa Hager SALESPERSON [employer].HALL WORKER Work Phone: [facility] 01-01-2023 10:53-0500 Heart rate 87 /min Misa Hager SALESPERSON [employer].HALL WORKER Work Phone: [facility] 01-01-2023 10:53-0500 Respiratory rate 16 /min Misa Hager SALESPERSON [employer].HALL WORKER Work Phone: [facility] 01-01-2023 10:53-0500 Systolic blood pressure 137 mm[Hg] Misa Hager SALESPERSON [employer].HALL WORKER Work Phone: [facility] 09-07-2022 14:59-0400 Body height 188 cm Tomas Hawkins MD Work Phone: [facility] 09-07-2022 14:59-0400 Body temperature 97.39 [degF] Tomas Hawkins MD Work Phone: [facility] 09-07-2022 14:59-0400 Body weight 104.69 kg Tomas Hawkins MD Work Phone: [facility] 09-07-2022 14:59-0400 Diastolic blood pressure 76 mm[Hg] Tomas Hawkins MD Work Phone: [facility] 09-07-2022 14:59-0400 Heart rate 89 /min Tomas Hawkins MD Work Phone: [facility] 09-07-2022 14:59-0400 SaO2% (BldA) [Mass fraction] 97 % Tomas Hawkins MD Work Phone: [facility] 09-07-2022 14:59-0400 Systolic blood pressure 132 mm[Hg] Tomas Hawkins MD Work Phone: [facility] 09-07-2022 13:32-0400 Body weight 104.33 kg Misa Hager SALESPERSON [employer].HALL WORKER Work Phone: [facility] 09-07-2022 13:32-0400 Diastolic blood pressure 82 mm[Hg] Misa Hager SALESPERSON [employer].HALL WORKER Work Phone: [facility] 09-07-2022 13:32-0400 Heart rate 89 /min Misa Hager SALESPERSON [employer].HALL WORKER Work Phone: [facility] 09-07-2022 13:32-0400 Respiratory rate 16 /min Misa Hager SALESPERSON [employer].HALL WORKER Work Phone: [facility] 09-07-2022 13:32-0400 SaO2% (BldA) [Mass fraction] 97 % Misa Hagre SALESPERSON [employer].HALL WORKER Work Phone: [facility] 09-07-2022 13:32-0400 Systolic blood pressure 120 mm[Hg] Misa Hager SALESPERSON BURIAL NEEDS.HALL WORKER Work Phone: [facility] 09-04-2022 14:06-0400 Diastolic blood pressure 80 mm[Hg] [facility] Work Phone: [facility] 09-04-2022 14:06-0400 Heart rate 97 /min [facility] Work Phone: [facility] 09-04-2022 14:06-0400 Respiratory rate 18 /min [facility] Work Phone: [facility] 09-04-2022 14:06-0400 SaO2% (BldA) [Mass fraction] 99 % [facility] Work Phone: [facility] 09-04-2022 14:06-0400 Systolic blood pressure 141 mm[Hg] [facility] Work Phone: 7(262)836-271024 [place] [address] 09-04-2022 12:38-0400 Body temperature 98.1 [degF] [facility] Work Phone: 6(521)985-465124 [place] [address] 09-04-2022 10:49-0400 Body height 187.96 cm [facility] Work Phone: 2(483)784-910724 [place] [address] 09-04-2022 10:49-0400 Body mass index (BMI) [Ratio] 30 kg/m2 [facility] Work Phone: 7(578)756-719924 [place] [address] 09-04-2022 10:49-0400 Body weight 106.14 kg [facility] Work Phone: 2(209)806-366824 [place] [address] 09-03-2022 11:17-0400 Body temperature 98 [degF] [facility] Work Phone: 7(092)981-826024 [place] [address] 09-03-2022 11:17-0400 Diastolic blood pressure 78 mm[Hg] [facility] Work Phone: 4(589)101-437024 [place] [address] 09-03-2022 11:17-0400 Heart rate 84 /min [facility] Work Phone: 9(356)962-846224 [place] [address] 09-03-2022 11:17-0400 Respiratory rate 14 /min [facility] Work Phone: 2(055)682-200124 [place] [address] 09-03-2022 11:17-0400 SaO2% (BldA) [Mass fraction] 98 % [facility] Work Phone: 8(450)347-244324 [place] [address] 09-03-2022 11:17-0400 Systolic blood pressure 128 mm[Hg] [facility] Work Phone: 9(114)340-742924 [place] [address] 10-24-2021 12:58-0400 Body height 189.2 cm Misa Hager SALESPERSON B[employer]IAL NEEDS.HALL WORKER Work Phone: [facility] 10-24-2021 12:58-0400 Body weight 105.69 kg Misa Hager SALESPERSON BURIAL NEEDS.HALL WORKER Work Phone: [facility] 10-24-2021 12:58-0400 Diastolic blood pressure 80 mm[Hg] Misa Hager SALESPERSON BURIAL NEEDS.HALL WORKER Work Phone: [facility] 10-24-2021 12:58-0400 Heart rate 84 /min Misa Hager SALESPERSON BURIAL NEEDS.HALL WORKER Work Phone: [facility] 10-24-2021 12:58-0400 Respiratory rate 16 /min Misa Hager SALESPERSON BURIAL NEEDS.HALL WORKER Work Phone: [facility] 10-24-2021 12:58-0400 Systolic blood pressure 120 mm[Hg] Misa Hager SALESPERSON BURIAL NEEDS.HALL WORKER Work Phone: [facility] 06-14-2021 12:02-0400 Body temperature 97.3 [degF] Rossy Valencia SALESPERSON BURIAL NEEDS.KEEL PRESS OPERATOR Work Phone: [facility] 06-14-2021 12:02-0400 Body weight 102.15 kg Rossy Valencia SALESPERSON BURIAL NEEDS.KEEL PRESS OPERATOR Work Phone: [facility] 06-14-2021 12:02-0400 Diastolic blood pressure 82 mm[Hg] Rossy Valencia SALESPERSON BURIAL NEEDS.KEEL PRESS OPERATOR Work Phone: [facility] 06-14-2021 12:02-0400 Heart rate 73 /min Rossy Valencia SALESPERSON BURIAL NEEDS.KEEL PRESS OPERATOR Work Phone: [facility] 06-14-2021 12:02-0400 Respiratory rate 18 /min Rossy Valencia SALESPERSON BURIAL NEEDS.KEEL PRESS OPERATOR Work Phone: [facility] 06-14-2021 12:02-0400 SaO2% (BldA) [Mass fraction] 99 % Rossy Valencia SALESPERSON BURIAL NEEDS.KEEL PRESS OPERATOR Work Phone: [facility] 06-14-2021 12:02-0400 Systolic blood pressure 124 mm[Hg] Rossy Valencia SALESPERSON BURIAL NEEDS.KEEL PRESS OPERATOR Work Phone: [facility] Encounters Encounter Date Encounter Type Care Provider Facility Start: 09-29-2024 End: 09-29-2024 Refill Deven Santillan MD Work Phone: [facility] [place] Comment on above: Refill Request Start: 09-11-2024 End: 09-11-2024 Patient encounter procedure Jose J Horn PA-C Work Phone: [facility] [place] Comment on above: Chronic bilateral th oracic back pain (Primary Dx); Radiculopathy, cervical region; Cervical spondylosis without myelopathy Start: 09-11-2024 End: 09-11-2024 ambulatory JOSE J HORN Facility:[facility] Start: 09-10-2024 End: 09-11-2024 Refill Misa Hager APRN.HALL WORKER Work Phone: [facility] [place] Comment on above: Refill Request Start: 07-17-2024 End: 07-17-2024 [facility] Facility:[facility] Start: 06-27-2024 End: 08-27-2024 Follow-up encounter Misa Hager APRN.HALL WORKER Work Phone: [facility] Start: 06-26-2024 End: 06-26-2024 Patient encounter procedure [facility] Work Phone: [facility] Start: 06-26-2024 End: 06-26-2024 ambulatory [facility] Work Phone: [facility] Comment on above: Spirometry Start: 06-19-2024 End: 06-19-2024 ambulatory [facility] Facility:[facility] Start: 05-19-2024 End: 05-19-2024 Refill Deven Santillan MD Work Phone: [facility] [place] Comment on above: Refill Request Start: 01-01-2024 End: 01-02-2024 ambulatory Rosario Moffett APRN.KEEL PRESS OPERATOR Work Phone: [facility] Comment on above: Results Start: 01-01-2024 End: 01-02-2024 E-mail encounter from caregiver Rosario Moffett APRN.KEEL PRESS OPERATOR Work Phone: [facility] [place] Start: 12-28-2023 End: 12-28-2023 Telephone encounter Rosario Moffett APRN.KEEL PRESS OPERATOR Work Phone: [facility] [place] Start: 12-27-2023 End: 12-27-2023 ambulatory ROSARIO MOFFETT Facility:[facility] Start: 11-08-2023 End: 11-08-2023 ambulatory ROSARIO MOFFETT Facility:[facility] Start: 11-08-2023 End: 11-08-2023 Patient encounter procedure Rosario Moffett SALESPERSON BURIAL NEEDS.KEEL PRESS OPERATOR Work Phone: [facility] Comment on above: Low libido (Primary Dx); Fatigue, unspecified type; Vitamin D deficiency; Screening for lipid disorders; Screening for depression; Encounter for screening examination for other mental health and behavioral disorders Start: 08-27-2023 End: 08-27-2023 Patient encounter procedure Rosario Moffett SALESPERSON BURIAL NEEDS.KEEL PRESS OPERATOR Work Phone: [facility] [place] Comment on above: Mass of both upper e xtremities (Primary Dx); Palpable mass of lower back; Mass of left hip region Start: 06-21-2023 End: 06-21-2023 Patient encounter procedure Deo Bartholomewphillip Work Phone: Podiatry Comment on above: Plantar fasciitis of left foot (Primary Dx); Left foot pain; Tinea pedis of both feet Start: 05-25-2023 Telephone encounter Deven mejia MD Work Phone: [facility] Comment on above: Insurance Authorizat ion Start: 05-24-2023 End: 05-24-2023 Subsequent hospital visit by physician Salima [facility] Work Phone: Radiology Comment on above: Left foot pain [M79. 672] Start: 04-30-2023 Refill Deven mccormack MD Work Phone: [facility] [place] Comment on above: Refill Request Start: 03-15-2023 ambulatory Rosario Vishal SALESPERSON BURIAL NEEDS.KEEL PRESS OPERATOR Work Phone: [facility] [place] Comment on above: Acid reflux Start: 02-05-2023 End: 02-05-2023 ambulatory Misa Najeras SALESPERSON BURIAL NEEDS.HALL WORKER Work Phone: [facility] Comment on above: Chronic bilateral th oracic back pain (Primary Dx); Gastrointestinal hemorrhage, unspecified gastrointestinal hemorrhage type Start: 02-05-2023 End: 02-05-2023 Telemedicine consultation with patient Misa Hager JERZY.HALL WORKER Work Phone: [facility] Start: 01-01-2023 Telephone encounter Misa darling JERZY.HALL WORKER Work Phone: [facility] Comment on above: Medication Question Start: 01-01-2023 End: 01-01-2023 Office outpatient visit 25 minutes Misa Hager APRN.HALL WORKER Work Phone: [facility] [place] Comment on above: Gastrointestinal hem orrhage, unspecified gastrointestinal hemorrhage type (Primary Dx); Renal calculus, left; Hydronephrosis of left kidney; Encounter for immunization; Neck pain, musculoskeletal; Chronic bilateral thoracic back pain; Gastroesophageal reflux disease, unspecified whether esophagitis present; Screening for HIV (human immunodeficiency virus); Screening for lipid disorders; Family history of rheumatoid arthritis Start: 11-03-2022 Refill Misa Najeraeaston BERTRAND.HALL WORKER Work Phone: [facility] [place] Comment on above: Refill Request Start: 09-21-2022 End: 09-21-2022 ambulatory Rome Noriega PT Work Phone: [facility] Comment on above: Neck pain, musculosk eletal (Primary Dx); Chronic bilateral thoracic back pain Start: 09-07-2022 End: 09-07-2022 Patient encounter procedure Tomas Hawkins MD Work Phone: General Surgery Comment on above: Acute GI bleeding (P rimary Dx); Kidney stone Start: 09-07-2022 Telephone encounter Deven mejia MD Work Phone: [facility] [place] Comment on above: Insurance Authorizat ion Start: 09-07-2022 End: 09-07-2022 Office outpatient visit 25 minutes Misa Hager APRN.HALL WORKER Work Phone: [facility] [place] Comment on above: Gastrointestinal hem orrhage, unspecified gastrointestinal hemorrhage type (Primary Dx); Renal calculus, left; Hydronephrosis of left kidney; Neck pain, musculoskeletal; Chronic bilateral thoracic back pain; Gastroesophageal reflux disease, unspecified whether esophagitis present Start: 09-04-2022 End: 09-04-2022 Emergency department patient visit Filiberto Power Facility:[facility] Start: 09-04-2022 End: 09-04-2022 Emergency department patient visit [facility] Work Phone: [facility] Work Phone: Start: 09-03-2022 End: 09-03-[address] [facility] Facility:[facility] Start: 09-03-2022 End: 09-03-2022 Patient encounter procedure [facility] Work Phone: [facility] Work Phone: Start: 08-21-2022 End: 08-21-2022 ambulatory Rome Noriega PT, DPT Work Phone: [facility] Comment on above: Neck pain, musculosk eletal (Primary Dx); Chronic bilateral thoracic back pain Start: 08-17-2022 End: 08-17-2022 ambulatory Rome Noriega PT, DPT Work Phone: [facility] Comment on above: Neck pain, musculosk eletal (Primary Dx); Chronic bilateral thoracic back pain Start: 08-16-2022 ambulatory Deven mccormack MD Work Phone: [facility] [place] Comment on above: about my back Start: 08-14-2022 End: 08-14-2022 ambulatory Rome Noriega PT, DPT Work Phone: [facility] Comment on above: Neck pain, musculosk eletal (Primary Dx); Chronic bilateral thoracic back pain Start: 08-09-2022 ambulatory No Pcp Bernarda Apodaca Start: 06-30-2022 End: 06-30-2022 Subsequent hospital visit by physician [facility] Work Phone: Radiology Comment on above: Neck pain, musculosk eletal [M54.2] Start: 11-27-2021 ambulatory Misa Hager APRN.CNS Work Phone: [facility] [place] Comment on above: Meloxicam Start: 10-24-2021 Telephone encounter Deven mejia MD Work Phone: [facility] [place] Comment on above: Splint problem Start: 10-24-2021 End: 10-24-2021 Patient encounter procedure Misa Hager APRN.HALL WORKER Work Phone: [facility] Comment on above: Routine medical exam (Primary Dx); Encounter for immunization; Special screening examination for viral disease; Screening for HIV (human immunodeficiency virus); Screening for lipid disorders; Chronic wrist pain, left; Cervicalgia Start: 10-24-2021 End: 10-24-2021 Patient encounter status Misa Hager APRN.HALL WORKER Work Phone: [facility] Start: 06-14-2021 End: 06-14-2021 Patient encounter procedure Rossy Erik SALESPERSON BURIAL NEEDS.KEEL PRESS OPERATOR Work Phone: [facility] Comment on above: Recurrent aphthous s tomatitis (Primary Dx) Start: 10-26-2016 Emergency department patient visit [facility] Procedures Date Procedure Procedure Detail Performing Clinician Start: 06-26-2024 Brncdilat rspse spmt ry pre&post-brncdilat admn Misa Hager APRN.HALL WORKER Work Phone: Start: 12-27-2023 Lipid 1996 panel - S hal or Plasma Rosario Moffett SALESPERSON BURIAL NEEDS.KEEL PRESS OPERATOR Work Phone: Start: 11-08-2023 Adult depression scr eening assessment Rosario Moffett SALESPERSON BURIAL NEEDS.KEEL PRESS OPERATOR Work Phone: Start: 05-24-2023 Radex foot complete minimum 3 views Misa Hager APRN.HALL WORKER Work Phone: Start: 01-01-2023 PFIZER-BIONTECH COVI D-19 VACCINE (2022- SEASON) AGE 12+ YR Misa Hager APRN.HALL WORKER Work Phone: Start: 09-04-2022 Measurement of occul t blood in stool specimen using immunoassay [facility] Work Phone: Start: 09-04-2022 Computed tomography of abdomen and pelvis with intravenous contrast [facility] Work Phone: Start: 06-30-2022 Radex spine cervical 4 or 5 views Deven Santillan MD Work Phone: Start: 10-22-2021 Adult depression scr eening assessment Misa Hager APRN.HALL WORKER Work Phone: Plan of Treatment Date Care Activity Detail Author Start: 12-26-2028 Lipid panel Lipid Screening [facility] Start: 10-26-2026 Urine microalbumin profile [facility] Start: 12-23-2024 End: 12-23-2024 Patient encounter procedure 12/23/2024 7:00 PM EDT Office Visit [facility] [place] [address] [place] [address] Deven Santillan MD [address] [place], [place] [id number] 6 month f/u [facility] [place] Comment on above: 6 month f/u Start: 11-07-2024 Anxiety Screening Anxiety Screening [facility] Start: 11-07-2024 Depression Screening Depression Screening [facility] Start: 10-27-2024 Covid-19 Vaccine ( season) Covid-19 Vaccine ( season) [facility] Comment on above: Postponed from 10/28/2023 (Declined at t his time) Start: 10-27-2024 Hepatitis B Vaccine (1 of 3 - 19+ 3-dose series) Hepatitis B Vaccine (1 of 3 - 19+ 3-dose series) [facility] Comment on above: Postponed from 2005 (Declined at t his time) Start: 10-27-2024 Influenza vaccination [facility] Start: 09-30-2024 End: 09-30-2024 Patient encounter procedure 09/30/2024 10:00 AM EDT Office Visit Urology [address] [place], [place] [id number] Vivek Shahid PA-C [address] [place] [address] CONSULT: Erectile dysfunction, unspecified type. [facility] Comment on above: CONSULT: Erectile dysfunction, unspecifi ed type. [facility] Start: 09-11-2024 End: 09-11-2024 Patient encounter procedure 09/11/2024 2:20 PM EDT Office Visit [facility] [place] [address] [address] Jose J Horn PA-C [address] [place] [address] Chronic bilateral thoracic back pain [M54.6, G89.29] [facility] [place] Comment on above: Chronic bilateral thoracic back pain [M5 4.6, G89.29] Start: 08-19-2024 End: 08-19-2024 Patient encounter procedure 08/19/2024 11:00 AM EDT Office Visit Urology [address] [place] [address] Vivek Shahid PA-C [address] [place] [address] Erectile dysfunction, unspecified erectile dysfunction type [N52.9] Urology Comment on above: Erectile dysfunction, unspecified erecti le dysfunction type [N52.9] Start: 07-17-2024 End: 07-17-2024 Patient encounter procedure 07/17/2024 1:40 PM EDT Office Visit [facility] [address] [place] [address] Misa Hager APRN.HALL WORKER [address] [place] [address] follow up [facility] [place] Comment on above: follow up Start: 01-02-2024 HIV Screening HIV Screening [facility] Comment on above: Postponed from 2004 (Declined at t his time) Start: 01-02-2024 HIV screening HIV Screening [facility] Comment on above: Postponed from 2004 (Declined at t his time) Start: 12-28-2023 End: 03-28-2024 Hemoglobin A1c in Blood [facility] Work Phone: Comment on above: Expected: 12/28/2023, Expires: 5 Start: 11-09-2023 End: 02-08-2024 25-hydroxyvitamin D3 [Mass/volume] in Serum or Plasma VITAMIN D 25 HYDROXY Lab Routine Vitamin D deficiency Expected: 11/09/2023, Expires: 02/08/[address] [facility] Comment on above: Expected: 11/09/2023, Expires: 4 Start: 11-09-2023 End: 02-08-2024 CBC W Auto Differential panel - Blood COMPLETE BLOOD COUNT AND DIFFERENTIAL Lab Routine Low libido Fatigue, unspecified type Expected: 11/09/2023, Expires: 02/08/[address] [facility] Comment on above: Expected: 11/09/2023, Expires: 4 Start: 11-09-2023 End: 02-08-2024 Cobalamin (Vitamin B12) [Mass/volume] in Serum or Plasma VITAMIN B12 Lab Routine Fatigue, unspecified type Expected: 11/09/2023, Expires: 02/08/[address] [facility] Comment on above: Expected: 11/09/2023, Expires: 4 Start: 11-09-2023 End: 02-08-2024 Comprehensive metabolic 2000 panel - Serum or Plasma COMPREHENSIVE METABOLIC PANEL Lab Routine Fatigue, unspecified type Expected: 11/09/2023, Expires: 02/08/[address] [facility] Comment on above: Expected: 11/09/2023, Expires: Start: 11-09-2023 End: 02-08-2024 Ferritin [Mass/volume] in Serum or Plasma FERRITIN Lab Routine Low libido Fatigue, unspecified type Expected: 11/09/2023, Expires: 02/08/[address] [facility] Comment on above: Expected: 11/09/2023, Expires: Start: 11-09-2023 End: 02-08-2024 Iron and Iron binding capacity panel - Serum or Plasma IRON AND TIBC Lab Routine Low libido Fatigue, unspecified type Expected: 11/09/2023, Expires: 02/08/[address] [facility] Comment on above: Expected: 11/09/2023, Expires: Start: 11-09-2023 End: 02-08-2024 Lipid 1996 panel - Serum or Plasma LIPID PANEL BASIC Lab Routine Screening for lipid disorders Expected: 11/09/2023, Expires: 02/08/[address] [facility] Comment on above: Expected: 11/09/2023, Expires: Start: 11-09-2023 End: 02-08-2024 Magnesium [Mass/volume] in Serum or Plasma MAGNESIUM Lab Routine Fatigue, unspecified type Expected: 11/09/2023, Expires: 02/08/[address] [facility] Comment on above: Expected: 11/09/2023, Expires: Start: 11-09-2023 End: 02-08-2024 TESTOSTERONE, FREE AND TOTAL TESTOSTERONE, FREE AND TOTAL Lab Routine Low libido Fatigue, unspecified type Expected: 11/09/2023, Expires: 02/08/2024 [facility] Work Phone: Comment on above: Expected: 11/09/2023, Expires: Start: 11-09-2023 End: 02-08-2024 Thyrotropin [Units/volume] in Serum or Plasma THYROID STIMULATING HORMONE Lab Routine Low libido Fatigue, unspecified type Expected: 11/09/2023, Expires: 02/08/[address] [facility] Comment on above: Expected: 11/09/2023, Expires: Start: 11-08-2023 End: 11-08-2023 Patient encounter procedure 11/08/2023 10:00 AM EDT Office Visit Internal Medicine [address] [id number] Rosario Moffett APRN.KEEL PRESS OPERATOR [address] [place], [place] [id number] Testosterone testing [facility] [place] Comment on above: Testosterone testing Start: 10-28-2023 Covid-19 Vaccine ( season) Covid-19 Vaccine () [facility] Start: 10-28-2023 Influenza vaccination [facility] Start: 09-13-2023 End: 09-13-2023 Patient encounter procedure 09/13/2023 4:00 PM EDT Appointment Radiology [address] [place], [place] [id number] Mass of both upper extremities [R22.33] Radiology Comment on above: Mass of both upper extremities [R22.33] Start: 08-23-2023 End: 08-23-2023 Patient encounter procedure 08/23/2023 10:30 AM EDT Office Visit Otolaryngology [address] [address] Deo Foy MD [address] [address] Decreased hearing of right ear [H91.91] Otolaryngology Comment on above: Decreased hearing of right ear [H91.91] Start: 08-09-2023 End: 08-09-2023 Patient encounter procedure 08/09/2023 2:30 PM EDT Office Visit Audiology [address] [address] Ira Anthony, AUD [address] [place], [place] [id number] Decreased hearing of right ear [H91.91] Audiology Comment on above: Decreased hearing of right ear [H91.91] Start: 07-02-2023 End: 07-02-2023 Patient encounter procedure 07/02/2023 11:00 AM EDT Office Visit [facility] [address] [place] [address] Deven Santillan MD [address] [place] [address] 6 month follow up [facility] Comment on above: 6 month follow up Start: 07-01-2023 COVID-19 VACCINE (4 - Booster for Pfizer series) COVID-19 VACCINE (4 - Booster for Pfizer series) [facility] Comment on above: Postponed from 02/18/2021 (Declined at t his time) Start: 07-01-2023 COVID-19 VACCINE (4 - Pfizer series) COVID-19 VACCINE (4 - Pfizer series) [facility] Comment on above: Postponed from 02/18/2021 (Declined at t his time) Start: 06-30-2023 Hepb vaccine adult 3 dose schedule for im use HEP B VACCINE, 3-DOSE, AGE 20+ YR (ENGERIX-B, RECOMBIVAX HB) Immunization/Injection Routine Encounter for immunization Expected: 06/30/2023 [facility] Work Phone: Comment on above: Expected: 06/30/2023 Start: 02-26-2023 Behavioral Health Screening Behavioral Health Screening [facility] Start: 02-26-2023 Depression Assessment Depression Assessment [facility] Start: 01-31-2023 Hepb vaccine adult 3 dose schedule for im use HEP B VACCINE, 3-DOSE, AGE 20+ YR (ENGERIX-B, RECOMBIVAX HB) Immunization/Injection Routine Encounter for immunization Expected: 01/31/2023 [facility] Work Phone: Comment on above: Expected: 01/31/2023 Start: 01-01-2023 End: 04-02-2023 ИРИНА BY IFA SCREEN ИРИНА BY IFA SCREEN Lab Routine Neck pain, musculoskeletal Chronic bilateral thoracic back pain Family history of rheumatoid arthritis Expected: 01/01/2023, Expires: 04/02/2023 [facility] Work Phone: Comment on above: Expected: 01/01/2023, Expires: 4 Start: 01-01-2023 End: 04-02-2023 C reactive protein [Mass/volume] in Serum or Plasma C-REACTIVE PROTEIN (CRP) Lab Routine Neck pain, musculoskeletal Chronic bilateral thoracic back pain Family history of rheumatoid arthritis Expected: 01/01/2023, Expires: 04/02/2023 [facility] Work Phone: Comment on above: Expected: 01/01/2023, Expires: 4 Start: 01-01-2023 End: 04-02-2023 Erythrocyte sedimentation rate SED RATE WESTERGREN Lab Routine Neck pain, musculoskeletal Chronic bilateral thoracic back pain Family history of rheumatoid arthritis Expected: 01/01/2023, Expires: 04/02/2023 [facility] Work Phone: Comment on above: Expected: 01/01/2023, Expires: 4 Start: 01-01-2023 End: 04-02-2023 Lipid 1996 panel - Serum or Plasma LIPID PANEL BASIC Lab Routine Screening for lipid disorders Expected: 01/01/2023, Expires: 04/02/2023 [facility] Work Phone: Comment on above: Expected: 01/01/2023, Expires: 4 Start: 01-01-2023 End: 04-02-2023 Rheumatoid factor [Units/volume] in Serum or Plasma RHEUMATOID FACTOR BL Lab Routine Neck pain, musculoskeletal Chronic bilateral thoracic back pain Family history of rheumatoid arthritis Expected: 01/01/2023, Expires: 04/02/2023 [facility] Work Phone: Comment on above: Expected: 01/01/2023, Expires: 4 Start: 10-27-2022 Influenza vaccination [facility] Start: 10-24-2022 HIV SCREENING HIV SCREENING [facility] Comment on above: Postponed from 2004 (Declined at t his time) Start: 10-22-2022 Adult depression screening assessment DEPRESSION SCREENING [facility] Start: 09-04-2022 [facility] Start: 10-27-2021 Influenza vaccination [facility] Start: 10-24-2021 End: 12-24-2021 CBC W Auto Differential panel - Blood [facility] Work Phone: Comment on above: Expected: 10/24/2021, Expires: 2 Start: 10-24-2021 End: 12-24-2021 Comprehensive metabolic 2000 panel - Serum or Plasma [facility] Work Phone: Comment on above: Expected: 10/24/2021, Expires: 2 Start: 10-24-2021 End: 12-24-2021 Hepatitis C virus Ab [Presence] in Serum [facility] Work Phone: Comment on above: Expected: 10/24/2021, Expires: 2 Start: 10-24-2021 End: 12-24-2021 Lipid 1996 panel - Serum or Plasma LIPID PANEL BASIC Lab Routine Screening for lipid disorders Expected: 10/24/2021, Expires: 12/24/2021 [facility] Work Phone: Comment on above: Expected: 10/24/2021, Expires: Start: 2021 Lipid 1996 panel - Serum or Plasma Lipid Screening [facility] Start: 2021 Lipid panel Lipid Screening [facility] Start: 2021 LIPID SCREEN LIPID SCREEN [facility] Start: 02-26-2021 DEPRESSION ASSESSMENT DEPRESSION ASSESSMENT [facility] Start: 02-18-2021 COVID-19 VACCINE (4 - Booster for Pfizer series) COVID-19 VACCINE (4 - Booster for Pfizer series) [facility] Start: 06-15-2020 HPV VACCINE (2 - 3-dose SCDM series) HPV VACCINE (2 - 3-dose SCDM series) [facility] Start: 2005 Hepatitis B Vaccine (1 of 3 - 19+ 3-dose series) Hepatitis B Vaccine (1 of 3 - 19+ 3-dose series) [facility] Start: 2005 Urine microalbumin profile DTAP,TDAP,TD (1 - Tdap) [facility] Start: 2004 Anxiety Screening Anxiety Screening [facility] Start: 2004 Depression Screening Depression Screening [facility] Start: 2004 HEPATITIS C SCREENING HEPATITIS C SCREENING [facility] Start: 2004 HIV SCREENING HIV SCREENING [facility] Start: 2004 HIV screening HIV Screening [facility] Start: 1998 Adult depression screening assessment DEPRESSION SCREENING [facility] Start: 1986 HEPATITIS B (1 of 3 - 3-dose series) HEPATITIS B (1 of 3 - 3-dose series) [facility] Start: 1986 Hepatitis B Vaccine (1 of 3 - 3-dose series) Hepatitis B Vaccine (1 of 3 - 3-dose series) [facility] 9vhpv vacc 2/3 dose sched im use HPV VACCINE, 9-VALENT (GARDASIL 9) Immunization/Injection Routine Encounter for immunization 1 Occurrences starting 01/01/2023 [facility] Work Phone: Comment on above: 1 Occurrences starting 01/01/2023 End: 09-08-2023 COLONOSCOPY DIAGNOSTIC COLONOSCOPY DIAGNOSTIC Endoscopy Routine Acute GI bleeding 1 Occurrences starting 09/07/2022 until 09/08/2023 [facility] Work Phone: Comment on above: 1 Occurrences starting 09/07/2022 until 09/08/2023 End: 09-08-2023 EGD DIAGNOSTIC EGD DIAGNOSTIC Endoscopy Routine Acute GI bleeding 1 Occurrences starting 09/07/2022 until 09/08/2023 [facility] Work Phone: Comment on above: 1 Occurrences starting 09/07/2022 until 09/08/2023 Hepb vaccine adult 3 dose schedule for im use HEPATITIS B VACCINE, ADULT AGE 20+, IM Immunization/Injection Routine Encounter for immunization 1 Occurrences starting 10/24/2021 [facility] Work Phone: Comment on above: 1 Occurrences starting 10/24/2021 Hepb vaccine adult 3 dose schedule for im use HEP B VACCINE, 3-DOSE, AGE 20+ YR (ENGERIX-B, RECOMBIVAX HB) Immunization/Injection Routine Encounter for immunization 1 Occurrences starting 01/01/2023 [facility] Work Phone: Comment on above: 1 Occurrences starting 01/01/2023 INFLUENZA VACCINE, A GE 6 MO - 64 YR, QUADRIVALENT (AFLURIA, FLULAVAL, FLUZONE) INFLUENZA VACCINE, AGE 6 MO - 64 YR, QUADRIVALENT (AFLURIA, FLULAVAL, FLUZONE) Immunization/Injection Routine Encounter for immunization 1 Occurrences starting 01/01/2023 [facility] Work Phone: Comment on above: 1 Occurrences starting 01/01/2023 End: 10-12-2025 MR Cervical spine WO contrast MRI CERVICAL SPINE WO IVCON Radiology Routine Chronic bilateral thoracic back pain Radiculopathy, cervical region Cervical spondylosis without myelopathy 1 Occurrences starting 09/11/2024 until 10/12/[address] [facility] Comment on above: 1 Occurrences starting 09/11/2024 until 10/12/2025 Patient Education ED Kidney Ston e Undescended No ... ED Lower GI Bleeding (Stable) [facility] Work Phone: Patient referral [facility] Work Phone: End: 09-25-2024 US Abdomen US SOFT TISSUE ABDOMEN Radiology Routine Palpable mass of lower back 1 Occurrences starting 08/27/2023 until 09/25/[address] [facility] Comment on above: 1 Occurrences starting 08/27/2023 until 09/25/2024 End: 09-25-2024 US Extremity - left US EXTREMITY MASS/FLUID COLLECTION LEFT Radiology Routine Mass of both upper extremities 1 Occurrences starting 08/27/2023 until 09/25/[address] [facility] Comment on above: 1 Occurrences starting 08/27/2023 until 09/25/2024 End: 09-25-2024 US Extremity - right US EXTREMITY MASS/FLUID COLLECTION RIGHT Radiology Routine Mass of both upper extremities 1 Occurrences starting 08/27/2023 until 09/25/[address] [facility] Comment on above: 1 Occurrences starting 08/27/2023 until 09/25/2024 End: 09-25-2024 US Pelvis US SOFT TISSUE PELVIS Radiology Routine Mass of left hip region 1 Occurrences starting 08/27/2023 until 09/25/2024 [facility] Work Phone: Comment on above: 1 Occurrences starting 08/27/2023 until 09/25/2024 End: 10-11-2025 XR CERV OTHER 4V AP/LAT/FLX/EXT XR CERV OTHER 4V AP/LAT/FLX/EXT Radiology Routine Chronic bilateral thoracic back pain Radiculopathy, cervical region Cervical spondylosis without myelopathy 1 Occurrences starting 09/11/2024 until 10/11/2025 [facility] Work Phone: Comment on above: 1 Occurrences starting 09/11/2024 until 10/11/2025 End: 11-23-2022 XR WRIST GENERAL 3V PA/LAT/OBL LEFT XR WRIST GENERAL 3V PA/LAT/OBL LEFT Radiology Routine Chronic wrist pain, left 1 Occurrences starting 10/24/2021 until 11/23/2022 [facility] Work Phone: Comment on above: 1 Occurrences starting 10/24/2021 until 11/23/2022 [facility] Immunizations Immunization Date Immunization Notes Care Provider Lyubov cheng 01-01-2023 COVID-19 vaccine, ag e 12+ yr, season (PFIZER-BIONTECH) Misa Hager SALESPERSON BURIAL NEEDS.HALL WORKER Work Phone: [facility] Work Phone: 12-24-2020 COVID-19 vaccine, ag e 12+ yr (PFIZER-BIONTECH - PURPLE TOP) Misaorquidea Najeras SALESPERSON BURIAL NEEDS.HALL WORKER Work Phone: [facility] Work Phone: 06-24-2020 COVID-19 vaccine, ag e 12+ yr (PFIZER-BIONTECH - PURPLE TOP) Misa Hager SALESPERSON BURIAL NEEDS.HALL WORKER Work Phone: [facility] Work Phone: 06-03-2020 COVID-19 vaccine, ag e 12+ yr (PFIZER-BIONTECH - PURPLE TOP) Misa Hager SALESPERSON BURIAL NEEDS.HALL WORKER Work Phone: [facility] Work Phone: 05-18-2020 Human Papillomavirus 9-valent vaccine Misa Najeras SALESPERSON BURIAL NEEDS.HALL WORKER Work Phone: [facility] Work Phone: 10-26-2016 tetanus toxoid, redu kristian diphtheria toxoid, and acellular pertussis vaccine, adsorbed Misaorquidea Najeras SALESPERSON BURIAL NEEDS.HALL WORKER Work Phone: [facility] Work Phone: Payers Date Payer Category Payer Private Health Insurance [id number] 2023 Unknown [id number] 2022 Self-pay 2022 Unknown [id number] 2020 Unknown MMO MMO [employer] [id number] 2020-Present [phone] [address] [place] [address] O [id number] 2020 Unknown [id number] Unknown [id number] Unknown [id number] Social History Date Type Detail Facility Start: 06-14-2021 End: 11-08-2023 Tobacco smoking status NHIS Ex-smoker [facility] Start: 06-14-2021 End: 11-08-2023 Tobacco use and exposure Smokeless tobacco non-user [facility] Start: 06-14-2021 End: 09-11-2024 Alcohol intake Lifetime non-drinker (finding) [facility] Start: 06-14-2021 End: 06-29-2022 History SDOH Alcohol Frequency [address] [facility] Start: 1985 Sex Assigned At Not on file [facility] Start: 06-03-2021 End: 10-24-2021 Exposure to SARS-CoV-2 (event) Not sure [facility] Work Phone: History of tobacco use Current smoker [facility] Work Phone: History of tobacco use Cigarette Smoker [facility] Work Phone: Start: 10-24-2021 End: 06-29-2022 Cigarettes smoked current (pack per day) - Reported [address] [facility] Start: 10-23-2021 End: 06-29-2022 History SDOH Alcohol Std Drinks [address] [facility] Start: 10-23-2021 End: 06-29-2022 History SDOH Social Connections Phone [address] [facility] Start: 10-23-2021 End: 06-29-2022 History SDOH Social Connections Meetings [address] [facility] Start: 10-23-2021 History SDOH Social Connections Living [address] [facility] Start: 10-23-2021 History SDOH Financial [address] [facility] Start: 10-24-2021 Tobacco Comment former vaping [facility] Start: 06-29-2022 History SDOH Social Connections Living [address] [facility] Start: 09-04-2022 Tobacco smoking stat us NHIS Unknown if ever smoked [facility] Start: 1985 Sex Assigned At Male W [facility] Start: 06-29-2022 End: 08-27-2023 Social connection and isolation panel [facility] Do you belong to any clubs or organizations such as confucianist groups, unions, fraternal or athletic groups, or school groups? No [facility] Are you now , , , , never or living with a partner? Never [facility] How often to you hav e a drink containing alcohol? Never [facility] How many standard dr inks containing alcohol do you have on a typical day? Patient does not drink [facility] How hard is it for y ou to pay for the very basics like food, housing, medical care, and heating Somewhat hard [facility] Do you feel stress - tense, restless, nervous, or anxious, or unable to sleep at night because your mind is troubled all the time - these days [OSQ] To some extent [facility] (I/We) worried whejensen er (my/our) food would run out before (I/we) got money to buy more. Sometimes true [facility] Are you now , , , , never or living with a partner? Living with partner [facility] How often to you hav e a drink containing alcohol? Monthly or less [facility] How many standard dr inks containing alcohol do you have on a typical day? 1 or [address] [facility] How hard is it for y ou to pay for the very basics like food, housing, medical care, and heating Not very hard [facility] Do you feel stress - tense, restless, nervous, or anxious, or unable to sleep at night because your mind is troubled all the time - these days [OSQ] Only a little [facility] The food that (I/we) bought just didn't last, and (I/we) didn't have money to get more. Never true [facility] Clinical Notes 06-14-2021 to 09-29-2024 Telephone Encounter [...] Schwarz MA September 29, 2024 10:[address] [facility] 09-29-2024 Miscellaneous Notes Prescription Refill Information The [...] 2024 10:55 AM documented in this encounter [facility] 09-11-2024 Note HNO ID: [id number] Author: JOSE J HORN PA-C Service: ? Author Type: Physician Mulcher Operator Type: Progress Notes Filed: 09/11/2024 15:05 Note Text: Jose [facility] Horn [facility] [address] [address] 09/11/2024 ASSESSMENT AND PLAN: Assessment : Encounter [...] today with this patient visit. This includes yyjr-si-uqor time, review of chart records regarding conservative care history, spine-pertinent imaging, and communication/care coordination with referring provider, problem-specific history-taking and counseling/education regarding treatment options. cc: Misa Hager [address] [facility] [address] Results of consultation to be transmitted via electronic medical record for those providers who practice within [facility] or with access to [employer] via MD Connect, or via letter. ################################ ################################ ######## CHIEF COMPLAINT: Patient is here for the neck pain, upper back, left side is more painful. Level of the pain at this moment is at 3/10, but with (more content not included)... [facility] 09-11-2024 History of Presen t illness Narrative Images from the original note were not included. Jose J Horn PA-C [facility] [address] [address] 09/11/2024 ASSESSMENT AND PLAN: Assessment : Encounter [...] today with this patient visit. This includes dgfe-gx-vqec time, review of chart records regarding conservative care history, spine-pertinent imaging, and communication/care coordination with referring provider, problem-specific history-taking and counseling/education regarding treatment options. cc: Misa Hager [address] [place] [id number] Results of consultation to be transmitted via electronic medical record for those providers who practice within [facility] or with access to [employer] via MD Connect, or via letter. 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 07-17-2024 Note HNO ID: [id number] Author: MISA HAGER APRN.HALL WORKER Service: ? Author Type: Nurse Specialist Type: [...] recommended stretches. - Has not seen a safety equipment testing specialist due to insurance and cost issues. [...] to person, place, and time. Latest Ref [facility] [place] 12/27/2023 WBC 3.70 - 11.00 k/uL 6.98 [...] Abs Lymph 1.00 - 4.00 k/uL 2.11 [place]% % 7.4 Abs [place] <0.87 k/uL 0.52 Eosin% % 1.3 Abs [...] well. - Refill for sildenafil sent to [facility] pharmacy. - Scheduled urology appointment. - Discusse (more content not included)... [facility] 06-27-2024 Progress note Formatting of t his note might be different from the original. Normal spirometry [facility] 06-27-2024 Miscellaneous Notes Normal spirometry documented in this encounter [facility] 06-19-2024 Note HNO ID: [id number] Author: MISA HAGER APRN.CNS Service: ? Author [...] Anxiety and Depression: - Managed by [facility] - Taking buspirone and Wellbutrin. - Reports [...] Abs Lymph 1.00 - 4.00 k/uL 2.11 [place]% % 7.4 Abs [place] <0.87 k/uL 0.52 Eosin% % 1.3 Abs [...] Total, S 264 (more content not included)... [facility] 05-19-2024 Telephone encounter Note Prescription Refill Information [...] Heidy Nolen May 19, 2024 12:[address] [facility] 05-19-2024 Miscellaneous Notes Prescription Refill Information The [...] 2024 12:52 PM documented in this encounter [facility] 12-28-2023 Telephone encounter Note Contact client services and A1C will be added. [facility] 12-28-2023 Miscellaneous Notes Contact client services and A1C will be added. Can we please see if the hgba1c can be added to the labs? Order placed. Thanks documented in this encounter [facility] 12-28-2023 Telephone encounter Note Can we please see if the hgba1c can be added to the labs? Order placed. Thanks [facility] 11-08-2023 Note HNO ID: [id number] Author: ROSARIO MOFFETT APRN.SINDI Service: ? Author [...] 2 TABLETS BY MOUTH ONCE DAILY NEEDED dglbcqdm-lbh-faezu-vit K-lycop (ONE-A-DAY MEN'S MULTIVITAMIN) 400-20-300 mcg tab [...] (FLONASE) 50 mcg/actuation nasal spray Use 1 [place] in each nostril once daily. ciclopirox (LOPROX) [...] THYROID STIMULATING HORMONE (more content not included)... [facility] 11-08-2023 History of Presen t illness Narrative [...] 2 TABLETS BY MOUTH ONCE DAILY NEEDED hxoockrj-uaw-mbkoq-vit K-lycop (ONE-A-DAY MEN'S MULTIVITAMIN) 400-20-300 mcg tab [...] (FLONASE) 50 mcg/actuation nasal spray Use 1 [place] in each nostril once daily. ciclopirox (LOPROX) [...] Rosario Moffett APRN-SINDI documented in this encounter [facility] 08-27-2023 History of Presen t illness Narrative [...] 2 TABLETS BY MOUTH ONCE DAILY NEEDED syhnkcsj-gkp-ztwog-vit K-lycop (ONE-A-DAY MEN'S MULTIVITAMIN) 400-20-300 mcg tab [...] (FLONASE) 50 mcg/actuation nasal spray Use 1 [place] in each nostril once daily. tiZANidine (ZANAFLEX) [...] Rosario Moffett APRN-SINDI documented in this encounter [facility] 06-21-2023 History of Presen t illness Narrative [...] 2 TABLETS BY MOUTH ONCE DAILY NEEDED oiakbgbf-thy-kssmn-vit K-lycop (ONE-A-DAY MEN'S MULTIVITAMIN) 400-20-300 mcg tab [...] (FLONASE) 50 mcg/actuation nasal spray Use 1 [place] in each nostril once daily. Diclofenac Sodium [...] prn Deo Villalba DPM Podiatry [address] [facility] [address] Dept: [phone] Dept AMB ROOMING INTAKE FLOWSHEET DATA Pain [...] on both feet. documented in this encounter [facility] 06-21-2023 Instructions Deo Villalba - 06/21/2023 2:37 [...] time on their feet, such as nurses, charm filter operator helper/waiters, and mail carriers, often experience plantar fasciitis. [...] choose the one that fits the best. [place] with your athletic shoes to find a [...] repeat the exercise. documented in this encounter [facility] 05-28-2023 Miscellaneous Notes Pt notified via my [...] decision on the prior authorization criteria for: [address] ST: Diclofenac 3% gel We are providing you with a copy of the Notice of Adverse Benefit Determination that we sent to your patient. Electronic PA rec'd and completed for : Diclofenac Sodium 3 % gel documented in this encounter [facility] 05-24-2023 History of Presen t illness Narrative [...] PATIENT PRESENTS WITH AN IMPLANTABLE OR ATTACHED DATA ANALYSIS INTERN: No RADIOLOGY DEPARTMENT: General X-ray: Exam(s) Completed: Lower Extremity X-Ray(s): Foot, Left and Wt. Bearing PERIPHERAL IV DATA: Not applicable SIGNED BY: RT Alex(R) May 24, 2023 3:50 PM documented in this encounter [facility] 05-24-2023 Miscellaneous Notes No acute findings on x-ray documented in this encounter [facility] 05-24-2023 Progress note Formatting of t his note might be different from the original. No acute findings on x-ray [facility] 04-30-2023 Miscellaneous Notes Patient calling with request for new script to [facility]. Changed pharmacy. Patient has been identified [...] Eneida Todd RN. documented in this encounter [facility] 04-08-2023 Miscellaneous Notes Addressed 03/19/2023 documented in this encounter [facility] 02-05-2023 History of Presen t illness Narrative AMBULATORY TELEPHONE VISIT Emir Wise Butch has consented to this telephone encounter. Persons Present: patient Chief Complaint/Reason: recheck back pain HPI: Has appt with [place] [facility]. He reports no further GI bleeding. [...] diclofenac topical did not help. Data Reviewed: [facility] chart Assessment: (K92.2) Gastrointestinal hemorrhage, [...] Misa Hager APRN.CNS documented in this encounter [facility] 01-02-2023 Miscellaneous Notes Will send a [employer] message. Can follow up with a phone [...] that can impact absorption. Ruma Tinajero PharmD, [facility] Primary Care Clinical Pharmacist [facility] [place] literature reviewed. Should be able to use for back pain. However if he does not want to use the product does not have to do so. [facility] notes: How do you use diclofenac gel [...] Humaira Dewey LPN documented in this encounter [facility] 01-01-2023 History of Presen t illness Narrative [...] records: care everywhere Has been seen at [facility] for acute problems since 2020. Reviewed outside medications treated with paxlovid September 01, 2021. Previously treated with acyclovir June, August, September 2021 for recurrent aphthous ulcer since childhood, interested in suppressive therapy. Currently taking acyclovir 400 mg BID. [facility] Jennifer Hubbard for anxiety and depression. Taking bupropion XL 150 mg daily, whuajk24 mg twice daily, hydroxyzine 25 mg 3 [...] screening for STD via diana Edwards to [facility]. 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 He was seen at [facility] emergency department on September 04 for [...] Hawkins September 07, 2022. Colonoscopy scheduled at [facility] March [address] Adan. He reports he may go to Dr. Fish at [facility] is he would have better coverage [...] not improving would be interested in seeing safety equipment testing specialist. Notes that physical therapy seem to [...] 2 TABLETS BY MOUTH ONCE DAILY NEEDED lheuiirs-ruk-axgcw-vit K-lycop (ONE-A-DAY MEN'S MULTIVITAMIN) 400-20-300 mcg tab [...] (FLONASE) 50 mcg/actuation nasal spray Use 1 [place] in each nostril once daily. lidocaine (LIDODERM) [...] Abs Lymph 1.00 - 4.00 k/uL 2.12 [place]% % 8.6 Abs [place] <0.87 k/uL 0.64 Eosin% % 1.7 Abs [...] K92.2 (primary diagnosis) Has endoscopy scheduled at [facility], may switch to [facility] DrReyna Friend as it is better [...] 65 YR, QUADRIVALENT (AFLURIA, FLULAVAL, FLUZONE) - [employer]-Zeet[employer] COVID-19 VACCINE (2022- [place]) AGE 12+ YR [...] 6 mo follow up MD Misa Yin APRN.HALL WORKER Medical Decision Making: Problems: Moderate: 2+ stable chronic illnesses Risk: Moderate: Drug management Medical Decision Making Level: 4 - Moderate documented in this encounter [facility] 11-03-2022 Miscellaneous Notes Patient calling and asking [...] Emilie Steward LPN documented in this [facility] [facility] History of Presen t illness Narrative [...] Rome Noriega PT documented in this encounter [facility] 09-08-2022 Miscellaneous Notes 09/07/2022 Date of Request: [...] decision on the prior authorization criteria for: 41542 ST: Generic lidocaine 5% Patches - *MMO* We are providing you with a copy of the Notice of Adverse Benefit Determination that we sent to your patient. Electronic PA completed for lidocaine pathes documented in this encounter [facility] 09-08-2022 Miscellaneous Notes OV yesterday. OK for spine referral if needed/so desires. documented in this encounter [facility] 09-07-2022 Instructions Tomas Hawkins MD - 09/07/2022 [...] If you do not have a responsible cattle driver (family member or friend) with you [...] exam. 2 01/2019 documented in this encounter [facility] 09-07-2022 History of Presen t illness Narrative HISTORY AND PHYSICAL Emir Rae 1985 REFERRING PHYSICIAN: Misa Hager CHIEF COMPLAINT: Consult (GI bleed, 09/04/22 CT images [facility] requested to be pushed. ) HPI: The patient is a 36 year old male referred for endoscopy. Emir notes a history of constipation issues in his younger. He notes some occasional constipation issues currently. The patient recently was in [place] his [place] he denied true constipation or straining issues but noted rectal bleeding. He noted blood on the toilet paper and blood cut on the outside of the stool. He denied blood mixed within the stool. He denied melena hematochezia nausea or vomiting. His reason for presentation to [place] emergency department was due to left flank [...] 2 TABLETS BY MOUTH ONCE DAILY NEEDED jkjnrqtk-tfz-euftf-vit K-lycop (ONE-A-DAY MEN'S MULTIVITAMIN) 400-20-300 mcg tab [...] (FLONASE) 50 mcg/actuation nasal spray Use 1 Alexander in each nostril once daily. peg 3350-Electrolytes [...] record. This note will be forwarded to Deevn Santillan MD. Return to Clinic: The patient is instructed to follow-up with me after the testing has been completed. Tomas Hawkins MD documented in this encounter [facility] 09-07-2022 Nurse Note REVIEW OF SYSTEMS: General: [...] Yoly Romo LPN documented in this encounter [facility] 09-07-2022 History of Presen t illness Narrative [...] records: care everywhere Has been seen at [facility] for acute problems since 2020. Reviewed outside medications treated with paxlovid September 01, 2021. Previously treated with acyclovir June, August, September 2021 for recurrent aphthous ulcer since childhood, interested in suppressive therapy. Currently taking acyclovir 400 mg BID. [facility] Jennifer Hubbard for anxiety and depression. Taking bupropion XL 150 mg daily, pumbsk15 mg twice daily, hydroxyzine 25 mg 3 [...] screening for STD via diana Edwards to [facility]. 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 He was seen at [facility] emergency department on September 04 for [...] 2 TABLETS BY MOUTH ONCE DAILY NEEDED rxmiqgag-dlo-zvkij-vit K-lycop (ONE-A-DAY MEN'S MULTIVITAMIN) 400-20-300 mcg tab [...] (FLONASE) 50 mcg/actuation nasal spray Use 1 Alexander in each nostril once daily. PAST MEDICAL [...] 4 - Moderate documented in this encounter [facility] 08-21-2022 History of Presen t illness Narrative [...] Noriega PT, DPT documented in this encounter [facility] 08-17-2022 History of Presen t illness Narrative [...] Noriega PT DPT documented in this encounter [facility] 08-14-2022 History of Presen t illness Narrative [...] of Care: created on 08/14/22 through 09/18/22 [place] in home exercise program. 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 Self-Longterm Management: 1: Direct education to patient for [...] Noriega PT, DPT documented in this encounter [facility] 08-09-2022 History of Presen t illness Narrative [...] 2022 2:24 PM documented in this encounter [facility] 06-30-2022 History of Presen t illness Narrative [...] 2022 3:01 PM documented in this encounter [facility] 10-25-2021 Miscellaneous Notes Patient notified that he can orange picker L hand splint in medical records. Patient [...] Eneida Todd RN documented in this encounter [facility] 10-24-2021 History of Presen t illness Narrative SUBJECTIVE: HEPATITIS B(1 of 3 - 3-dose series) Never done HEPATITIS C SCREENING Never done LIPID SCREEN due on 2021 HPI Emir Rae is a 36 year old male. PMH signficiant for There is no problem list on file for this patient. Presents today to establish care with Deven Satnillan MD. Previous PCP: reports [facility] Rx Last seen:~ 2years Labwork: no recent ER/Hospitalization: 2019 Outside records: care everywhere Has been seen at [facility] for acute problems since 2020. Reviewed outside medications treated with paxlovid September 01, 2021. Previously treated with acyclovir June, August, September 2021 for recurrent aphthous ulcer since childhood, interested in suppressive therapy. Currently taking acyclovir 400 mg BID. [facility] Jennifer Hubbard for anxiety and depression. Taking bupropion XL 150 mg daily, mg twice daily, hydroxyzine 25 mg 3 [...] screening for STD via diana Edwards to [facility]. Notes suppressive therapy for HSV seems [...] 2 TABLETS BY MOUTH ONCE DAILY NEEDED ggwvjxny-gpb-yrpmr-vit K-lycop (ONE-A-DAY MEN'S MULTIVITAMIN) 400-20-300 mcg tab [...] (FLONASE) 50 mcg/actuation nasal spray Use 1 Alexander in each nostril once daily. meloxicam (MOBIC) [...] 4 - Moderate documented in this encounter [facility] 06-14-2021 Instructions Rossy Valencia APRN.KEEL PRESS OPERATOR - 06/14/2021 12:19 PM EDT The Herpes [...] even between outbreaks. documented in this encounter [facility] 06-14-2021 History of Presen t illness Narrative This note was created using [email or web address]. Subjective Emir Wise Drbell is a 35 [...] history is provided by the patient. No mottler machine feeder was used. Rash This is a recurrent [...] RELIEF) 50 mcg/actuation nasal spray Use 1 Alexander in each nostril once daily. acyclovir (ZOVIRAX) [...] on response. Chart CC to Misa Valencia APRN.KEEL PRESS OPERATOR documented in this encounter [facility] Evaluation note Diagnosis Recurrent aphthous stomatitis- Primary Oral aphthae [facility] Diagnosis Routine medical exam- Primary Routine [...] pain, left Cervicalgia [facility] Diagnosis Neck pain, musculoskeletal- Primary Cervicalgia Chronic bilateral thoracic back pain [facility] Diagnosis Neck pain, musculoskeletal- Primary Cervicalgia Chronic bilateral thoracic back pain [facility] Diagnosis Neck pain, musculoskeletal- Primary Cervicalgia Chronic bilateral thoracic back pain [facility] Diagnosis Onset Date Resolution Status Dermatitis acute Rash noneactive [facility] Work Phone: Evaluation note* Diagnosis Acute GI bleeding- Primary Hemorrhage of gastrointestinal tract, unspecified Kidney stone Calculus of kidney [facility]* Diagnosis Gastrointestinal hemorrhage, unspecified gastrointestinal hemorrhage type- Primary Renal calculus, left Calculus of kidney Hydronephrosis of left kidney Hydronephrosis Neck pain, musculoskeletal Cervicalgia Chronic bilateral thoracic back pain Gastroesophageal reflux disease, unspecified whether esophagitis present [facility]* Diagnosis Chronic bilateral thoracic back pain- Primary Neck pain, musculoskeletal Cervicalgia Cervicalgia documented [facility]* Diagnosis Neck pain, musculoskeletal- Primary Cervicalgia Chronic bilateral thoracic back pain [facility]* Diagnosis Gastrointestinal hemorrhage, unspecified gastrointestinal hemorrhage [...] history of arthritis documented [facility]* Diagnosis Chronic bilateral thoracic back pain- Primary Gastrointestinal hemorrhage, unspecified gastrointestinal hemorrhage type documented [facility]* Diagnosis Plantar fasciitis of left foot- Primary Plantar fascial fibromatosis Left foot pain Pain in limb Tinea pedis of both feet [facility] Diagnosis Mass of both upper extremities- Primary Palpable mass of lower back Mass of left hip region documented [facility]* Diagnosis Left foot pain Pain in limb documented [facility]* Diagnosis Low libido- Primary Decreased libido Fatigue, unspecified type Vitamin D deficiency Unspecified vitamin D deficiency Screening for lipid disorders Screening for depression Encounter for screening examination for other mental health and behavioral disorders documented in this encounter [facility] note* Diagnosis Neck pain, musculoskeletal Cervicalgia Chronic bilateral thoracic back pain documented [facility]* Diagnosis Elevated glucose- Primary Other abnormal glucose [facility]* Diagnosis Vitamin D deficiency- Primary Unspecified vitamin D deficiency [facility] Diagnosis SOBOE (shortness of breath on exertion)- Primary Shortness of breath Non-seasonal allergic rhinitis, unspecified trigger documented in this encounter [facility] note* Diagnosis Chronic bilateral thoracic back pain- Primary Radiculopathy, cervical region Brachial neuritis or radiculitis nos Cervical spondylosis without myelopathy documented in this encounter [facility] note* Diagnosis Non-seasonal allergic rhinitis, unspecified trigger [facility] Additional Instructions Thank you [...] care physician for further outpatient evaluation and management.[facility] Work Phone: Reason for referral (narrative)* Outpatient Procedure (Routine) - Authorized Specialty Diagnoses / Procedures Referred By Stepan martinez Referred To Contact [facility] Diagnoses Acute GI bleeding Procedures COLONOSCOPY DIAGNOSTIC COLONOSCOPY FLX DX W/COLLJ SPEC WHEN PFRMD Tomas Hawkins MD [address] [place] [address] [address] Referral ID Status Reason Start Date Expiration Date Visits Requested Visits Authorized [id number] Authorized Auto-Generat ed Referral 09/07/2022 09/08/2023 1 1 * Outpatient Procedure (Routine) - Authorized Specialty Diagnoses / Procedures Referred By Stepan martinez Referred To Contact [facility] Diagnoses Acute GI bleeding Procedures EGD DIAGNOSTIC ESOPHAGOGASTRODUODENOSC OPY TRANSORAL DIAGNOSTIC Tomas aHwkins MD [address] [address] [facility] [place] [address] [place] [id number] Referral ID Status Reason Start Date Expiration Date Visits Requested Visits Authorized [id number] Authorized Auto-Generat ed Referral 09/07/2022 09/08/2023 1 1 [facility] for referral (narrative)* Diagnostic Procedure Only (Routine) - Authorized Specialty Diagnoses / Procedures Referred By Contac t Referred To Contact [facility] Diagnoses Mass of both upper extremities Procedures US EXTREMITY MASS/FLUID COLLECTION RIGHT Rosario Moffett APRN.KEEL PRESS OPERATOR [address] [place], [place] [id number] [place] [address] Referral ID Status Reason Start Date Expiration Date Visits Requested Visits Authorized [id number] Authorized Auto-Generat ed Referral 08/27/2023 09/25/2024 1 1 * Diagnostic Procedure Only (Routine) - Authorized Specialty Diagnoses / Procedures Referred By Contac t Referred To Contact [facility] Diagnoses Mass of both upper extremities Procedures US EXTREMITY MASS/FLUID COLLECTION LEFT Rosario Moffett APRN.KEEL PRESS OPERATOR [address] [place], [place] [id number] [place] [address] Referral ID Status Reason Start Date Expiration Date Visits Requested Visits Authorized [id number] Authorized Auto-Generat ed Referral 08/27/2023 09/25/2024 1 1 * Diagnostic Procedure Only (Routine) - Authorized Specialty Diagnoses / Procedures Referred By Contac t Referred To Contact [facility] Diagnoses Palpable mass of lower back Procedures US SOFT TISSUE ABDOMEN US ABDOMINAL REAL TIME W/IMAGE LIMITED Rosario Moffett APRN.KEEL PRESS OPERATOR [address] [place] [address] [place] [address] Referral ID Status Reason Start Date Expiration Date Visits Requested Visits Authorized [id number] Authorized Auto-Generat ed Referral 08/27/2023 09/25/2024 1 1 * Diagnostic Procedure Only (Routine) - Authorized Specialty Diagnoses / Procedures Referred By Contac t Referred To Contact [facility] Diagnoses Mass of left hip region Procedures US SOFT TISSUE PELVIS US PELVIC NONOBSTETRIC IMAGE DCMTN LIMITED/F/U Rosario Moffett APRN.KEEL PRESS OPERATOR [address] [place] [address] [place] [address] Referral ID Status Reason Start Date Expiration Date Visits Requested Visits Authorized [id number] Authorized Auto-Generat ed Referral 08/27/2023 09/25/2024 1 1 [facility] for referral (narrative)* Diagnostic Procedure Only (Routine) - Closed Specialty Diagnoses / Procedures Referred By Contac t Referred To Contact [facility] Diagnoses Left foot pain Procedures XR FOOT GENERAL 3V AP/LAT/OBL LEFT RADEX FOOT COMPLETE MINIMUM 3 VIEWS Misa Hager APRN.HALL WORKER [address] [place] [address] [place] [address] Referral ID Status Reason Start Date Expiration Date V isits Requested Visits Authorized [id number] Closed Auto-Generate d Referral 05/24/2023 06/22/2024 1 1 [facility] for referral (narrative)* Diagnostic Procedure Only (Routine) - Closed Specialty Diagnoses / Procedures Referred By Contac t Referred To Contact [facility] Diagnoses Chronic bilateral thoracic back pain Procedures XR THORACIC GENERAL 3V AP/LAT/SWIMMERS RADEX SPINE THORACIC 3 VIEWS Deven Santillan MD [address] [place] [address] [place] [address] Referral ID Status Reason Start Date Expiration Date V isits Requested Visits Authorized [id number] Closed Auto-Generate d Referral 06/30/2022 07/30/2023 1 1 * Diagnostic Procedure Only (Routine) - Closed Specialty Diagnoses / Procedures Referred By Contac t Referred To Contact [facility] Diagnoses Neck pain, musculoskeletal Procedures XR CERV OTHER 4V AP/LAT/OBL RADEX SPINE CERVICAL 4 OR 5 VIEWS Deven Santillan MD [address] [place] [address] [place] [address] Referral ID Status Reason Start Date Expiration Date V isits Requested Visits Authorized [id number] Closed Auto-Generate d Referral 06/30/2022 07/30/2023 1 1 [facility] for visit Narrative* Diagnostic Procedure Only (Routine) - Closed Specialty Diagnoses / Procedures Referred By Contac t Referred To Contact [facility] Diagnoses Left foot pain Procedures XR FOOT GENERAL 3V AP/LAT/OBL LEFT RADEX FOOT COMPLETE MINIMUM 3 VIEWS Misa Hager, SALESPERSON BURIAL NEEDS.HALL WORKER [address] [place] [address] [place] [address] Referral ID Status Reason Start Date Expiration Date V isits Requested Visits Authorized [id number] Closed Auto-Generate d Referral 05/24/2023 06/22/2024 1 1 [facility] for visit Narrative* Diagnostic Procedure Only (Routine) - Closed Specialty Diagnoses / Procedures Referred By Contac t Referred To Contact [facility] Diagnoses Chronic bilateral thoracic back pain Procedures XR THORACIC GENERAL 3V AP/LAT/SWIMMERS RADEX SPINE THORACIC 3 VIEWS Deven Santillan MD [address] [place] [address] [place] [address] Referral ID Status Reason Start Date Expiration Date V isits Requested Visits Authorized [id number] Closed Auto-Generate d Referral 06/30/2022 07/30/2023 [address] 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 Mill Operator No September 04 11:48am Reason for Referral Specialty Diagnoses / Procedures Referred By Contac t Referred To Contact [facility] Diagnoses Cervicalgia Procedures CONSULT TO PHYSICAL THERAPY PHYSICAL THERAPY EVALUATION [facility] COMPLEX 45 MINS Misa Hager, SALESPERSON BURIAL NEEDS.HALL WORKER [address] [place] [address] [facility] [place] [address] [place] [id number] Referral ID Status Reason Start Date Expiration Date Visits Requested Visits Authorized [id number] Pending Review Auto-Generat ed Referral 10/24/2021 10/24/2022 1 1 Specialty Diagnoses / Procedures Referred By Contac t Referred To Contact Orthopedics Diagnoses Chronic wrist pain, left Procedures CONSULT TO ORTHOPAEDICS OFFICE/OUTPATIENT [facility] 60-74 MINUTES Misa Hager, SALESPERSON BURIAL NEEDS.HALL WORKER [address] [place] [address] Referral ID Status Reason Start Date Expiration Date Visits Requested Visits Authorized [id number] Authorized PCP Requested Referral 10/24/2021 10/24/2022 1 1 Specialty Diagnoses / Procedures Referred By Contac t Referred To Contact [facility] Diagnoses Chronic wrist pain, left Procedures XR WRIST GENERAL 3V PA/LAT/OBL LEFT RADEX WRIST COMPLETE MINIMUM 3 VIEWS Misa Hager, SALESPERSON BURIAL NEEDS.HALL WORKER [address] [place] [address] [facility] Referral ID Status Reason Start Date Expiration Date Visits Requested Visits Authorized [id number] Pending Review Auto-Generat ed Referral 10/24/2021 11/23/2022 1 1 Specialty Diagnoses / Procedures Referred By Contac t Referred To Contact [facility] Diagnoses Neck pain, musculoskeletal Chronic bilateral thoracic back pain Procedures PT REHAB FOLLOW UP ORDER THERAPEUTIC EXERCISES RE, EA 15 MIN. Pt [facility] [address] [place] [address] [facility] [place] [facility] [place] [address] Referral ID Status Reason Start Date Expiration Date Visits Requested Visits Authorized [id number] Pending Review PCP Requested Referral Auto-Generate d Referral 08/14/2022 11/12/2022 1 1 Specialty Diagnoses / Procedures Referred By Contac t Referred To Contact Diagnoses Neck pain, musculoskeletal Chronic bilateral thoracic back pain Misa Hager, SALESPERSON BURIAL NEEDS.HALL WORKER [address] [place] [address] Referral ID Status Reason Start Date Expiration Date V isits Requested Visits Authorized [id number] Pending Review 1 1 Specialty Diagnoses / Procedures Referred By Contac t Referred To Contact Gastroenterology Diagnoses Gastrointestinal hemorrhage, unspecified gastrointestinal hemorrhage type Procedures CONSULT TO GASTROENTEROLOGY OFFICE/OUTPATIENT [facility] 60-74 MINUTES Misa Hager, SALESPERSON BURIAL NEEDS.HALL WORKER [address] [place] [address] Referral ID Status Reason Start Date Expiration Date Visits Requested Visits Authorized [id number] Authorized PCP Requested Referral 09/07/2022 09/07/2023 1 1 Specialty Diagnoses / Procedures Referred By Contac t Referred To Contact [facility] [place] Diagnoses Chronic bilateral thoracic back pain Neck pain, musculoskeletal Cervicalgia Procedures CONSULT TO [facility] OFFICE/OUTPATIENT [facility] 60-74 MINUTES Misa Hager, SALESPERSON BURIAL NEEDS.HALL WORKER [address] [place] [address] Referral ID Status Reason Start Date Expiration Date Visits Requested Visits Authorized [id number] Authorized PCP Requested Referral 09/08/2022 09/08/2023 1 1 Specialty Diagnoses / Procedures Referred By Contac t Referred To Contact [facility] [place] Diagnoses Neck pain, musculoskeletal Chronic bilateral thoracic back pain Procedures CONSULT TO SPINE [facility]ICAL [facility] OFFICE/OUTPATIENT [facility] 60-74 MINUTES HagerMisa mccormack, SALESPERSON BURIAL NEEDS.HALL WORKER [address] [place] [address] Referral ID Status Reason Start Date Expiration Date Visits Requested Visits Authorized [id number] Authorized PCP Requested Referral 01/01/2023 01/01/2024 1 1 Referral ID Status Reason Start Date Expiration Date Visits Re quested Visits Authorized [id number] Denied 1 1 Specialty Diagnoses / Procedures Referred By Contac t Referred To Contact Diagnoses Neck pain, musculoskeletal Chronic bilateral thoracic back pain Procedures CONSULT TO MASSAGE THERAPY OFFICE/OUTPATIENT NEW HIGH MDM 60-74 MINUTES Misa Hager, SALESPERSON BURIAL NEEDS.HALL WORKER [address] [place] [address] Referral ID Status Reason Start Date Expiration Date Visits Requested Visits Authorized [id number] Pending Review PCP Requested Referral 01/01/2023 01/01/2024 1 1 Chief Complaint and Reason for Visit Chief Complaint Rash GI BLEED Reason for Visit Dermatitis Rash Additional Source Comments (unrecognized sect ion and content) No Status Records FoundNo Status Records FoundNo Status Records FoundNo Status Records Found INFORMATION SOURCE (unrecogn ized section and content) DATE CREATED AUTHOR 09/24/2017 [facility] DATE CREATED AUTHOR AUTHOR'S ORGANIZ ATION 05/15/2020 [facility] DATE CREATED AUTHOR AUTHOR'S ORGANIZ ATION 09/08/2022 [facility] DATE CREATED AUTHOR AUTHOR'S ORGANIZ ATION 09/15/2024 [facility] Source Comments (unrecognize d section and content) In the event this informatio n is protected by the Federal Confidentiality of Alcohol and Drug Abuse Patient Records regulations: The Federal rules restrict any use of the information to criminally investigate or prosecute any alcohol or drug abuse patient.[facility] the event this information is protected by the Federal Confidentiality of Alcohol and Drug Abuse Patient Records regulations: The Federal rules restrict any use of the information to criminally investigate or prosecute any alcohol or drug abuse patient.[facility] the event this information is protected by the Federal Confidentiality of Alcohol and Drug Abuse Patient Records regulations: The Federal rules restrict any use of the information to criminally investigate or prosecute any alcohol or drug abuse patient.[facility] the event this information is protected by the Federal Confidentiality of Alcohol and Drug Abuse Patient Records regulations: The Federal rules restrict any use of the information to criminally investigate or prosecute any alcohol or drug abuse patient.[facility] CenterIn the event this information is protected by the Federal Confidentiality of Alcohol and Drug Abuse Patient Records regulations: The Federal rules restrict any use of the information to criminally investigate or prosecute any alcohol or drug abuse patient.[facility] CenterIn the event this information is protected by [...] or prosecute any alcohol or drug abuse patient.[facility] CenterIn the event this information is protected by the Federal Confidentiality of Alcohol and Drug Abuse Patient Records regulations: The Federal rules restrict any use of the information to criminally investigate or prosecute any alcohol or drug abuse patient.[facility] CenterIn the event this information is protected by the Federal Confidentiality of Alcohol and Drug Abuse Patient Records regulations: The Federal rules restrict any use of the information to criminally investigate or prosecute any alcohol or drug abuse patient.[facility] CenterIn the event this information is protected by the Federal Confidentiality of Alcohol and Drug Abuse Patient Records regulations: The Federal rules restrict any use of the information to criminally investigate or prosecute any alcohol or drug abuse patient.[facility] CenterIn the event this information is protected by the Federal Confidentiality of Alcohol and Drug Abuse Patient Records regulations: The Federal rules restrict any use of the information to criminally investigate or prosecute any alcohol or drug abuse patient.[facility] CenterIn the event this information is protected by the Federal Confidentiality of Alcohol and Drug Abuse Patient Records regulations: The Federal rules restrict any use of the information to criminally investigate or prosecute any alcohol or drug abuse patient.[facility] CenterIn the event this information is protected by the Federal Confidentiality of Alcohol and Drug Abuse Patient Records regulations: The Federal rules restrict any use of the information to criminally investigate or prosecute any alcohol or drug abuse patient.[facility] CenterIn the event this information is protected by the Federal Confidentiality of Alcohol and Drug Abuse Patient Records regulations: The Federal rules restrict any use of the information to criminally investigate or prosecute any alcohol or drug abuse patient.[facility] CenterIn the event this information is protected by the Federal Confidentiality of Alcohol and Drug Abuse Patient Records regulations: The Federal rules restrict any use of the information to criminally investigate or prosecute any alcohol or drug abuse patient.[facility] CenterIn the event this information is protected by the Federal Confidentiality of Alcohol and Drug Abuse Patient Records regulations: The Federal rules restrict any use of the information to criminally investigate or prosecute any alcohol or drug abuse patient.[facility] CenterIn the event this information is protected by the Federal Confidentiality of Alcohol and Drug Abuse Patient Records regulations: The Federal rules restrict any use of the information to criminally investigate or prosecute any alcohol or drug abuse patient.[facility] CenterIn the event this information is protected by the Federal Confidentiality of Alcohol and Drug Abuse Patient Records regulations: The Federal rules restrict any use of the information to criminally investigate or prosecute any alcohol or drug abuse patient.[facility] CenterIn the event this information is protected by the Federal Confidentiality of Alcohol and Drug Abuse Patient Records regulations: The Federal rules restrict any use of the information to criminally investigate or prosecute any alcohol or drug abuse patient.[facility] CenterIn the event this information is protected by the Federal Confidentiality of Alcohol and Drug Abuse Patient Records regulations: The Federal rules restrict any use of the information to criminally investigate or prosecute any alcohol or drug abuse patient.[facility] CenterIn the event this information is protected by the Federal Confidentiality of Alcohol and Drug Abuse Patient Records regulations: The Federal rules restrict any use of the information to criminally investigate or prosecute any alcohol or drug abuse patient.[facility] CenterIn the event this information is protected by the Federal Confidentiality of Alcohol and Drug Abuse Patient Records regulations: The Federal rules restrict any use of the information to criminally investigate or prosecute any alcohol or drug abuse patient.[facility] CenterIn the event this information is protected by the Federal Confidentiality of Alcohol and Drug Abuse Patient Records regulations: The Federal rules restrict any use of the information to criminally investigate or prosecute any alcohol or drug abuse patient.[facility] CenterIn the event this information is protected by the Federal Confidentiality of Alcohol and Drug Abuse Patient Records regulations: The Federal rules restrict any use of the information to criminally investigate or prosecute any alcohol or drug abuse patient.[facility] CenterIn the event this information is protected by the Federal Confidentiality of Alcohol and Drug Abuse Patient Records regulations: The Federal rules restrict any use of the information to criminally investigate or prosecute any alcohol or drug abuse patient.[facility] CenterIn the event this information is protected by the Federal Confidentiality of Alcohol and Drug Abuse Patient Records regulations: The Federal rules restrict any use of the information to criminally investigate or prosecute any alcohol or drug abuse patient.[facility] CenterIn the event this information is protected by the Federal Confidentiality of Alcohol and Drug Abuse Patient Records regulations: The Federal rules restrict any use of the information to criminally investigate or prosecute any alcohol or drug abuse patient.[facility] CenterIn the event this information is protected by the Federal Confidentiality of Alcohol and Drug Abuse Patient Records regulations: The Federal rules restrict any use of the information to criminally investigate or prosecute any alcohol or drug abuse patient.[facility] CenterIn the event this information is protected by the Federal Confidentiality of Alcohol and Drug Abuse Patient Records regulations: The Federal rules restrict any use of the information to criminally investigate or prosecute any alcohol or drug abuse patient.[facility] CenterIn the event this information is protected by the Federal Confidentiality of Alcohol and Drug Abuse Patient Records regulations: The Federal rules restrict any use of the information to criminally investigate or prosecute any alcohol or drug abuse patient.[facility] CenterIn the event this information is protected by the Federal Confidentiality of Alcohol and Drug Abuse Patient Records regulations: The Federal rules restrict any use of the information to criminally investigate or prosecute any alcohol or drug abuse patient.[facility] CenterIn the event this information is protected by the Federal Confidentiality of Alcohol and Drug Abuse Patient Records regulations: The Federal rules restrict any use of the information to criminally investigate or prosecute any alcohol or drug abuse patient.[facility] CenterIn the event this information is protected by the Federal Confidentiality of Alcohol and Drug Abuse Patient Records regulations: The Federal rules restrict any use of the information to criminally investigate or prosecute any alcohol or drug abuse patient.[facility] Reason for Visit (unrecogniz ed section and [...] COMPLEX 45 MINS Deven Santillan MD [address] [place] [address] Pt [facility] [address] [place] [address] Referral ID Status Reason Start Date Expiration Date V isits Requested Visits Authorized [id number] Authorized 02/26/2022 02/25/2023 60 60 Reason Comments Physical Therapy Specialty Diagnoses / Procedures Referred By Contac t Referred To Contact PHYSICAL THERAPY Diagnoses Neck pain, musculoskeletal Chronic bilateral thoracic back pain Procedures CONSULT TO PHYSICAL THERAPY PHYSICAL THERAPY EVALUATION HIGH COMPLEX 45 MINS Deven Santillan MD [address] [place] [address] Pt [facility] [address] [place] [address] Reason Comments Consult GI bleed, 09/04/22 CT images [facility] requested to be pushed. Reason Comments [...] NEW HIGH MDM 60 MINUTES Misa Hager, JERZY.HALL WORKER [address] [place] [address] Referral ID Status Reason Start Date Expiration Date V isits Requested Visits Authorized [id number] Closed PCP Requested Referral 05/24/2023 05/23/2024 1 1 Reason Comments Derm Problem skin lesion x 6 One of the lesions is painful when touched Reason Comments Lab Orders interested in testos terone testing due to low sex drive Reason Onset Date Comments Refill Request 05/19/2024 Reason Comments Spirometry Specialty Diagnoses / Procedures Referred By Stepan martinez Referred To [facility] Diagnoses SOBOE (shortness of breath on exertion) Non-seasonal allergic rhinitis, unspecified trigger Procedures SPIROMETRY WITH DILATOR IF OBSTRUCTED BRNCDILAT RSPSE SPMTRY PRE&POST-BRNCDILAT ADMN Misa Hager, SALESPERSON [employer].HALL WORKER [address] [place] [address] Phone: tel: fax: [facility] [address] [place] [address] Referral ID Status Reason Start Date Expiration Date V isits Requested Visits Authorized [id number] Closed Auto-Generate d Referral 06/26/2024 02/25/2025 1 1 Reason Comments New Patient Neck Pain Pain (Shoulder Pain) left Back Pain (Upper Back) Arm Pain left Specialty Diagnoses / Procedures Referred By Stepan martinez Referred To Contact [facility] / SPINE Diagnoses Chronic bilateral thoracic back pain Procedures [facility]ULT TO [facility] OFFICE/OUTPATIENT NEW HIGH MDM 60 MINUTES Misa Hager, SALESPERSON [employer].HALL WORKER [address] [place] [address] Phone: tel: fax: [facility] [address] [place] [address] Phone: tel: Referral ID Status Reason Start Date Expiration Date V isits Requested Visits Authorized [id number] Closed PCP Requested Referral 08/14/2024 02/25/2025 1 1 Reason Onset Date Comments Refill Request 09/10/2024 Reason Onset Date Comments Refill Request 09/27/2024 Care Teams (unrecognized sec tion and content) Project Surveyor Relationship Specialty Start Date End Date Deven Santillan MD [address] [place] [address] PCP - General Internal Medicine 10/24/21 Project Surveyor Relationship Specialty [place] [address] [place] [address] [place] [address] PCP - General Internal Medicine 10/24/21 Project Surveyor Relationship Specialty Start Date End Date Deven Santillan MD [address] [facility] [place] [address] PCP - General Internal Medicine 10/24/21 Project Surveyor Relationship Specialty Start Date End Date Deven Santillan MD [address] [place] [address] PCP - General Internal Medicine 10/24/21 Project Surveyor Relationship Specialty Start Date End Date Deven Santillan MD [address] [place] [address] PCP - General Internal Medicine 10/24/21 Project Surveyor Relationship Specialty Start Date End Date Deven Santillan MD [address] [place] [address] PCP - General Internal Medicine 10/24/21 Project Surveyor Relationship Specialty Start Date End Date Deven Santillan MD [address] [place] [address] PCP - General Internal Medicine 10/24/21 Team Status: Active Member Role Status Dates Dr. Deven Santillan MD Primary Care Provider Active Team Status: Inactive Member Role Status Dates [facility] Primary Care Provider, Referring Provider Active Gissell CAVANAUGH, PA Attending Provider Active Team Status: Inactive Member Role Status Dates Dr. Filiberto Power DO Emergency Provider Active Dr. Deven Santillan MD Primary Care Provider Active Project Surveyor Relationship Specialty Start Date End Date Deven Santillan MD [address] [place] [address] PCP - General Internal Medicine 10/24/21 Project Surveyor Relationship Specialty Start Date End Date Deven Santillan MD [address] [facility] [place] [address] PCP - General Internal Medicine 10/24/21 Project Surveyor Relationship Specialty Start Date End Date Deven Santillan MD [address] [facility] [place] [address] PCP - General Internal Medicine 10/24/21 Project Surveyor Relationship Specialty Start Date End Date Deven Santillan MD [address] [facility] [place] [address] PCP - General Internal Medicine 10/24/21 Project Surveyor Relationship Specialty Start Date End Date Deven Santillan MD [address] [facility] [place] [address] PCP - General Internal Medicine 10/24/21 Project Surveyor Relationship Specialty Start Date End Date Deven Santillan MD [address] [facility] [place] [address] PCP - General Internal Medicine 10/24/21 Project Surveyor Relationship Specialty Start Date End Date Deven Santillan MD [address] [facility] [place] [address] PCP - General Internal Medicine 10/24/21 Project Surveyor Relationship Specialty Start Date End Date Deven Santillan MD [address] [facility] [place] [address] PCP - General Internal Medicine 10/24/21 Project Surveyor Relationship Specialty Start Date End Date Deven Santillan MD [address] [facility] [place] [address] PCP - General Internal Medicine 10/24/21 Project Surveyor Relationship Specialty Start Date End Date Deven Santillan MD [address] [place] [address] PCP - General Internal Medicine 10/24/21 Project Surveyor Relationship Specialty Start Date End Date Deven Santillan MD [address] [place] [address] PCP - General Internal Medicine 10/24/21 Project Surveyor Relationship Specialty Start Date End Date Deven Santillan MD [address] [place] [address] PCP - General Internal Medicine 10/24/21 Project Surveyor Relationship Specialty Start Date End Date Deven Santillan MD [address] [place] [address] PCP - General Internal Medicine 10/24/21 Project Surveyor Relationship Specialty Start Date End Date Deven Santillan MD [address] [place] [address] PCP - General Internal Medicine 10/24/21 Project Surveyor Relationship Specialty Start Date End Date Deven Santillan MD [address] [place] [address] PCP - General Internal Medicine 10/24/21 Project Surveyor Relationship Specialty Start Date End Date Deven Santillan MD [address] [place] [address] PCP - General Internal Medicine 10/24/21 Project Surveyor Relationship Specialty Start Date End Date Deven Santillan MD [address] [place] [address] PCP - General Internal Medicine 10/24/21 Misa Hager, JERZY.HALL WORKER [address] [place] [address] Skidder Lever Operator Internal Medicine 02/04/24 Project Surveyor Relationship Specialty Start Date End Date Deven Santillan MD [address] [place] [address] PCP - General Internal Medicine 10/24/21 Misa Hager, JERZY.HALL WORKER [address] [place] [address] Skidder Lever Operator Internal Medicine 02/04/24 Rosario Moffett SALESPERSON B[employer]IAL NEEDS.KEEL PRESS OPERATOR [address] [place] [address] Skidder Lever Operator Internal Medicine 05/20/24 Project Surveyor Relationship Specialty Start Date End Date Deven Santillan MD [address] [place] [address] PCP - General Internal Medicine 10/24/21 Misa Hager, SALESPERSON BURIAL NEEDS.HALL WORKER [address] [place] [address] Skidder Lever Operator Internal Medicine 02/04/24 07/15/24 Rosario Moffett SALESPERSON BURIAL NEEDS.KEEL PRESS OPERATOR [address] [place] [address] Skidder Lever Operator Internal Medicine 05/20/24 Misa Hager, SALESPERSON BURIAL NEEDS.HALL WORKER [address] [place] [address] Skidder Lever Operator Internal Medicine 07/16/24 Project Surveyor Relationship Specialty Start Date End Date Deven Santillan MD [address] [facility] [place] [address] PCP - General Internal Medicine 10/24/21 Rosario Moffett APRN.KEEL PRESS OPERATOR [address] [facility] [place] [address] Skidder Lever Operator Internal Medicine 05/20/24 Misa Hager APRN.HALL WORKER [address] [facility] [place] [address] Skidder Lever Operator Internal Medicine 07/16/24 Project Surveyor Relationship Specialty Start Date End Date Deven Santillan MD [address] [facility] [place] [address] PCP - General Internal Medicine 10/24/21 Rosario Moffett APRN.KEEL PRESS OPERATOR [address] [facility] [place] [address] Skidder Lever Operator Internal Medicine 05/20/24 Misa Hager, SALESPERSON B[employer]IAL NEEDS.HALL WORKER [address] [facility] [place] [address] Skidder Lever Operator Internal Medicine 07/16/24 Project Surveyor Relationship Specialty Start Date End Date Deven Santillan MD [address] [facility] [place] [address] PCP - General Internal Medicine 10/24/21 Rosario Moffett SALESPERSON BURIAL NEEDS.KEEL PRESS OPERATOR [address] [facility] [place] [address] Skidder Lever Operator Internal Medicine 05/20/24 HagerMisa APRN.[facility] [address] [place] [address] [facility] Internal Medicine 07/16/24 Goals (unrecognized section and [...] BE BASED ON THE PRIMARY CLINICAL RECORDS. [facility] [employer] [facility]. provides no warranty or guarantee of the accuracy or completeness of information in this document.
--- OUTSIDE RECORDS SUMMARY | 2024-10-25 14:53 | XMS RPT_ITS | CCD ---
Author Organization [facility] Care Team Providers Care Hide Washer Name Role Phone Derek Birmingham Unavailable Unavailable PROVIDER, UNKNOWN Unavailable Unavailable No, PCP Unavailable Unavailable Unavailable Primary Care Provider Unavailabl e Deven Santillan MD Primary Care Provider Deven Santillan MD Primary Care Provider [facility], Linda Chaney Primary Care Pro vider [facility], Linda Chaney Referring Provid er MAO Wells Attending Provider [facility], Linda Chaney Primary Care Unavailable [facility], Linda Chaney Referring Unavailable Gissell Wells Attending Unavail able Filiberto Power Attending Unavailable Talampdung, Deven D Primary Care Unavailable Deven Santillan MD Primary Care Provider Hager MANAGER CAMP.BROOM HANDLE DIPPER, Misa Unavailable Vishal MANAGER CAMP.ELECTRONIC REPAIR TROUBLESHOOTER, Rosario Unavailable Hager MANAGER CAMP.BROOM HANDLE DIPPER, Misa Unavailable Hager MANAGER CAMP.BROOM HANDLE DIPPER, Misa Unavailable HAGER, MISA Attending Unavailable HAGER, [...] source) Mold Extract Drug Allergy 2 Unknown [facility] Pollen (1 source) Pollen Substance Allergy 2 Unknown [facility] (20 sources) Mold Extract; Translations: [MOLD] Drug Allergy 2 Unknown [facility] Work Phone: (20 sources) Pollen; Translations: [POLLEN EXTRACTS] Drug Allergy 2 Unknown [facility] Work Phone: (20 sources) Seasonal allergy; Translations: [SEASONAL ALLERGIES] Allergy to substance 2 Other: See Comments [facility] Work Phone: (20 sources) Cat Dander; Translations: [CAT DANDER] Drug Allergy 2 Other: See Comments [facility] Work Phone: Medications Current Medications Medication Drug [...] by cindy th two times a day. [id number] 200 actuat albuterol 0.09 mg/actuat metered dose [...] (FLONASE) 50 mcg/actuation nasal spray Use 1 [place] in each nostril once daily. Active Comment on above: Use 1 [place] in each nostril once daily. hydrOXYzine hydrochloride [...] old patch prior to placing new patch. idjmoirl-vey-kobp c-vit K-lycop (ONE-A-DAY MEN'S MULTIVITAMIN) 400-20-300 mcg tab (20 sources) pspwqwrf-zun-wzu ic-vit K-lycop (ONE-A-DAY MEN'S MULTIVITAMIN) 400-20-300 mcg tab Take by mouth. Active vjovfwvp-nyu-wuj ic-vit K-lycop (ONE-A-DAY MEN'S MULTIVITAMIN) 400-20-300 mcg [...] on above: Take 1 capsule by mo [facility] daily before breakfast. oxyCODONE hydrochloride 5 mg [...] above: Take by mouth. polyethylene glycol 3350 [id number] mg / potassium chloride 2970 mg / sodium bicarbonate 6740 mg / sodium chloride 5860 mg / sodium sulfate 24044 mg powder for oral solution (1 source) [...] on above: TAKE 2 TABLETS BY [facility] HOURS FOR 1 DAY WHEN [...] Test Name Value Interpretation Reference [facility]SPNMED ) EMIR [id number]) 1985 M Date Time Provider Department 09/11/24 2:20 PM JOSE J HORN SPNMED During your visit today, we recorded the following information about you: Pulse Blood pressure Weight Height 87/minute 118/73 110.6 kg 1.88 m Jose J Horn PA-C 09/11/2024 3:05 PM Signed Jose J Horn [facility]-C [facility] [address] [address] 09/11/2024 ASSESSMENT AND PLAN: Assessment : Encounter [...] today with this patient visit. This includes jbai-jj-ppvy time, review of chart records regarding conservative care history, spine-pertinent imaging, and communication/care coordination with referring provider, problem-specific history-taking and counseling/education regarding treatment options. cc: Misa Hager [address] [place] [address] Results of consultation to be transmitted via electronic medical record for those providers who practice within [facility] or with access to [employer] via MD Connect, or via letter. (more content not included)... Normal [facility] CNOVon 07-17-2024 CNOV Office Visit (INTMWS ) EMIR RAE ([id number]) 1985 M Date Time Provider Department 07/17/24 1:40 PM MISA HAGER INTMWS During your visit today, we recorded the following information about you: Pulse Respiration Blood pressure Weight 87/minute 16/minute 119/74 113 kg Misa Hager, JERZY.BROOM HANDLE DIPPER 07/17/2024 2:41 PM Signed Subjective Patient ID: [...] recommended stretches. - Has not seen a aviation technical systems specialist due to insurance and cost issues. [...] to person, place, and time. Latest Ref [facility] 12/27/2023 WBC 3.70 - 11.00 k/uL 6.98 [...] Abs Lymph 1.00 - 4.00 k/uL 2.11 Hettinger% % 7.4 Abs [place]ting[place] <0.87 k/uL 0.52 Eosin% % 1.3 Abs [...] 80.0 ng (more content not included)... Normal [facility] SPIROMETRY WITH DILATOR IF O BSTRUCTEDon 06-26-2024 FEF25% PRE (L/S) 7.09 L[facility] GXN82-74% LLN (L/S) 2.76 L/S [facility] AHB64-08% PRE (L/S) 3.21 L/S [facility] TUQ46-46% PREDICTED (L/S) 4.65 L/S [facility] FEF75% LLN (L/S) 0.92 L/S [facility] FEF75% PRE (L/S0 1.08 L/S [facility] FEF75% PREDICTED (L/S) 1.84 L/S [facility] FEF75% ULN (L/S) 3.48 L/S [facility] FET PRE (S) 14.24 S [facility] FEV1 LLN (L) 3.58 L [facility] FEV1 PRE (L) 4.45 L [facility] FEV1 PREDICTED (L) 4.66 L [facility] FEV1 ULN (L) 5.68 L [facility] FEV1/FVC LLN (%) 70 % [facility] FEV1/FVC PRE (%) 71 % [facility] FEV1/FVC PREDICTED (%) 81 % [facility] FVC LLN (L) 4.47 L [facility] FVC PRE (L) 6.25 L [facility] FVC PREDICTED (L) 5.79 L [facility] FVC ULN (L) 7.13 L [facility] PEF LLN (L/S) 8.57 L/S [facility] PEF PRE (L/S) 8.92 L/S [facility] PEF ULN (L/S) 13.77 L/S [facility] [address] [place] [address] Test Date: 2024-06-26 Pat Name: EMIR RAE Department: Room: Gender: Male Ginseng Farmer: : 1985 Requested By: Order Number: [id number] Reading MD: Pippa Servin MD Interpretive Statements The two largest FVC's and FEV1's are repeatable. //KM IMPRESSION: Spirometry is normal. Electronically Signed On 06-26-2024 12:50:06 EDT by Pippa Servin MD ID: [id number] Name: BUTCHEMIR Race: White Ht: 74.13 in [...] FIF50 6.15 FEF50/FIF50 0.69 90-100 FIVC 6.20 SRX76-25 3.21 2.76 4.65 7.03 69 -1.21 ExpiredTime 14.24 TimeToFEFMax 0.13 RAINA 0.13 VolExtrap% 2 Comments: The two largest FVC's and FEV1's are repeatable. //KM PULMONARY FUNCTION LAB [facility] SPIROMETRY WITH DILATOR IF OBSTRUCTED [facility] [address] [address] Test Date: 2024-06-26 Pat Name: EMIR BUTCH Department: Room: Gender: Male Ginseng Farmer: : 1985 Requested By: Order Number: [id number] Reading MD: Pippa Servin MD Interpretive Statements The two largest FVC's and FEV1's are repeatable. //KM IMPRESSION: Spirometry is normal. Electronically Signed On 06-26-2024 12:50:06 EDT by Pippa Servin MD ID: [id number] Name: EMIR RAE Race: White Ht: 74.13 [...] FIF50 6.15 FEF50/FIF50 0.69 90-100 FIVC 6.20 AKS65-76 3.21 2.76 4.65 7.03 69 -1.21 ExpiredTime [...] 81 % FEV1/FVC_LLN (%) : 70 % AWX63_WYY (L/S) : 7.09 L/S ZXW08_GAJ (L/S) : 1.08 L/S BTU36_YJAO (L/S) : 1.84 L/S HMY09_ZTI (L/S) : 0.92 L/S CZK24_HGC (L/S) : 3.48 L/S JLL23-44%_PRE (L/S) : 3.21 L/S TGM77-52%_PRED (L/S) : 4.65 L/S REY06-18%_LLN (L/S) : 2.76 L/S PEF_PRE (L/S) : 8.92 L/S PEFMAX_LLN (L/S) : 8.57 L/S PEFMAX_ULN (L/S) : 13.77 L/S FET_PRE (S) : 14.24 S Normal [facility] CNOVon 06-19-2024 CNOV Office Visit (INTMWS ) EMIR RAE ([id number]) 1985 M Date Time Provider Department 06/19/24 [...] Anxiety and Depression: - Managed by Jennifer [facility] - Taking buspirone and Wellbutrin. - Reports [...] Abs Lymph 1.00 - 4.00 k/uL 2.11 Hettinger% % 7.4 Abs [place] <0.87 k/uL 0.52 Eosin% % 1.3 Abs [...] 71 H (more content not included)... [facility]INTMWS[facility] EMIR RAE ([id number]) 1985 M Date Time Provider Department 12/28/23 [...] Date Reviewed: 11/08/2023 Reviewed by: Rosario Moffett APRN.ELECTRONIC REPAIR TROUBLESHOOTER - Fully Assessed Primary Visit Diagnosis:Elevated glucose [R73.09] Order(s):HEMOGLOBIN A1C [DAKIE9S] Order #: [id number] FUTURE Prescriptions as of 12/28/2023 - tiZANidine [...] TABLETS BY MOUTH ONCE DAILY NEEDED - kggujjyt-frx-csvmu-vit K-lycop (ONE-A-DAY MEN'S MULTIVITAMIN) 400-20-300 mcg tab [...] (FLONASE) 50 mcg/actuation nasal spray Use 1 [place] in each nostril once daily. Problem List As Of Date 12/28/2023 Noted Resolved Neck pain, musculoskeletal [M54.2] 08/14/2022 Chronic bilateral thoracic back pain [M54.6, G8*08/14/2022 Encounter Status:Closed by SHIRLEY MOTLEY on 12/28/23 Normal [facility] 25(OH)D3 [facility] 2023 25-hydroxyvitamin D3 [Mass/Vol] 30.1 ng/mL Low 31.0-80.0 [facility] Comment on above: Order Comment: Speci men Type: BLOOD SPECIMEN Ordering Facility: [facility] Address: [address] [place] [address] Result Comment: Clas sification of 25 [place] Vitamin D status: Deficiency/Insufficiency: < or = 30 ng/ml. Sufficiency/Optimal Levels: 31-80 ng/mL Toxicity: > 100 ng/mL. Test performed by chemiluminescent immunoassay. Performed By: #### 5 0190-8, 64003-6, 3016-3, 26945-4 #### [facility] CLIA [id number] [address] [place] [address] [place] CBC W Auto Differential pane l (Bld)on 12-27-2023 Basophils (Bld) [#/Vol] 0.04 10*3/uL Normal <0.11 [facility] Comment on above: Order Comment: Speci men Type: BLOOD SPECIMEN Ordering Facility: [facility] Address: [address] [place] [address] Performed By: #### 5 7021-8, 38658-9 #### [facility] CLIA [id number] [address] [place] [address] [place] Basophils/100 WBC (Bld) 0.6 % Normal [facility] Comment on above: Order Comment: Speci men Type: BLOOD SPECIMEN Ordering Facility: [facility] Address: [address] [place] [address] Performed By: #### 5 7021-8, 90829-1 #### [facility] CLIA [id number] [address] [place] [address] [place] Differential cell count method Nom (Bld) Auto Normal [facility] Comment on above: Order Comment: Speci men Type: BLOOD SPECIMEN Ordering Facility: [facility] Address: [address] [place] [address] Performed By: #### 5 7021-8, 85613-5 #### [facility] CLIA [id number] [address] [place] [address] [place] Eosinophils (Bld) [#/Vol] 0.09 10*3/uL Normal <0.46 [facility] Comment on above: Order Comment: Speci men Type: BLOOD SPECIMEN Ordering Facility: [facility] Address: [address] [place] [address] Performed By: #### 5 7021-8, 75377-8 #### [facility] CLIA [id number] [address] [place] [address] [place] Eosinophils/100 WBC (Bld) 1.3 % Normal [facility] Comment on above: Order Comment: Speci men Type: BLOOD SPECIMEN Ordering Facility: [facility] Address: [address] [place] [address] Performed By: #### 5 7021-8, 34463-9 #### [facility] CLIA [id number] [address] [place] [address] [place] Erythrocyte distribution width (RBC) [Ratio] 13.5 % Normal 11.5-15.0 [facility] Comment on above: Order Comment: Speci men Type: BLOOD SPECIMEN Ordering Facility: [facility] Address: [address] [place] [address] Performed By: #### 5 7021-8, 24659-8 #### [facility] CLIA [id number] [address] [place] [address] [place] Hematocrit (Bld) [Volume fraction] 49.3 % Normal 39.0-51.0 [facility] Comment on above: Order Comment: Speci men Type: BLOOD SPECIMEN Ordering Facility: [facility] Address: [address] [place] [address] Performed By: #### 5 7021-8, 52227-4 #### [facility] CLIA [id number] [address] [place] [address] [place] Hemoglobin (Bld) [Mass/Vol] 16.3 g/dL Normal 13.0-17.0 [facility] Comment on above: Order Comment: Speci men Type: BLOOD SPECIMEN Ordering Facility: [facility] Address: [address] [place] [address] Performed By: #### 5 7021-8, 84605-8 #### [facility] CLIA [id number] [address] [place] [address] [place] Immature granulocytes (Bld) [#/Vol] 0.07 10*3/uL Normal <0.10 [facility] Comment on above: Order Comment: Speci men Type: BLOOD SPECIMEN Ordering Facility: [facility] Address: [address] [place] [address] Performed By: #### 5 7021-8, 85948-3 #### [facility] CLIA [id number] [address] [place] [address] [place] Immature granulocytes/100 WBC (Bld) 1.0 % Normal [facility] Comment on above: Order Comment: Speci men Type: BLOOD SPECIMEN Ordering Facility: [facility] Address: [address] [place] [address] Performed By: #### 5 7021-8, 05442-0 #### [facility] CLIA [id number] [address] [place] [address] [place] Lymphocytes (Bld) [#/Vol] 2.11 10*3/uL Normal 1.00-4.00 [facility] Comment on above: Order Comment: Speci men Type: BLOOD SPECIMEN Ordering Facility: [facility] Address: [address] [place] [address] Performed By: #### 5 7021-8, 56490-6 #### [facility] CLIA [id number] [address] [place] [address] [place] Lymphocytes/100 WBC (Bld) 30.2 % Normal [facility] Comment on above: Order Comment: Speci men Type: BLOOD SPECIMEN Ordering Facility: [facility] Address: [address] [place] [address] Performed By: #### 5 7021-8, 47144-2 #### [facility] CLIA [id number] [address] [place] [address] [place] MCH (RBC) [Entitic mass] 29.0 pg Normal 26.0-34.0 [facility] Comment on above: Order Comment: Speci men Type: BLOOD SPECIMEN Ordering Facility: [facility] Address: [address] [place] [address] Performed By: #### 5 7021-8, 69754-7 #### [facility] CLIA [id number] [address] [place] [address] [place] MCHC (RBC) [Mass/Vol] 33.1 g/dL Normal 30.5-36.0 [facility] Comment on above: Order Comment: Speci men Type: BLOOD SPECIMEN Ordering [facility] Address: [address] [place] [address] Performed By: #### 5 7021-8, 48978-5 #### [facility] CLIA [id number] [address] [place] [address] [place] MCV (RBC) [Entitic vol] 87.7 fL Normal 80.0-100.0 [facility] Comment on above: Order Comment: Speci men Type: BLOOD SPECIMEN Ordering [facility] Address: [address] [place] [address] Performed By: #### 5 7021-8, 80332-3 #### [facility] CLIA [id number] [address] [place] [address] [place] Monocytes (Bld) [#/Vol] 0.52 10*3/uL Normal <0.87 [facility] Comment on above: Order Comment: Speci men Type: BLOOD SPECIMEN Order[facility] Address: [address] [place] [address] Performed By: #### 5 7021-8, 38910-8 #### [facility] CLIA [id number] [address] [place] [address] [place] Monocytes/100 WBC (Bld) 7.4 % Normal [facility] Comment on above: Order Comment: Speci men Type: BLOOD SPECIMEN Order[facility] Address: [address] [place] [address] Performed By: #### 5 7021-8, 78238-3 #### [facility] CLIA [id number] [address] [place] [address] [place] Neutrophils (Bld) [#/Vol] 4.15 10*3/uL Normal 1.45-7.50 [facility] Comment on above: Order Comment: Speci men Type: BLOOD SPECIMEN Order[facility] Address: [address] [place] [address] Performed By: #### 5 7021-8, 00161-2 #### [facility] CLIA [id number] [address] [place] [address] [place] Neutrophils/100 WBC (Bld) 59.5 % Normal [facility] Comment on above: Order Comment: Speci men Type: BLOOD SPECIMEN Order[facility] Address: [address] [place] [address] Performed By: #### 5 7021-8, 76414-2 #### [facility] CLIA [id number] [address] [place] [address] [place] Nucleated RBC (Bld) [#/Vol] 10*3/uL Normal <0.01 [facility] Comment on above: Order Comment: Speci men Type: BLOOD SPECIMEN Order[facility] Address: [address] [place] [address] Performed By: #### 5 7021-8, 38633-3 #### [facility] CLIA [id number] [address] [place] [address] [place] Nucleated RBC/100 WBC (Bld) [Ratio] 0.0 /100 WBC Normal [facility] Comment on above: Order Comment: Speci men Type: BLOOD SPECIMEN Order[facility] Address: [address] [place] [address] Performed By: #### 5 7021-8, 43126-5 #### [facility] CLIA [id number] [address] [place] [address] [place] Platelet mean volume (Bld) [Entitic vol] 10.2 fL Normal 9.0-12.7 [facility] Comment on above: Order Comment: Speci men Type: BLOOD SPECIMEN Order[facility] Address: [address] [place] [address] Performed By: #### 5 7021-8, 37843-6 #### [facility] CLIA [id number] [address] [place] [address] [place] Platelets (Bld) [#/Vol] 273 10*3/uL Normal 150-400 [facility] Comment on above: Order Comment: Speci men Type: BLOOD SPECIMEN Order[facility] Address: [address] [place] [address] Performed By: #### 5 7021-8, 42918-0 #### [facility] CLIA [id number] [address] [place] [address] [place] RBC (Bld) [#/Vol] 5.62 10*6/uL Normal 4.20-6.00 [facility] Comment on above: Order Comment: Speci men Type: BLOOD SPECIMEN Order[facility] Address: [address] [place] [address] Performed By: #### 5 7021-8, 92621-9 #### [facility] CLIA [id number] [address] [place] [address] [place] WBC (Bld) [#/Vol] 6.98 10*3/uL Normal 3.70-11.00 [facility] Comment on above: Order Comment: Speci men Type: BLOOD SPECIMEN Order[facility] Address: [address] [place] [address] Performed By: #### 5 7021-8, 27911-4 #### [facility] CLIA [id number] [address] [place] [address] [place] Comprehensive metabolic 2000 panelon 12-27-2023 Albumin [Mass/Vol] 4.3 g/dL Normal 3.9-4.9 [facility] Comment on above: Order Comment: Speci men Type: BLOOD SPECIMEN Order[facility] Address: [address] [place] [address] Performed By: #### 5 0190-8, 74882-7, 3016-3, 04852-0 #### [facility] CLIA [id number] [address] [place] [address] [place] ALP [Catalytic activity/Vol] 86 U/L Normal 38-113 [facility] Comment on above: Order Comment: Speci men Type: BLOOD SPECIMEN Order[facility] Address: [address] [place] [address] Performed By: #### 5 0190-8, 41283-8, 3015-3, 35968-5 #### [facility] CLIA [id number] [address] [place] [address] [place] ALT [Catalytic activity/Vol] 23 U/L Normal 10-54 [facility] Comment on above: Order Comment: Speci men Type: BLOOD SPECIMEN Order[facility] Address: [address] [place] [address] Performed By: #### 5 0190-8, 72742-3, 3015-3, 35908-1 #### [facility] CLIA [id number] [address] [place] [address] [place] Anion gap [Moles/Vol] 9 mmol/L Normal 8-15 [facility] Comment on above: Order Comment: Speci men Type: BLOOD SPECIMEN Order[facility] Address: [address] [place] [address] Performed By: #### 5 0190-8, 09439-5, 3016-3, 51357-1 #### [facility] CLIA [id number] [address] [place] [address] [place] AST [Catalytic activity/Vol] 19 U/L Normal 14-40 [facility] Comment on above: Order Comment: Speci men Type: BLOOD SPECIMEN Order[facility] Address: [address] [place] [address] Performed By: #### 5 0190-8, 01470-1, 3015-3, 95374-4 #### [facility] CLIA [id number] [address] [place] [address] [place] Bilirubin [Mass/Vol] 0.3 mg/dL Normal 0.2-1.3 [facility] Comment on above: Order Comment: Speci men Type: BLOOD SPECIMEN [facility] Address: [address] [place] [address] Performed By: #### 5 0190-8, 25600-9, 3015-3, 21641-6 #### [facility] CLIA [id number] [address] [place] [address] [place] Calcium [Mass/Vol] 9.4 mg/dL Normal 8.5-10.2 [facility] Comment on above: Order Comment: Speci men Type: BLOOD SPECIMEN [facility] Address: [address] [place] [address] Performed By: #### 5 0190-8, 58897-3, 3015-3, 97011-0 #### [facility] CLIA [id number] [address] [place] [address] [place] Chloride [Moles/Vol] 105 mmol/L Normal 98-107 [facility] Comment on above: Order Comment: Speci men Type: BLOOD SPECIMEN [facility] Address: [address] [place] [address] Performed By: #### 5 0190-8, 01293-5, 3015-3, 57703-6 #### [facility] CLIA [id number] [address] [place] [address] [place] CO2 [Moles/Vol] 26 mmol/L Normal 22-30 [facility] Comment on above: Order Comment: Speci men Type: BLOOD SPECIMEN [facility] Address: [address] [place] [address] Performed By: #### 5 0190-8, 14337-9, 3015-3, #### [facility] CLIA [id number] [address] [place] [address] [place] Creatinine [Mass/Vol] 1.11 mg/dL Normal 0.73-1.22 [facility] Comment on above: Order Comment: Speci men Type: BLOOD SPECIMEN [facility] Address: [address] [place] [address] Performed By: #### 5 0190-8, 54725-9, 3, #### [facility] CLIA [id number] [address] [place] [address] [place] Creatinine and Glomerular filtration rate.predicted panel (S/P/Bld) 88 mL/min/1.73m??? Normal >=60 [facility] Comment on above: Order Comment: Chiqui abdullahi Type: BLOOD SPECIMEN [facility] Facility[facility] Address: [address] [place] [address] Result Comment: Lizzie mated Glomerular Filtration Rate [...] actual GFR. Performed By: #### 5 0190-8, 91221-9, 3015-3, 51952-0 #### [facility] CLIA [id number] [address] [place] [address] [place] Glucose [Mass/Vol] 100 mg/dL High 74-99 [facility] Comment on above: Order Comment: Speci men Type: BLOOD SPECIMEN [facility]ing Facility: [facility] Address: [address] [place] [address] Result Comment: The [place] Diabetes Association (ADA) provides guidance for cutoff [...] Standards of Medical Care in Diabetes 2016, [place] Diabetes Association. Diabetes Care. 2016.39(Suppl 1). Performed By: #### 5 0190-8, 00021-0, 3015-3, 55947-0 #### [facility] CLIA [id number] [address] [place] [address] [place] Potassium [Moles/Vol] 4.3 mmol/L Normal 3.7-5.1 [facility] Comment on above: Order Comment: Chiqui abdullahi Type: BLOOD SPECIMEN [facility] Address: [address] [place] [address] Performed By: #### 5 0190-8, 63496-9, 3015-3, 40679-6 #### [facility] CLIA [id number] [address] [place] [address] [place] Protein [Mass/Vol] 7.3 g/dL Normal 6.3-8.0 [facility] Comment on above: Order Comment: Chiqui abdullahi Type: BLOOD SPECIMEN [facility] Facility[facility] Address: [address] [place] [address] Performed By: #### 5 0190-8, 39187-5, 3015-3, 21369-0 #### [facility] CLIA [id number] [address] [place] [address] [place] Sodium [Moles/Vol] 140 mmol/L Normal 136-144 [facility] Comment on above: Order Comment: Speci men Type: BLOOD SPECIMEN [facility] Facility: [facility] Address: [address] [place] [address] Performed By: #### 5 0190-8, 99894-0, 3, 06007-7 #### [facility] CLIA [id number] [address] [place] [address] [place] Urea nitrogen [Mass/Vol] 18 mg/dL Normal 9-24 [facility] Comment on above: Order Comment: Speci men Type: BLOOD SPECIMEN [facility] Address: [address] [place] [address] Performed By: #### 5 0190-8, 70828-3, 3, #### [facility] CLIA [id number] [address] [place] [address] [place] Ferritin SerPl-mCncon 2023 Ferritin [Mass/Vol] 123.0 ng/mL Normal 30.3-565.7 [facility] Comment on above: Order Comment: Speci men Type: BLOOD SPECIMEN [facility] Address: [address] [place] [address] Performed By: #### 5 0190-8, 41469-8, 3, 70261-4 #### [facility] CLIA [id number] [address] [place] [address] [place] HbA1c (Bld)on 12-27-2023 Average glucose Estimated from glycated hemoglobin (Bld) [Mass/Vol] 111 mg/dL Normal [facility] Comment on above: Order Comment: Speci men Type: BLOOD SPECIMEN [facility]: [facility] Address: [address] [place] [address] Result Comment: eAG: (Estimated average glucose) is a calculated value from HgbA1c and is outside sales account representative of the average blood glucose level in the last 2-3 month period. Performed By: #### 5 7021-8, 16507-5 #### [facility] CLIA [id number] [address] [place] [address] [place] HbA1c (Bld) [Mass fraction] 5.5 % Normal 4.3-5.6 [facility] Comment on above: Order Comment: Speci men Type: BLOOD SPECIMEN Ordering Facility: [facility] Address: [address] [place] [address] Result Comment: [place] Diabetes Association guidelines indicate that patients with HgbA1c in the range 5.7-6.4% are at increased risk for development of diabetes, and intervention by lifestyle modification may be beneficial. HgbA1c greater or equal to 6.5% is considered diagnostic of diabetes. Performed By: #### 5 7021-8, 87618-9 #### [facility] CLIA [id number] [address] [place] [address] [place] Iron and Iron binding capaci ty panelon 12-27-2023 Iron [Mass/Vol] 92 ug/dL Normal 41-186 [facility] Comment on above: Order Comment: Chiqui abdullahi Type: BLOOD SPECIMEN [facility] Address: [address] [place] [address] Performed By: #### 5 0190-8, 08275-4, 3015-3, 38942-1 #### [facility] CLIA [id number] [address] [place] [address] [place] Iron binding capacity [Mass/Vol] 262 ug/dL Normal 232-386 [facility] Comment on above: Order Comment: Chiqui men Type: BLOOD SPECIMEN [facility] Address: [address] [place] [address] Performed By: #### 5 0190-8, 65112-6, 3015-3, 40960-9 #### [facility] CLIA [id number] [address] [place] [address] [place] Iron/TIBC [Molar ratio] 35.1 % Normal 15.0-57.0 [facility] Comment on above: Order Comment: Speci men Type: BLOOD SPECIMEN [facility]ing [facility] Address: [address] [place] [address] Performed By: #### 5 0190-8, 23261-5, 301-3, 79441-8 #### [facility] CLIA [id number] [address] [place] [address] [place] Lipid 1996 panelon 4 Cholesterol [Mass/Vol] 238 mg/dL High <200 [facility] Comment on above: Order Comment: Speci men Type: BLOOD SPECIMEN Ordering [facility] Address: [address] [place] [address] Result Comment: <200 mg/dL, Desirable 200-239 mg/dL, Borderline high >239 mg/dL, High Performed By: #### 5 0190-8, 49103-0, 3015-3, #### [facility] CLIA [id number] [address] [place] [address] [place] Cholesterol in HDL [Mass/Vol] 39 mg/dL Low >39 [facility] Comment on above: Order Comment: Speci men Type: BLOOD SPECIMEN Ordering [facility] Address: [address] [place] [address] Result Comment: 40-5 9 mg/dL, Acceptable >59 mg/dL, High: Negative risk factor for coronary heart disease <40 mg/dL, Low: Positive risk factor for coronary heart disease Performed By: #### 5 0190-8, 54759-1, 3015-3, 14933-8 #### [facility] CLIA [id number] [address] [place] [address] [place] Cholesterol in LDL [Mass/Vol] 185 mg/dL High <100 [facility] Comment on above: Order Comment: Speci men Type: BLOOD SPECIMEN [facility] Address: [address] [place] [address] Result Comment: <100 mg/dL, Optimal 100-129 mg/dL, Near optimal/above optimal 130-159 mg/dL, Borderline high 160-189 mg/dL, High >189 mg/dL, Very high Secondary prevention optimal LDL Cholesterol levels are recommended to be < 70 mg/dL Performed By: #### 5 0190-8, 80947-0, 3016-3, 00509-8 #### [facility] CLIA [id number] [address] [place] [address] [place] Cholesterol in LDL/Cholesterol in HDL [Mass ratio] 4.74 {ratio} High <2.54 [facility] Comment on above: Order Comment: Chiqui abdullahi Type: BLOOD SPECIMEN [facility] Address: [address] [place] [address] Result Comment: Radha tyson: 1. National Cholesterol Education Program ATP III Guideline At-A-Glance Quick Desk Reference: National Heart, Lung, and Blood [place]. National Institutes of Health. 2001: NIH Publication No. 01-3305. 2. An International Atherosclerosis Society position paper: global recommendations for the management of dyslipidemia: executive summary, Atherosclerosis. 2014: 232(2):410-413. Performed By: #### 5 0190-8, 75371-8, 3015-3, 31797-7 #### [facility] CLIA [id number] [address] [place], [place] [address] [address] [place] Cholesterol in VLDL [Mass/Vol] 14 mg/dL Normal <30 [facility] Comment on above: Order Comment: Chiqui abdullahi Type: BLOOD SPECIMEN [facility] Address: [address] [place] [address] Performed By: #### 5 0190-8, 93001-2, 6-3, 25669-9 #### [facility] CLIA [id number] [address] [place] [address] [place] Cholesterol non HDL [Mass/Vol] 199 mg/dL High <130 [facility] Comment on above: Order Comment: Speci men Type: BLOOD SPECIMEN [facility] Address: [address] [place] [address] Result Comment: <130 mg/dL, Optimal 130-159 mg/dL, Near optimal/above optimal 160-189 mg/dL, Borderline high 190-219 mg/dL, High >219 mg/dL, Very high Secondary prevention optimal non HDL Cholesterol levels are recommended to be <100 mg/dL Performed By: #### 5 0190-8, 53636-4, 3016-3, 65495-0 #### [facility] CLIA [id number] [address] [place] [address] [place] Cholesterol.total/Choles terol in HDL [Mass ratio] 6.10 {ratio} High <5.10 [facility] Comment on above: Order Comment: Speci men Type: BLOOD SPECIMEN [facility] Address: [address] [place] [address] Performed By: #### 5 0190-8, 62848-5, 3016-3, 23710-4 #### [facility] CLIA [id number] [address] [place] [address] [place] FASTING TIME 12 hrs Normal [facility] Comment on above: Order Comment: Speci men Type: BLOOD SPECIMEN [facility] Address: [address] [place] [address] Performed By: #### 5 0190-8, 06236-8, 3016-3, 59790-8 #### [facility] CLIA [id number] [address] [place] [address] [place] Triglyceride [Mass/Vol] 71 mg/dL Normal <150 [facility] Comment on above: Order Comment: Speci men Type: BLOOD SPECIMEN [facility] Address: [address] [place] [address] Result Comment: <150 mg/dL, Normal 150-199 mg/dL, Borderline high 200-499 mg/dL, High >499 mg/dL, Very high Performed By: #### 5 0190-8, 54735-6, 3015-3, 10594-0 #### [facility] CLIA [id number] [address] [place] [address] [place] Magnesium SerPl-mCncon 12-26 Magnesium [Mass/Vol] 2.1 mg/dL Normal 1.7-2.3 [facility] Comment on above: Order Comment: Speci men Type: BLOOD SPECIMEN [facility] Address: [address] [place] [address] Performed By: #### 5 0190-8, 31238-7, 3, #### [facility] CLIA [id number] [address] [place] [address] [place] TESTOSTERONE, FREE AND TOTAL , BY EQUILIBRIUM ULTRAFILTRATION MASS SPECTROMETRYon 12-27-2023 Testosterone [Mass/Vol] 363.8 ng/dL Normal 264.0-916.0 [facility] Comment on above: Order Comment: Speci men Type: BLOOD SPECIMEN [facility] Address: [address] [place] [address] Result Comment: This [facility] LC/MS-MS method is currently certified by the CDC Hormone Standardization Program (HoSt). Adult male reference interval is based on a population of healthy nonobese males (BMI <30) between 19 and 39 years old. Aisha et.al. JCEM 2017,102;7645-3799. PMID: [id number]. Performed By: #### T FTEST #### [facility] CLIA [id number] [address] [place] [place] [address] Testosterone Free [Mass/Vol] 11.21 ng/dL Normal 5.00-21.00 [facility] Comment on above: Order Comment: Speci men Type: BLOOD SPECIMEN [facility] Address: [address] [place] [address] Performed By: #### T FTEST #### [facility] CLIA [id number] [address] [place] [address] Testosterone Free/Testosterone.total [Mass fraction] 3.08 % Normal 1.50-4.20 [facility] Comment on above: Order Comment: Speci men Type: BLOOD SPECIMEN [facility] Address: [address] [place] [address] Performed By: #### T FTEST #### [facility] [place] [id number] [address] [place] [address] TSH SerPl-aCncon 12-27-2023 TSH Qn 1.220 m[IU]/L Normal 0.270-4.200 [facility] Comment on above: Order Comment: Speci men Type: BLOOD SPECIMEN [facility] Address: [address] [place] [address] Performed By: #### 5 0190-8, 27356-1, 3016-3, 74358-3 #### [facility] [place] [id number] [address] [place] [address] [place] Vit B12 SerPl-mCncon 024 Cobalamin (Vitamin B12) [Mass/Vol] 526 pg/mL Normal 232-1245 [facility] Comment on above: Order Comment: Speci men Type: BLOOD SPECIMEN [facility] Address: [address] [place] [address] Performed By: #### 5 0190-8, 71439-8, 3016-3, 89360-3 #### [facility] CLIA [id number] [address] [place] [address] [place] CNOVon 11-08-2023 CNOV Office Visit (INTMWS ) EMIR RAE ([id number]) 1985 M Date Time Provider Department 11/08/23 10:00 AM ROSARIO MOFFETT During your visit today, we recorded the following information about you: Pulse Respiration Blood pressure Weight 93/minute 16/minute 121/79 112.8 kg Rosario Moffett APRN.ELECTRONIC REPAIR TROUBLESHOOTER 11/08/2023 10:15 AM Signed SUBJECTIVE Emir Rae [...] 2 TABLETS BY MOUTH ONCE DAILY NEEDED zxrkmzre-yjd-yfssf-vit K-lycop (ONE-A-DAY MEN'S MULTIVITAMIN) 400-20-300 mcg tab [...] (FLONASE) 50 mcg/actuation nasal spray Use 1 [place] in each nostril once daily. ciclopirox (LOPROX) [...] normal. A (more content not included)... Normal [facility] XR Foot - left AP and Latera l and obliqueon 05-29-2023 IMPRESSION: 1. No acute radiographic abnormality of the left foot Ship Construction Teacher[facility] Transcribe Date/Time: May 29 2023 5:05P Dictated by : YESENIA MEYERS MD This examination was interpreted and the report reviewed and electronically signed by: YESENIA MEYERS MD on May 29 2023 5:05PM [facility] DIVISION OF RADIOLOGY * * [...] soft tissue swelling. DIVISION OF RADIOLOGY Provider, [facility] - 05/29/2023 * * *Final Report* [...] acute radiographic abnormality of the left foot Ship Construction Teacher: [facility] Transcribe Date/Time: May 29 2023 5:05P Dictated by : YESENIA MEYERS MD This examination was interpreted and the report reviewed and electronically signed by: YESENIA MEYERS MD on May 29 2023 5:05PM EST [facility] XR Foot - left AP and Latera l and obliqueOrdered By: Ccf Provider on 05-29-2023 [facility] XR Foot - left AP and Latera l and obliqueon 05-24-2023 Radiology Study observation (narrative) [facility] Abdomen/Pelvis W IV Cont ONL Yon 09-04-2022 Abdomen/Pelvis W IV Cont ONLY [facility] [address] [place] [address] Abdomen/Pelvis W IV Cont ONLY MR#: [id number] Acct: [id number] Name: EMIR RAE Rep #: [id number] : 1985 M 36 From: Raul barillas MD PCP: Dr. Deven Santillan MD Status: REG ER Study: Abdomen/Pelvis W IV Cont ONLY Date of Exam: Exam# [id number] Ordering Dr: Filiberto Power DO STUDY: CT [...] Deven Santillan MD; Dr. Filiberto Power DO Ship Construction Teacher: Signed Normal [facility] Absolute lymphocyte countOrd ered By: Filiberto Power on 09-04-2022 Lymphocytes Auto (Unsp spec) [#/Vol] 1.68 10*3/uL 0.83-4.51 [facility] Basic Metabolic Profile (BMP )on 09-04-2022 BUN/CRE 12.6 RATIO Normal 10-20 [facility] Comment on above: Performed By: #### L 500.2500, L100.0100, L501.2450, L500.3400 #### [facility] [address] [place], [address] CA,Total 9.0 mg/dL Normal 8.5-10.1 [facility] Comment on above: Performed By: #### L 500.2500, L100.0100, L501.2450, L500.3400 #### [facility] [address] [place], [address] Chloride [Moles/Vol] 111 mmol/L High 98-107 [facility] Comment on above: Performed By: #### L 500.2500, L100.0100, L501.2450, L500.3400 #### [facility] [address] [place], [address] CO2 [Moles/Vol] 26.0 mmol/L Normal 21.0-32.0 [facility] Comment on above: Performed By: #### L 500.2500, L100.0100, L501.2450, L500.3400 #### [facility] [address] [place], [address] Creatinine [Mass/Vol] 1.51 mg/dL High 0.70-1.30 [facility] Comment on above: Result Comment: The validity of the calculated GFR GFRAA in patients over 70 years has not been determined. Clinical correlation is essential. Performed By: #### L 500.2500, L100.0100, L501.2450, L500.3400 #### [facility] [address] [place], [address] ECRCL 79.39 ml/min Normal [facility] Comment on above: Performed By: #### L 500.2500, L100.0100, L501.2450, L500.3400 #### [facility] [address] [place], [address] EST GFR - AA 68 mL/min Normal >60 [facility] Comment on above: Result Comment: Afri can [place] GFR Calc Performed By: #### L 500.2500, L100.0100, L501.2450, L500.3400 #### [facility] [address] [place], [address] GAP 4 Low 5-15 [facility] Comment on above: Performed By: #### L 500.2500, L100.0100, L501.2450, L500.3400 #### [facility] [address] [place], [address] GFR/1.73 sq M.predicted among non-blacks MDRD (S/P/Bld) [Vol rate/Area] 56 mL/min/{1.73_m2} Low >60 [facility] Comment on above: Result Comment: Non- GFR Calc Performed By: #### L 500.2500, L100.0100, L501.2450, L500.3400 #### [facility] [address] [place], [address] Glucose [Mass/Vol] 110 mg/dL High 74-106 [facility] Comment on above: Result Comment: Fast ing Glucose result from 100 to 125 mg/dL suggests IMPAIRED HOMEOSTASIS per A.D.A. criteria. Performed By: #### L 500.2500, L100.0100, L501.2450, L500.3400 #### [facility] [address] [place], [address] Potassium [Moles/Vol] 4.2 mmol/L Normal 3.5-5.1 [facility] Comment on above: Performed By: #### L 500.2500, L100.0100, L501.2450, L500.3400 #### [facility] [address] [place], [address] Sodium [Moles/Vol] 141 mmol/L Normal 136-145 [facility] Comment on above: Performed By: #### L 500.2500, L100.0100, L501.2450, L500.3400 #### [facility] [address] [place], [address] Urea nitrogen [Mass/Vol] 19 mg/dL High 7-18 [facility] Comment on above: Performed By: #### L 500.2500, L100.0100, L501.2450, L500.3400 #### [facility] [address] [place], [address] Basophil percentageOrdered B y: Filiberto Power on 09-04-2022 Basophil percentage 0-5 SEEN /hpf 0-5 [facility] Basophils/100 WBC (Bld) 0.4 % 0-1 [facility] Bilirubin [Mass/Vol] 0.20 mg/dL 0.20-1.00 [facility] Comment on above: For patients on eltr ombopag therapy, use of Dimension [place] TBIL is not recommended. Chloride [Moles/Vol] 111 mmol/L 98-107 [facility] Eosinophils/100 WBC (Bld) 0.3 % 0-5 [facility] Glucose [Mass/Vol] 110 mg/dL 74-106 [facility] Comment on above: Fasting Glucose resu lt from 100 to 125 mg/dL suggests IMPAIRED HOMEOSTASIS per A.D.A. criteria. Neutrophils (Bld) [#/Vol] 8.7 10*3/uL 2.0-7.7 [facility] Neutrophils/100 WBC (Bld) 77.2 % 47-70 [facility] Potassium [Moles/Vol] 4.2 mmol/L 3.5-5.1 [facility] Protein [Mass/Vol] 7.5 g/dL 6.4-8.2 [facility] Sodium [Moles/Vol] 141 mmol/L 136-145 [facility] WBC (Bld) [#/Vol] 11.2 10*3/uL 4.4-11.0 [facility] Bilirubin Test strip Ql (U)O rdered By: Filiberto Power on 09-04-2022 Bilirubin Ql (U) Negative Negative [facility] Blood erythrocytes count (nu mber/volume)Ordered By: Filiberto Power on 09-04-2022 RBC (Bld) [#/Vol] 5.37 10*6/uL 4.6-6.2 [facility] Blood hemoglobin measurement (mass/volume)Ordered By: Filiberto Power on 09-04-2022 Hemoglobin (Bld) [Mass/Vol] 15.5 g/dL 13.0-16.5 [facility] Blood lymphocytes/100 leukoc ytesOrdered By: Filiberto Power on 09-04-2022 Lymphocytes/100 WBC (Bld) 14.9 % 19-41 [facility] Blood monocytes/100 leukocyt esOrdered By: Filiberto Power on 09-04-2022 Monocytes/100 WBC (Bld) 6.0 % 0-10 [facility] Blood platelet mean volumeOr dered By: Filiberto Power on 09-04-2022 Platelet mean volume (Bld) [Entitic vol] 9.5 fL 6.2-12.0 [facility] CBC W/Diff, Automatedon --2022 Absolute Lymph 1.68 X10 3/uL Normal 0.83-4.51 [facility] Comment on above: Performed By: #### L 500.2500, L100.0100, L501.2450, L500.3400 #### [facility] [address] [place], [address] Absolute Neut 8.7 X10 3/uL High 2.0-7.7 [facility] Comment on above: Performed By: #### L 500.2500, L100.0100, L501.2450, L500.3400 #### [facility] [address] [place], [address] Basophils/100 WBC (Bld) 0.4 % Normal 0-1 [facility] Comment on above: Performed By: #### L 500.2500, L100.0100, L501.2450, L500.3400 #### [facility] [address] [place], [address] Eosinophils/100 WBC (Bld) 0.3 % Normal 0-5 [facility] Comment on above: Performed By: #### L 500.2500, L100.0100, L501.2450, L500.3400 #### [facility] [address] [place], [address] Erythrocyte distribution width (RBC) [Ratio] 13.7 % Normal 11.6-14.6 [facility] Comment on above: Performed By: #### L 500.2500, L100.0100, L501.2450, L500.3400 #### [facility] [address] [place], [address] Hematocrit (Bld) [Volume fraction] 47.2 % Normal 40-54 [facility] Comment on above: Performed By: #### L 500.2500, L100.0100, L501.2450, L500.3400 #### [facility] [address] [place], [address] Hemoglobin (Bld) [Mass/Vol] 15.5 g/dL Normal 13.0-16.5 [facility] Comment on above: Performed By: #### L 500.2500, L100.0100, L501.2450, L500.3400 #### [facility] [address] [place], [address] IG% 1.200 High 0.0-0.9 [facility] Comment on above: Result Comment: IG% - Immature Granulocytes (promyelocytes, myelocytes and metamyelocytes) > 1% indicates that a LEFT SHIFT is Present. Performed By: #### L 500.2500, L100.0100, L501.2450, L500.3400 #### [facility] [address] [place], [address] Lymphocytes/100 WBC (Bld) 14.9 % Low 19-41 [facility] [facility] Comment on above: Performed By: #### L 500.2500, L100.0100, L501.2450, L500.3400 #### [facility] [address] [place], [address] MCH (RBC) [Entitic mass] 28.9 pg Normal 27.0-32.0 [facility] Comment on above: Performed By: #### L 500.2500, L100.0100, L501.2450, L500.3400 #### [facility] [address] [place], [address] MCHC (RBC) [Mass/Vol] 32.8 g/dL Normal 32-36 [facility] Comment on above: Performed By: #### L 500.2500, L100.0100, L501.2450, L500.3400 #### [facility] [address] [place], [address] MCV (RBC) [Entitic vol] 87.9 fL Normal 80-94 [facility] Comment on above: Performed By: #### L 500.2500, L100.0100, L501.2450, L500.3400 #### [facility] [address] [place], [address] Monocytes/100 WBC (Bld) 6.0 % Normal 0-10 [facility] Comment on above: Performed By: #### L 500.2500, L100.0100, L501.2450, L500.3400 #### [facility] [address] [place], [address] Neutrophils/100 WBC (Bld) 77.2 % High 47-70 [facility] Comment on above: Performed By: #### L 500.2500, L100.0100, L501.2450, L500.3400 #### [facility] [address] [place], [address] Nucleated RBC (Bld) [#/Vol] 0 10*3/uL Normal 0-5 [facility] Comment on above: Performed By: #### L 500.2500, L100.0100, L501.2450, L500.3400 #### [facility] [address] [place], [address] Platelet mean volume (Bld) [Entitic vol] 9.5 fL Normal 6.2-12.0 [facility] Comment on above: Performed By: #### L 500.2500, L100.0100, L501.2450, L500.3400 #### [facility] [address] [place], [address] Platelets (Bld) [#/Vol] 254 10*3/uL Normal 150-450 [facility] Comment on above: Performed By: #### L 500.2500, L100.0100, L501.2450, L500.3400 #### [facility] [address] [place], [address] RBC (Bld) [#/Vol] 5.37 10*6/uL Normal 4.6-6.2 [facility] Comment on above: Performed By: #### L 500.2500, L100.0100, L501.2450, L500.3400 #### [facility] [address] [place], [address] RDW SD 44.0 fl High 35.1-43.9 [facility] Comment on above: Performed By: #### L 500.2500, L100.0100, L501.2450, L500.3400 #### [facility] [address] [place], [address] WBC (Bld) [#/Vol] 11.2 10*3/uL High 4.4-11.0 [facility] Comment on above: Performed By: #### L 500.2500, L100.0100, L501.2450, L500.3400 #### [facility] [address] [place], [address] Calcium oxalate crystals det ection in urine sediment by light microscopyOrdered By: Filiberto Power on 09-04-2022 Calcium oxalate crystals LM Ql (Urine sed) 1+ /hpf [facility] Determination of erythrocyte mean corpuscular volume (MCV)Ordered By: Filiberto Power on 09-04-2022 MCV (RBC) [Entitic vol] 87.9 fL 80-94 [facility] Direct bilirubinOrdered By: Filiberto Power on 09-04-2022 Bilirubin.direct [Mass/Vol] 0.09 mg/dL 0.00-0.30 [facility] Emergency Department Summary on 09-04-2022 Emergency Department Summary [facility] Medical Records Department [address] [place] [address] Emergency Department Summary 09/04/22 MR#: [id number] Acct: [id number] Name: EMIR RAE Rep #: [id number] : 1985 36 From: Filiberto Power DO PCP: Dr. Deven Santillan MD Status:DEP ER Location: ED HPI History of Present Illness Chief Complaint: GI Bleed [facility] Medical History (Updated 09/04/22 @ 13:44 by [...] nephrolithiasis I (more content not included)... Normal [facility] Hematocrit Auto (Bld) [Volum e fraction]Ordered By: Filiberto Power on 09-04-2022 Hematocrit (Bld) [Volume fraction] 47.2 % 40-54 [facility] Ketones Test strip Ql (U)Ord ered By: Filiberto Power on 09-04-2022 Ketones Ql (U) 15 mg/dl Negative [facility] - Chemistry and C hemistry - challengeOrdered By: Filiberto Power on 09-04-2022 ALP [Catalytic activity/Vol] 89 U/L 45-117 [facility] ALT [Catalytic activity/Vol] 33 U/L 16-61 [facility] CO2 [Moles/Vol] 26.0 mmol/L 21.0-32.0 [facility] Globulin (S) [Mass/Vol] 3.9 g/dL 2.2-4.2 [facility] Lipase [Catalytic activity/Vol] 43 U/L 13-75 [facility] Comment on above: Please note:LIPASE r evised reference range effective 22. New Lipase methodology. Expected to produce lower values than the previous assay method. NEW Reference Range: 13 - 75 U/L Urea nitrogen/Creatinine [Mass ratio] 12.6 mg/mg 10-20 [facility] - Hematology and Cell countsOrdered By: Filiberto Power on 09-04-2022 Erythrocyte distribution width (RBC) [Entitic vol] 44.0 fL 35.1-43.9 [facility] Erythrocyte distribution width (RBC) [Ratio] 13.7 % 11.6-14.6 [facility] Immature granulocytes/100 WBC (Bld) 1.200 % 0.0-0.9 [facility] Comment on above: IG% - Immature Granu locytes (promyelocytes, myelocytes and metamyelocytes) > 1% indicates that a LEFT SHIFT is Present. MCH (RBC) [Entitic mass] 28.9 pg 27.0-32.0 [facility] Nucleated RBC/100 WBC (Bld) [Ratio] 0 % 0-5 [facility] Lipaseon 09-04-2022 Lipase [Catalytic activity/Vol] 43 U/L Normal 13-75 [facility] Comment on above: Result Comment: Woo dash note: LIPASE revised reference range effective 22. New Lipase methodology. Expected to produce lower values than the previous assay method. NEW Reference Range: 13 - 75 U/L Performed By: #### L 500.2500, L100.0100, L501.2450, L500.3400 #### [facility] [address] [place], [address] Liver Profileon 09-04-2022 Albumin [Mass/Vol] 3.6 g/dL Normal 3.2-5.0 [facility] Comment on above: Performed By: #### L 500.2500, L100.0100, L501.2450, L500.3400 #### [facility] [address] [place], [address] ALK P 89 U/L Normal 45-117 [facility] Comment on above: Performed By: #### L 500.2500, L100.0100, L501.2450, L500.3400 #### [facility] [address] [place], [address] ALT [Catalytic activity/Vol] 33 U/L Normal 16-61 [facility] Comment on above: Performed By: #### L 500.2500, L100.0100, L501.2450, L500.3400 #### [facility] [address] [place], [address] AST [Catalytic activity/Vol] 20 U/L Normal 15-37 [facility] Comment on above: Performed By: #### L 500.2500, L100.0100, L501.2450, L500.3400 #### [facility] [address] [place], [address] Bilirubin [Mass/Vol] 0.20 mg/dL Normal 0.20-1.00 [facility] Comment on above: Result Comment: For patients on eltrombopag therapy, use of Dimension Partridge TBIL is not recommended. Performed By: #### L 500.2500, L100.0100, L501.2450, L500.3400 #### [facility] [address] [place], [address] Bilirubin.direct [Mass/Vol] 0.09 mg/dL Normal 0.00-0.30 [facility] Comment on above: Performed By: #### L 500.2500, L100.0100, L501.2450, L500.3400 #### [facility] [address] [place], [address] Globulin (S) [Mass/Vol] 3.9 g/dL Normal 2.2-4.2 [facility] Comment on above: Performed By: #### L 500.2500, L100.0100, L501.2450, L500.3400 #### [facility] [address] [place], [address] T PROT 7.5 g/dL Normal 6.4-8.2 [facility] Comment on above: Performed By: #### L 500.2500, L100.0100, L501.2450, L500.3400 #### [facility] [address] [place], [address] Lower GI hemoglobin IA Ql (S tl)Ordered By: Filiberto Power on 09-04-2022 Stool Occult Blood (SAMUEL) Positive [facility] MCHC Auto (RBC) [Mass/Vol]Or dered By: Filiberto Power on 09-04-2022 MCHC (RBC) [Mass/Vol] 32.8 g/dL 32-36 [facility] Mucus LM Ql (Urine sed)Order ed By: Filiberto Power on 09-04-2022 Mucus Ql (Urine sed) 0 SEEN /hpf [facility] Nitrite Test strip Ql (U)Ord ered By: Filiberto Power on 09-04-2022 Nitrite Ql (U) Negative Negative [facility] No Panel InformationOrdered By: Filiberto Power on 09-04-2022 Estimated Creatinine Clearance Calc 79.39 ml/min [facility] Estimated GFR (MDRD) Amer 68 mL/min >60 [facility] Comment on above: GFR Calc Estimated GFR (MDRD) Non-Af Amer 56 mL/min >60 [facility] Comment on above: Non- GFR Calc Platelets bldOrdered By: Mary Power on 09-04-2022 Platelets (Bld) [#/Vol] 254 10*3/uL 150-450 [facility] Protein Test strip Ql (U)Ord ered By: Filiberto Power on 09-04-2022 Protein Ql (U) 30 mg/dl Negative [facility] Serum or plasma albumin laura urement (mass/volume)Ordered By: Filiberto Power on 09-04-2022 Albumin [Mass/Vol] 3.6 g/dL 3.2-5.0 [facility] Serum or plasma calcium laura urement (mass/volume)Ordered By: Filiberto Power on 09-04-2022 Calcium [Mass/Vol] 9.0 mg/dL 8.5-10.1 [facility] Serum or plasma creatinine m easurement (mass/volume)Ordered By: Filiberto Power on 09-04-2022 Creatinine [Mass/Vol] 1.51 mg/dL 0.70-1.30 [facility] Comment on above: The validity of the calculated GFR & GFRAA in patients over 70 years has not been determined. Clinical correlation is essential. Serum or plasma urea nitroge n measurement (mass/volume)Ordered By: Filiberto Power on 09-04-2022 Urea nitrogen [Mass/Vol] 19 mg/dL 7-18 [facility] Squamous epithelial cells de tection in urine sediment by light microscopyOrdered By: Filiberto Power on 09-04-2022 Epithelial cells.squamous LM Ql (Urine sed) 0-5 SEEN /hpf 0-5 [facility] Stool Occult Blood iFOBon STOB Positive Normal [facility] Comment on above: Performed By: #### M 100.7900 #### [facility] [address] [place], [place], [address] Thin prep Papanicolaou smear with manual screeningOrdered By: Filiberto Power on 09-04-2022 Thin prep Papanicolaou smear with manual screening 20 U/L 15-37 [facility] Thin prep Papanicolaou smear with manual screening 4 5-15 [facility] Urinalysis, Completeon 09-04 CA OX CRYSTAL 1+ /hpf Normal [facility] Comment on above: Order Comment: CLEAN CATCH Performed By: #### L 400.0001 #### [facility] [address] [place], [address] EPI,SQUAMOUS 0-5 SEEN Normal 0-5 [facility] Comment on above: Order Comment: CLEAN CATCH Performed By: #### L 400.0001 #### [facility] [address] [place], [address] RBC > 100 SEEN Normal 0-5 [facility] Comment on above: Order Comment: CLEAN CATCH Performed By: #### L 400.0001 #### [facility] [address] [place], [address] WBC 0-5 SEEN Normal 0-5 [facility] Comment on above: Order Comment: CLEAN CATCH Performed By: #### L 400.0001 #### [facility] [address] [place], [address] BACTERIA 0 SEEN Normal None Seen [facility] Comment on above: Order Comment: CLEAN CATCH Performed By: #### L 400.0001 #### [facility] [address] [place], [address] Mucus Ql (Urine sed) 0 SEEN Normal [facility] Comment on above: Order Comment: CLEAN CATCH Performed By: #### L 400.0001 #### [facility] [address] [place], [address] Urine blood detectionOrdered By: Filiberto Power on 09-04-2022 RBC Ql (U) 250 /ul Negative [facility] RBC Ql (U) > 100 SEEN /hpf 0-5 [facility] Urine clarityOrdered By: Mary Power on 09-04-2022 Clarity (U) Sl. Cloudy Clear [facility] Urine color determinationOrd ered By: Filiberto Power on 09-04-2022 Color (U) Yellow Yellow [facility] Urine glucose detectionOrder ed By: Filiberto Power on 09-04-2022 Glucose Ql (U) Normal mg/dl Normal [facility] Urine leukocyte esterase det ection by dipstickOrdered By: Filiberto Power on 09-04-2022 Leukocyte esterase Test strip Ql (U) 100 /ul Negative [facility] Urine pHOrdered By: Filiberto damian on 09-04-2022 pH (U) 5.0 [pH] 5.0 - 8.0 [facility] Urine sediment bacteria coun t by microscopy (number/high power field)Ordered By: Filiberto Power on 09-04-2022 Bacteria LM.HPF (Urine sed) [#/Area] 0 /[HPF] None Seen [facility] Urine specific gravity measu rementOrdered By: Filiberto Power on 09-04-2022 Specific gravity (U) [Rel density] 1.030 1.002-1.030 [facility] Urobilinogen Auto test strip Ql (U)Ordered By: Filiberto Power on 09-04-2022 Urobilinogen Ql (U) 4 mg/dl [facility] Office Visit Report [facility] [address] [place] [address] OFFICE VISIT Date of Service: 09/03/22 MR#: [id number] Acct: [id number] Patient: EMIR RAE Rep #: [id number] : 1985 Provider: MAO Hoover Age/Sex: 36/M [facility] [facility] Status: Signed Intake Vital Signs 03/28/21 15:15 09/03/22 11:17 Height 6 ft 2 in BP 128/78 H Blood Pressure Location Lt brachial Position Sitting Respiration 14 Pulse 84 Pulse Source Monitor Temp 98.0 F Temp Source Temporal Pulse Oximetry (%) 98 Oxygen Delivery Method room air Intake Visit Reasons: Rash Chief Complaint: rash B/L UE and torso Waistline Joiner Required: No Accompanied by: Self Is patient in pain?: No Allergies No Known Allergies Allergy (Unverified 09/03/22 11:18) Nurse's Note: c/o rash B/L UE and torso, started 09/02/2022 states a little itchy. [facility] Medical History (Updated 09/03/22 @ 11:25 by Gissell CAVANAUGH, PA) COVID-19 Encounter for screening for COVID-19 Herpes simplex type 1 infection HPI HPI Chief Complaint: rash B/L UE and torso Details: EMIR RAE, is a 36 M who presents to the office today for rash that started yesterday. He was in [place]. He has tried some OTC cream but [...] Griffin Signature: Date (if applicable) CC: Normal [facility] XR Thoracic spine AP and Lat eral and [place] 07-04-2022 IMPRESSION: Mild, age indeterminant, anterior wedging of a midthoracic vertebral body, likely T8. Ship Construction Teacher: FREDERICK Transcribe Date/Time: Jul 04 2022 3:15P Dictated by : JUSTYNA BERNARD MD This examination was interpreted and the report reviewed and electronically signed by: JUSTYNA BERNARD MD on Jul 04 2022 3:17PM [facility] DIVISION OF RADIOLOGY * * [...] OF RADIOLOGY Provider, Karolina [facility] - 07/04/2022 * * *Final Report* [...] of a midthoracic vertebral body, likely T8. Ship Construction Teacher: [facility] Transcribe Date/Time: Jul 04 2022 3:15P Dictated by : JUSTYNA BERNARD MD This examination was interpreted and the report reviewed and electronically signed by: JUSTYNA BERNARD MD on Jul 04 2022 3:17PM EST [facility] XR Cervical spine AP and Lat eral and obliqueon 07-03-2022 IMPRESSION: Cervical spine degenerative changes with C5-6 disc space narrowing and left-sided neural foraminal narrowing. Ship Construction Teacher: [facility] Transcribe Date/Time: Jul 03 2022 9:48A Dictated by : PORTIA FUNEZ MD This examination was interpreted and the report reviewed and electronically signed by: PORTIA FUNEZ MD on Jul 03 2022 9:51AM [facility] DIVISION OF RADIOLOGY * * [...] tissues are normal. DIVISION OF RADIOLOGY Provider, [facility] - 07/03/2022 * * *Final Report* [...] space narrowing and left-sided neural foraminal narrowing. Ship Construction Teacher: [facility] Transcribe Date/Time: Jul 03 2022 9:48A Dictated by : PORTIA FUNEZ MD This examination was interpreted and the report reviewed and electronically signed by: PORTIA FUNEZ MD on Jul 03 2022 9:51AM EST [facility] XR Cervical spine AP and Lat eral and obliqueOrdered By: [facility] Provider on 07-03-2022 [facility] No Panel Informationon 06-30 Radiology Study observation (narrative) [facility] MRI BRAIN WO/W IVCONon 05-13 MRI BRAIN WO/W IVCON * * *Final Report* * * DATE OF EXAM: May 13 2020 4:55PM [facility] 0295 - MRI BRAIN WO/W IVCON / PROCEDURE REASON: hearing loss, attn IAC h90.3 * * * * Physician Interpretation * * * * EXAMINATION: MRI BRAIN WO/W IVCON HISTORY: hearing loss, attn IAC h90.3. Symptoms 10 years ago. This information is taken directly from the service order expediter system. TECHNIQUE: Routine brain MRI protocol without [...] structures, and dural venous sinuses within the [id number]. No evidence for thrombosis. Other: Extensive bilateral [...] ethmoid air cells and maxillary sinus chambers. Ship Construction Teacher: FREDERICK Transcribe Date/Time: May 13 2020 4:58P Dictated by : JAGUAR BURCH MD This examination was interpreted and the report reviewed and electronically signed by: JAGUAR BURCH MD on May 13 2020 5:13PM EST [id number] [facility] PROGRESSon 05-13-2020 PROGRESS HNO ID: [id number] Author: Katelyn (Rt) Sofie Mahajan Service: Radiology Author Type: Ginseng Farmer Type: Progress Notes Filed: 05/13/2020 4:12 PM [...] DATE: May 13, 2020 TIME: 4:09 PM [facility] Vital Signs Date Time Vital Sign Value Performing Clinician Facility 09-11-2024 14:10-0400 Body height 188 cm Jose J Horn PA-C Work Phone: [facility] 09-11-2024 14:10-0400 Body mass index (BMI) [Ratio] 31.31 kg/m2 Jose J Horn PA-C Work Phone: [facility] 09-11-2024 14:10-0400 Body weight 110.6 kg Jose J Horn PA-C Work Phone: [facility] 09-11-2024 14:10-0400 Diastolic blood pressure 73 mm[Hg] Jose J Horn PA-C Work Phone: [facility] 09-11-2024 14:10-0400 Heart rate 87 /min Jose J Horn PA-C Work Phone: [facility] 09-11-2024 14:10-0400 SaO2% (BldA) [Mass fraction] 98 % Jose J Horn PA-C Work Phone: [facility] 09-11-2024 14:10-0400 Systolic blood pressure 118 mm[Hg] Jose J Horn PA-C Work Phone: [facility] 11-08-2023 09:52-0400 Body mass index (BMI) [Ratio] 31.93 kg/m2 Rosario Vishal [employer]NAGER [employer] REPAIR [employer]OUBL[employer]HO[employer]ER Work Phone: [facility] 11-08-2023 09:52-0400 Body weight 112.8 kg Rosario Vishal MANAGER [employer]ELECTRONIC REPAIR TROUBL[employer]HO[employer]ER Work Phone: [facility] 11-08-2023 09:52-0400 Diastolic blood pressure 79 mm[Hg] Rosario Vishal MANAGER [employer]ELECTRONIC REPAIR TROUBL[employer]HO[employer]ER Work Phone: [facility] 11-08-2023 09:52-0400 Heart rate 93 /min Rosario Vishal MANAGER [employer].ELECTRONIC REPAIR TROUBL[employer]HO[employer]ER Work Phone: [facility] 11-08-2023 09:52-0400 Respiratory rate 16 /min Rosario Vishal MANAGER [employer]ELECTRONIC REPAIR TROUBL[employer]HO[employer]ER Work Phone: [facility] 11-08-2023 09:52-0400 Systolic blood pressure 121 mm[Hg] Rosario Vishal MANAGER [employer].ELECTRONIC REPAIR TROUBL[employer]HO[employer]ER Work Phone: [facility] 08-27-2023 10:45-0400 Body mass index (BMI) [Ratio] 29.4 kg/m2 Rosario Vishal [employer]NAGER [employer].ELECTRONIC REPAIR TROUBL[employer]HO[employer]ER Work Phone: [facility] 08-27-2023 10:45-0400 Body weight 103.87 kg Rosario Vishal MANAGER [employer].ELECTRONIC REPAIR TROUBL[employer]HO[employer]ER Work Phone: [facility] 08-27-2023 10:45-0400 Diastolic blood pressure 76 mm[Hg] Rosario Vishal MANAGER [employer]ELECTRONIC REPAIR TROUBL[employer]HO[employer]ER Work Phone: [facility] 08-27-2023 10:45-0400 Heart rate 96 /min Rosario Vishal MANAGER [employer].ELECTRONIC REPAIR TROUBL[employer]HO[employer]ER Work Phone: [facility] 08-27-2023 10:45-0400 SaO2% (BldA) [Mass fraction] 99 % Rosario Vishal MANAGER [employer].ELECTRONIC REPAIR TROUBL[employer]HO[employer]ER Work Phone: [facility] 08-27-2023 10:45-0400 Systolic blood pressure 114 mm[Hg] Rosario Vishal MANAGER [employer].ELECTRONIC REPAIR TROUBL[employer]HO[employer]ER Work Phone: [facility] 01-01-2023 10:53-0500 Body weight 102.51 kg Misa Hager MANAGER [employer]AMP.BROOM HANDLE DIPPER Work Phone: [facility] 01-01-2023 10:53-0500 Diastolic blood pressure 84 mm[Hg] Misa Hager MANAGER [employer]AMP.[employer]OOM HANDLE DIPPER Work Phone: [facility] 01-01-2023 10:53-0500 Heart rate 87 /min Misa Hager MANAGER [employer]OOM HANDLE DIPPER Work Phone: [facility] 01-01-2023 10:53-0500 Respiratory rate 16 /min Misa Hager MANAGER [employer]AMP.BROOM HANDLE DIPPER Work Phone: [facility] 01-01-2023 10:53-0500 Systolic blood pressure 137 mm[Hg] Misa Hager MANAGER [employer]AMP.[employer]OOM HANDLE DIPPER Work Phone: [facility] 09-07-2022 14:59-0400 Body height 188 cm Tomas Hawkins MD Work Phone: [facility] 09-07-2022 14:59-0400 Body temperature 97.39 [degF] Tomas Hawkins MD Work Phone: [facility] 09-07-2022 14:59-0400 Body weight 104.69 kg Tomas Hawkins MD Work Phone: [facility] 09-07-2022 14:59-0400 Diastolic blood pressure 76 mm[Hg] Tomas Hawkins MD Work Phone: [facility] 09-07-2022 14:59-0400 Heart rate 89 /min Tomas Hawkins MD Work Phone: [facility] 09-07-2022 14:59-0400 SaO2% (BldA) [Mass fraction] 97 % Tomas Hawkins MD Work Phone: [facility] 09-07-2022 14:59-0400 Systolic blood pressure 132 mm[Hg] Tomas Hawkins MD Work Phone: [facility] 09-07-2022 13:32-0400 Body weight 104.33 kg Misa Hager MANAGER [employer]AMP[employer]OOM HANDLE DIPPER Work Phone: [facility] 09-07-2022 13:32-0400 Diastolic blood pressure 82 mm[Hg] Misa Hager MANAGER CAMP.[employer]OOM HANDLE DIPPER Work Phone: [facility] 09-07-2022 13:32-0400 Heart rate 89 /min Misa Hager MANAGER CAMP.BROOM HANDLE DIPPER Work Phone: [facility] 09-07-2022 13:32-0400 Respiratory rate 16 /min Misa Hager MANAGER CAMP.BROOM HANDLE DIPPER Work Phone: [facility] 09-07-2022 13:32-0400 SaO2% (BldA) [Mass fraction] 97 % Misa Hager MANAGER [employer]AMP.BROOM HANDLE DIPPER Work Phone: [facility] 09-07-2022 13:32-0400 Systolic blood pressure 120 mm[Hg] Misa Hager MANAGER CAMP.BROOM HANDLE DIPPER Work Phone: [facility] 09-04-2022 14:06-0400 Diastolic blood pressure 80 mm[Hg] [facility] Work Phone: [facility] 09-04-2022 14:06-0400 Heart rate 97 /min [facility] Work Phone: [facility] 09-04-2022 14:06-0400 Respiratory rate 18 /min [facility] Work Phone: [facility] 09-04-2022 14:06-0400 SaO2% (BldA) [Mass fraction] 99 % [facility] Work Phone: [facility] 09-04-2022 14:06-0400 Systolic blood pressure 141 mm[Hg] [facility] Work Phone: 4(775)[phone] [place] [address] 09-04-2022 12:38-0400 Body temperature 98.1 [degF] [facility] Work Phone: 1(010)[phone] [place] [address] 09-04-2022 10:49-0400 Body height 187.96 cm [facility] Work Phone: 2(730)[phone] [place] [address] 09-04-2022 10:49-0400 Body mass index (BMI) [Ratio] 30 kg/m2 [facility] Work Phone: 8([phone])[phone] [place] [address] 09-04-2022 10:49-0400 Body weight 106.14 kg [facility] Work Phone: 3(615)995-535363 [place] [address] 09-03-2022 11:17-0400 Body temperature 98 [degF] [facility] Work Phone: 8(953)966-739263 [place] [address] 09-03-2022 11:17-0400 Diastolic blood pressure 78 mm[Hg] [facility] Work Phone: 3(384)906-651563 [place] [address] 09-03-2022 11:17-0400 Heart rate 84 /min [facility] Work Phone: 7(282)705-158363 [place] [address] 09-03-2022 11:17-0400 Respiratory rate 14 /min [facility] Work Phone: 7(675)614-878163 [place] [address] 09-03-2022 11:17-0400 SaO2% (BldA) [Mass fraction] 98 % [facility] Work Phone: 5([phone])[phone] [place] [address] 09-03-2022 11:17-0400 Systolic blood pressure 128 mm[Hg] [facility] Work Phone: 2(735)920-971463 [place] [address] 10-24-2021 12:58-0400 Body height 189.2 cm Misa Hager MANAGER CAMP.BROOM HANDLE DIPPER Work Phone: [facility] 10-24-2021 12:58-0400 Body weight 105.69 kg Misa Hager MANAGER CAMP.BROOM HANDLE DIPPER Work Phone: [facility] 10-24-2021 12:58-0400 Diastolic blood pressure 80 mm[Hg] Misa Hager MANAGER CAMP.BROOM HANDLE DIPPER Work Phone: [facility] 10-24-2021 12:58-0400 Heart rate 84 /min Misa Hager MANAGER CAMP.BROOM HANDLE DIPPER Work Phone: [facility] 10-24-2021 12:58-0400 Respiratory rate 16 /min Misa Hager MANAGER CAMP.BROOM HANDLE DIPPER Work Phone: [facility] 10-24-2021 12:58-0400 Systolic blood pressure 120 mm[Hg] Misa Hager MANAGER CAMP.BROOM HANDLE DIPPER Work Phone: [facility] 06-14-2021 12:02-0400 Body temperature 97.3 [degF] Rossy Valencia MANAGER CAMP.ELECTRONIC REPAIR TROUBLESHOOTER Work Phone: [facility] 06-14-2021 12:02-0400 Body weight 102.15 kg Rossy Valencia MANAGER CAMP.ELECTRONIC REPAIR TROUBLESHOOTER Work Phone: [facility] 06-14-2021 12:02-0400 Diastolic blood pressure 82 mm[Hg] Rossy Valencia MANAGER CAMP.ELECTRONIC REPAIR TROUBLESHOOTER Work Phone: [facility] 06-14-2021 12:02-0400 Heart rate 73 /min Rossy Valencia MANAGER CAMP.ELECTRONIC REPAIR TROUBLESHOOTER Work Phone: [facility] 06-14-2021 12:02-0400 Respiratory rate 18 /min Rossy Valencia MANAGER CAMP.ELECTRONIC REPAIR TROUBLESHOOTER Work Phone: [facility] 06-14-2021 12:02-0400 SaO2% (BldA) [Mass fraction] 99 % Rossy Valencia MANAGER CAMP.ELECTRONIC REPAIR TROUBLESHOOTER Work Phone: [facility] 06-14-2021 12:02-0400 Systolic blood pressure 124 mm[Hg] Rossy Valencia MANAGER CAMP.ELECTRONIC REPAIR TROUBLESHOOTER Work Phone: [facility] Encounters Encounter Date Encounter Type Care Provider Facility Start: 09-29-2024 End: 09-29-2024 Refill Deven Santillan MD Work Phone: [facility] [place] Comment on above: Refill Request Start: 09-11-2024 End: 09-11-2024 Patient encounter procedure Jose J Horn PA-C Work Phone: [facility] [place] Comment on above: Chronic bilateral th oracic back pain (Primary Dx); Radiculopathy, cervical region; Cervical spondylosis without myelopathy Start: 09-11-2024 End: 09-11-2024 ambulatory JOSE J HORN Facility:[facility] Start: 09-10-2024 End: 09-11-2024 Refill Misa Hager APRN.BROOM HANDLE DIPPER Work Phone: [facility] [place] Comment on above: Refill Request Start: 07-17-2024 End: 07-17-2024 [facility] Facility:[facility] Start: 06-27-2024 End: 08-27-2024 Follow-up encounter Misa Hager APRN.BROOM HANDLE DIPPER Work Phone: [facility] Start: 06-26-2024 End: 06-26-2024 Patient encounter procedure Pulm Lab [facility] Work Phone: PULM LAB [facility] Start: 06-26-2024 End: 06-26-2024 ambulatory Pulm Lab [facility] Work Phone: PULM LAB [facility] Comment on above: Spirometry Start: 06-19-2024 End: 06-19-2024 ambulatory [facility] Facility:[facility] Start: 05-19-2024 End: 05-19-2024 Refill Deven Satnillan MD Work Phone: [facility] [place] Comment on above: Refill Request Start: 01-01-2024 End: 01-02-2024 ambulatory Rosario Moffett APRN.ELECTRONIC REPAIR TROUBLESHOOTER Work Phone: [facility] [place] Comment on above: Results Start: 01-01-2024 End: 01-02-2024 E-mail encounter from caregiver Rosario Moffett APRN.ELECTRONIC REPAIR TROUBLESHOOTER Work Phone: [facility] [place] Start: 12-28-2023 End: 12-28-2023 Telephone encounter Rosario Moffett APRN.ELECTRONIC REPAIR TROUBLESHOOTER Work Phone: [facility] [place] Start: 12-27-2023 End: 12-27-2023 ambulatory ROSARIO MOFFETT Facility:[facility] Start: 11-08-2023 End: 11-08-2023 ambulatory ROSARIO MOFFETT Facility:[facility] Start: 11-08-2023 End: 11-08-2023 Patient encounter procedure Rosario Moffett MANAGER CAMP.ELECTRONIC REPAIR TROUBLESHOOTER Work Phone: [facility] [place] Comment on above: Low libido (Primary Dx); Fatigue, unspecified type; Vitamin D deficiency; Screening for lipid disorders; Screening for depression; Encounter for screening examination for other mental health and behavioral disorders Start: 08-27-2023 End: 08-27-2023 Patient encounter procedure Rosario Moffett MANAGER CAMP.ELECTRONIC REPAIR TROUBLESHOOTER Work Phone: [facility] [place] Comment on above: Mass of both upper [...] 05-24-2023 Subsequent hospital visit by physician Salima [facility] Work Phone: Radiology Comment on above: Left foot pain [M79. 672] Start: 04-30-2023 Refill Deven mccormack MD Work Phone: [facility] [place] Comment on above: Refill Request Start: 03-15-2023 ambulatory Rosario Vishal MANAGER CAMP.ELECTRONIC REPAIR TROUBLESHOOTER Work Phone: [facility] [place] Comment on above: Acid reflux Start: 02-05-2023 End: 02-05-2023 ambulatory Misa Najeras MANAGER CAMP.BROOM HANDLE DIPPER Work Phone: [facility] [place] Comment on above: Chronic bilateral th oracic back pain (Primary Dx); Gastrointestinal hemorrhage, unspecified gastrointestinal hemorrhage type Start: 02-05-2023 End: 02-05-2023 Telemedicine consultation with patient Misa Hager JERZY.BROOM HANDLE DIPPER Work Phone: [facility] Start: 01-01-2023 Telephone encounter Misa darling JERZY.BROOM HANDLE DIPPER Work Phone: [facility] Comment on above: Medication Question Start: 01-01-2023 End: 01-01-2023 Office outpatient visit 25 minutes Misa Hager APRN.BROOM HANDLE DIPPER Work Phone: [facility] [place] Comment on above: Gastrointestinal hem orrhage, unspecified gastrointestinal hemorrhage type (Primary Dx); Renal calculus, left; Hydronephrosis of left kidney; Encounter for immunization; Neck pain, musculoskeletal; Chronic bilateral thoracic back pain; Gastroesophageal reflux disease, unspecified whether esophagitis present; Screening for HIV (human immunodeficiency virus); Screening for lipid disorders; Family history of rheumatoid arthritis Start: 11-03-2022 Refill Misa Najeraeaston BERTRAND.BROOM HANDLE DIPPER Work Phone: [facility] [place] Comment on above: Refill Request Start: 09-21-2022 End: 09-21-2022 ambulatory Rome Noriega PT Work Phone: [facility] Physical Therapy Comment on above: Neck pain, musculosk eletal (Primary Dx); Chronic bilateral thoracic back pain Start: 09-07-2022 End: 09-07-2022 Patient encounter procedure Tomas Hawkins MD Work Phone: General Surgery Comment on above: Acute GI bleeding (P rimary Dx); Kidney stone Start: 09-07-2022 Telephone encounter Deven mejia MD Work Phone: [facility] [place] Comment on above: Insurance Authorizat ion Start: 09-07-2022 End: 09-07-2022 Office outpatient visit 25 minutes Misa Hager APRN.BROOM HANDLE DIPPER Work Phone: [facility] [place] Comment on above: Gastrointestinal hem orrhage, unspecified gastrointestinal hemorrhage type (Primary Dx); Renal calculus, left; Hydronephrosis of left kidney; Neck pain, musculoskeletal; Chronic bilateral thoracic back pain; Gastroesophageal reflux disease, unspecified whether esophagitis present Start: 09-04-2022 End: 09-04-2022 Emergency department patient visit Filiberto Power Facility:[facility] Start: 09-04-2022 End: 09-04-2022 Emergency department patient visit [facility] Work Phone: [facility] Work Phone: Start: 09-03-2022 End: 09-03-2022 ambulatory [facility] Facility:[facility] Start: 09-03-2022 End: 09-03-2022 Patient encounter procedure [facility] Work Phone: [facility] Work Phone: Start: 08-21-2022 End: 08-21-2022 ambulatory Rome Noriega PT, DPT Work Phone: [facility] Comment on above: Neck pain, musculosk eletal (Primary Dx); Chronic bilateral thoracic back pain Start: 08-17-2022 End: 08-17-2022 ambulatory Rome Noriega PT, DPT Work Phone: [facility] Comment on above: Neck pain, musculosk eletal (Primary Dx); Chronic bilateral thoracic back pain Start: 08-16-2022 ambulatory Deven mccormack MD Work Phone: [facility] [place] Comment on above: about my back Start: 08-14-2022 End: 08-14-2022 ambulatory Rome Noriega PT, DPT Work Phone: [facility] Comment on above: Neck pain, musculosk eletal (Primary Dx); Chronic bilateral thoracic back pain Start: 08-09-2022 ambulatory No Pcp Bernarda Apodaca Start: 06-30-2022 End: 06-30-2022 Subsequent hospital visit by physician [facility] Work Phone: Radiology Comment on above: Neck pain, musculosk eletal [M54.2] Start: 11-27-2021 ambulatory Misa Hager APRN.CNS Work Phone: [facility] [place] Comment on above: Meloxicam Start: 10-24-2021 Telephone encounter Deven mejia MD Work Phone: [facility] [place] Comment on above: Splint problem Start: 10-24-2021 End: 10-24-2021 Patient encounter procedure Misa Hager APRN.BROOM HANDLE DIPPER Work Phone: [facility] Comment on above: Routine medical exam (Primary Dx); Encounter for immunization; Special screening examination for viral disease; Screening for HIV (human immunodeficiency virus); Screening for lipid disorders; Chronic wrist pain, left; Cervicalgia Start: 10-24-2021 End: 10-24-2021 Patient encounter status Misa Hager APRN.BROOM HANDLE DIPPER Work Phone: [facility] [place] Start: 06-14-2021 End: 06-14-2021 Patient encounter procedure Rossy Erik MANAGER CAMP.ELECTRONIC REPAIR TROUBLESHOOTER Work Phone: [facility] Comment on above: Recurrent aphthous s tomatitis (Primary Dx) Start: 10-26-2016 Emergency department patient visit [facility] Procedures Date Procedure Procedure Detail Performing Clinician Start: 06-26-2024 Brncdilat rspse spmt ry pre&post-brncdilat admn Misa Hager APRN.BROOM HANDLE DIPPER Work Phone: Start: 12-27-2023 Lipid 1996 panel - S hal or Plasma Rosario Moffett MANAGER CAMP.ELECTRONIC REPAIR TROUBLESHOOTER Work Phone: Start: 11-08-2023 Adult depression scr eening assessment Rosario Moffett MANAGER CAMP.ELECTRONIC REPAIR TROUBLESHOOTER Work Phone: Start: 05-24-2023 Radex foot complete minimum 3 views Misa Hager APRN.BROOM HANDLE DIPPER Work Phone: Start: 01-01-2023 PFIZER-BIONTECH COVI D-19 VACCINE (2022- SEASON) AGE 12+ YR Misa Hager APRN.BROOM HANDLE DIPPER Work Phone: Start: 09-04-2022 Measurement of occul t blood in stool specimen using immunoassay [facility] Work Phone: Start: 09-04-2022 Computed tomography of abdomen and pelvis with intravenous contrast [facility] Work Phone: Start: 06-30-2022 Radex spine cervical 4 or 5 views Deven Santillan MD Work Phone: Start: 10-22-2021 Adult depression scr eening assessment Misa Hager APRN.BROOM HANDLE DIPPER Work Phone: Plan of Treatment Date Care Activity Detail Author Start: 12-26-2028 Lipid panel Lipid Screening [facility] Start: 10-26-2026 Urine microalbumin profile [facility] Start: 12-23-2024 End: 12-23-2024 Patient encounter procedure 12/23/2024 7:00 PM EDT Office Visit [facility] [place] [address] [place] [address] Deven Santillan MD [address] [place], [place] [id number] 6 month f/u [facility] [place] Comment on above: 6 month f/u Start: 11-07-2024 Anxiety Screening Anxiety Screening [facility] Start: 11-07-2024 Depression Screening Depression Screening [facility] Start: 10-27-2024 Covid-19 Vaccine ( season) Covid-19 Vaccine ( season) [facility] Comment on above: Postponed from 10/28/2023 (Declined at t his time) Start: 10-27-2024 Hepatitis B Vaccine (1 of 3 - 19+ 3-dose series) Hepatitis B Vaccine (1 of 3 - 19+ 3-dose series) [facility] Comment on above: Postponed from 2005 (Declined at t his time) Start: 10-27-2024 Influenza vaccination [facility] Start: 09-30-2024 End: 09-30-2024 Patient encounter procedure 09/30/2024 10:00 AM EDT Office Visit Urology [address] [place], [place] [id number] Vivek Shahid PA-C [address] [place] [address] CONSULT: Erectile dysfunction, unspecified type. [facility] Urology Comment on above: CONSULT: Erectile dysfunction, unspecifi ed type. [facility] Start: 09-11-2024 End: 09-11-2024 Patient encounter procedure 09/11/2024 2:20 PM EDT Office Visit [facility] [place] [address] [address] Jose J Horn PA-C [address] [place] [address] Chronic bilateral thoracic back pain [M54.6, G89.29] [facility] [place] Comment on above: Chronic bilateral thoracic back pain [M5 4.6, G89.29] Start: 08-19-2024 End: 08-19-2024 Patient encounter procedure 08/19/2024 11:00 AM EDT Office Visit Urology [address] [place] [address] Vivek Shahid PA-C [address] [place] [address] Erectile dysfunction, unspecified erectile dysfunction type [N52.9] Urology Comment on above: Erectile dysfunction, unspecified erecti le dysfunction type [N52.9] Start: 07-17-2024 End: 07-17-2024 Patient encounter procedure 07/17/2024 1:40 PM EDT Office Visit [facility] [address] [place] [address] Misa Hager APRN.BROOM HANDLE DIPPER [address] [place] [address] follow up [facility] [place] Comment on above: follow up Start: 01-02-2024 HIV Screening HIV Screening [facility] Comment on above: Postponed from 2004 (Declined at t his time) Start: 01-02-2024 HIV screening HIV Screening [facility] Comment on above: Postponed from 2004 (Declined at t his time) Start: 12-28-2023 End: 03-28-2024 Hemoglobin A1c in Blood [facility] Work Phone: Comment on above: Expected: 12/28/2023, Expires: 5 Start: 11-09-2023 End: 02-08-2024 25-hydroxyvitamin D3 [Mass/volume] in Serum or Plasma VITAMIN D 25 HYDROXY Lab Routine Vitamin D deficiency Expected: 11/09/2023, Expires: 02/08/2024 [facility] Comment on above: Expected: 11/09/2023, Expires: 4 Start: 11-09-2023 End: 02-08-2024 CBC W Auto Differential panel - Blood COMPLETE BLOOD COUNT AND DIFFERENTIAL Lab Routine Low libido Fatigue, unspecified type Expected: 11/09/2023, Expires: 02/08/2024 [facility] Comment on above: Expected: 11/09/2023, Expires: 4 Start: 11-09-2023 End: 02-08-2024 Cobalamin (Vitamin B12) [Mass/volume] in Serum or Plasma VITAMIN B12 Lab Routine Fatigue, unspecified type Expected: 11/09/2023, Expires: 02/08/2024 [facility] Comment on above: Expected: 11/09/2023, Expires: 4 Start: 11-09-2023 End: 02-08-2024 Comprehensive metabolic 2000 panel - Serum or Plasma COMPREHENSIVE METABOLIC PANEL Lab Routine Fatigue, unspecified type Expected: 11/09/2023, Expires: 02/08/2024 [facility] Comment on above: Expected: 11/09/2023, Expires: Start: 11-09-2023 End: 02-08-2024 Ferritin [Mass/volume] in Serum or Plasma FERRITIN Lab Routine Low libido Fatigue, unspecified type Expected: 11/09/2023, Expires: 02/08/2024 [facility] Comment on above: Expected: 11/09/2023, Expires: Start: 11-09-2023 End: 02-08-2024 Iron and Iron binding capacity panel - Serum or Plasma IRON AND TIBC Lab Routine Low libido Fatigue, unspecified type Expected: 11/09/2023, Expires: 02/08/2024 [facility] Comment on above: Expected: 11/09/2023, Expires: Start: 11-09-2023 End: 02-08-2024 Lipid 1996 panel - Serum or Plasma LIPID PANEL BASIC Lab Routine Screening for lipid disorders Expected: 11/09/2023, Expires: 02/08/2024 [facility] Comment on above: Expected: 11/09/2023, Expires: Start: 11-09-2023 End: 02-08-2024 Magnesium [Mass/volume] in Serum or Plasma MAGNESIUM Lab Routine Fatigue, unspecified type Expected: 11/09/2023, Expires: 02/08/2024 [facility] Comment on above: Expected: 11/09/2023, Expires: Start: 11-09-2023 End: 02-08-2024 TESTOSTERONE, FREE AND TOTAL TESTOSTERONE, FREE AND TOTAL Lab Routine Low libido Fatigue, unspecified type Expected: 11/09/2023, Expires: 02/08/2024 [facility] Work Phone: Comment on above: Expected: 11/09/2023, Expires: Start: 11-09-2023 End: 02-08-2024 Thyrotropin [Units/volume] in Serum or Plasma THYROID STIMULATING HORMONE Lab Routine Low libido Fatigue, unspecified type Expected: 11/09/2023, Expires: 02/08/2024 [facility] Comment on above: Expected: 11/09/2023, Expires: Start: 11-08-2023 End: 11-08-2023 Patient encounter procedure 11/08/2023 10:00 AM EDT Office Visit Internal Medicine [address] [address] Rosario Moffett APRN.ELECTRONIC REPAIR TROUBLESHOOTER [address] [place], [place] [phone] Testosterone testing [facility] [place] Comment on above: Testosterone testing Start: 10-28-2023 Covid-19 Vaccine ( season) Covid-19 Vaccine () [facility] Start: 10-28-2023 Influenza vaccination [facility] Start: 09-13-2023 End: 09-13-2023 Patient encounter procedure 09/13/2023 4:00 PM EDT Appointment Radiology [address] [place], [place] [address] Mass of both upper extremities [R22.33] Radiology Comment on above: Mass of both upper extremities [R22.33] Start: 08-23-2023 End: 08-23-2023 Patient encounter procedure 08/23/2023 10:30 AM EDT Office Visit Otolaryngology [address] [address] Deo Foy MD [address] [address] Decreased hearing of right ear [H91.91] Otolaryngology Comment on above: Decreased hearing of right ear [H91.91] Start: 08-09-2023 End: 08-09-2023 Patient encounter procedure 08/09/2023 2:30 PM EDT Office Visit Audiology [address] [address] Ira Anthony, AUD [address] [place], [place] [id number] Decreased hearing of right ear [H91.91] Audiology Comment on above: Decreased hearing of right ear [H91.91] Start: 07-02-2023 End: 07-02-2023 Patient encounter procedure 07/02/2023 11:00 AM EDT Office Visit [facility] [address] [place] [address] Deven Santillan MD [address] [place] [address] 6 month follow up [facility] Comment on above: 6 month follow up Start: 07-01-2023 COVID-19 VACCINE (4 - Booster for Pfizer series) COVID-19 VACCINE (4 - Booster for Pfizer series) [facility] Comment on above: Postponed from 02/18/2021 (Declined at t his time) Start: 07-01-2023 COVID-19 VACCINE (4 - Pfizer series) COVID-19 VACCINE (4 - Pfizer series) [facility] Comment on above: Postponed from 02/18/2021 (Declined at t his time) Start: 06-30-2023 Hepb vaccine adult 3 dose schedule for im use HEP B VACCINE, 3-DOSE, AGE 20+ YR (ENGERIX-B, RECOMBIVAX HB) Immunization/Injection Routine Encounter for immunization Expected: 06/30/2023 [facility] Work Phone: Comment on above: Expected: 06/30/2023 Start: 02-26-2023 Behavioral Health Screening Behavioral Health Screening [facility] Start: 02-26-2023 Depression Assessment Depression Assessment [facility] Start: 01-31-2023 Hepb vaccine adult 3 dose schedule for im use HEP B VACCINE, 3-DOSE, AGE 20+ YR (ENGERIX-B, RECOMBIVAX HB) Immunization/Injection Routine Encounter for immunization Expected: 01/31/2023 [facility] Work Phone: Comment on above: Expected: 01/31/2023 Start: 01-01-2023 End: 04-02-2023 ИРИНА BY IFA SCREEN ИРИНА BY IFA SCREEN Lab Routine Neck pain, musculoskeletal Chronic bilateral thoracic back pain Family history of rheumatoid arthritis Expected: 01/01/2023, Expires: 04/02/2023 [facility] Work Phone: Comment on above: Expected: 01/01/2023, Expires: 4 Start: 01-01-2023 End: 04-02-2023 C reactive protein [Mass/volume] in Serum or Plasma C-REACTIVE PROTEIN (CRP) Lab Routine Neck pain, musculoskeletal Chronic bilateral thoracic back pain Family history of rheumatoid arthritis Expected: 01/01/2023, Expires: 04/02/2023 [facility] Work Phone: Comment on above: Expected: 01/01/2023, Expires: 4 Start: 01-01-2023 End: 04-02-2023 Erythrocyte sedimentation rate SED RATE WESTERGREN Lab Routine Neck pain, musculoskeletal Chronic bilateral thoracic back pain Family history of rheumatoid arthritis Expected: 01/01/2023, Expires: 04/02/2023 [facility] Work Phone: Comment on above: Expected: 01/01/2023, Expires: 4 Start: 01-01-2023 End: 04-02-2023 Lipid 1996 panel - Serum or Plasma LIPID PANEL BASIC Lab Routine Screening for lipid disorders Expected: 01/01/2023, Expires: 04/02/2023 [facility] Work Phone: Comment on above: Expected: 01/01/2023, Expires: 4 Start: 01-01-2023 End: 04-02-2023 Rheumatoid factor [Units/volume] in Serum or Plasma RHEUMATOID FACTOR BL Lab Routine Neck pain, musculoskeletal Chronic bilateral thoracic back pain Family history of rheumatoid arthritis Expected: 01/01/2023, Expires: 04/02/2023 [facility] Work Phone: Comment on above: Expected: 01/01/2023, Expires: 4 Start: 10-27-2022 Influenza vaccination [facility] Start: 10-24-2022 HIV SCREENING HIV SCREENING [facility] Comment on above: Postponed from 2004 (Declined at t his time) Start: 10-22-2022 Adult depression screening assessment DEPRESSION SCREENING [facility] Start: 09-04-2022 [facility] Start: 10-27-2021 Influenza vaccination [facility] Start: 10-24-2021 End: 12-24-2021 CBC W Auto Differential panel - Blood [facility] Work Phone: Comment on above: Expected: 10/24/2021, Expires: 2 Start: 10-24-2021 End: 12-24-2021 Comprehensive metabolic 2000 panel - Serum or Plasma [facility] Work Phone: Comment on above: Expected: 10/24/2021, Expires: 2 Start: 10-24-2021 End: 12-24-2021 Hepatitis C virus Ab [Presence] in Serum [facility] Work Phone: Comment on above: Expected: 10/24/2021, Expires: 2 Start: 10-24-2021 End: 12-24-2021 Lipid 1996 panel - Serum or Plasma LIPID PANEL BASIC Lab Routine Screening for lipid disorders Expected: 10/24/2021, Expires: 12/24/2021 [facility] Work Phone: Comment on above: Expected: 10/24/2021, Expires: Start: 2021 Lipid 1996 panel - Serum or Plasma Lipid Screening [facility] Start: 2021 Lipid panel Lipid Screening [facility] Start: 2021 LIPID SCREEN LIPID SCREEN [facility] Start: 02-26-2021 DEPRESSION ASSESSMENT DEPRESSION ASSESSMENT [facility] Start: 02-18-2021 COVID-19 VACCINE (4 - Booster for Pfizer series) COVID-19 VACCINE (4 - Booster for Pfizer series) [facility] Start: 06-15-2020 HPV VACCINE (2 - 3-dose SCDM series) HPV VACCINE (2 - 3-dose SCDM series) [facility] Start: 2005 Hepatitis B Vaccine (1 of 3 - 19+ 3-dose series) Hepatitis B Vaccine (1 of 3 - 19+ 3-dose series) [facility] Start: 2005 Urine microalbumin profile DTAP,TDAP,TD (1 - Tdap) [facility] Start: 2004 Anxiety Screening Anxiety Screening [facility] Start: 2004 Depression Screening Depression Screening [facility] Start: 2004 HEPATITIS C SCREENING HEPATITIS C SCREENING [facility] Start: 2004 HIV SCREENING HIV SCREENING [facility] Start: 2004 HIV screening HIV Screening [facility] Start: 1998 Adult depression screening assessment DEPRESSION SCREENING [facility] Start: 1986 HEPATITIS B (1 of 3 - 3-dose series) HEPATITIS B (1 of 3 - 3-dose series) [facility] Start: 1986 Hepatitis B Vaccine (1 of 3 - 3-dose series) Hepatitis B Vaccine (1 of 3 - 3-dose series) [facility] 9vhpv vacc 2/3 dose sched im use HPV VACCINE, 9-VALENT (GARDASIL 9) Immunization/Injection Routine Encounter for immunization 1 Occurrences starting 01/01/2023 [facility] Work Phone: Comment on above: 1 Occurrences starting 01/01/2023 End: 09-08-2023 COLONOSCOPY DIAGNOSTIC COLONOSCOPY DIAGNOSTIC Endoscopy Routine Acute GI bleeding 1 Occurrences starting 09/07/2022 until 09/08/2023 [facility] Work Phone: Comment on above: 1 Occurrences starting 09/07/2022 until 09/08/2023 End: 09-08-2023 EGD DIAGNOSTIC EGD DIAGNOSTIC Endoscopy Routine Acute GI bleeding 1 Occurrences starting 09/07/2022 until 09/08/2023 [facility] Work Phone: Comment on above: 1 Occurrences starting 09/07/2022 until 09/08/2023 Hepb vaccine adult 3 dose schedule for im use HEPATITIS B VACCINE, ADULT AGE 20+, IM Immunization/Injection Routine Encounter for immunization 1 Occurrences starting 10/24/2021 [facility] Work Phone: Comment on above: 1 Occurrences starting 10/24/2021 Hepb vaccine adult 3 dose schedule for im use HEP B VACCINE, 3-DOSE, AGE 20+ YR (ENGERIX-B, RECOMBIVAX HB) Immunization/Injection Routine Encounter for immunization 1 Occurrences starting 01/01/2023 [facility] Work Phone: Comment on above: 1 Occurrences starting 01/01/2023 INFLUENZA VACCINE, A GE 6 MO - 64 YR, QUADRIVALENT (AFLURIA, FLULAVAL, FLUZONE) INFLUENZA VACCINE, AGE 6 MO - 64 YR, QUADRIVALENT (AFLURIA, FLULAVAL, FLUZONE) Immunization/Injection Routine Encounter for immunization 1 Occurrences starting 01/01/2023 [facility] Work Phone: Comment on above: 1 Occurrences starting 01/01/2023 End: 10-12-2025 MR Cervical spine WO contrast MRI CERVICAL SPINE WO IVCON Radiology Routine Chronic bilateral thoracic back pain Radiculopathy, cervical region Cervical spondylosis without myelopathy 1 Occurrences starting 09/11/2024 until 10/12/2025 [facility] Comment on above: 1 Occurrences starting 09/11/2024 until 10/12/2025 Patient Education ED Kidney Ston e Undescended No ... ED Lower GI Bleeding (Stable) [facility] Work Phone: Patient referral [facility] Work Phone: End: 09-25-2024 US Abdomen US SOFT TISSUE ABDOMEN Radiology Routine Palpable mass of lower back 1 Occurrences starting 08/27/2023 until 09/25/2024 [facility] Comment on above: 1 Occurrences starting 08/27/2023 until 09/25/2024 End: 09-25-2024 US Extremity - left US EXTREMITY MASS/FLUID COLLECTION LEFT Radiology Routine Mass of both upper extremities 1 Occurrences starting 08/27/2023 until 09/25/2024 [facility] Comment on above: 1 Occurrences starting 08/27/2023 until 09/25/2024 End: 09-25-2024 US Extremity - right US EXTREMITY MASS/FLUID COLLECTION RIGHT Radiology Routine Mass of both upper extremities 1 Occurrences starting 08/27/2023 until 09/25/2024 [facility] Comment on above: 1 Occurrences starting 08/27/2023 until 09/25/2024 End: 09-25-2024 US Pelvis US SOFT TISSUE PELVIS Radiology Routine Mass of left hip region 1 Occurrences starting 08/27/2023 until 09/25/2024 [facility] Work Phone: Comment on above: 1 Occurrences starting 08/27/2023 until 09/25/2024 End: 10-11-2025 XR CERV OTHER 4V AP/LAT/FLX/EXT XR CERV OTHER 4V AP/LAT/FLX/EXT Radiology Routine Chronic bilateral thoracic back pain Radiculopathy, cervical region Cervical spondylosis without myelopathy 1 Occurrences starting 09/11/2024 until 10/11/2025 [facility] Work Phone: Comment on above: 1 Occurrences starting 09/11/2024 until 10/11/2025 End: 11-23-2022 XR WRIST GENERAL 3V PA/LAT/OBL LEFT XR WRIST GENERAL 3V PA/LAT/OBL LEFT Radiology Routine Chronic wrist pain, left 1 Occurrences starting 10/24/2021 until 11/23/2022 [facility] Work Phone: Comment on above: 1 Occurrences starting 10/24/2021 until 11/23/2022 [facility] Immunizations Immunization Date Immunization Notes Care Provider Lyubov cheng 01-01-2023 COVID-19 vaccine, ag e 12+ yr, season (PFIZER-BIONTECH) Misa Hager MANAGER CAMP.BROOM HANDLE DIPPER Work Phone: [facility] Work Phone: 12-24-2020 COVID-19 vaccine, ag e 12+ yr (PFIZER-BIONTECH - PURPLE TOP) Misaorquidea Najeras MANAGER CAMP.BROOM HANDLE DIPPER Work Phone: [facility] Work Phone: 06-24-2020 COVID-19 vaccine, ag e 12+ yr (PFIZER-BIONTECH - PURPLE TOP) Misa Hager MANAGER CAMP.BROOM HANDLE DIPPER Work Phone: [facility] Work Phone: 06-03-2020 COVID-19 vaccine, ag e 12+ yr (PFIZER-BIONTECH - PURPLE TOP) Misa Hager MANAGER CAMP.BROOM HANDLE DIPPER Work Phone: [facility] Work Phone: 05-18-2020 Human Papillomavirus 9-valent vaccine Misa Najeras MANAGER CAMP.BROOM HANDLE DIPPER Work Phone: [facility] Work Phone: 10-26-2016 tetanus toxoid, redu kristian diphtheria toxoid, and acellular pertussis vaccine, adsorbed Misaorquidea Najeras MANAGER CAMP.BROOM HANDLE DIPPER Work Phone: [facility] Work Phone: Payers Date Payer Category Payer Private Health Insurance [id number] 2023 Unknown [id number] 2022 Self-pay 2022 Unknown [id number] 2020 Unknown MMO MMO [employer] [id number] 2020-Present [phone] [address] [place] [address] O [id number] 2020 Unknown [id number] Unknown [id number] Unknown [id number] Social History Date Type Detail Facility Start: 06-14-2021 End: 11-08-2023 Tobacco smoking status NHIS Ex-smoker [facility] Start: 06-14-2021 End: 11-08-2023 Tobacco use and exposure Smokeless tobacco non-user [facility] Start: 06-14-2021 End: 09-11-2024 Alcohol intake Lifetime non-drinker (finding) [facility] Start: 06-14-2021 End: 06-29-2022 History SDOH Alcohol Frequency 1 [facility] Start: 1985 Sex Assigned At Not on file [facility] Start: 06-03-2021 End: 10-24-2021 Exposure to SARS-CoV-2 (event) Not sure [facility] Work Phone: History of tobacco use Current smoker [facility] Work Phone: History of tobacco use Cigarette Smoker [facility] Work Phone: Start: 10-24-2021 End: 06-29-2022 Cigarettes smoked current (pack per day) - Reported 1 [facility] Start: 10-23-2021 End: 06-29-2022 History SDOH Alcohol Std Drinks 0 [facility] Start: 10-23-2021 End: 06-29-2022 History SDOH Social Connections Phone 2 [facility] Start: 10-23-2021 End: 06-29-2022 History SDOH Social Connections Meetings 3 [facility] Start: 10-23-2021 History SDOH Social Connections Living 8 [facility] Start: 10-23-2021 History SDOH Financial 4 [facility] Start: 10-24-2021 Tobacco Comment former vaping [facility] Start: 06-29-2022 History SDOH Social Connections Living 7 [facility] Start: 09-04-2022 Tobacco smoking stat us NHIS Unknown if ever smoked [facility] Start: 1985 Sex Assigned At Male [facility] Start: 06-29-2022 End: 08-27-2023 Social connection and isolation panel [facility] Do you belong to any clubs or organizations such as synagogue groups, unions, fraternal or athletic groups, or school groups? No [facility] Are you now , , , , never or living with a partner? Never [facility] How often to you hav e a drink containing alcohol? Never [facility] How many standard dr inks containing alcohol do you have on a typical day? Patient does not drink [facility] How hard is it for y ou to pay for the very basics like food, housing, medical care, and heating Somewhat hard [facility] Do you feel stress - tense, restless, nervous, or anxious, or unable to sleep at night because your mind is troubled all the time - these days [OSQ] To some extent [facility] (I/We) worried whejensen er (my/our) food would run out before (I/we) got money to buy more. Sometimes true [facility] Are you now , , , , never or living with a partner? Living with partner [facility] How often to you hav e a drink containing alcohol? Monthly or less [facility] How many standard dr inks containing alcohol do you have on a typical day? 1 or 2 [facility] How hard is it for y ou to pay for the very basics like food, housing, medical care, and heating Not very hard [facility] Do you feel stress - tense, restless, nervous, or anxious, or unable to sleep at night because your mind is troubled all the time - these days [OSQ] Only a little [facility] The food that (I/we) bought just didn't last, and (I/we) didn't have money to get more. Never true [facility] Clinical Notes 06-14-2021 to 09-29-2024 Telephone Encounter [...] Schwarz MA September 29, 2024 10:55 AM [facility] 09-29-2024 Miscellaneous Notes Prescription Refill Information The [...] 2024 10:55 AM documented in this encounter [facility] 09-11-2024 Note HNO ID: [id number] Author: JOSE J HORN PA-C Service: ? Author Type: Physician Sap Technical Developer Type: Progress Notes Filed: 09/11/2024 15:05 Note Text: Jose J Horn [facility]-C [facility] [address] [address] 09/11/2024 ASSESSMENT AND PLAN: Assessment : Encounter [...] today with this patient visit. This includes nkiq-nl-kgwf time, review of chart records regarding conservative care history, spine-pertinent imaging, and communication/care coordination with referring provider, problem-specific history-taking and counseling/education regarding treatment options. cc: Misa Hager [address] [facility] [address] Results of consultation to be transmitted via electronic medical record for those providers who practice within [facility] or with access to [employer] via MD Connect, or via letter. ################################ ################################ ######## CHIEF COMPLAINT: Patient is here for the neck pain, upper back, left side is more painful. Level of the pain at this moment is at 3/10, but with (more content not included)... [facility] 09-11-2024 History of Presen t illness Narrative Images from the original note were not included. Jose J Horn PA-C [facility] [address] [address] 09/11/2024 ASSESSMENT AND PLAN: Assessment : Encounter [...] today with this patient visit. This includes yjuv-gd-gmht time, review of chart records regarding conservative care history, spine-pertinent imaging, and communication/care coordination with referring provider, problem-specific history-taking and counseling/education regarding treatment options. cc: Misa Hager [address] [place] [id number] Results of consultation to be transmitted via electronic medical record for those providers who practice within [facility] or with access to [employer] via MD Connect, or via letter. 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 Author Type: Nurse Specialist Type: [...] recommended stretches. - Has not seen a aviation technical systems specialist due to insurance and cost issues. [...] to person, place, and time. Latest Ref [facility] 12/27/2023 WBC 3.70 - 11.00 k/uL 6.98 [...] Abs Lymph 1.00 - 4.00 k/uL 2.11 Hettinger% % 7.4 Abs Hettinger <0.87 k/uL 0.52 Eosin% % 1.3 Abs [...] well. - Refill for sildenafil sent to [facility] pharmacy. - Scheduled urology appointment. - Discusse (more content not included)... [facility] 06-27-2024 Progress note Formatting of t his note might be different from the original. Normal spirometry [facility] 06-27-2024 Miscellaneous Notes Normal spirometry documented in this encounter [facility] 06-19-2024 Note HNO ID: [id number] Author: MISA HAGER APRN.CNS Service: ? Author [...] Anxiety and Depression: - Managed by [facility] - Taking buspirone and Wellbutrin. - Reports [...] Abs Lymph 1.00 - 4.00 k/uL 2.11 Hettinger% % 7.4 Abs Hettinger <0.87 k/uL 0.52 Eosin% % 1.3 Abs [...] Total, S 264 (more content not included)... [facility] 05-19-2024 Telephone encounter Note Prescription Refill [...] Heidy Nolen May 19, 2024 12:52 PM [facility] 05-19-2024 Miscellaneous Notes Prescription Refill Information The [...] 2024 12:52 PM documented in this encounter [facility] 12-28-2023 Telephone encounter Note Contact client services and A1C will be added. [facility] 12-28-2023 Miscellaneous Notes Contact client services and A1C will be added. Can we please see if the hgba1c can be added to the labs? Order placed. Thanks documented in this encounter [facility] 12-28-2023 Telephone encounter Note Can we please see if the hgba1c can be added to the labs? Order placed. Thanks [facility] 11-08-2023 Note HNO ID: [id number] Author: ROSARIO MOFFETT APRN.SINDI Service: ? Author [...] 2 TABLETS BY MOUTH ONCE DAILY NEEDED mmzzvwhd-mop-rtgpl-vit K-lycop (ONE-A-DAY MEN'S MULTIVITAMIN) 400-20-300 mcg tab [...] (FLONASE) 50 mcg/actuation nasal spray Use 1 [place] in each nostril once daily. ciclopirox (LOPROX) [...] THYROID STIMULATING HORMONE (more content not included)... [facility] 11-08-2023 History of Presen t illness [...] 2 TABLETS BY MOUTH ONCE DAILY NEEDED qeavhveg-iiq-smacm-vit K-lycop (ONE-A-DAY MEN'S MULTIVITAMIN) 400-20-300 mcg tab [...] (FLONASE) 50 mcg/actuation nasal spray Use 1 [place] in each nostril once daily. ciclopirox (LOPROX) [...] Rosario Moffett APRN-SINDI documented in this encounter [facility] 08-27-2023 History of Presen t illness Narrative [...] 2 TABLETS BY MOUTH ONCE DAILY NEEDED xfjxofch-eqn-fwzph-vit K-lycop (ONE-A-DAY MEN'S MULTIVITAMIN) 400-20-300 mcg tab [...] (FLONASE) 50 mcg/actuation nasal spray Use 1 [place] in each nostril once daily. tiZANidine (ZANAFLEX) [...] Rosario Moffett APRN-SINDI documented in this encounter [facility] 06-21-2023 History of Presen t illness Narrative [...] ry No results found for: HBA1C PCP: Devne Santillan MD PAST MEDICAL HISTORY Diagnosis Date [...] 2 TABLETS BY MOUTH ONCE DAILY NEEDED xrkibosq-fhq-bcyhg-vit K-lycop (ONE-A-DAY MEN'S MULTIVITAMIN) 400-20-300 mcg tab [...] (FLONASE) 50 mcg/actuation nasal spray Use 1 [place] in each nostril once daily. Diclofenac Sodium [...] prn Deo Villalba DPM Podiatry [address] [facility] [address] Dept: [phone] Dept AMB ROOMING INTAKE FLOWSHEET DATA Pain [...] on both feet. documented in this encounter [facility] 06-21-2023 Instructions Deo Villalba - 06/21/2023 2:37 [...] time on their feet, such as nurses, waiter/waitress buffet/waiters, and mail carriers, often experience plantar fasciitis. [...] choose the one that fits the best. Amesti with your athletic shoes to find a [...] repeat the exercise. documented in this encounter [facility] 05-28-2023 Miscellaneous Notes Pt notified via my [...] decision on the prior authorization criteria for: 33140 ST: Diclofenac 3% gel We are providing you with a copy of the Notice of Adverse Benefit Determination that we sent to your patient. Electronic PA rec'd and completed for : Diclofenac Sodium 3 % gel documented in this encounter [facility] 05-24-2023 History of Presen t illness Narrative [...] PATIENT PRESENTS WITH AN IMPLANTABLE OR ATTACHED LESSON INSTRUCTOR: No RADIOLOGY DEPARTMENT: General X-ray: Exam(s) Completed: Lower Extremity X-Ray(s): Foot, Left and Wt. Bearing PERIPHERAL IV DATA: Not applicable SIGNED BY: RT Alex(R) May 24, 2023 3:50 PM documented in this encounter [facility] 05-24-2023 Miscellaneous Notes No acute findings on x-ray documented in this encounter [facility] 05-24-2023 Progress note Formatting of t his note might be different from the original. No acute findings on x-ray [facility] 04-30-2023 Miscellaneous Notes Patient calling with request for new script to [facility]. Changed pharmacy. Patient has been [...] Eneida Todd RN. documented in this encounter [facility] 04-08-2023 Miscellaneous Notes Addressed 03/19/2023 documented in this encounter [facility] 02-05-2023 History of Presen t illness Narrative AMBULATORY TELEPHONE VISIT Emir Wise Butch has consented to this telephone encounter. Persons Present: patient Chief Complaint/Reason: recheck back pain HPI: Has appt with [place] [facility]. He reports no further GI bleeding. [...] diclofenac topical did not help. Data Reviewed: [facility] chart Assessment: (K92.2) Gastrointestinal hemorrhage, unspecified gastrointestinal [...] Misa Hager APRN.CNS documented in this encounter [facility] 01-02-2023 Miscellaneous Notes Will send a [employer] message. Can follow up with a phone [...] that can impact absorption. Ruma Tinajero PharmD, [facility] Primary Care Clinical Pharmacist [facility] and [place] literature reviewed. Should be able to use for back pain. However if he does not want to use the product does not have to do so. [facility] notes: How do you use diclofenac gel [...] Humaira Dewey LPN documented in this encounter [facility] 01-01-2023 History of Presen t illness Narrative [...] records: care everywhere Has been seen at [facility] for acute problems since 2020. Reviewed outside medications treated with paxlovid September 01, 2021. Previously treated with acyclovir June, August, September 2021 for recurrent aphthous ulcer since childhood, interested in suppressive therapy. Currently taking acyclovir 400 mg BID. [facility] Hubbard for anxiety and depression. Taking bupropion XL 150 mg daily, [id number] mg twice daily, hydroxyzine 25 mg 3 [...] screening for STD via diana Edwards to [facility]. 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 He was seen at [facility] emergency department on September 04 for GI [...] Hawkins September 07, 2022. Colonoscopy scheduled at [facility] [address] Adan. He reports he may go to Dr. Fish at [facility] is he would have better coverage by [...] not improving would be interested in seeing aviation technical systems specialist. Notes that physical therapy seem to [...] 2 TABLETS BY MOUTH ONCE DAILY NEEDED gkygfubm-acv-ldxfe-vit K-lycop (ONE-A-DAY MEN'S MULTIVITAMIN) 400-20-300 mcg tab [...] (FLONASE) 50 mcg/actuation nasal spray Use 1 [place] in each nostril once daily. lidocaine (LIDODERM) [...] Abs Lymph 1.00 - 4.00 k/uL 2.12 Hettinger% % 8.6 Abs Hettinger <0.87 k/uL 0.64 Eosin% % 1.7 Abs [...] K92.2 (primary diagnosis) Has endoscopy scheduled at [facility], may switch to [facility] DrReyna Friend as it is better covered [...] 65 YR, QUADRIVALENT (AFLURIA, FLULAVAL, FLUZONE) - [employer] COVID-19 VACCINE (2022- [place]) AGE 12+ YR [...] 6 mo follow up MD Misa Yin APRN.BROOM HANDLE DIPPER Medical Decision Making: Problems: Moderate: 2+ stable chronic illnesses Risk: Moderate: Drug management Medical Decision Making Level: 4 - Moderate documented in this encounter [facility] 11-03-2022 Miscellaneous Notes Patient calling and asking [...] Emilie Steward LPN documented in this encounter [facility] 09-21-2022 History of Presen t illness Narrative [...] Rome Noriega PT documented in this encounter [facility] 09-08-2022 Miscellaneous Notes 09/07/2022 Date of Request: [...] decision on the prior authorization criteria for: 74001 ST: Generic lidocaine 5% Patches - *MMO* We are providing you with a copy of the Notice of Adverse Benefit Determination that we sent to your patient. Electronic PA completed for lidocaine pathes documented in this encounter [facility] 09-08-2022 Miscellaneous Notes OV yesterday. OK for spine referral if needed/so desires. documented in this encounter [facility] 09-07-2022 Instructions Tomas Hawkins MD - 09/07/2022 [...] If you do not have a responsible bulk truck driver (family member or friend) with you [...] exam. 2 01/2019 documented in this encounter [facility] 09-07-2022 History of Presen t illness Narrative HISTORY AND PHYSICAL Emir Rae 1985 REFERRING PHYSICIAN: Misa Hager CHIEF COMPLAINT: Consult (GI bleed, 09/04/22 CT images [facility] requested to be pushed. ) HPI: The patient is a 36 year old male referred for endoscopy. Emir notes a history of constipation issues in his younger. He notes some occasional constipation issues currently. The patient recently was in [place] on his [place] he denied true constipation or straining issues but noted rectal bleeding. He noted blood on the toilet paper and blood cut on the outside of the stool. He denied blood mixed within the stool. He denied melena hematochezia nausea or vomiting. His reason for presentation to [place] emergency department was due to left flank [...] 2 TABLETS BY MOUTH ONCE DAILY NEEDED jfdwupzi-zff-khigx-vit K-lycop (ONE-A-DAY MEN'S MULTIVITAMIN) 400-20-300 mcg tab [...] (FLONASE) 50 mcg/actuation nasal spray Use 1 [place] in each nostril once daily. peg 3350-Electrolytes [...] entered by the nurse and reviewed by mt Nursing Notes: Yoly Romo LPN 09/07/2022 3:01 [...] Tomas Hawkins MD documented in this encounter [facility] 09-07-2022 Nurse Note REVIEW OF SYSTEMS: General: [...] Yoly Romo LPN documented in this encounter [facility] 09-07-2022 History of Presen t illness Narrative [...] records: care everywhere Has been seen at [facility] for acute problems since 2020. Reviewed outside medications treated with paxlovid September 01, 2021. Previously treated with acyclovir June, August, September 2021 for recurrent aphthous ulcer since childhood, interested in suppressive therapy. Currently taking acyclovir 400 mg BID. [facility] for anxiety and depression. Taking bupropion XL 150 mg daily, [id number] mg twice daily, hydroxyzine 25 mg 3 [...] screening for STD via diana Edwards to [facility]. 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 He was seen at [facility] emergency department on September 04 for GI [...] 2 TABLETS BY MOUTH ONCE DAILY NEEDED vtvgcbfb-blk-ailhz-vit K-lycop (ONE-A-DAY MEN'S MULTIVITAMIN) 400-20-300 mcg tab [...] (FLONASE) 50 mcg/actuation nasal spray Use 1 [place] in each nostril once daily. PAST MEDICAL [...] 4 - Moderate documented in this encounter [facility] 08-21-2022 History of Presen t illness Narrative [...] Noriega PT, DPT documented in this encounter [facility] 08-17-2022 History of Presen t illness Narrative [...] Noriega PT DPT documented in this encounter [facility] 08-14-2022 History of Presen t illness Narrative [...] of Care: created on 08/14/22 through 09/18/22 [place] in home exercise program. 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 [...] Eneida Todd RN documented in this encounter [facility] 10-24-2021 History of Presen t illness Narrative [...] records: care everywhere Has been seen at [facility] for acute problems since 2020. Reviewed outside medications treated with paxlovid September 01, 2021. Previously treated with acyclovir June, August, September 2021 for recurrent aphthous ulcer since childhood, interested in suppressive therapy. Currently taking acyclovir 400 mg BID. [facility] for anxiety and depression. Taking bupropion XL 150 mg daily, cwramo21 mg twice daily, hydroxyzine 25 mg 3 [...] screening for STD via diana Edwards to [facility]. Notes suppressive therapy for HSV seems [...] 2 TABLETS BY MOUTH ONCE DAILY NEEDED [id number]-vit K-lycop (ONE-A-DAY MEN'S MULTIVITAMIN) 400-20-300 mcg tab [...] (FLONASE) 50 mcg/actuation nasal spray Use 1 [place] in each nostril once daily. meloxicam (MOBIC) [...] 4 - Moderate documented in this encounter [facility] 06-14-2021 Instructions Rossy Valencia APRN.ELECTRONIC REPAIR TROUBLESHOOTER - 06/14/2021 12:19 PM EDT The Herpes [...] even between outbreaks. documented in this encounter [facility] 06-14-2021 History of Presen t illness Narrative This note was created using Bungolowriter. Subjective Emir Wise Drbell is a 35 [...] history is provided by the patient. No lang interpreter was used. Rash This is a recurrent [...] RELIEF) 50 mcg/actuation nasal spray Use 1 [place] in each nostril once daily. acyclovir (ZOVIRAX) [...] on response. Chart CC to Misa Valencia APRN.ELECTRONIC REPAIR TROUBLESHOOTER documented in this encounter [facility] Evaluation note Diagnosis Recurrent aphthous stomatitis- Primary Oral aphthae [facility] Routine medical exam- Primary Routine [...] pain, left Cervicalgia [facility] Diagnosis Neck pain, musculoskeletal- Primary Cervicalgia Chronic bilateral thoracic back pain [facility] Diagnosis Neck pain, musculoskeletal- Primary Cervicalgia Chronic bilateral thoracic back pain [facility] Diagnosis Neck pain, musculoskeletal- Primary Cervicalgia Chronic bilateral thoracic back pain [facility]* Diagnosis Onset Date Resolution Status Dermatitis acute Rash noneactive [facility] Work Phone: Evaluation note* Diagnosis Acute GI bleeding- Primary Hemorrhage of gastrointestinal tract, unspecified Kidney stone Calculus of kidney [facility]* Diagnosis Gastrointestinal hemorrhage, unspecified gastrointestinal hemorrhage type- Primary Renal calculus, left Calculus of kidney Hydronephrosis of left kidney Hydronephrosis Neck pain, musculoskeletal Cervicalgia Chronic bilateral thoracic back pain Gastroesophageal reflux disease, unspecified whether esophagitis present [facility]* Diagnosis Chronic bilateral thoracic back pain- Primary Neck pain, musculoskeletal Cervicalgia Cervicalgia documented [facility]* Diagnosis Neck pain, musculoskeletal- Primary Cervicalgia Chronic bilateral thoracic back pain [facility]* Diagnosis Gastrointestinal hemorrhage, unspecified gastrointestinal hemorrhage [...] history of arthritis [facility]* Diagnosis Chronic bilateral thoracic back pain- Primary Gastrointestinal hemorrhage, unspecified gastrointestinal hemorrhage type documented [facility]* Diagnosis Plantar fasciitis of left foot- Primary Plantar fascial fibromatosis Left foot pain Pain in limb Tinea pedis of both feet [facility] Diagnosis Mass of both upper extremities- Primary Palpable mass of lower back Mass of left hip region documented [facility]* Diagnosis Left foot pain Pain in limb [facility]* Diagnosis Low libido- Primary Decreased libido Fatigue, unspecified type Vitamin D deficiency Unspecified vitamin D deficiency Screening for lipid disorders Screening for depression Encounter for screening examination for other mental health and behavioral disorders documented in this encounter [facility] note* Diagnosis Neck pain, musculoskeletal Cervicalgia Chronic bilateral thoracic back pain documented [facility]* Diagnosis Elevated glucose- Primary Other abnormal glucose [facility]* Diagnosis Vitamin D deficiency- Primary Unspecified vitamin D deficiency [facility] Diagnosis SOBOE (shortness of breath on exertion)- Primary Shortness of breath Non-seasonal allergic rhinitis, unspecified trigger documented in this encounter [facility] note* Diagnosis Chronic bilateral thoracic back pain- Primary Radiculopathy, cervical region Brachial neuritis or radiculitis nos Cervical spondylosis without myelopathy documented in this encounter [facility] note* Diagnosis Non-seasonal allergic rhinitis, unspecified trigger [...] care physician for further outpatient evaluation and management.[facility] Work Phone: Reason for referral (narrative)* Outpatient Procedure (Routine) - Authorized Specialty Diagnoses / Procedures Referred By Stepan martinez Referred To Contact [facility] Diagnoses Acute GI bleeding Procedures COLONOSCOPY DIAGNOSTIC COLONOSCOPY FLX DX W/COLLJ SPEC WHEN PFRMD Tomas Hawkins MD [address] [place] [address] [address] Referral ID Status Reason Start Date Expiration Date Visits Requested Visits Authorized [id number] Authorized Auto-Generat ed Referral 09/07/2022 09/08/2023 1 1 * Outpatient Procedure (Routine) - Authorized Specialty Diagnoses / Procedures Referred By Stepan martinez Referred To Contact [facility] Diagnoses Acute GI bleeding Procedures EGD DIAGNOSTIC ESOPHAGOGASTRODUODENOSC OPY TRANSORAL DIAGNOSTIC Tomas Hawkins MD [address] [address] [facility] [place] [address] [place] [id number] Referral ID Status Reason Start Date Expiration Date Visits Requested Visits Authorized [id number] Authorized Auto-Generat ed Referral 09/07/2022 09/08/2023 1 1 [facility] for referral (narrative)* Diagnostic Procedure Only (Routine) - Authorized Specialty Diagnoses / Procedures Referred By Contac t Referred To Contact [facility] Diagnoses Mass of both upper extremities Procedures US EXTREMITY MASS/FLUID COLLECTION RIGHT Rosario oMffett APRN.ELECTRONIC REPAIR TROUBLESHOOTER [address] [place], [place] [id number] [place] [address] Referral ID Status Reason Start Date Expiration Date Visits Requested Visits Authorized [id number] Authorized Auto-Generat ed Referral 08/27/2023 09/25/2024 1 1 * Diagnostic Procedure Only (Routine) - Authorized Specialty Diagnoses / Procedures Referred By Contac t Referred To Contact [facility] Diagnoses Mass of both upper extremities Procedures US EXTREMITY MASS/FLUID COLLECTION LEFT Rosario Moffett APRN.ELECTRONIC REPAIR TROUBLESHOOTER [address] [place], [place] [id number] [place] [address] Referral ID Status Reason Start Date Expiration Date Visits Requested Visits Authorized [id number] Authorized Auto-Generat ed Referral 08/27/2023 09/25/2024 1 1 * Diagnostic Procedure Only (Routine) - Authorized Specialty Diagnoses / Procedures Referred By Contac t Referred To Contact [facility] Diagnoses Palpable mass of lower back Procedures US SOFT TISSUE ABDOMEN US ABDOMINAL REAL TIME W/IMAGE LIMITED Rosario Moffett APRN.ELECTRONIC REPAIR TROUBLESHOOTER [address] [place] [address] [place] [address] Referral ID Status Reason Start Date Expiration Date Visits Requested Visits Authorized [id number] Authorized Auto-Generat ed Referral 08/27/2023 09/25/2024 1 1 * Diagnostic Procedure Only (Routine) - Authorized Specialty Diagnoses / Procedures Referred By Contac t Referred To Contact [facility] Diagnoses Mass of left hip region Procedures US SOFT TISSUE PELVIS US PELVIC NONOBSTETRIC IMAGE DCMTN LIMITED/F/U Rosario Moffett APRN.ELECTRONIC REPAIR TROUBLESHOOTER [address] [place] [address] [place] [address] Referral ID Status Reason Start Date Expiration Date Visits Requested Visits Authorized [id number] Authorized Auto-Generat ed Referral 08/27/2023 09/25/2024 1 1 [facility] for referral (narrative)* Diagnostic Procedure Only (Routine) - Closed Specialty Diagnoses / Procedures Referred By Contac t Referred To Contact [facility] Diagnoses Left foot pain Procedures XR FOOT GENERAL 3V AP/LAT/OBL LEFT RADEX FOOT COMPLETE MINIMUM 3 VIEWS Misa Hager APRN.BROOM HANDLE DIPPER [address] [place] [address] [place] [address] Referral ID Status Reason Start Date Expiration Date V isits Requested Visits Authorized [id number] Closed Auto-Generate d Referral 05/24/2023 06/22/2024 1 1 [facility] for referral (narrative)* Diagnostic Procedure Only (Routine) - Closed Specialty Diagnoses / Procedures Referred By Contac t Referred To Contact [facility] Diagnoses Chronic bilateral thoracic back pain Procedures XR THORACIC GENERAL 3V AP/LAT/SWIMMERS RADEX SPINE THORACIC 3 VIEWS Deven Santillan MD [address] [place] [address] [place] [address] Referral ID Status Reason Start Date Expiration Date V isits Requested Visits Authorized [id number] Closed Auto-Generate d Referral 06/30/2022 07/30/2023 1 1 * Diagnostic Procedure Only (Routine) - Closed Specialty Diagnoses / Procedures Referred By Contac t Referred To Contact [facility] IMAG[facility] Diagnoses Neck pain, musculoskeletal Procedures XR CERV OTHER 4V AP/LAT/OBL RADEX SPINE CERVICAL 4 OR 5 VIEWS Deven Santillan MD [address] [place] [address] [place] [address] Referral ID Status Reason Start Date Expiration Date V isits Requested Visits Authorized [id number] Closed Auto-Generate d Referral 06/30/2022 07/30/2023 1 1 [facility] for visit Narrative* Diagnostic Procedure Only (Routine) - Closed Specialty Diagnoses / Procedures Referred By Contac t Referred To Contact [facility]AG[facility] Diagnoses Left foot pain Procedures XR FOOT GENERAL 3V AP/LAT/OBL LEFT RADEX FOOT COMPLETE MINIMUM 3 VIEWS Misa Hager, MANAGER CAMP.BROOM HANDLE DIPPER [address] [place] [address] [place] [address] Referral ID Status Reason Start Date Expiration Date V isits Requested Visits Authorized [id number] Closed Auto-Generate d Referral 05/24/2023 06/22/2024 1 1 [facility] for visit Narrative* Diagnostic Procedure Only (Routine) - Closed Specialty Diagnoses / Procedures Referred By Contac t Referred To Contact [facility] IMAG[facility] Diagnoses Chronic bilateral thoracic back pain Procedures XR THORACIC GENERAL 3V AP/LAT/SWIMMERS RADEX SPINE THORACIC 3 VIEWS Deven Santillan MD [address] [place] [address] [place] [address] Referral ID Status Reason Start Date Expiration Date V isits Requested Visits Authorized [id number] Closed Auto-Generate d Referral 06/30/2022 07/30/2023 1 1 [facility] Summary Purpose Family History No Family History Records FoundNo Family History Records FoundNo Family History Records FoundNo Family History Records Found Advance Directives Advance Directive Response Recorded Date/ Time Living Will No September 04, 2022 11:48am Power of Shoe Polisher No September 04 11:48am Reason for Referral Specialty Diagnoses / Procedures Referred By Contac t Referred To Contact [facility] Diagnoses Cervicalgia Procedures CONSULT TO PHYSICAL THERAPY PHYSICAL THERAPY EVALUATION [facility] COM[facility]X 45 MINS Misa Hager, MANAGER CAMP.BROOM HANDLE DIPPER [address] [place] [address] [facility] [place] [address] [place] [address] Referral ID Status Reason Start Date Expiration Date Visits Requested Visits Authorized [id number] Pending Review Auto-Generat ed Referral 10/24/2021 10/24/2022 1 1 Specialty Diagnoses / Procedures Referred By Contac t Referred To Contact Orthopedics Diagnoses Chronic wrist pain, left Procedures CONSULT TO ORTHOPAEDICS OFFICE/OUTPATIENT [facility] 60-74 MINUTES Misa Hager, MANAGER CAMP.BROOM HANDLE DIPPER [address] [place] [address] Referral ID Status Reason Start Date Expiration Date Visits Requested Visits Authorized [id number] Authorized PCP Requested Referral 10/24/2021 10/24/2022 1 1 Specialty Diagnoses / Procedures Referred By Contac t Referred To Contact [facility] IMAG[facility] Diagnoses Chronic wrist pain, left Procedures XR WRIST GENERAL 3V PA/LAT/OBL LEFT RADEX WRIST COMPLETE MINIMUM 3 VIEWS Misa Hager, MANAGER CAMP.BROOM HANDLE DIPPER [address] [place] [address] [facility] Referral ID Status Reason Start Date Expiration Date Visits Requested Visits Authorized [id number] Pending Review Auto-Generat ed Referral 10/24/2021 11/23/2022 1 1 Specialty Diagnoses / Procedures Referred By Contac t Referred To Contact [facility] Diagnoses Neck pain, musculoskeletal Chronic bilateral thoracic back pain Procedures PT REHAB FOLLOW UP ORDER THERAPEUTIC EXERCISES RE, EA 15 MIN. Pt [facility] [address] [place] [address] [facility] [place] [facility] [place] [address] Referral ID Status Reason Start Date Expiration Date Visits Requested Visits Authorized [id number] Pending Review PCP Requested Referral Auto-Generate d Referral 08/14/2022 11/12/2022 1 1 Specialty Diagnoses / Procedures Referred By Contac t Referred To Contact Diagnoses Neck pain, musculoskeletal Chronic bilateral thoracic back pain Misa Hager, MANAGER CAMP.BROOM HANDLE DIPPER [address] [place] [address] Referral ID Status Reason Start Date Expiration Date V isits Requested Visits Authorized [id number] Pending Review 1 1 Specialty Diagnoses / Procedures Referred By Contac t Referred To Contact Gastroenterology Diagnoses Gastrointestinal hemorrhage, unspecified gastrointestinal hemorrhage type Procedures CONSULT TO GASTROENTEROLOGY OFFICE/OUTPATIENT [facility] 60-74 MINUTES Misa Hager, MANAGER CAMP.BROOM HANDLE DIPPER [address] [place] [address] Referral ID Status Reason Start Date Expiration Date Visits Requested Visits Authorized [id number] Authorized PCP Requested Referral 09/07/2022 09/07/2023 1 1 Specialty Diagnoses / Procedures Referred By Contac t Referred To Contact [facility] [place] Diagnoses Chronic bilateral thoracic back pain Neck pain, musculoskeletal Cervicalgia Procedures CONSULT TO [facility] OFFICE/OUTPATIENT [facility] 60-74 MINUTES Misa Hager, MANAGER CAMP.BROOM HANDLE DIPPER [address] [place] [address] Referral ID Status Reason Start Date Expiration Date Visits Requested Visits Authorized [id number] Authorized PCP Requested Referral 09/08/2022 09/08/2023 1 1 Specialty Diagnoses / Procedures Referred By Contac t Referred To Contact [facility] [place] Diagnoses Neck pain, musculoskeletal Chronic bilateral thoracic back pain Procedures CONSULT TO [facility] OFFICE/OUTPATIENT [facility] 60-74 MINUTES HagerMisa mccormack, MANAGER CAMP.BROOM HANDLE DIPPER [address] [place] [address] Referral ID Status Reason Start Date Expiration Date Visits Requested Visits Authorized [id number] Authorized PCP Requested Referral 01/01/2023 01/01/2024 1 1 Referral ID Status Reason Start Date Expiration Date Visits Re quested Visits Authorized [id number] Denied 1 1 Specialty Diagnoses / Procedures Referred By Contac t Referred To Contact Diagnoses Neck pain, musculoskeletal Chronic bilateral thoracic back pain Procedures CONSULT TO MASSAGE THERAPY OFFICE/OUTPATIENT [facility]IGH [facility]DM 60-74 MINUTES Misa Hager, MANAGER CAMP.BROOM HANDLE DIPPER [address] [place] [address] Referral ID Status Reason Start Date Expiration Date Visits Requested Visits Authorized [id number] Pending Review PCP Requested Referral 01/01/2023 01/01/2024 1 1 Chief Complaint and Reason for Visit Chief Complaint Rash GI BLEED Reason for Visit Dermatitis Rash Additional Source Comments (unrecognized sect ion and content) No Status Records FoundNo Status Records FoundNo Status Records FoundNo Status Records Found INFORMATION SOURCE (unrecogn ized section and content) DATE CREATED AUTHOR 09/24/2017 [facility] DATE CREATED AUTHOR AUTHOR'S ORGANIZ ATION 05/15/2020 [facility] DATE CREATED AUTHOR AUTHOR'S ORGANIZ ATION 09/08/2022 [facility] DATE CREATED AUTHOR AUTHOR'S ORGANIZ ATION 09/15/2024 [facility] Source Comments (unrecognize d section and content) In the event this informatio n is protected by the Federal Confidentiality of Alcohol and Drug Abuse Patient Records regulations: The Federal rules restrict any use of the information to criminally investigate or prosecute any alcohol or drug abuse patient.[facility] event this information is protected by the Federal Confidentiality of Alcohol and Drug Abuse Patient Records regulations: The Federal rules restrict any use of the information to criminally investigate or prosecute any alcohol or drug abuse patient.[facility] the event this information is protected by the Federal Confidentiality of Alcohol and Drug Abuse Patient Records regulations: The Federal rules restrict any use of the information to criminally investigate or prosecute any alcohol or drug abuse patient.[facility] the event this information is protected by the Federal Confidentiality of Alcohol and Drug Abuse Patient Records regulations: The Federal rules restrict any use of the information to criminally investigate or prosecute any alcohol or drug abuse patient.[facility] the event this information is protected by the Federal Confidentiality of Alcohol and Drug Abuse Patient Records regulations: The Federal rules restrict any use of the information to criminally investigate or prosecute any alcohol or drug abuse patient.[facility] the event this information is protected by [...] or prosecute any alcohol or drug abuse patient.[facility] the event this information is protected by the Federal Confidentiality of Alcohol and Drug Abuse Patient Records regulations: The Federal rules restrict any use of the information to criminally investigate or prosecute any alcohol or drug abuse patient.[facility] the event this information is protected by the Federal Confidentiality of Alcohol and Drug Abuse Patient Records regulations: The Federal rules restrict any use of the information to criminally investigate or prosecute any alcohol or drug abuse patient.[facility] the event this information is protected by the Federal Confidentiality of Alcohol and Drug Abuse Patient Records regulations: The Federal rules restrict any use of the information to criminally investigate or prosecute any alcohol or drug abuse patient.[facility] the event this information is protected by the Federal Confidentiality of Alcohol and Drug Abuse Patient Records regulations: The Federal rules restrict any use of the information to criminally investigate or prosecute any alcohol or drug abuse patient.[facility] the event this information is protected by the Federal Confidentiality of Alcohol and Drug Abuse Patient Records regulations: The Federal rules restrict any use of the information to criminally investigate or prosecute any alcohol or drug abuse patient.[facility] the event this information is protected by the Federal Confidentiality of Alcohol and Drug Abuse Patient Records regulations: The Federal rules restrict any use of the information to criminally investigate or prosecute any alcohol or drug abuse patient.[facility] the event this information is protected by the Federal Confidentiality of Alcohol and Drug Abuse Patient Records regulations: The Federal rules restrict any use of the information to criminally investigate or prosecute any alcohol or drug abuse patient.[facility] the event this information is protected by the Federal Confidentiality of Alcohol and Drug Abuse Patient Records regulations: The Federal rules restrict any use of the information to criminally investigate or prosecute any alcohol or drug abuse patient.[facility] the event this information is protected by the Federal Confidentiality of Alcohol and Drug Abuse Patient Records regulations: The Federal rules restrict any use of the information to criminally investigate or prosecute any alcohol or drug abuse patient.[facility] the event this information is protected by the Federal Confidentiality of Alcohol and Drug Abuse Patient Records regulations: The Federal rules restrict any use of the information to criminally investigate or prosecute any alcohol or drug abuse patient.[facility] the event this information is protected by the Federal Confidentiality of Alcohol and Drug Abuse Patient Records regulations: The Federal rules restrict any use of the information to criminally investigate or prosecute any alcohol or drug abuse patient.[facility] the event this information is protected by the Federal Confidentiality of Alcohol and Drug Abuse Patient Records regulations: The Federal rules restrict any use of the information to criminally investigate or prosecute any alcohol or drug abuse patient.[facility] the event this information is protected by the Federal Confidentiality of Alcohol and Drug Abuse Patient Records regulations: The Federal rules restrict any use of the information to criminally investigate or prosecute any alcohol or drug abuse patient.[facility] the event this information is protected by the Federal Confidentiality of Alcohol and Drug Abuse Patient Records regulations: The Federal rules restrict any use of the information to criminally investigate or prosecute any alcohol or drug abuse patient.[facility] the event this information is protected by the Federal Confidentiality of Alcohol and Drug Abuse Patient Records regulations: The Federal rules restrict any use of the information to criminally investigate or prosecute any alcohol or drug abuse patient.[facility] the event this information is protected by the Federal Confidentiality of Alcohol and Drug Abuse Patient Records regulations: The Federal rules restrict any use of the information to criminally investigate or prosecute any alcohol or drug abuse patient.[facility] the event this information is protected by the Federal Confidentiality of Alcohol and Drug Abuse Patient Records regulations: The Federal rules restrict any use of the information to criminally investigate or prosecute any alcohol or drug abuse patient.[facility] the event this information is protected by the Federal Confidentiality of Alcohol and Drug Abuse Patient Records regulations: The Federal rules restrict any use of the information to criminally investigate or prosecute any alcohol or drug abuse patient.[facility] HospitalIn the event this information is protected by the Federal Confidentiality of Alcohol and Drug Abuse Patient Records regulations: The Federal rules restrict any use of the information to criminally investigate or prosecute any alcohol or drug abuse patient.[facility] HospitalIn the event this information is protected by the Federal Confidentiality of Alcohol and Drug Abuse Patient Records regulations: The Federal rules restrict any use of the information to criminally investigate or prosecute any alcohol or drug abuse patient.[facility] HospitalIn the event this information is protected by the Federal Confidentiality of Alcohol and Drug Abuse Patient Records regulations: The Federal rules restrict any use of the information to criminally investigate or prosecute any alcohol or drug abuse patient.[facility] HospitalIn the event this information is protected by the Federal Confidentiality of Alcohol and Drug Abuse Patient Records regulations: The Federal rules restrict any use of the information to criminally investigate or prosecute any alcohol or drug abuse patient.[facility] HospitalIn the event this information is protected by the Federal Confidentiality of Alcohol and Drug Abuse Patient Records regulations: The Federal rules restrict any use of the information to criminally investigate or prosecute any alcohol or drug abuse patient.[facility] HospitalIn the event this information is protected by the Federal Confidentiality of Alcohol and Drug Abuse Patient Records regulations: The Federal rules restrict any use of the information to criminally investigate or prosecute any alcohol or drug abuse patient.[facility] HospitalIn the event this information is protected by the Federal Confidentiality of Alcohol and Drug Abuse Patient Records regulations: The Federal rules restrict any use of the information to criminally investigate or prosecute any alcohol or drug abuse patient.[facility] HospitalIn the event this information is protected by the Federal Confidentiality of Alcohol and Drug Abuse Patient Records regulations: The Federal rules restrict any use of the information to criminally investigate or prosecute any alcohol or drug abuse patient.[facility] Reason for Visit (unrecogniz ed section and [...] COMPLEX 45 MINS Deven Santillan MD [address] [place] [address] Pt [facility] [address] [place] [address] Referral ID Status Reason Start Date Expiration Date V isits Requested Visits Authorized [id number] Authorized 02/26/2022 02/25/2023 60 60 Reason Comments Physical Therapy Specialty Diagnoses / Procedures Referred By Contac t Referred To Contact PHYSICAL THERAPY Diagnoses Neck pain, musculoskeletal Chronic bilateral thoracic back pain Procedures CONSULT TO PHYSICAL THERAPY PHYSICAL THERAPY EVALUATION HIGH COMPLEX 45 MINS Deven Santillan MD [address] [place] [address] Pt [facility] [address] [place] [address] Reason Comments Consult GI bleed, 09/04/22 CT images [facility] requested to be pushed. Reason Comments [...] NEW HIGH MDM 60 MINUTES Misa Hager, JERZY.BROOM HANDLE DIPPER [address] [place] [address] Referral ID Status Reason Start Date Expiration Date V isits Requested Visits Authorized [id number] Closed PCP Requested Referral 05/24/2023 05/23/2024 1 [...] BRNCDILAT RSPSE SPMTRY PRE&POST-BRNCDILAT ADMN Misa Hager, MANAGER CAMP.BROOM HANDLE DIPPER [address] [place] [address] Phone: tel: fax: [facility] [address] [place] [address] Referral ID Status Reason Start Date Expiration Date V isits Requested Visits Authorized [id number] Closed Auto-Generate d Referral 06/26/2024 02/25/2025 1 1 Reason Comments New Patient Neck Pain Pain (Shoulder Pain) left Back Pain (Upper Back) Arm Pain left Specialty Diagnoses / Procedures Referred By Stepan martinez Referred To Contact [facility] / SPINE Diagnoses Chronic bilateral thoracic back pain Procedures CONSULT TO [facility] OFFICE/OUTPATIENT NEW HIGH MDM 60 MINUTES Misa Hager, MANAGER CAMP.BROOM HANDLE DIPPER [address] [place] [address] Phone: tel: fax: [facility] [address] [place] [id number] Phone: tel: Referral ID Status Reason Start Date Expiration Date V isits Requested Visits Authorized [id number] Closed PCP Requested Referral 08/14/2024 02/25/2025 1 1 Reason Onset Date Comments Refill Request 09/10/2024 Reason Onset Date Comments Refill Request 09/27/2024 Care Teams (unrecognized sec tion and content) Hide Washer Relationship Specialty Start Date End Date Deven Santillan MD [address] [place] [address] PCP - General Internal Medicine 10/24/21 Hide Washer Relationship Specialty [place] [address] [place] [address] [place] [address] PCP - General Internal Medicine 10/24/21 Hide Washer Relationship Specialty Start Date End Date Deven Santillan MD [address] [place] [address] PCP - General Internal Medicine 10/24/21 Hide Washer Relationship Specialty Start Date End Date Deven Santillan MD [address] [place] [address] PCP - General Internal Medicine 10/24/21 Hide Washer Relationship Specialty Start Date End Date Deven Santillan MD [address] [place] [address] PCP - General Internal Medicine 10/24/21 Hide Washer Relationship Specialty Start Date End Date Deven Santillan MD [address] [place] [address] PCP - General Internal Medicine 10/24/21 Hide Washer Relationship Specialty Start Date End Date Deven Santillan MD [address] [place] [address] PCP - General Internal Medicine 10/24/21 Team Status: Active Member Role Status Dates Dr. Deven Santillan MD Primary Care Provider Active Team Status: Inactive Member Role Status Dates [facility] Primary Care Provider, Referring Provider Active Gissell CAVANAUGH, PA Attending Provider Active Team Status: Inactive Member Role Status Dates Dr. Filiberto Power DO Emergency Provider Active Dr. Deven Santillan MD Primary Care Provider Active Hide Washer Relationship Specialty Start Date End Date Deven Santillan MD [address] [place] [address] PCP - General Internal Medicine 10/24/21 Hide Washer Relationship Specialty Start Date End Date Deven Santillan MD [address] [place] [address] PCP - General Internal Medicine 10/24/21 Hide Washer Relationship Specialty Start Date End Date Deven Santillan MD [address] [place] [address] PCP - General Internal Medicine 10/24/21 Hide Washer Relationship Specialty Start Date End Date Deven Santillan MD [address] [place] [address] PCP - General Internal Medicine 10/24/21 Hide Washer Relationship Specialty Start Date End Date Deven Santillan MD [address] [place] [address] PCP - General Internal Medicine 10/24/21 Hide Washer Relationship Specialty Start Date End Date Deven Santillan MD [address] [place] [address] PCP - General Internal Medicine 10/24/21 Hide Washer Relationship Specialty Start Date End Date Deven Santillan MD [address] [place] [address] PCP - General Internal Medicine 10/24/21 Hide Washer Relationship Specialty Start Date End Date Deven Santillan MD [address] [place] [address] PCP - General Internal Medicine 10/24/21 Hide Washer Relationship Specialty Start Date End Date Deven Santillan MD [address] [place] [address] PCP - General Internal Medicine 10/24/21 Hide Washer Relationship Specialty Start Date End Date Deven Santillan MD [address] [place] [address] PCP - General Internal Medicine 10/24/21 Hide Washer Relationship Specialty Start Date End Date Deven Santillan MD [address] [place] [address] PCP - General Internal Medicine 10/24/21 Hide Washer Relationship Specialty Start Date End Date Deven Santillan MD [address] [place] [address] PCP - General Internal Medicine 10/24/21 Hide Washer Relationship Specialty Start Date End Date Deven Santillan MD [address] [place] [address] PCP - General Internal Medicine 10/24/21 Hide Washer Relationship Specialty Start Date End Date Deven Santillan MD [address] [place] [address] PCP - General Internal Medicine 10/24/21 Hide Washer Relationship Specialty Start Date End Date Deven Santillan MD [address] [place] [address] PCP - General Internal Medicine 10/24/21 Hide Washer Relationship Specialty Start Date End Date Deven Santillan MD [address] [place] [address] PCP - General Internal Medicine 10/24/21 Hide Washer Relationship Specialty Start Date End Date Deven Santillan MD [address] [place] [address] PCP - General Internal Medicine 10/24/21 Misa Hager, JERZY.BROOM HANDLE DIPPER [address] [place] [address] [employer] P[facility] Internal Medicine 02/04/24 Hide Washer Relationship Specialty Start Date End Date Deven Santillan MD [address] [place] [address] PCP - General Internal Medicine 10/24/21 Misa Hager, JERZY.BROOM HANDLE DIPPER [address] [place] [address] [employer] P[facility] Internal Medicine 02/04/24 Rosario Moffett MANAGER CAMP.ELECTRONIC REPAIR TROUBLESHOOTER [address] [place] [address] [employer] Internal Medicine 05/20/24 Hide Washer Relationship Specialty Start Date End Date Deven Santillan MD [address] [place] [address] PCP - General Internal Medicine 10/24/21 Misa Hager, MANAGER CAMP.BROOM HANDLE DIPPER [address] [place] [address] Gas P[facility] Internal Medicine 02/04/24 07/15/24 Rosario Moffett MANAGER CAMP.ELECTRONIC REPAIR TROUBLESHOOTER [address] [place] [address] Gas P[employer] Internal Medicine 05/20/24 Misa Hager, MANAGER CAMP.BROOM HANDLE DIPPER [address] [place] [address] [employer] P[employer] Internal Medicine 07/16/24 Hide Washer Relationship Specialty Start Date End Date Deven Santillan MD [address] [place] [address] PCP - General Internal Medicine 10/24/21 Rosario Moffett APRN.ELECTRONIC REPAIR TROUBLESHOOTER [address] [place] [address] [employer] P[employer] Internal Medicine 05/20/24 Misa Hager APRN.BROOM HANDLE DIPPER [address] [place] [address] Gas P[employer] Internal Medicine 07/16/24 Hide Washer Relationship Specialty Start Date End Date Deven Santillan MD [address] [place] [address] PCP - General Internal Medicine 10/24/21 Rosario Moffett APRN.ELECTRONIC REPAIR TROUBLESHOOTER [address] [place] [address] Gas P[employer] Internal Medicine 05/20/24 Misa Hager, MANAGER CAMP.BROOM HANDLE DIPPER [address] [place] [address] [employer] Internal Medicine 07/16/24 Hide Washer Relationship Specialty Start Date End Date Deven Santillan MD [address] [place] [address] PCP - General Internal Medicine 10/24/21 Rosario Moffett MANAGER CAMP.ELECTRONIC REPAIR TROUBLESHOOTER [address] [place] [address] Gas P[employer] Internal Medicine 05/20/24 HagerMisa APRN.[facility] [address] [place] [address] [facility] Internal Medicine 07/16/24 Goals (unrecognized section [...] BE BASED ON THE PRIMARY CLINICAL RECORDS. [facility]. provides no warranty or guarantee of the accuracy or completeness of information in this document.
[2024-10-25 14:59] LABS: Hematocrit 44.6 % (40-54); Hemoglobin 15.3 g/dL (13.0-16.5); Immature Granulocytes Count 0.060 X10^3/uL (0.0-0.0); Mean Corp Hgb Conc 34.3 g/dL (32-36); Mean Corpuscular Volume 84.8 fL (80-94); Mean Platelet Vol. 10.2 fl (6.2-12.0); NRBC Flagged by Analyzer 0 % (0-5); Platelet Count 282 K/mm3 (150-450); RBC Distribution Width CV 13.8 % (11.6-14.6); RBC Distribution Width SD 42.6 fl (35.1-43.9); Red Blood Count 5.26 M/mm3 (4.6-6.2); White Blood Count 9.9 K/mm3 (4.4-11.0)
[2024-10-25 15:00] VITALS: BP 134/85; PULSE 59; RESP 22; O2SAT 97
[2024-10-25 15:11] LABS: Lipase 26 U/L (13-75)
[2024-10-25 15:22] LABS: AST(SGOT) 21 U/L (<=37); Alanine Aminotransfer ALT/SGPT 18 U/L (<=46); Albumin, Serum 4.2 g/dL (3.5-5.0); Alkaline Phosphatase 75 U/L (40-129); Anion Gap 13 (5-15); BUN 16 mg/dL (4-19); Calcium,Total 9.4 mg/dL (7.6-11.0); Carbon Dioxide 20.4 mmol/L (21.0-32.0); Chloride 105 mmol/L (98-108); Globulin 3.0 g/dL (2.2-4.2); Glucose 105 mg/dL (70-99); Potassium 3.9 mmol/L (3.3-5.1)
[2024-10-25 15:25] VITALS: BP 134/87; PULSE 63; RESP 16; O2SAT 96
[2024-10-25 15:26] LABS: BUN/Creat Ratio 13.6 RATIO (10-20); Estimated Creatinine Clearance 118.24 ml/min (50-250)
[2024-10-25 15:57] LABS: Color, Urine Yellow (Yellow); Glucose, Dipstick Normal (Normal); Ketone-Dipstick Negative (Negative); Leukocyte Esterase-Dipstick Negative /ul (Negative); Nitrite-Dipstick Negative (Negative); Occult Blood-Urine 250 /ul (Negative); Protein-Dipstick 30 mg/dl (Negative); Specific Gravity, Urine 1.015 (1.002-1.030); Urine Bilirubin Dipstick Negative (Negative)
[2024-10-25 16:00] VITALS: BP 145/87; PULSE 66; RESP 16; O2SAT 100
[2024-10-25 16:07] LABS: Mucous, Urine 1+ /hpf (<or=2+); Red Blood Cells-Urine > 100 SEEN /hpf (0-5); Squamous Epithelial Cells - UA 0-5 SEEN /hpf (0-5)
[2024-10-25 16:59] VITALS: BP 145/87; PULSE 65; RESP 15; TEMP 36.4; O2SAT 100
== END 2024-10-25 17:02 | disposition home or self-care (01) ==
PROVIDERS: Emergency Provider Emergency Medicine; PCP Internal Medicine; Visit Provider Emergency Medicine
DX: R10.9 Unspecified abdominal pain (principal); N20.0 Calculus of kidney; Z87.891 Personal history of nicotine dependence; Z86.16 Personal history of COVID-19
CPT/HCPCS: 74176; 80053; 81001; 83690; 85025; 96361; 96374; 96375; 99283; A4216; J2405